=== PATIENT | female | born 1955 | race African-American/Black ===

== ENCOUNTER 2018-12-28 14:36 | Inpatient (IN) | payer OTHER ==
--- NOTE | 2018-12-28 14:46 | PDOC ---
Rapid Medical Evaluation Chief Complaint: Pain Time Seen by Provider: 12/28/18 14:41 Medical Evaluation: Allergies Allergy/AdvReac Type Severity Reaction Status Date / Time No Known Drug Allergies Allergy Verified 03/04/14 10:20 12/28/18 14:41 63 year old female c/o abdominal pain no BM for 10 days, patient is noted to be low sating in triage. patient reports that she has pain under her left breast and left shoulder PMHX: HTN, diabetes, amputee Left AKA. PE: patient alert ox3. distended abdomen, slight labored breathing A: abdominal pain P: labs EKG chest xray patient to the er FOR further management of care. Discharge Disposition - Diagnosis Abdominal pain Qualifiers: Abdominal location: generalized Qualified Code(s): R10.84 - Generalized abdominal pain Chest pain Qualifiers: Chest pain type: unspecified Qualified Code(s): R07.9 - Chest pain, unspecified - Referrals - Patient Instructions - Post Discharge Activity
--- NOTE | 2018-12-28 15:43 | PDOC ---
History of Present Illness - General Chief Complaint: Pain Stated Complaint: SICK Time Seen by Provider: 12/28/18 14:41 History Source: Patient, Family - History of Present Illness Initial Comments: 12/28/18 15:38 63 yo F PMH HTN, DM, IVC filter, Depression, L AKA , presents to the ED for weakness, SOB. Pt states she is having a problem with her speech which has worsening especially over the past week. patient was unable to provide a thorough history, but cousin at bedside provided history. she states that they came to visit [place] on 12/14 and since then her health began to deteriorate. pt hasnt been as compliant with her medications and has not been checking her sugar. she has not had a BM since 12/18 although cousin states there is stool in rectum. she states pt has decreased strength as well and becomes more sob than usual. Past History - Past Medical History Allergies/Adverse Reactions: Allergies Allergy/AdvReac Type Severity Reaction Status Date / Time No Known Drug Allergies Allergy Verified 12/28/18 14:46 Home Medications: Ambulatory Orders Amlodipine Besylate [Norvasc -] 10 mg PO DAILY 02/21/14 Aripiprazole [Abilify -] 10 mg PO DAILY 02/21/14 Citalopram Hydrobromide [Citalopram HBr] 20 mg PO DAILY 02/21/14 Celecoxib [Celebrex] 200 mg PO DAILY 12/28/18 Gabapentin [Neurontin -] 300 mg PO TID 12/28/18 Gabapentin [Neurontin] 300 mg PO TID 12/28/18 Latanoprost 0.005% Eye Drops [Xalatan 0.005% Eye Drops -] 1 drop OP HS 12/28/18 Metformin HCl [Glucophage] 500 mg PO BID 12/28/18 Oxybutynin Chloride [Oxybutynin Chloride ER] 5 mg PO DAILY 12/28/18 Topiramate [Topamax] 25 mg PO DAILY 12/28/18 Anemia: Yes Asthma: No Cancer: No Cardiac Disorders: No CVA: No COPD: Yes CHF: No Dementia: No Diabetes: Yes (IDDM) GI Disorders: No Disorders: No HTN: Yes Hypercholesterolemia: No Liver Disease: Yes Seizures: No Thyroid Disease: No - Surgical History Abdominal Surgery: Yes Appendectomy: No Cardiac Surgery: No Cholecystectomy: No Lung Surgery: No Neurologic Surgery: Yes (ZAVALA [place] INSERTION AT 11 YRS OLD) Orthopedic Surgery: No - Immunization History Immunization Up to Date: Yes - Psycho Social/Smoking Cessation Hx Smoking History: Never smoked Have you smoked in the past 12 months: No Hx Alcohol Use: No Drug/Substance Use Hx: No Substance Use Type: None Hx Substance Use Treatment: No Review of Systems - Review of Systems Constitutional: Yes: Chills. No: Fever Respiratory: Yes: Shortness of Breath, SOB with Exertion Cardiac (ROS): No: Chest Pain ABD/GI: Yes: Abdominal Distended, Constipated, Poor Appetite. No: Nausea, Vomiting : Yes: Frequency. No: Dysuria Neurological: Yes: Weakness, Other (difficulty with speech ) *Physical Exam - Vital Signs Last Vital Signs Temp Pulse Resp BP Pulse Ox 97.9 F 88 20 161/80 92 L 12/28/18 14:39 12/28/18 14:39 12/28/18 14:39 12/28/18 14:39 12/28/18 14:39 - Physical Exam General Appearance: Yes: Nourished, Appropriately Dressed, Obese Respiratory/Chest: positive: Labored Respiration, Decreased Breath Sounds, Other (tachypnea ) Cardiovascular: positive: Regular Rhythm, Regular Rate, S1, S2 Gastrointestinal/Abdominal: positive: Decreased BS, Distended Integumentary: positive: Normal Color, Dry, Warm Neurologic: positive: bi report developer II-XII NML intact, Other (difficulty with speech and word finding ). negative: Facial Droop ED Treatment Course - LABORATORY CBC & Chemistry Diagram: 12/28/18 15:30 12/28/18 17:41 - RADIOLOGY Radiology Studies Ordered: Category Date Time Status HEAD CT WITHOUT CONTRAST [CT] Stat CT Scan 12/28/18 15:32 Ordered CXRPORT [CHEST X-RAY PORTABLE*] [RAD] Stat Radiology 12/28/18 15:33 Ordered Medical Decision Making - Medical Decision Making 12/28/18 15:45 63 yo F presenting with SOB, abdominal distention, diabetes r/o DKA r/o partial SBO? r/o ACS, TIA , stroke r/o pna -CBC,CMP, UA -cardiac profile, EKG -sepsis workup: BCx, UCx, CXR, lactate , VBG -head CT -Abdomen Pelvis CT, pending BUN/Cr for contrast use -BGM , beta hydroxybutyrate -NC Oxygen as pt sat low, tachypneic 12/28/18 15:48 12/28/18 15:49 12/28/18 18:58 - no acute intracranial pathology on CT -lactate elevated' -BGM 88, not DKA 12/28/18 18:59 12/28/18 19:16 consulted neuro, Dr. Mcgarry, recommended admit for possible brain MRI in Am 12/28/18 20:13 -duplex no DVT 12/28/18 23:17 CT abdomen/ pelvis: multiplanar imaging was performed following the venous administration of nonionic contrast. Enteric contrast was not administered. No prior imaging studies are available at this facility for direct comparison. No evidence of pneumoperitoneum, free intraperitoneal fluid, abscess or bowel obstruction. Allowing for somewhat diminished soft tissue detail as a result of body habitus the spleen, pancreas, gallbladder, adrenal glands and kidneys demonstrate no obvious pathology. Diffuse fatty infiltration of the liver is seen. No gross hepatic mass lesion is identified. There is no aortic aneurysm. No CT evidence of acute appendicitis or diverticulitis. There is no gross noncontrast small bowel pathology. Colonic fecal retention is noted which is probably moderate. Absent versus atrophic uterus. No obvious adnexal pathology is seen. The urinary bladder appears mildly overdistended which may be on a physiologic basis. Correlate clinically. inferior vena cava filter in place. Moderate to marked thoracolumbar scoliosis. Multilevel thoracolumbar surgical instrumentation. Discharge - Discharge Information Clinical Impression/Diagnosis: Abdominal pain Qualifiers: Abdominal location: generalized Qualified Code(s): R10.84 - Generalized abdominal pain Chest pain Qualifiers: Chest pain type: unspecified Qualified Code(s): R07.9 - Chest pain, unspecified Condition: Good - Admission Yes - Follow up/Referral - Patient Discharge Instructions - Post Discharge Activity
--- NOTE | 2018-12-28 15:46 | PDOC ---
Attending Attestation - Resident Resident Name: Norah Kenyon - ED Attending Attestation I have performed the following: I have examined & evaluated the patient, The case was reviewed & discussed with the resident, I agree w/resident's findings & plan, Exceptions are as noted - HPI HPI: 12/28/18 15:32 63 F with h/o DM, L BKA, HTN, presenting to ED with word-finding difficulties. Per family member at bedside, pt has been visiting from [place] since last week, over which time she has not been taking her medications or checking her sugars. She states that she left all her meds at home. Family notes that her speech has become progressively more confused. Pt complains that she has a hard time finding her words. She also reports abdominal pain and constipation. Last BM was reportedly 10 days ago. Denies F/C. Denies CP/SOB. - Physicial Exam PE: 12/28/18 15:46 GENERAL: Awake, alert, in mild respiratory distress. HEAD: No signs of trauma EYES: PERRLA, EOMI, sclera anicteric, conjunctiva clear ENT: Auricles normal inspection, hearing grossly normal, nares patent, oropharynx clear without exudates. Moist mucosa NECK: Nontender, no stepoffs, Normal ROM, supple, no lymphadenopathy, JVD, or masses LUNGS: Breath sounds equal, clear to auscultation bilaterally. No wheezes, and no crackles HEART: Regular rate and rhythm, normal S1 and S2, no murmurs, rubs or gallops ABDOMEN: Soft, distended, normoactive bowel sounds. No guarding, no rebound. No masses EXTREMITIES: + L BKA NEUROLOGICAL: Cranial nerves II through XII intact. 5/5 strength and sensation in all extremities, Normal speech, normal gait, normal cerebellar function SKIN: Warm, Dry, normal turgor, no rashes or lesions noted. - Medical Decision Making 12/28/18 15:47 63 F with word finding difficulty. Concerning for CVA. Last known normal was 1 week ago. Pt also with tachypnea and hypoxia in ED in the setting of noncompliance with her medications. WIll evaluate for metabolic derangement. Possible sepsis. - Labs, cultures - CXR, UA - CT head
[2018-12-28 16:53] LABS: BASO % 0.5 % (0-2.0); EOS % 3.5 % (0-4.5); HEMATOCRIT 37.5 % (32.4-45.2); HEMOGLOBIN 11.5 GM/dL (10.7-15.3); LYMPH % 18.6 % (8-40); MCH 22.5 pg (25.7-33.7); MCHC 30.6 g/dl (32.0-36.0); MEAN CELL VOLUME 73.6 fl (80-96); MEAN PLT VOLUME 10.2 fl (7.5-11.1); MONO % 11.6 % (3.8-10.2); NEUT % 65.8 % (42.8-82.8); PLATELET COUNT 169 K/MM3 (134-434); RDW 19.4 % (11.6-15.6); WHITE BLOOD COUNT 7.8 K/mm3 (4.0-10.0)
[2018-12-28 17:13] LABS: EPI CELLS 0.9 /HPF (0-5/HPF); HYALINE CASTS 2 /lpf (0-8); PH,URINE 7.5 (5.0-8.0); URINE APPEARANCE CLEAR; URINE BACTERIA 10.3 /hpf (NEGATIVE); URINE BILIRUBIN NEGATIVE (NEGATIVE); URINE COLOR YELLOW; URINE GLUCOSE (UA) NEGATIVE (NEGATIVE); URINE KETONE NEGATIVE (NEGATIVE); URINE LEUK ESTERASE NEGATIVE (NEGATIVE); URINE NITRITE NEGATIVE (NEGATIVE); URINE PROTEIN 1+ (NEGATIVE); URINE WBC 1 /hpf (0-5)
[2018-12-28 18:22] LABS: ALBUMIN 2.9 g/dl (3.4-5.0); ALK PHOS 143 U/L (45-117); ANION GAP 6 MMOL/L (8-16); BILIRUBIN,TOTAL 0.3 mg/dL (0.2-1); BLOOD UREA NITROGEN 20.2 mg/dL (7-18); CALCIUM 9.6 mg/dL (8.5-10.1); CHLORIDE 112 mmol/L (98-107); CO2 26 mmol/L (21-32); CREATININE 1.2 mg/dL (0.55-1.3); GLUCOSE,RANDOM 84 mg/dL (74-106); LIPASE 124 U/L (73-393); MAGNESIUM 1.9 mg/dL (1.8-2.4); N-TERMINAL BNP 41.1 pg/ml (5-125); PHOSPHOROUS 3.3 mg/dL (2.5-4.9); POTASSIUM 4.4 mmol/L (3.5-5.1); SGOT/AST 43 U/L (15-37); SGPT/ALT 37 U/L (13-61); SODIUM 144 mmol/L (136-145); TOT PROT 7.6 g/dl (6.4-8.2)
[2018-12-28] MEDS ORDERED: SODIUM CHLORIDE 500 ML IV STA (18:58)
[2018-12-28 20:26] LABS: URINE RBC 11.9 /hpf (0-4)
--- NOTE | 2018-12-29 00:52 | HP ---
CHIEF COMPLAINT: increased difficulty speech PCP: [facility] PCP HISTORY OF PRESENT ILLNESS: 63F w pmh of HTN, NIDDM, LLE wound s/p L AKA(~1999), IVC filter presenting with complaint of increased difficult of speech x1week. Words have been slowed, sentences have been shortened, worsened memory. Denies recent falls, traumas. Also endorses worsening throbbing Right calf-foot pain, Left-upper abd pain. Had nausea-vomiting x2 of greenish fluid last week. Has been noncompliant with medications due to the belief that combining her daily wine coolers w/ medications is bad. Denies h/o TN, stroke, irreg heart beats, palpitations. Denies weakness of her limbs. Ambulates with WC. Pt is visiting [place] from [place]. Patient's family not available at bedside to provide supplemental history. ER course was notable for: (1) Lactic acid 4.2 (2) NS 500ml x1 (3) CTH: neg intracranial path (4) CT A/P: colonic fecal retention, absent-atrophic uterus (5) LE duplex: neg DVT (6) Neuro(Malkani): will eval pt in AM, may need MRI brain Recent Travel: none PAST MEDICAL HISTORY: HTN, NIDDM, LLE wound s/p L AKA(~1999), IVC filter PAST SURGICAL HISTORY: L AKA(~1999) IVC filter(>10ys?) Hysterectomy Social History: Smoking: quit in 1998 Alcohol: drinks 1 wine cooler a few times week Drugs: denies Allergies No Known Drug Allergies Allergy (Verified 12/28/18 14:46) HOME MEDICATIONS: Home Medications Medication Instructions Recorded Amlodipine Besylate [Norvasc -] 10 mg PO DAILY 02/21/14 Aripiprazole [Abilify -] 10 mg PO DAILY 02/21/14 Citalopram Hydrobromide 20 mg PO DAILY 02/21/14 [Citalopram HBr] Celecoxib [Celebrex] 200 mg PO DAILY 12/28/18 Gabapentin [Neurontin -] 300 mg PO TID 12/28/18 Gabapentin [Neurontin] 300 mg PO TID 12/28/18 Latanoprost 0.005% Eye Drops 1 drop OP HS 12/28/18 [Xalatan 0.005% Eye Drops -] Metformin HCl [Glucophage] 500 mg PO BID 12/28/18 Oxybutynin Chloride [Oxybutynin 5 mg PO DAILY 12/28/18 Chloride ER] Topiramate [Topamax] 25 mg PO DAILY 12/28/18 REVIEW OF SYSTEMS CONSTITUTIONAL: fever 3-4weeks prior Absent: chills, diaphoresis, generalized weakness, malaise, loss of appetite, weight change HEENT: Absent: rhinorrhea, nasal congestion, throat pain, throat swelling, difficulty swallowing, mouth swelling, ear pain, eye pain, visual changes CARDIOVASCULAR: Absent: chest pain, syncope, palpitations, irregular heart rate, lightheadedness , peripheral edema RESPIRATORY: Absent: cough, shortness of breath, dyspnea with exertion, wheezing, stridor, hemoptysis GASTROINTESTINAL: upper abdominal pain, not associated w/ food; nausea/vomiting x2 episodes Absent: abdominal distension, diarrhea, constipation, melena, hematochezia GENITOURINARY: Absent: dysuria, frequency, urgency, hesitancy, hematuria, flank pain, genital pain MUSCULOSKELETAL: Absent: myalgia, arthralgia, joint swelling, back pain, neck pain SKIN: Absent: rash, itching, pallor NEUROLOGIC: increasing difficult with speech, mild temporal CHAU Absent: focal weakness or paresthesias, dizziness, unsteady gait, seizure, mental status changes, bladder or bowel incontinence PHYSICAL EXAMINATION Vital Signs - 24 hr 12/28/18 12/28/18 12/28/18 14:39 21:46 23:22 Temperature 97.9 F 98.9 F Pulse Rate 88 Pulse Rate [ 81 Radial] Respiratory 20 20 Rate Blood Pressure 161/80 Blood Pressure 117/52 L [Left Arm] O2 Sat by Pulse 92 L 94 L Oximetry (%) GENERAL: awake, lethargic-appearing. NAD. Obese HEAD: NC/AT EYES: extraocular movements intact, sclera anicteric, conjunctiva clear. No lid lag. EARS, NOSE, THROAT: Ears normal, nares patent, oropharynx clear without exudates. Moist mucous membranes. NECK: Normal range of motion, supple without lymphadenopathy, JVD, or masses. LUNGS: Breath sounds w/mild expiratory wheezes at lung bases b/l. No crackles. No accessory muscle use. Breathing RA HEART: Regular rate and rhythm, normal S1 and S2 without murmur, rub or gallop. ABDOMEN: lower midline surgical incisional scar. Soft, ND, nonTTP [id number]. No guarding, rebound tenderness UPPER EXTREMITIES: 2+ pulses, warm, well-perfused. No cyanosis. LOWER EXTREMITIES: 2+ pulses of RLE, foot and lower leg with hyperpigmented mildly indurated skin; no warmth, no erythema. LLE is s/p avbove-ankle- ampution. NEUROLOGICAL: Cranial nerves II-XII intact. Weak Left hand panman, 4/5. Slowed speech, speaking short phrases. SKIN: Warm, dry, normal turgor, no rashes or lesions noted, normal capillary refill. Laboratory Results - last 24 hr 12/28/18 12/28/18 12/28/18 15:30 15:30 15:30 WBC 7.8 RBC 5.10 Hgb 11.5 Hct 37.5 MCV 73.6 L MCH 22.5 L MCHC 30.6 L RDW 19.4 H Plt Count 169 MPV 10.2 Absolute Neuts (auto) 5.1 Neutrophils % 65.8 Lymphocytes % 18.6 D Monocytes % 11.6 H D Eosinophils % 3.5 Basophils % 0.5 D Nucleated RBC % 0 Sodium Cancelled Potassium Cancelled Chloride Cancelled Carbon Dioxide Cancelled Anion Gap Cancelled BUN Cancelled Creatinine Cancelled Est GFR (CKD-EPI)AfAm Cancelled Est GFR (CKD-EPI)NonAf Cancelled POC Glucometer Random Glucose Cancelled Lactic Acid 4.2 H* Calcium Cancelled Phosphorus Magnesium Total Bilirubin Cancelled AST Cancelled ALT Cancelled Alkaline Phosphatase Cancelled Creatine Kinase Cancelled Creatine Kinase Index CK-MB (CK-2) Troponin I Cancelled B-Natriuretic Peptide Total Protein Cancelled Albumin Cancelled Lipase Cancelled Beta-Hydroxybutyrate Cancelled Urine Color Urine Appearance Urine pH Ur Specific [place] Urine Protein Urine Glucose (UA) Urine Ketones Urine Blood Urine Nitrite Urine Bilirubin Urine Urobilinogen Ur Leukocyte Esterase Urine WBC (Auto) Urine RBC (Auto) Urine Casts (Auto) U Epithel Cells (Auto) Urine Bacteria (Auto) 12/28/18 12/28/18 12/28/18 16:42 17:33 17:41 WBC RBC Hgb Hct MCV MCH MCHC RDW Plt Count MPV Absolute Neuts (auto) Neutrophils % Lymphocytes % Monocytes % Eosinophils % Basophils % Nucleated RBC % Sodium Potassium Chloride Carbon Dioxide Anion Gap BUN Creatinine Est GFR (CKD-EPI)AfAm Est GFR (CKD-EPI)NonAf POC Glucometer 88 Random Glucose Lactic Acid Calcium Phosphorus Magnesium Total Bilirubin AST ALT Alkaline Phosphatase Creatine Kinase Creatine Kinase Index CK-MB (CK-2) Troponin I B-Natriuretic Peptide Total Protein Albumin Lipase Beta-Hydroxybutyrate 2.0 Urine Color Yellow Urine Appearance Clear Urine pH 7.5 Ur Specific [place] 1.012 Urine Protein 1+ H Urine Glucose (UA) Negative Urine Ketones Negative Urine Blood Negative Urine Nitrite Negative Urine Bilirubin Negative Urine Urobilinogen 2.0 H Ur Leukocyte Esterase Negative Urine WBC (Auto) 1 Urine RBC (Auto) 11.9 Urine Casts (Auto) 2 U Epithel Cells (Auto) 0.9 Urine Bacteria (Auto) 10.3 12/28/18 17:41 WBC RBC Hgb Hct MCV MCH MCHC RDW Plt Count MPV Absolute Neuts (auto) Neutrophils % Lymphocytes % Monocytes % Eosinophils % Basophils % Nucleated RBC % Sodium 144 Potassium 4.4 Chloride 112 H Carbon Dioxide 26 Anion Gap 6 L BUN 20.2 H Creatinine 1.2 Est GFR (CKD-EPI)AfAm 54.92 Est GFR (CKD-EPI)NonAf 47.39 POC Glucometer Random Glucose 84 Lactic Acid Calcium 9.6 Phosphorus 3.3 Magnesium 1.9 Total Bilirubin 0.3 AST 43 H ALT 37 Alkaline Phosphatase 143 H Creatine Kinase 178 Creatine Kinase Index No Result Required. CK-MB (CK-2) < 1.0 Troponin I < 0.02 B-Natriuretic Peptide 41.1 Total Protein 7.6 Albumin 2.9 L Lipase 124 Beta-Hydroxybutyrate Urine Color Urine Appearance Urine pH Ur Specific [place] Urine Protein Urine Glucose (UA) Urine Ketones Urine Blood Urine Nitrite Urine Bilirubin Urine Urobilinogen Ur Leukocyte Esterase Urine WBC (Auto) Urine RBC (Auto) Urine Casts (Auto) U Epithel Cells (Auto) Urine Bacteria (Auto) ASSESSMENT/PLAN: 63F w pmh of HTN, NIDDM, LLE wound s/p L AKA(~1999), IVC filter presenting with complaint of increased difficulty of speech x1week w/a short-term memory loss; also complaining of multifocal pain(abd, R foot, R lower leg). Neuro(John) recommending admission, possible MRI. Admitted for CVA r/o. CTH neg for intracranial path. CT A/P showing colonic fecal retention. BLE duplex neg for DVT. # dysarthria --possibly 2/2 CVA vs Acute Toxic Encephalopathy > CTH(12/28/18): neg for intracranial path > MRI --possible --pending Neuro consult > carotid U/S --pending > echo --pending - Neuro(Molkani) consult --pending - fu TSH - fu B12 - fu RPR - fall precautions - S&S - ASA 81mg + Statin(lipitor 10mg) # NIDDM - ISS # LLQ abd pain > CT A/P(12/28/18): colonic fecal retention - monitor w/ abd exam #FEN: - NPO - NS @75 #DVT PPX: - SQH Family Medical History Family Hx Diabetes: Grandmother (paternal) (cousin w/ diabetes) Visit type - Emergency Visit Emergency Visit: Yes ED Registration Date: 12/28/18 Care time: The patient presented to the Emergency Department on the above date and was hospitalized for further evaluation of their emergent condition. - New Patient This patient is new to me today: Yes Date on this admission: 12/29/18 - Critical Care Critical Care patient: No ATTENDING PHYSICIAN STATEMENT I saw and evaluated the patient. I reviewed the resident's note and discussed the case with the resident. I agree with the resident's findings and plan as documented. SUBJECTIVE: OBJECTIVE: ASSESSMENT AND PLAN:
[2018-12-29] MEDS ORDERED: SODIUM CHLORIDE 1,000 ML IV SCH (01:00)
--- NOTE | 2018-12-29 02:10 | PN ---
Teaching Attending Note Name of Resident: Albaro Knight ATTENDING PHYSICIAN STATEMENT I saw and evaluated the patient. I reviewed the resident's note and discussed the case with the resident. I agree with the resident's findings and plan as documented. SUBJECTIVE: 63 yo Woman with HTN, DM, IVC filter, Depression, L AKA Was complaining of change in her speech which has worsened for about the past week. Patient speech has become slow and less fluent than previously. Denied any problems with swallowing or any headaches. Denied any focal weaknesses anywhere. OBJECTIVE: Last Vital Signs Temp Pulse Resp BP Pulse Ox 98.9 F 81 20 117/52 L 94 L 12/28/18 23:22 12/28/18 21:46 12/28/18 21:46 12/28/18 21:46 12/28/18 21:46 GENERAL: Well developed, well nourished. Awake and alert. No acute distress. HEENT: Normocephalic, atraumatic. PERRLA, EOMI. No conjunctival pallor. Sclera are non- icteric. Moist mucous membranes. Oropharynx is clear. NECK: Supple. Full ROM. No JVD. Carotid pulses 2+ and symmetric, without bruits. No thyromegaly. No lymphadenopathy. CARDIOVASCULAR: Regular rate and rhythm. No murmurs, rubs, or gallops. Distal pulses are 2+ and symmetric. PULMONARY: No evidence of respiratory distress. Lungs clear to auscultation bilaterally. No wheezing, rales or rhonchi. ABDOMINAL: Soft. Non-tender. Non-distended. No rebound or guarding. No organomegaly. Normoactive bowel sounds. MUSCULOSKELETAL Normal range of motion at all joints. No bony deformities or tenderness. No CVA tenderness. EXTREMITIES: No cyanosis. No clubbing. No edema. No calf tenderness. SKIN: Warm and dry. Normal capillary refill. No rashes. No jaundice. NEUROLOGICAL: Exam limited by patient cooperation. She was not fully able to raise arms above her head bilaterally, limited movement of right lower extremity. No hyperreflexia appreciated. Speech was noted to be slow and nonfluent. Cranial nerves were grossly intact on exam. PSYCHIATRIC: Cooperative. Good eye contact. Appropriate mood and affect. Abnormal Lab Results 12/28/18 12/28/18 12/28/18 15:30 15:30 16:42 MCV 73.6 L MCH 22.5 L MCHC 30.6 L RDW 19.4 H Monocytes % 11.6 H D Chloride Anion Gap BUN Lactic Acid 4.2 H* AST Alkaline Phosphatase Albumin Urine Protein 1+ H Urine Urobilinogen 2.0 H 12/28/18 17:41 MCV MCH MCHC RDW Monocytes % Chloride 112 H Anion Gap 6 L BUN 20.2 H Lactic Acid AST 43 H Alkaline Phosphatase 143 H Albumin 2.9 L Urine Protein Urine Urobilinogen Imaging studies reviewed ASSESSMENT AND PLAN: 63-year-old woman with dysarthria. Uncertain etiology however CVA should be ruled out. Telemetry Neuro checks every 4 hours N.p.o. BGM's Speech and swallow evaluation Physical therapy evaluation Echo Carotid Doppler Neurology evaluation Brain MRI ASA Statin TSH Vitamin B12 RPR Heparin subcutaneously for DVT prophylaxis
[2018-12-29] MEDS: SODIUM CHLORIDE 1,000 ML IV SCH ×2 (02:20→16:43)
[2018-12-29] MEDS: INSULIN SLIDING SCALE (NOVOLOG) 1 VIAL SQ SCH ×4 (02:20→17:45)
[2018-12-29 04:15] VITALS: BMI 51.7
[2018-12-29 07:20] LABS: BASO % 0.5 % (0-2.0); EOS % 4.7 % (0-4.5); HEMOGLOBIN 10.6 GM/dL (10.7-15.3); LYMPH % 20.9 % (8-40); MCH 22.8 pg (25.7-33.7); MCHC 31.2 g/dl (32.0-36.0); MEAN PLT VOLUME 9.9 fl (7.5-11.1); MONO % 11.5 % (3.8-10.2); NEUT % 62.4 % (42.8-82.8); PLATELET COUNT 153 K/MM3 (134-434); RBC 4.66 M/mm3 (3.60-5.2); RDW 19.3 % (11.6-15.6); WHITE BLOOD COUNT 6.9 K/mm3 (4.0-10.0)
[2018-12-29 07:30] LABS: INR 1.15 (0.83-1.09); PROTHROMBIN TIME (PATIENT) 13.6 SEC (9.7-13.0)
[2018-12-29 07:33] LABS: ACTIVATED PTT 43.7 SECONDS (25.2-36.5)
[2018-12-29 07:37] LABS: ALBUMIN 2.7 g/dl (3.4-5.0); BILIRUBIN,TOTAL 0.4 mg/dL (0.2-1); CALCIUM 9.4 mg/dL (8.5-10.1); CREATININE 1.2 mg/dL (0.55-1.3); MAGNESIUM 1.8 mg/dL (1.8-2.4); PHOSPHOROUS 3.4 mg/dL (2.5-4.9); POTASSIUM 4.1 mmol/L (3.5-5.1); TOT PROT 6.9 g/dl (6.4-8.2)
[2018-12-29] MEDS ORDERED: ALBUTEROL SO4 0.083% IH SOL 2.5 MG/3 ML VIAL.NEB. NEB PRN (09:25)
[2018-12-29] MEDS ORDERED: methylPREDNISolone NA SUCC 125 MG/2 ML VIAL IVPUSH ONE (09:25)
[2018-12-29] MEDS ORDERED: hydrALAZINE HCL 20 MG/ML VIAL IVPUSH PRN (09:26)
--- NOTE | 2018-12-29 09:29 | PN ---
Physical Exam: SUBJECTIVE: Patient seen and examined, c/o difficulty with speech, also c/o dyspnea, unable to speak in full sentences, but reports vague abdominal pain, also h/o nausea/vomiting x 1 prior to admission but none inhouse and vauge left/ right calf pain. OBJECTIVE: Vital Signs Period Temp Pulse Resp BP Sys/Singer Pulse Ox Last 24 Hr 97.9 F-98.9 F 79-88 20-20 117-169/52-86 92-95 Intake & Output 12/26/18 12/27/18 12/28/18 12/29/18 23:59 23:59 23:59 23:59 Weight 220 lb 256 lb 8 oz GENERAL:sitting in bed, tachypneic, unable to talk in full sentences Neck: soft, limited exam given habitus Chest: Decreased air entry all over, no rales or wheezing appreciated Abdomen:Soft, obese, NT Extremities: Left AKA, Right LE chronic skin changes with 1+ pedal edema, no calf tenderness noted Neuro: Awake, responds to name, slow in responses, oriented to place, facial symmetry, speech slow, dysarthric, PERRL, EOMI, intermittent shaking bilateral upper extremities,no pronator drift, withdraws LE to pain, however limited exam as patient short of breath, Laboratory Results - last 24 hr 12/28/18 12/28/18 12/28/18 15:30 15:30 15:30 WBC 7.8 RBC 5.10 Hgb 11.5 Hct 37.5 MCV 73.6 L MCH 22.5 L MCHC 30.6 L RDW 19.4 H Plt Count 169 MPV 10.2 Absolute Neuts (auto) 5.1 Neutrophils % 65.8 Lymphocytes % 18.6 D Monocytes % 11.6 H D Eosinophils % 3.5 Basophils % 0.5 D Nucleated RBC % 0 PT with INR INR PTT (Actin FS) Sodium Cancelled Potassium Cancelled Chloride Cancelled Carbon Dioxide Cancelled Anion Gap Cancelled BUN Cancelled Creatinine Cancelled Est GFR (CKD-EPI)AfAm Cancelled Est GFR (CKD-EPI)NonAf Cancelled POC Glucometer Random Glucose Cancelled Hemoglobin A1c % Lactic Acid 4.2 H* Calcium Cancelled Phosphorus Magnesium Total Bilirubin Cancelled AST Cancelled ALT Cancelled Alkaline Phosphatase Cancelled Creatine Kinase Cancelled Creatine Kinase Index CK-MB (CK-2) Troponin I Cancelled B-Natriuretic Peptide Total Protein Cancelled Albumin Cancelled Triglycerides Cholesterol Total LDL Cholesterol HDL Cholesterol Lipase Cancelled Beta-Hydroxybutyrate Cancelled TSH Urine Color Urine Appearance Urine pH Ur Specific [place] Urine Protein Urine Glucose (UA) Urine Ketones Urine Blood Urine Nitrite Urine Bilirubin Urine Urobilinogen Ur Leukocyte Esterase Urine WBC (Auto) Urine RBC (Auto) Urine Casts (Auto) U Epithel Cells (Auto) Urine Bacteria (Auto) 12/28/18 12/28/18 12/28/18 16:42 17:33 17:41 WBC RBC Hgb Hct MCV MCH MCHC RDW Plt Count MPV Absolute Neuts (auto) Neutrophils % Lymphocytes % Monocytes % Eosinophils % Basophils % Nucleated RBC % PT with INR INR PTT (Actin FS) Sodium Potassium Chloride Carbon Dioxide Anion Gap BUN Creatinine Est GFR (CKD-EPI)AfAm Est GFR (CKD-EPI)NonAf POC Glucometer 88 Random Glucose Hemoglobin A1c % Lactic Acid Calcium Phosphorus Magnesium Total Bilirubin AST ALT Alkaline Phosphatase Creatine Kinase Creatine Kinase Index CK-MB (CK-2) Troponin I B-Natriuretic Peptide Total Protein Albumin Triglycerides Cholesterol Total LDL Cholesterol HDL Cholesterol Lipase Beta-Hydroxybutyrate 2.0 TSH Urine Color Yellow Urine Appearance Clear Urine pH 7.5 Ur Specific [place] 1.012 Urine Protein 1+ H Urine Glucose (UA) Negative Urine Ketones Negative Urine Blood Negative Urine Nitrite Negative Urine Bilirubin Negative Urine Urobilinogen 2.0 H Ur Leukocyte Esterase Negative Urine WBC (Auto) 1 Urine RBC (Auto) 11.9 Urine Casts (Auto) 2 U Epithel Cells (Auto) 0.9 Urine Bacteria (Auto) 10.3 12/28/18 12/29/18 12/29/18 17:41 01:22 02:17 WBC RBC Hgb Hct MCV MCH MCHC RDW Plt Count MPV Absolute Neuts (auto) Neutrophils % Lymphocytes % Monocytes % Eosinophils % Basophils % Nucleated RBC % PT with INR INR PTT (Actin FS) Sodium 144 Potassium 4.4 Chloride 112 H Carbon Dioxide 26 Anion Gap 6 L BUN 20.2 H Creatinine 1.2 Est GFR (CKD-EPI)AfAm 54.92 Est GFR (CKD-EPI)NonAf 47.39 POC Glucometer 109 Random Glucose 84 Hemoglobin A1c % Lactic Acid 1.7 Calcium 9.6 Phosphorus 3.3 Magnesium 1.9 Total Bilirubin 0.3 AST 43 H ALT 37 Alkaline Phosphatase 143 H Creatine Kinase 178 Creatine Kinase Index No Result Required. CK-MB (CK-2) < 1.0 Troponin I < 0.02 B-Natriuretic Peptide 41.1 Total Protein 7.6 Albumin 2.9 L Triglycerides Cholesterol Total LDL Cholesterol HDL Cholesterol Lipase 124 Beta-Hydroxybutyrate TSH Urine Color Urine Appearance Urine pH Ur Specific [place] Urine Protein Urine Glucose (UA) Urine Ketones Urine Blood Urine Nitrite Urine Bilirubin Urine Urobilinogen Ur Leukocyte Esterase Urine WBC (Auto) Urine RBC (Auto) Urine Casts (Auto) U Epithel Cells (Auto) Urine Bacteria (Auto) 12/29/18 12/29/18 12/29/18 05:45 05:45 05:45 WBC 6.9 RBC 4.66 Hgb 10.6 L Hct 34.0 MCV 73.0 L MCH 22.8 L MCHC 31.2 L RDW 19.3 H Plt Count 153 MPV 9.9 Absolute Neuts (auto) 4.3 Neutrophils % 62.4 Lymphocytes % 20.9 Monocytes % 11.5 H Eosinophils % 4.7 H Basophils % 0.5 Nucleated RBC % 0 PT with INR 13.60 H INR 1.15 H PTT (Actin FS) 43.7 H Sodium 145 Potassium 4.1 Chloride 113 H Carbon Dioxide 30 Anion Gap 3 L BUN 18.0 Creatinine 1.2 Est GFR (CKD-EPI)AfAm 54.92 Est GFR (CKD-EPI)NonAf 47.39 POC Glucometer Random Glucose 83 Hemoglobin A1c % Lactic Acid Calcium 9.4 Phosphorus 3.4 Magnesium 1.8 Total Bilirubin 0.4 AST 36 ALT 33 Alkaline Phosphatase 125 H Creatine Kinase Creatine Kinase Index CK-MB (CK-2) Troponin I B-Natriuretic Peptide Total Protein 6.9 Albumin 2.7 L Triglycerides 91 Cholesterol 159 Total LDL Cholesterol 82 HDL Cholesterol 63 H Lipase Beta-Hydroxybutyrate TSH 7.44 H Urine Color Urine Appearance Urine pH Ur Specific [place] Urine Protein Urine Glucose (UA) Urine Ketones Urine Blood Urine Nitrite Urine Bilirubin Urine Urobilinogen Ur Leukocyte Esterase Urine WBC (Auto) Urine RBC (Auto) Urine Casts (Auto) U Epithel Cells (Auto) Urine Bacteria (Auto) 12/29/18 12/29/18 05:45 06:07 WBC RBC Hgb Hct MCV MCH MCHC RDW Plt Count MPV Absolute Neuts (auto) Neutrophils % Lymphocytes % Monocytes % Eosinophils % Basophils % Nucleated RBC % PT with INR INR PTT (Actin FS) Sodium Potassium Chloride Carbon Dioxide Anion Gap BUN Creatinine Est GFR (CKD-EPI)AfAm Est GFR (CKD-EPI)NonAf POC Glucometer 93 Random Glucose Hemoglobin A1c % 6.7 H Lactic Acid Calcium Phosphorus Magnesium Total Bilirubin AST ALT Alkaline Phosphatase Creatine Kinase Creatine Kinase Index CK-MB (CK-2) Troponin I B-Natriuretic Peptide Total Protein Albumin Triglycerides Cholesterol Total LDL Cholesterol HDL Cholesterol Lipase Beta-Hydroxybutyrate TSH Urine Color Urine Appearance Urine pH Ur Specific [place] Urine Protein Urine Glucose (UA) Urine Ketones Urine Blood Urine Nitrite Urine Bilirubin Urine Urobilinogen Ur Leukocyte Esterase Urine WBC (Auto) Urine RBC (Auto) Urine Casts (Auto) U Epithel Cells (Auto) Urine Bacteria (Auto) Active Medications Generic Name Dose Route Start Last Admin Trade Name Freq PRN Reason Stop Dose Admin Albuterol Sulfate 1 amp 12/29/18 09:25 Ventolin 0.083% Nebulizer Soln - NEB Q4H PRN SHORT OF BREATH/WHEEZING Albuterol/Ipratropium 1 amp 12/29/18 12:00 Duoneb - NEB RQID MARIA R Aspirin 81 mg 12/29/18 10:00 Ecotrin - PO DAILY MARIA R Atorvastatin Calcium 10 mg 12/29/18 22:00 Lipitor - PO HS MARIA R Heparin Sodium (Porcine) 5,000 unit 12/29/18 10:00 Heparin - SQ BID [facility] Sodium Chloride 1,000 mls @ 75 mls/hr 12/29/18 01:00 12/29/18 02:20 Normal Saline - IV 75 mls/hr ASDIR MARIA R Administration Insulin Aspart 1 vial 12/29/18 01:45 12/29/18 06:19 Novolog Vial Sliding Scale - SQ Not Given Q6HPO [facility] Protocol Methylprednisolone Sodium Succinate 125 mg 12/29/18 09:25 Solu-Medrol - IVPUSH 12/29/18 09:26 ONCE ONE telemetry: NSR Vascular duplex/CXR/CT A/P results reviewed ASSESSMENT/PLAN: 63 yof with PMHx of HTN, NIDDM, LLE wound s/p AKA, s/p IVC filter, admitted with dysarthria, dyspnea, and vague abdominal pain/nausea/vomting x 1, recent non compliance with medicatios -Dysarthria, r/o CVA -Acute respiratory distress, COPD exacerbation vs aspiration the setting of concerning CVA, r/o PE (?H/o IVC filter), however low suspicion given current exam, poor entry and prior smoking history) -Lactic acidosis, Hypovolumia vs respiratory effort, low suspicion for sepsis -Suspected underlying RICHY/OHS. -HTN -IDDM -LLE wound s/p AKA -s/p IVC filter Plan: Check ABG/CTA chest, Start nebs, solumedrol 125 mg IV x1. Strict NPO with aspiration precautions for now till respiratory status improved. Gentle hydration Neuro checks. MRI brain. Follow up carotid duplex studies. Telemetry, 2D echo, Rectal ASA for now. Statin when able to take po Neurology input Retrieve prior home meds Hydralazine IV prn for now. Hold metformin. ISS DVTPPX heparin Dispo will need PT eval, home oxygen needs assessment when medically ready for dc plan discussed with patient and nursing, all questions answered Visit type - Emergency Visit Emergency Visit: Yes ED Registration Date: 12/28/18 Care time: The patient presented to the Emergency Department on the above date and was hospitalized for further evaluation of their emergent condition. - New Patient This patient is new to me today: Yes Date on this admission: 12/29/18 - Critical Care Critical Care patient: No - Discharge Referral Referred to [facility] Med P.C.: No
[2018-12-29] MEDS: HEPARIN NA (PORCINE) 5,000 UNITS/ML 1ML VIAL SQ SCH ×2 (10:40→22:52)
[2018-12-29] MEDS: ASPIRIN COATED 81 MG TABLET.EC PO SCH (10:41)
[2018-12-29] MEDS: ASPIRIN 300 MG SUPP.RECT PR SCH (10:41)
[2018-12-29 10:59] LABS: ARTERIAL BLD GAS O2 SATURATION 95.5 % (95-98); ARTERIAL BLOOD GAS BASE EXCESS -0.1 meq/l (-2-2); ARTERIAL BLOOD GAS PCO2 56.9 mmHg (35-45); ARTERIAL BLOOD GAS PO2 90.8 mmHg (80-100)
[2018-12-29 11:00] LABS: ALLENS TEST POSITIVE
[2018-12-29] MEDS: ALBUTEROL SO4 2.5/IPRATROPIUM 0.5 INH SOL 3 ML VIAL.NEB. NEB SCH ×3 (11:00→20:00)
--- NOTE | 2018-12-29 11:52 | CONSULT ---
Consult - text type - Consultation Consultation Note: Neurology PCP: TAO PCP HISTORY OF PRESENT ILLNESS: 63F w pmh of HTN, NIDDM, LLE wound s/p L AKA(~1999), IVC filter presenting with complaint of increased difficult of speech x1week. Words have been slowed, sentences have been shortened, worsened memory. Denies recent falls, traumas. Also endorses worsening throbbing Right calf-foot pain, Left-upper abd pain. Had nausea-vomiting x2 of greenish fluid last week. Has been noncompliant with medications due to the belief that combining her daily wine coolers w/ medications is bad. Denies h/o AL, stroke, irreg heart beats, palpitations. Denies weakness of her limbs. Ambulates with . [place]. Patient's family not available at bedside to provide supplemental history. Vascular study completed, no evidence of DVT, Carotid Doppler study completed, results pending. Head CT completed, no evidence of acute pathology. Lactic Acid elevated on admission at 4.2, reduced to 1.7. LDL at 82, started on statin 10mg daily. ER course with Lactic acid 4.2, Ct head without acute changes. Ct abd/ pelvis with colonic fecal retention, absent-atrophic uterus. Patient reports continued speech difficulty, MRI brain ordered, awaiting completion. Recent Travel: none PAST MEDICAL HISTORY: HTN, NIDDM, LLE wound s/p L AKA(~1999), IVC filter PAST SURGICAL HISTORY: L AKA(~1999) IVC filter(>10ys?) Hysterectomy Social History: Smoking: quit in 1998 Alcohol: drinks 1 wine cooler a few times week Drugs: denies Allergies No Known Drug Allergies Allergy (Verified 12/28/18 14:46) HOME MEDICATIONS: Home Medications Medication Instructions Recorded Amlodipine Besylate [Norvasc -] 10 mg PO DAILY 02/21/14 Aripiprazole [Abilify -] 10 mg PO DAILY 02/21/14 Citalopram Hydrobromide 20 mg PO DAILY 02/21/14 [Citalopram HBr] Celecoxib [Celebrex] 200 mg PO DAILY 12/28/18 Gabapentin [Neurontin -] 300 mg PO TID 12/28/18 Gabapentin [Neurontin] 300 mg PO TID 12/28/18 Latanoprost 0.005% Eye Drops 1 drop OP HS 12/28/18 [Xalatan 0.005% Eye Drops -] Metformin HCl [Glucophage] 500 mg PO BID 12/28/18 Oxybutynin Chloride [Oxybutynin 5 mg PO DAILY 12/28/18 Chloride ER] Topiramate [Topamax] 25 mg PO DAILY 12/28/18 REVIEW OF SYSTEMS CONSTITUTIONAL: fever 3-4weeks prior Absent: chills, diaphoresis, generalized weakness, malaise, loss of appetite, weight change HEENT: Absent: rhinorrhea, nasal congestion, throat pain, throat swelling, difficulty swallowing, mouth swelling, ear pain, eye pain, visual changes CARDIOVASCULAR: Absent: chest pain, syncope, palpitations, irregular heart rate, lightheadedness , peripheral edema RESPIRATORY: Absent: cough, shortness of breath, dyspnea with exertion, wheezing, stridor, hemoptysis GASTROINTESTINAL: upper abdominal pain, not associated w/ food; nausea/vomiting x2 episodes Absent: abdominal distension, diarrhea, constipation, melena, hematochezia GENITOURINARY: Absent: dysuria, frequency, urgency, hesitancy, hematuria, flank pain, genital pain MUSCULOSKELETAL: Absent: myalgia, arthralgia, joint swelling, back pain, neck pain SKIN: Absent: rash, itching, pallor NEUROLOGIC: increasing difficult with speech, mild temporal CHAU Absent: focal weakness or paresthesias, dizziness, unsteady gait, seizure, mental status changes, bladder or bowel incontinence PHYSICAL EXAMINATION Vital Signs Period Temp Pulse Resp BP Sys/Singer Pulse Ox Last 24 Hr 97.9 F-98.9 F 79-88 20-20 117-169/52-86 92-95 GENERAL: awake, lethargic-appearing. NAD. Obese HEAD: NC/AT EYES: extraocular movements intact, sclera anicteric, conjunctiva clear. No lid lag. EARS, NOSE, THROAT: Ears normal, nares patent, oropharynx clear without exudates. Moist mucous membranes. NECK: Normal range of motion, supple without lymphadenopathy, JVD, or masses. LUNGS: Breath sounds w/mild expiratory wheezes at lung bases b/l. No crackles. No accessory muscle use. Breathing RA HEART: Regular rate and rhythm, normal S1 and S2 without murmur, rub or gallop. ABDOMEN: lower midline surgical incisional scar. Soft, ND, nonTTP [id number]. No guarding, rebound tenderness UPPER EXTREMITIES: 2+ pulses, warm, well-perfused. No cyanosis. LOWER EXTREMITIES: 2+ pulses of RLE, foot and lower leg with hyperpigmented mildly indurated skin; no warmth, no erythema. LLE is s/p avbove-ankle- ampution. NEUROLOGICAL: Cranial nerves II-XII intact. 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 Slowed speech, speaking short phrases, finger to nose intact SKIN: Warm, dry, normal turgor, no rashes or lesions noted, normal capillary refill. CBCD WBC 6.9 K/mm3 (4.0-10.0) 12/29/18 05:45 RBC 4.66 M/mm3 (3.60-5.2) 12/29/18 05:45 Hgb 10.6 GM/dL (10.7-15.3) L 12/29/18 05:45 Hct 34.0 % (32.4-45.2) 12/29/18 05:45 MCV 73.0 fl (80-96) L 12/29/18 05:45 MCHC 31.2 g/dl (32.0-36.0) L 12/29/18 05:45 RDW 19.3 % (11.6-15.6) H 12/29/18 05:45 Plt Count 153 K/MM3 (134-434) 12/29/18 05:45 MPV 9.9 fl (7.5-11.1) 12/29/18 05:45 CMP Sodium 145 mmol/L (136-145) 12/29/18 05:45 Potassium 4.1 mmol/L (3.5-5.1) 12/29/18 05:45 Chloride 113 mmol/L (98-107) H 12/29/18 05:45 Carbon Dioxide 30 mmol/L (21-32) 12/29/18 05:45 Anion Gap 3 MMOL/L (8-16) L 12/29/18 05:45 BUN 18.0 mg/dL (7-18) 12/29/18 05:45 Creatinine 1.2 mg/dL (0.55-1.3) 12/29/18 05:45 Random Glucose 83 mg/dL (74-106) 12/29/18 05:45 Calcium 9.4 mg/dL (8.5-10.1) 12/29/18 05:45 Total Bilirubin 0.4 mg/dL (0.2-1) 12/29/18 05:45 AST 36 U/L (15-37) 12/29/18 05:45 ALT 33 U/L (13-61) 12/29/18 05:45 Alkaline Phosphatase 125 U/L (45-117) H 12/29/18 05:45 Total Protein 6.9 g/dl (6.4-8.2) 12/29/18 05:45 Albumin 2.7 g/dl (3.4-5.0) L 12/29/18 05:45 CARDIAC ENZYMES Creatine Kinase 178 U/L (26-192) 12/28/18 17:41 Troponin I < 0.02 ng/ml (0.00-0.05) 12/28/18 17:41 ASSESSMENT/PLAN: 63F w pmh of HTN, NIDDM, LLE wound s/p L AKA(~1999), IVC filter presenting with complaint of increased difficult of speech x1week. Words have been slowed, sentences have been shortened, worsened memory. Denies recent falls, traumas. Also endorses worsening throbbing Right calf-foot pain, Left-upper abd pain. Had nausea-vomiting x2 of greenish fluid last week. Has been noncompliant with medications due to the belief that combining her daily wine coolers w/ medications is bad. Denies h/o AL, stroke, irreg heart beats, palpitations. Denies weakness of her limbs. Ambulates with . [place]. Patient's family not available at bedside to provide supplemental history. Vascular study completed, no evidence of DVT, Carotid Doppler study completed, results pending. Head CT completed, no evidence of acute pathology. Lactic Acid elevated on admission at 4.2, reduced to 1.7. LDL at 82, started on statin 10mg daily. ER course with Lactic acid 4.2, Ct head without acute changes. Ct abd/ pelvis with colonic fecal retention, absent-atrophic uterus. Patient reports continued speech difficulty, MRI brain ordered, awaiting completion. If no contraindications, should be on ASA 81 mg. Speech/swallow eval. Monitor BP, maintain < 160/90 for now.
[2018-12-29] MEDS ORDERED: BISACODYL 10 MG SUPP.RECT PR ONE (18:04)
[2018-12-29] MEDS: ATORVASTATIN CA 10 MG TABLET (FP) PO SCH (22:30)
[2018-12-30] MEDS: INSULIN SLIDING SCALE (NOVOLOG) 1 VIAL SQ SCH ×4 (01:21→17:05)
[2018-12-30] MEDS: SODIUM CHLORIDE 1,000 ML IV SCH ×3 (01:21→21:56)
[2018-12-30] MEDS ORDERED: ACETAMINOPHEN 1000 MG/100 ML VIAL (NON FORMULARY) IVPB ONE (04:22)
[2018-12-30] MEDS: ALBUTEROL SO4 2.5/IPRATROPIUM 0.5 INH SOL 3 ML VIAL.NEB. NEB SCH ×4 (08:11→20:10)
[2018-12-30 08:35] LABS: ARTERIAL BLD GAS O2 SATURATION 95.8 % (95-98); ARTERIAL BLOOD GAS BASE EXCESS 1.1 meq/l (-2-2); ARTERIAL BLOOD GAS PCO2 48.8 mmHg (35-45); ARTERIAL BLOOD GAS pH 7.36 (7.35-7.45)
[2018-12-30 08:38] LABS: ALLENS TEST POSITIVE; ARTERIAL BLOOD GAS PO2 87.7 mmHg (80-100)
--- NOTE | 2018-12-30 09:16 | PN ---
Teaching Attending Note Name of Resident: Katie Nicole ATTENDING PHYSICIAN STATEMENT I saw and evaluated the patient. I reviewed the resident's note and discussed the case with the resident. I agree with the resident's findings and plan as documented with exceptions below. SUBJECTIVE: Patient seen and examined, breathing improved, speech better, asking to eat, no complaints, asking to eat. OBJECTIVE: Vital Signs Period Temp Pulse Resp BP Sys/Singer Pulse Ox Last 24 Hr 97.7 F-99.5 F 65-105 18-22 121-167/60-86 95 Intake & Output 12/27/18 12/28/18 12/29/18 12/30/18 23:59 23:59 23:59 23:59 Intake Total 525 900 Balance 525 900 Weight 220 lb 256 lb 8 oz General: sitting in bed, still tachypneic but improved Neck: soft chest: poor air entry all over, limited by habitus and lack of full co-operation , no rales or wheezing appreciated Abdomen: soft, obese, NT Extremities: left AKA, trace pedal edema RLE Home Medications Medication Instructions Recorded Amlodipine Besylate [Norvasc -] 10 mg PO DAILY 02/21/14 Aripiprazole [Abilify -] 10 mg PO DAILY 02/21/14 Citalopram Hydrobromide 20 mg PO DAILY 02/21/14 [Citalopram HBr] Celecoxib [Celebrex] 200 mg PO DAILY 12/28/18 Gabapentin [Neurontin -] 300 mg PO TID 12/28/18 Gabapentin [Neurontin] 300 mg PO TID 12/28/18 Latanoprost 0.005% Eye Drops 1 drop OP HS 12/28/18 [Xalatan 0.005% Eye Drops -] Metformin HCl [Glucophage] 500 mg PO BID 12/28/18 Oxybutynin Chloride [Oxybutynin 5 mg PO DAILY 12/28/18 Chloride ER] Topiramate [Topamax] 25 mg PO DAILY 12/28/18 Active Medications Albuterol Sulfate (Ventolin 0.083% Nebulizer Soln -) 1 amp NEB Q4H PRN PRN Reason: SHORT OF BREATH/WHEEZING Albuterol/Ipratropium (Duoneb -) 1 amp NEB RQID MARIA R Last Admin: 12/30/18 08:11 Dose: 1 amp Aspirin (Ecotrin -) 81 mg PO DAILY [facility] Last Admin: 12/29/18 10:41 Dose: Not Given Aspirin (Asa -) 300 mg SC DAILY [facility] Last Admin: 12/29/18 10:41 Dose: Not Given Atorvastatin Calcium (Lipitor -) 10 mg PO HS [facility] Last Admin: 12/29/18 22:30 Dose: Not Given Heparin Sodium (Porcine) (Heparin -) 5,000 unit SQ BID [facility] Last Admin: 12/29/18 22:52 Dose: 5,000 unit Hydralazine HCl (Apresoline Injection -) 10 mg IVPUSH Q6H PRN PRN Reason: HYPERTENSION Sodium Chloride (Normal Saline -) 1,000 mls @ 75 mls/hr IV ASDIR [facility] Last Admin: 12/30/18 06:22 Dose: 75 mls/hr Insulin Aspart (Novolog Vial Sliding Scale -) 1 vial SQ Q6HPO [facility]; Protocol Last Admin: 12/30/18 06:39 Dose: Not Given Methylprednisolone Sodium Succinate (Solu-Medrol -) 40 mg IVPUSH BID [facility] Laboratory Results - last 24 hr 12/29/18 12/29/18 12/29/18 06:24 10:25 10:36 Anticoagulation Therapy No Result Required. Puncture Site Right radial ABG pH 7.30 L ABG pCO2 at Pt Temp 56.9 H ABG pO2 at Pt Temp 90.8 ABG HCO3 27.3 H ABG O2 Sat (Measured) 95.5 ABG O2 Content 21.7 ABG Base Excess -0.1 Michael Test Positive O2 Delivery Device No Result Required. Oxygen Flow Rate 3l Vent Mode No Result Required. Vent Rate No Result Required. Mechanical Rate No Result Required. Pressure Support Vent No Result Required. POC Glucometer Free T4 RPR Titer Nonreactive Blood Type O POSITIVE Antibody Screen Negative 12/29/18 12/29/18 12/29/18 10:36 11:14 11:40 Anticoagulation Therapy Puncture Site ABG pH ABG pCO2 at Pt Temp ABG pO2 at Pt Temp ABG HCO3 ABG O2 Sat (Measured) ABG O2 Content ABG Base Excess Michael Test O2 Delivery Device Oxygen Flow Rate Vent Mode Vent Rate Mechanical Rate Pressure Support Vent POC Glucometer 127 Free T4 0.86 RPR Titer Blood Type O POSITIVE Antibody Screen 12/29/18 12/30/18 12/30/18 17:39 01:04 06:20 Anticoagulation Therapy Puncture Site ABG pH ABG pCO2 at Pt Temp ABG pO2 at Pt Temp ABG HCO3 ABG O2 Sat (Measured) ABG O2 Content ABG Base Excess Michael Test O2 Delivery Device Oxygen Flow Rate Vent Mode Vent Rate Mechanical Rate Pressure Support Vent POC Glucometer 160 152 112 Free T4 RPR Titer Blood Type Antibody Screen 12/30/18 08:23 Anticoagulation Therapy No Result Required. Puncture Site Right radial ABG pH 7.36 ABG pCO2 at Pt Temp 48.8 H ABG pO2 at Pt Temp 87.7 ABG HCO3 26.6 ABG O2 Sat (Measured) 95.8 ABG O2 Content 14.2 ABG Base Excess 1.1 Michael Test Positive O2 Delivery Device N/c Oxygen Flow Rate 3l Vent Mode No Result Required. Vent Rate No Result Required. Mechanical Rate No Result Required. Pressure Support Vent No Result Required. POC Glucometer Free T4 RPR Titer Blood Type Antibody Screen Microbiology 12/28/18 16:02 Blood - Peripheral Venous Blood Culture - Preliminary NO GROWTH OBTAINED AFTER 24 HOURS, INCUBATION TO CONTINUE FOR 4 DAYS. 12/28/18 15:30 Blood - Peripheral Venous Blood Culture - Preliminary NO GROWTH OBTAINED AFTER 24 HOURS, INCUBATION TO CONTINUE FOR 4 DAYS. CTA chest prelim results noted Telemetry: NSR, artifact ASSESSMENT AND PLAN: 63 yof with PMHx of HTN, NIDDM, LLE wound s/p AKA, s/p IVC filter, admitted with dysarthria, dyspnea, and vague abdominal pain/nausea/vomting x 1, recent non compliance with medicatios -Dysarthria, r/o CVA -Acute respiratory distress, COPD exacerbation vs aspiration the setting of concerning CVA, -Lactic acidosis, Hypovolumia vs respiratory effort, low suspicion for sepsis -Suspected underlying RICHY/OHS. -HTN -IDDM -LLE wound s/p AKA -s/p IVC filter Plan: Clinically improved, speech better. ABG noted bipap prn Solumedrol 40 mg IV BID, standing and prn nebs Neurology/pulmonary input. Bedside swallow eval again today, dysphagia pureed with thin liquids if no concerns. Resume PO meds if no concerns above. ASA/statin when able to take PO> Await MRI brain Hold metformin. ISS DVTPPX heparin Dispo PT eval, OOB, SNF with home with services when medically improved. plan discussed with patient and nursing, all questions answered
--- NOTE | 2018-12-30 09:22 | PN ---
Physical Exam: SUBJECTIVE: Patient seen and examined at bedside. Per nurse, pt refused to use bipap overnight. BM this morning. Denies f/c, sob, chest pain, abd pain. States she is hungry. Passed bedside swallow. OBJECTIVE: Vital Signs Period Temp Pulse Resp BP Sys/Singer Pulse Ox Last 24 Hr 97.7 F-99.5 F 65-105 18-22 121-167/60-86 95 GENERAL: Awake and alert. Still with slowed speech, but much improved since admission. HEAD: NC/AT EYES: extraocular movements intact, sclera anicteric, conjunctiva clear. No lid lag. EARS, NOSE, THROAT: Ears normal, nares patent, oropharynx clear without exudates. Moist mucous membranes. NECK: Normal range of motion, supple without lymphadenopathy, JVD, or masses. LUNGS: Decreased breath sounds, minimal air entry. No crackles. No accessory muscle use. On 3L NC HEART: Regular rate and rhythm, normal S1 and S2 without murmur, rub or gallop. ABDOMEN: Obese. lower midline surgical incisional scar. Soft, ND, non TTP [id number]. No guarding, rebound tenderness UPPER EXTREMITIES: 2+ pulses, warm, well-perfused. No cyanosis. LOWER EXTREMITIES: 2+ pulses of RLE, foot and lower leg with hyperpigmented mildly indurated skin; no warmth, no erythema. LLE is s/p above-knee- amputation. NEUROLOGICAL: Cranial nerves II-XII intact. 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 Speech improved, responding faster to questions. SKIN: Warm, dry, normal turgor, no rashes or lesions noted, normal capillary refill. Laboratory Results - last 24 hr CBC, BMP 12/29/18 05:45 12/29/18 05:45 12/30/18 08:23 Anticoagulation Therapy No Result Required. Puncture Site Right radial ABG pH 7.36 ABG pCO2 at Pt Temp 48.8 H ABG pO2 at Pt Temp 87.7 ABG HCO3 26.6 ABG O2 Sat (Measured) 95.8 ABG O2 Content 14.2 ABG Base Excess 1.1 Michael Test Positive O2 Delivery Device N/c Oxygen Flow Rate 3l Vent Mode No Result Required. Vent Rate No Result Required. Mechanical Rate No Result Required. Pressure Support Vent No Result Required. POC Glucometer Free T4 RPR Titer Blood Type Antibody Screen Active Medications Albuterol Sulfate (Ventolin 0.083% Nebulizer Soln -) 1 amp NEB Q4H PRN PRN Reason: SHORT OF BREATH/WHEEZING Albuterol/Ipratropium (Duoneb -) 1 amp NEB RQID [facility] Last Admin: 12/30/18 08:11 Dose: 1 amp Aspirin (Ecotrin -) 81 mg PO DAILY [facility] Last Admin: 12/29/18 10:41 Dose: Not Given Aspirin (Asa -) 300 mg CO DAILY [facility] Last Admin: 12/29/18 10:41 Dose: Not Given Atorvastatin Calcium (Lipitor -) 10 mg PO HS [facility] Last Admin: 12/29/18 22:30 Dose: Not Given Heparin Sodium (Porcine) (Heparin -) 5,000 unit SQ BID [facility] Last Admin: 12/29/18 22:52 Dose: 5,000 unit Hydralazine HCl (Apresoline Injection -) 10 mg IVPUSH Q6H PRN PRN Reason: HYPERTENSION Sodium Chloride (Normal Saline -) 1,000 mls @ 75 mls/hr IV ASDIR [facility] Last Admin: 12/30/18 06:22 Dose: 75 mls/hr Insulin Aspart (Novolog Vial Sliding Scale -) 1 vial SQ Q6HPO [facility]; Protocol Last Admin: 12/30/18 06:39 Dose: Not Given Methylprednisolone Sodium Succinate (Solu-Medrol -) 40 mg IVPUSH BID [facility] ASSESSMENT/PLAN: 63F w pmh of HTN, NIDDM, LLE wound s/p L AKA(~1999), IVC filter presenting with complaint of increased difficulty of speech x1week w/a short-term memory loss; also complaining of multifocal pain(abd, R foot, R lower leg). Neuro(Laurani) recommending admission, possible MRI. Admitted for CVA r/o. CTH neg for intracranial path. CT A/P showing colonic fecal retention. BLE duplex neg for DVT. #Dysarthria --possibly 2/2 CVA vs Acute Toxic Encephalopathy -CTH(12/28/18): neg for intracranial path -CTA: No central PE, evaluation for peripheral pulmonary vasculature very limited, mild cardiomegaly, mild bibasilar discoid atelectasis. Repeat CTA suggested. -Brain MRI ordered, Echo ordered -Carotid doppler done; no evid of high grade carotid stenosis, however pt was uncooperative during study -Neuro consulted; june cont on ASA 81; await brain MRI results -fall precautions/speech and swallow eval; was able to pass bedside swallow eval today. Will start on dyphagie pureed diet w/ thin liquids for now. Cont home meds: ASA 81mg + Statin(lipitor 10mg) #Acute Respiratory Distress; Stable, asymptomatic now. Pt likely has RICHY/OHS -ABG this AM; 7.36/48.8/87.87 improved since initial ABG -NIPPV -IV Solumedrol 40 BID -Alb nebs, Duonebs QID -Per pulm, will need outpatient sleep studies #NIDDM; Hold Metformin. BGM/ISS ACHS #HTN; Hydralazine 10 Q6H IVP # LLQ abd pain -CT A/P(12/28/18): colonic fecal retention - monitor w/ abd exam #FEN -dyphagia pureed diet with thin liquids -NS @75 #Prophylaxis DVT: SQH Dispo -cont to monitor on tele Visit type - Emergency Visit Emergency Visit: Yes ED Registration Date: 12/28/18 Care time: The patient presented to the Emergency Department on the above date and was hospitalized for further evaluation of their emergent condition. - New Patient This patient is new to me today: Yes Date on this admission: 12/30/18 - Critical Care Critical Care patient: No ATTENDING PHYSICIAN STATEMENT I saw and evaluated the patient. I reviewed the resident's note and discussed the case with the resident. I agree with the resident's findings and plan as documented. SUBJECTIVE: OBJECTIVE: ASSESSMENT AND PLAN:
[2018-12-30] MEDS: ASPIRIN COATED 81 MG TABLET.EC PO SCH (10:23)
[2018-12-30] MEDS: methylPREDNISolone NA SUCC 40 MG/1 ML VIAL IVPUSH SCH ×2 (10:23→21:56)
[2018-12-30] MEDS: HEPARIN NA (PORCINE) 5,000 UNITS/ML 1ML VIAL SQ SCH ×2 (10:23→21:56)
--- NOTE | 2018-12-30 10:41 | PN ---
Progress Note (short form) - Note Progress Note: PULMONARY CONSULTATION DICTATED 12/30/18 IMP ACUTE HYPOXEMIC/HYPERCAPNEIC RESPIRATORY FAILURE LIKELY RICHY/OHS ALTERED MEMORY/SLURRED SPEECH R/O CVA H/O DVT S/P IVF DYSPNEA ? CARDIAC,?OBSTRUCTIVE AIRWAY DISEASE,ATELECTASIS DM HTN PVD S/P LEFT AKA NON-COMPLIANCE ELEVATED LACTATE LEVEL CORRECTED H/O TOBACCO ABUSE PLAN O2 TO MAINTAIN O2 SAT 90% OR GREATER NIPPV NEEDED FORMAL SLEEP STUDIES OUTPATIENT INHALED BRONCHODILATORS MEDROL PFTS OUTPATIENT NEURO W/U PER NEUROLOGY ECHO MONITOR LENIN HARDWICK Problem List - Problems (2) Acute respiratory failure with hypoxia and hypercapnia Code(s): J96.01 - ACUTE RESPIRATORY FAILURE WITH HYPOXIA; J96.02 - ACUTE RESPIRATORY FAILURE WITH HYPERCAPNIA (3) Dyspnea Code(s): R06.00 - DYSPNEA, UNSPECIFIED (4) Memory loss of unknown cause Code(s): R41.3 - OTHER AMNESIA (5) Morbid obesity due to excess calories Code(s): E66.01 - MORBID (SEVERE) OBESITY DUE TO EXCESS CALORIES (6) Slurred speech Code(s): R47.81 - SLURRED SPEECH (7) H/O deep venous thrombosis Code(s): Z86.718 - PERSONAL HISTORY OF OTHER VENOUS THROMBOSIS AND EMBOLISM
[2018-12-30] MEDS: ASPIRIN 300 MG SUPP.RECT PR SCH (10:54)
--- NOTE | 2018-12-30 11:50 | PN ---
Progress Note (short form) - Note Progress Note: Neurology PCP: TAO PCP HISTORY OF PRESENT ILLNESS: 63F w pmh of HTN, NIDDM, LLE wound s/p L AKA(~1999), IVC filter presenting with complaint of increased difficult of speech x1week. Words have been slowed, sentences have been shortened, worsened memory. Denies recent falls, traumas. Also endorses worsening throbbing Right calf-foot pain, Left-upper abd pain. Had nausea-vomiting x2 of greenish fluid last week. Has been noncompliant with medications due to the belief that combining her daily wine coolers w/ medications is bad. Denies h/o [place], stroke, irreg heart beats, palpitations. Denies weakness of her limbs. Ambulates with . [place] Patient's family not available at bedside to provide supplemental history. Vascular study completed, no evidence of DVT, Carotid Doppler study completed, results pending. Head CT completed, no evidence of acute pathology. Lactic Acid elevated on admission at 4.2, reduced to 1.7. LDL at 82, started on statin 10mg daily. ER course with Lactic acid 4.2, Ct head without acute changes. Ct abd/ pelvis with colonic fecal retention, absent-atrophic uterus. Patient reports continued speech difficulty, MRI brain ordered, awaiting completion. Much improved speech today and discussed with nurse that she is able to swallow and eatting meal at bedside. More fluent speech and mental status near baseline. Active Medications Albuterol Sulfate (Ventolin 0.083% Nebulizer Soln -) 1 amp NEB Q4H PRN PRN Reason: SHORT OF BREATH/WHEEZING Albuterol/Ipratropium (Duoneb -) 1 amp NEB RQID [facility] Last Admin: 12/30/18 08:11 Dose: 1 amp Aspirin (Ecotrin -) 81 mg PO DAILY [facility] Last Admin: 12/30/18 10:23 Dose: 81 mg Atorvastatin Calcium (Lipitor -) 10 mg PO HS [facility] Last Admin: 12/29/18 22:30 Dose: Not Given Heparin Sodium (Porcine) (Heparin -) 5,000 unit SQ BID [facility] Last Admin: 12/30/18 10:23 Dose: 5,000 unit Hydralazine HCl (Apresoline Injection -) 10 mg IVPUSH Q6H PRN PRN Reason: HYPERTENSION Sodium Chloride (Normal Saline -) 1,000 mls @ 75 mls/hr IV ASDIR [facility] Last Admin: 12/30/18 06:22 Dose: 75 mls/hr Insulin Aspart (Novolog Vial Sliding Scale -) 1 vial SQ Q6HPO [facility]; Protocol Last Admin: 12/30/18 06:39 Dose: Not Given Methylprednisolone Sodium Succinate (Solu-Medrol -) 40 mg IVPUSH BID [facility] Last Admin: 12/30/18 10:23 Dose: 40 mg PHYSICAL EXAMINATION Vital Signs Period Temp Pulse Resp BP Sys/Singer Pulse Ox Last 24 Hr 97.7 F-99.5 F 65-105 18-22 121-167/60-86 95 GENERAL: awake, lethargic-appearing. NAD. Obese HEAD: NC/AT EYES: extraocular movements intact, sclera anicteric, conjunctiva clear. No lid lag. EARS, NOSE, THROAT: Ears normal, nares patent, oropharynx clear without exudates. Moist mucous membranes. NECK: Normal range of motion, supple without lymphadenopathy, JVD, or masses. LUNGS: Breath sounds w/mild expiratory wheezes at lung bases b/l. No crackles. No accessory muscle use. Breathing RA HEART: Regular rate and rhythm, normal S1 and S2 without murmur, rub or gallop. ABDOMEN: lower midline surgical incisional scar. Soft, ND, nonTTP [id number]. No guarding, rebound tenderness UPPER EXTREMITIES: 2+ pulses, warm, well-perfused. No cyanosis. LOWER EXTREMITIES: 2+ pulses of RLE, foot and lower leg with hyperpigmented mildly indurated skin; no warmth, no erythema. LLE is s/p avbove-ankle- ampution. NEUROLOGICAL: Cranial nerves II-XII intact. 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 Slowed speech, speaking short phrases, finger to nose intact SKIN: Warm, dry, normal turgor, no rashes or lesions noted, normal capillary refill. CBCD WBC 6.9 K/mm3 (4.0-10.0) 12/29/18 05:45 RBC 4.66 M/mm3 (3.60-5.2) 12/29/18 05:45 Hgb 10.6 GM/dL (10.7-15.3) L 12/29/18 05:45 Hct 34.0 % (32.4-45.2) 12/29/18 05:45 MCV 73.0 fl (80-96) L 12/29/18 05:45 MCHC 31.2 g/dl (32.0-36.0) L 12/29/18 05:45 RDW 19.3 % (11.6-15.6) H 12/29/18 05:45 Plt Count 153 K/MM3 (134-434) 12/29/18 05:45 MPV 9.9 fl (7.5-11.1) 12/29/18 05:45 CMP Sodium 145 mmol/L (136-145) 12/29/18 05:45 Potassium 4.1 mmol/L (3.5-5.1) 12/29/18 05:45 Chloride 113 mmol/L (98-107) H 12/29/18 05:45 Carbon Dioxide 30 mmol/L (21-32) 12/29/18 05:45 Anion Gap 3 MMOL/L (8-16) L 12/29/18 05:45 BUN 18.0 mg/dL (7-18) 12/29/18 05:45 Creatinine 1.2 mg/dL (0.55-1.3) 12/29/18 05:45 Random Glucose 83 mg/dL (74-106) 12/29/18 05:45 Calcium 9.4 mg/dL (8.5-10.1) 12/29/18 05:45 Total Bilirubin 0.4 mg/dL (0.2-1) 12/29/18 05:45 AST 36 U/L (15-37) 12/29/18 05:45 ALT 33 U/L (13-61) 12/29/18 05:45 Alkaline Phosphatase 125 U/L (45-117) H 12/29/18 05:45 Total Protein 6.9 g/dl (6.4-8.2) 12/29/18 05:45 Albumin 2.7 g/dl (3.4-5.0) L 12/29/18 05:45 CARDIAC ENZYMES Creatine Kinase 178 U/L (26-192) 12/28/18 17:41 Troponin I < 0.02 ng/ml (0.00-0.05) 12/28/18 17:41 ASSESSMENT/PLAN: 63F w pmh of HTN, NIDDM, LLE wound s/p L AKA(~1999), IVC filter presenting with complaint of increased difficult of speech x1week. Words have been slowed, sentences have been shortened, worsened memory. Denies recent falls, traumas. Also endorses worsening throbbing Right calf-foot pain, Left-upper abd pain. Had nausea-vomiting x2 of greenish fluid last week. Has been noncompliant with medications due to the belief that combining her daily wine coolers w/ medications is bad. Denies h/o [place], stroke, irreg heart beats, palpitations. Denies weakness of her limbs. Ambulates with . [place] Patient's family not available at bedside to provide supplemental history. Vascular study completed, no evidence of DVT, Carotid Doppler study completed, results pending. Head CT completed, no evidence of acute pathology. Lactic Acid elevated on admission at 4.2, reduced to 1.7. LDL at 82, started on statin 10mg daily. ER course with Lactic acid 4.2, Ct head without acute changes. Ct abd/ pelvis with colonic fecal retention, absent-atrophic uterus. Patient reports continued speech difficulty, MRI brain ordered, awaiting completion. Much improved speech today and discussed with nurse that she is able to swallow and eatting meal at bedside. More fluent speech and mental status near baseline. On ASA. Monitor BP, maintain < 140/90 for now.
[2018-12-30] MEDS: ACETAMINOPHEN 325 MG TABLET (FP) PO PRN (12:27)
[2018-12-30] MEDS ORDERED: KETOROLAC TROMETHAMINE 30 MG/1 ML VIAL IVPUSH ONE ×2 (16:03→22:40)
--- NOTE | 2018-12-30 20:20 | EKG ---
Test Reason : Blood Pressure : / mmHG Vent. Rate : 080 BPM Atrial Rate : 080 BPM P-R Int : 134 ms QRS Dur : 084 ms QT Int : 362 ms P-R-T Axes : 065 002 056 degrees QTc Int : 417 ms NORMAL SINUS RHYTHM POSSIBLE LEFT ATRIAL ENLARGEMENT BORDERLINE ECG WHEN COMPARED WITH ECG OF 21-FEB-2014 14:55, NO SIGNIFICANT CHANGE WAS FOUND Confirmed by ANIVAL SCHULZ MD ([id number]) on 12/30/2018 8:20:16 PM Referred By: Confirmed By:ANIVAL SCHULZ MD
[2018-12-30] MEDS: ATORVASTATIN CA 10 MG TABLET (FP) PO SCH (21:56)
[2018-12-31] MEDS: INSULIN SLIDING SCALE (NOVOLOG) 1 VIAL SQ SCH ×5 (00:35→22:03)
[2018-12-31] MEDS: SODIUM CHLORIDE 1,000 ML IV SCH (03:59)
[2018-12-31] MEDS: ACETAMINOPHEN 325 MG TABLET (FP) PO PRN ×2 (04:30→23:37)
[2018-12-31] MEDS: ALBUTEROL SO4 2.5/IPRATROPIUM 0.5 INH SOL 3 ML VIAL.NEB. NEB SCH ×4 (08:09→20:43)
--- NOTE | 2018-12-31 08:58 | PN ---
Progress Note (short form) - Note Progress Note: Neurology PCP: TAO PCP HISTORY OF PRESENT ILLNESS: 63F w pmh of HTN, NIDDM, LLE wound s/p L AKA(~1999), IVC filter presenting with complaint of increased difficult of speech x1week. Words have been slowed, sentences have been shortened, worsened memory. Denies recent falls, traumas. Also endorses worsening throbbing Right calf-foot pain, Left-upper abd pain. Had nausea-vomiting x2 of greenish fluid last week. Has been noncompliant with medications due to the belief that combining her daily wine coolers w/ medications is bad. Denies h/o [place], stroke, irreg heart beats, palpitations. Denies weakness of her limbs. Ambulates with . [place] visiting [place] from [place]. Patient's family not available at bedside to provide supplemental history. Vascular study completed, no evidence of DVT, Carotid Doppler study completed, results pending. Head CT completed, no evidence of acute pathology. Lactic Acid elevated on admission at 4.2, reduced to 1.7. LDL at 82, started on statin 10mg daily. ER course with Lactic acid 4.2, Ct head without acute changes. Ct abd/ pelvis with colonic fecal retention, absent-atrophic uterus. Patient reports continued speech difficulty, MRI brain ordered, awaiting completion. Much improved speech today and discussed with nurse that she is able to swallow and eatting meal at bedside. More fluent speech and mental status near baseline. Still awaiting completion of imaging, discussed with nurse who will be reaching out to radiology to have completion of study Active Medications Acetaminophen (Tylenol -) 650 mg PO Q6H PRN PRN Reason: PAIN LEVEL 6-10 Last Admin: 12/31/18 04:30 Dose: 650 mg Albuterol Sulfate (Ventolin 0.083% Nebulizer Soln -) 1 amp NEB Q4H PRN PRN Reason: SHORT OF BREATH/WHEEZING Albuterol/Ipratropium (Duoneb -) 1 amp NEB RQID [facility] Last Admin: 12/31/18 08:09 Dose: 1 amp Aspirin (Ecotrin -) 81 mg PO DAILY [facility] Last Admin: 12/30/18 10:23 Dose: 81 mg Atorvastatin Calcium (Lipitor -) 10 mg PO HS [facility] Last Admin: 12/30/18 21:56 Dose: 10 mg Heparin Sodium (Porcine) (Heparin -) 5,000 unit SQ BID [facility] Last Admin: 12/30/18 21:56 Dose: 5,000 unit Hydralazine HCl (Apresoline Injection -) 10 mg IVPUSH Q6H PRN PRN Reason: HYPERTENSION Insulin Aspart (Novolog Vial Sliding Scale -) 1 vial SQ Q6HPO [facility]; Protocol Last Admin: 12/31/18 06:03 Dose: Not Given Methylprednisolone Sodium Succinate (Solu-Medrol -) 40 mg IVPUSH BID [facility] Last Admin: 12/30/18 21:56 Dose: 40 mg PHYSICAL EXAMINATION Vital Signs Period Temp Pulse Resp BP Sys/Singer Pulse Ox Last 24 Hr 97.8 F-98.8 F 75-95 16-19 143-173/65-89 95-100 GENERAL: awake, lethargic-appearing. NAD. Obese HEAD: NC/AT EYES: extraocular movements intact, sclera anicteric, conjunctiva clear. No lid lag. EARS, NOSE, THROAT: Ears normal, nares patent, oropharynx clear without exudates. Moist mucous membranes. NECK: Normal range of motion, supple without lymphadenopathy, JVD, or masses. LUNGS: Breath sounds w/mild expiratory wheezes at lung bases b/l. No crackles. No accessory muscle use. Breathing RA HEART: Regular rate and rhythm, normal S1 and S2 without murmur, rub or gallop. ABDOMEN: lower midline surgical incisional scar. Soft, ND, nonTTP [id number]. No guarding, rebound tenderness UPPER EXTREMITIES: 2+ pulses, warm, well-perfused. No cyanosis. LOWER EXTREMITIES: 2+ pulses of RLE, foot and lower leg with hyperpigmented mildly indurated skin; no warmth, no erythema. LLE is s/p avbove-ankle- ampution. NEUROLOGICAL: Cranial nerves II-XII intact. 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 Slowed speech, speaking short phrases, finger to nose intact SKIN: Warm, dry, normal turgor, no rashes or lesions noted, normal capillary refill. CBCD WBC 6.9 K/mm3 (4.0-10.0) 12/29/18 05:45 RBC 4.66 M/mm3 (3.60-5.2) 12/29/18 05:45 Hgb 10.6 GM/dL (10.7-15.3) L 12/29/18 05:45 Hct 34.0 % (32.4-45.2) 12/29/18 05:45 MCV 73.0 fl (80-96) L 12/29/18 05:45 MCHC 31.2 g/dl (32.0-36.0) L 12/29/18 05:45 RDW 19.3 % (11.6-15.6) H 12/29/18 05:45 Plt Count 153 K/MM3 (134-434) 12/29/18 05:45 MPV 9.9 fl (7.5-11.1) 12/29/18 05:45 CMP Sodium 145 mmol/L (136-145) 12/29/18 05:45 Potassium 4.1 mmol/L (3.5-5.1) 12/29/18 05:45 Chloride 113 mmol/L (98-107) H 12/29/18 05:45 Carbon Dioxide 30 mmol/L (21-32) 12/29/18 05:45 Anion Gap 3 MMOL/L (8-16) L 12/29/18 05:45 BUN 18.0 mg/dL (7-18) 12/29/18 05:45 Creatinine 1.2 mg/dL (0.55-1.3) 12/29/18 05:45 Random Glucose 83 mg/dL (74-106) 12/29/18 05:45 Calcium 9.4 mg/dL (8.5-10.1) 12/29/18 05:45 Total Bilirubin 0.4 mg/dL (0.2-1) 12/29/18 05:45 AST 36 U/L (15-37) 12/29/18 05:45 ALT 33 U/L (13-61) 12/29/18 05:45 Alkaline Phosphatase 125 U/L (45-117) H 12/29/18 05:45 Total Protein 6.9 g/dl (6.4-8.2) 12/29/18 05:45 Albumin 2.7 g/dl (3.4-5.0) L 12/29/18 05:45 CARDIAC ENZYMES Creatine Kinase 178 U/L (26-192) 12/28/18 17:41 Troponin I < 0.02 ng/ml (0.00-0.05) 12/28/18 17:41 ASSESSMENT/PLAN: 63F w pmh of HTN, NIDDM, LLE wound s/p L AKA(~1999), IVC filter presenting with complaint of increased difficult of speech x1week. Words have been slowed, sentences have been shortened, worsened memory. Denies recent falls, traumas. Also endorses worsening throbbing Right calf-foot pain, Left-upper abd pain. Had nausea-vomiting x2 of greenish fluid last week. Has been noncompliant with medications due to the belief that combining her daily wine coolers w/ medications is bad. Denies h/o [place], stroke, irreg heart beats, palpitations. Denies weakness of her limbs. Ambulates with WC. [place]. Patient's family not available at bedside to provide supplemental history. Vascular study completed, no evidence of DVT, Carotid Doppler study completed, results pending. Head CT completed, no evidence of acute pathology. Lactic Acid elevated on admission at 4.2, reduced to 1.7. LDL at 82, started on statin 10mg daily. ER course with Lactic acid 4.2, Ct head without acute changes. Ct abd/ pelvis with colonic fecal retention, absent-atrophic uterus. Patient reports continued speech difficulty, MRI brain ordered, awaiting completion. Much improved speech today and discussed with nurse that she is able to swallow and eatting meal at bedside. More fluent speech and mental status near baseline. On ASA. Monitor BP, maintain < 140/90 for now. Still awaiting completion of imaging, discussed with nurse who will be reaching out to radiology to have completion of study
--- NOTE | 2018-12-31 09:58 | CONSULT ---
Admitting History and Physical - Primary Care Physician PCP: Bruno Briscoe - Admission History of Present Illness: Per admission EMR- 63F w pmh of HTN, NIDDM, LLE wound s/p L AKA(~1999), IVC filter admitted with c/ o difficulty with speech, also c/o dyspnea, unable to speak in full sentences, but reports vague abdominal pain, also h/o nausea/vomiting x 1 and left/right calf pain. Recent non compliance with medications PMD IMP-Dysarthria, r/o CVA -Acute respiratory distress, COPD exacerbation vs aspiration the setting of concerning CVA, -Lactic acidosis, Hypovolumia vs respiratory effort, low suspicion for sepsis -Suspected underlying RICHY/OHS. -HTN -IDDM -LLE wound s/p AKA -s/p IVC filter Pulmonary IMP ACUTE HYPOXEMIC/HYPERCAPNEIC RESPIRATORY FAILURE LIKELY RICHY/OHS ALTERED MEMORY/SLURRED SPEECH R/O CVA H/O DVT S/P IVF DYSPNEA ? CARDIAC,?OBSTRUCTIVE AIRWAY DISEASE,ATELECTASIS DM HTN PVD S/P LEFT AKA NON-COMPLIANCE ELEVATED LACTATE LEVEL CORRECTED H/O TOBACCO ABUSE Symptoms have improved. pt has been eating well and speech has improved. 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 Pt presents with mild language formulation deficits. Slow to respond with Anomia, especially in propositional speech tasks of 2+ sentences. Good naming/repetition/follows complex commands.) Oral Expression Ability: Yes: Mild Impairment - Speech Production Intelligibility: Yes: WNL - Speech Characteristics Voice Loudness: Normal Voice Pitch: Yes: Normal Voice Phonatory-based Quality: Yes: Normal, Harsh Speech Pattern: Normal Nasal Resonance: Normal Articulation: Yes: Precise - Language/Auditory Comprehension Follows: Yes: Complex Commands Observation: Able to respond to yes/no queries: Yes, Yes/No Confusion: No, Comprehends Conversational Speech: Yes, Benefits from Repetiton: Yes - Language/Verbal Expression Aphasia: Yes: Anomia Able to Respond to Simple Queries: Yes: Mildly Impaired Able to Communicate Wants and Needs: Yes: WNL (simple level) Functional Communication Status: Yes: Mildly Impaired, Moderately Impaired (in functional complex propositional tasks) - Swallow Evaluation/Bedside Assessment Current Nutritional Intake: Dysphagia Pureed, Thin Liquids Oral Secretions: Yes: WFL Dentition: Yes: Adequate Facial Symmetry at Rest: Symmetrical Facial Symmetry on Retraction: Symmetrical Facial Movement: Controlled Sensation: Normal Against Resistance Opening: Normal Against Resistance Closing: Normal Pucker Lips: Normal Lingual Movement: Normal, Symmetric Lingual Speed of Movement: Normal Lingual Movement Strgth Against Opposition: Normal Lingual Movement Characteristics: Normal Velopharyngeal Movement: Normal Laryngeal Elevation: WFL Laryngeal Movement: Able to Palpate Rate of Intake: WFL Bolus Size: WFL Labial Seal: WFL Chewing: WFL Oral Prep Time: WFL A-P Transit: WFL Pocketing: None Timing of Swallow: WFL Coughing/Throat Clear: No (3 oz water test) Change in Voice: No Recommendations - Speech Evaluation, Impression/Plan Impression: Improving language formation. Today, pt still presents with mild language formulation deficits. Slow to respond with Anomia, especially in propositional speech tasks of 2+ sentences. Good naming/repetition/follows complex commands. Cognition, speech production, swallowing intact. CT head x 1. MRI? (metal rommel?). Lactic Acid elevated on admission at 4.2, reduced to 1.7. Recommended Therapies: Language - Disposition Discharge to: To be Determined (Language tx if expression deficits do not fully clear (homecare vs STR)) - Dysphagia Impressions/Plan Swallowing Skills: WFL Dysphagia Impressions: No Impairment *Silent aspiration: cannot be R/O at bedside Dysphagia Treatment Plan: Elevate HOB during feed - Recommendations Diet Consistency: Regular Medication Administration: Whole with water Liquids: Thin Liquids
[2018-12-31] MEDS: HEPARIN NA (PORCINE) 5,000 UNITS/ML 1ML VIAL SQ SCH ×2 (10:17→22:03)
[2018-12-31] MEDS: methylPREDNISolone NA SUCC 40 MG/1 ML VIAL IVPUSH SCH (10:17)
[2018-12-31] MEDS: ASPIRIN COATED 81 MG TABLET.EC PO SCH (10:17)
[2018-12-31] MEDS ORDERED: KETOROLAC TROMETHAMINE 30 MG/1 ML VIAL IM ONE ×2 (10:20→22:13)
--- NOTE | 2018-12-31 11:09 | PN ---
Progress Note, Physician History of Present Illness: PULMONARY ALERT,COMFORTABLE,-RESP DISTRESS - Current Medication List Current Medications: Active Medications Acetaminophen (Tylenol -) 650 mg PO Q6H PRN PRN Reason: PAIN LEVEL 6-10 Last Admin: 12/31/18 04:30 Dose: 650 mg Albuterol Sulfate (Ventolin 0.083% Nebulizer Soln -) 1 amp NEB Q4H PRN PRN Reason: SHORT OF BREATH/WHEEZING Albuterol/Ipratropium (Duoneb -) 1 amp NEB RQID [facility] Last Admin: 12/31/18 08:09 Dose: 1 amp Aspirin (Ecotrin -) 81 mg PO DAILY [facility] Last Admin: 12/31/18 10:17 Dose: 81 mg Atorvastatin Calcium (Lipitor -) 10 mg PO HS [facility] Last Admin: 12/30/18 21:56 Dose: 10 mg Heparin Sodium (Porcine) (Heparin -) 5,000 unit SQ BID [facility] Last Admin: 12/31/18 10:17 Dose: 5,000 unit Hydralazine HCl (Apresoline Injection -) 10 mg IVPUSH Q6H PRN PRN Reason: HYPERTENSION Insulin Aspart (Novolog Vial Sliding Scale -) 1 vial SQ Q6HPO [facility]; Protocol Last Admin: 12/31/18 06:03 Dose: Not Given Methylprednisolone Sodium Succinate (Solu-Medrol -) 40 mg IVPUSH BID [facility] Last Admin: 12/31/18 10:17 Dose: 40 mg - Objective Vital Signs: Vital Signs Temperature 98.8 F 12/31/18 08:37 Pulse Rate 85 12/31/18 08:37 Respiratory Rate 18 12/31/18 08:37 Blood Pressure 145/79 12/31/18 08:37 O2 Sat by Pulse Oximetry (%) 95 12/30/18 21:00 Constitutional: Yes: Calm, Obese Eyes: Yes: WNL HENT: Yes: WNL Neck: Yes: WNL Cardiovascular: Yes: Regular Rate and Rhythm, S1, S2 Respiratory: Yes: Diminished Gastrointestinal: Yes: WNL, Normal Bowel Sounds, Soft, Abdomen, Obese Extremities: Yes: WNL (L AKA), Amputation Edema: Yes Labs: CBC, BMP 12/29/18 05:45 Problem List - Problems (2) Acute respiratory failure with hypoxia and hypercapnia Code(s): J96.01 - ACUTE RESPIRATORY FAILURE WITH HYPOXIA; J96.02 - ACUTE RESPIRATORY FAILURE WITH HYPERCAPNIA (3) Dyspnea Code(s): R06.00 - DYSPNEA, UNSPECIFIED (4) Memory loss of unknown cause Code(s): R41.3 - OTHER AMNESIA (5) Morbid obesity due to excess calories Code(s): E66.01 - MORBID (SEVERE) OBESITY DUE TO EXCESS CALORIES (6) Slurred speech Code(s): R47.81 - SLURRED SPEECH (7) H/O deep venous thrombosis Code(s): Z86.718 - PERSONAL HISTORY OF OTHER VENOUS THROMBOSIS AND EMBOLISM Assessment/Plan IMP ACUTE HYPOXEMIC/HYPERCAPNEIC RESPIRATORY FAILURE LIKELY RICHY/OHS ALTERED MEMORY/SLURRED SPEECH R/O CVA H/O DVT S/P IVF DYSPNEA ? CARDIAC,?OBSTRUCTIVE AIRWAY DISEASE,ATELECTASIS DM HTN PVD S/P LEFT AKA NON-COMPLIANCE ELEVATED LACTATE LEVEL CORRECTED H/O TOBACCO ABUSE PLAN O2 TO MAINTAIN O2 SAT 90% OR GREATER NIPPV NEEDED FORMAL SLEEP STUDIES OUTPATIENT INHALED BRONCHODILATORS MEDROL TAPER PFTS OUTPATIENT NEURO W/U PER NEUROLOGY ECHO MONITOR LENIN HARDWICK Problem List - Problems (2) Acute respiratory failure with hypoxia and hypercapnia Code(s): J96.01 - ACUTE RESPIRATORY FAILURE WITH HYPOXIA; J96.02 - ACUTE RESPIRATORY FAILURE WITH HYPERCAPNIA (3) Dyspnea Code(s): R06.00 - DYSPNEA, UNSPECIFIED (4) Memory loss of unknown cause Code(s): R41.3 - OTHER AMNESIA (5) Morbid obesity due to excess calories Code(s): E66.01 - MORBID (SEVERE) OBESITY DUE TO EXCESS CALORIES (6) Slurred speech Code(s): R47.81 - SLURRED SPEECH (7) H/O deep venous thrombosis Code(s): Z86.718 - PERSONAL HISTORY OF OTHER VENOUS THROMBOSIS AND EMBOLISM
[2018-12-31 15:05] LABS: BLOOD UREA NITROGEN 15.9 mg/dL (7-18); CALCIUM 8.8 mg/dL (8.5-10.1); CREATININE 1.1 mg/dL (0.55-1.3); POTASSIUM 4.5 mmol/L (3.5-5.1)
--- NOTE | 2018-12-31 16:08 | PN ---
Physical Exam: SUBJECTIVE: Patient seen and examined in the morning. Was eating breakfast and was able to communicate with examiner. Complains of pain in her leg. No complaints of chest pain, shortness of breath, abdominal pain, nausea, vomiting , diarrhea. OBJECTIVE: Vital Signs Period Temp Pulse Resp BP Sys/Singer Pulse Ox Last 24 Hr 97.8 F-98.8 F 75-95 16-19 145-173/65-89 95 GENERAL: The patient is awake, alert, and fully oriented, in no acute distress. HEAD: Normal with no signs of trauma. EYES: PERRL, extraocular movements intact, sclera anicteric, conjunctiva clear. ENT: Ears normal, nares patent, oropharynx clear without exudates, moist mucous membranes. On 2L NC. NECK: Trachea midline, full range of motion, supple. LUNGS: Breath sounds equal, clear to auscultation bilaterally, no wheezes, no crackles, no accessory muscle use. HEART: Regular rate and rhythm, S1, S2 without murmur, rub or gallop. ABDOMEN: Soft, nontender, nondistended, normoactive bowel sounds, no guarding, no rebound, no hepatosplenomegaly, no masses. EXTREMITIES: 2+ pulses, warm, well-perfused, no edema in RLE. 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 NEUROLOGICAL: Cranial nerves II through XII grossly intact. Normal speech. Laboratory Results - last 24 hr 12/30/18 12/30/18 12/31/18 16:36 23:12 06:00 Sodium Potassium Chloride Carbon Dioxide Anion Gap BUN Creatinine Est GFR (CKD-EPI)AfAm Est GFR (CKD-EPI)NonAf POC Glucometer 160 127 168 Random Glucose Calcium 12/31/18 12/31/18 12:02 14:06 Sodium 140 Potassium 4.5 Chloride 106 Carbon Dioxide 25 Anion Gap 8 BUN 15.9 Creatinine 1.1 Est GFR (CKD-EPI)AfAm 61.01 Est GFR (CKD-EPI)NonAf 52.64 POC Glucometer 141 Random Glucose 160 H Calcium 8.8 Active Medications Generic Name Dose Route Start Last Admin Trade Name Freq PRN Reason Stop Dose Admin Acetaminophen 650 mg 12/30/18 12:21 12/31/18 04:30 Tylenol - PO 650 mg Q6H PRN Administration PAIN LEVEL 6-10 Albuterol Sulfate 1 amp 12/29/18 09:25 Ventolin 0.083% Nebulizer Soln - NEB Q4H PRN SHORT OF BREATH/WHEEZING Albuterol/Ipratropium 1 amp 12/29/18 12:00 12/31/18 08:09 Duoneb - NEB 1 amp RQID [facility] Administration Amlodipine Besylate 10 mg 12/31/18 14:30 Norvasc - PO DAILY [facility] Aspirin 81 mg 12/29/18 10:00 12/31/18 10:17 Ecotrin - PO 81 mg DAILY [facility] Administration Atorvastatin Calcium 10 mg 12/29/18 22:00 12/30/18 21:56 Lipitor - PO 10 mg HS [facility] Administration Heparin Sodium (Porcine) 5,000 unit 12/29/18 10:00 12/31/18 10:17 Heparin - SQ 5,000 unit BID [facility] Administration Insulin Aspart 1 vial 12/29/18 01:45 12/31/18 12:04 Novolog Vial Sliding Scale - SQ Not Given Q6HPO [facility] Protocol Methylprednisolone Sodium Succinate 40 mg 12/30/18 10:00 12/31/18 10:17 Solu-Medrol - IVPUSH 40 mg BID [facility] Administration ASSESSMENT/PLAN: 63 F PMH of HTN, DM, LLE wound s/p AKA, IV filter who presented with difficulty of speech, altered mental status, and complaining of abdominal and leg pain. 1) AMS -CT Head negative -MRI negative -Carotid doppler did not show high grade stenosis -Passed swallow evaluation -Restarting PO home medications. -ASA 81 mg PO -Atorvastatin 10 mg PO 2) ARDS -Patient was hypercapnic on admission. -2L NC -Sleep studies as outpatient -IV Solumedrol 40 BID -Nebulizers PRN -Pulmonology consulted, appreciate recs 3)Lower Extremity Pain -Tylenol 650 mg Q6H PRN 4)Abdominal Pain -Colonic fecal retention -monitoring with abdominal exam 5)Hx of HTN -Amlodipine 10 mg PO Daily 6)Hx of DM -Insulin sliding scale F: NS @ 75 ml/hr E: monitor BMP N: Regular diet, with thin liquids DVT: SQH Dispo: Transferred to medical floors Visit type - Emergency Visit Emergency Visit: Yes ED Registration Date: 12/28/18 Care time: The patient presented to the Emergency Department on the above date and was hospitalized for further evaluation of their emergent condition. - New Patient This patient is new to me today: Yes Date on this admission: 12/31/18 - Critical Care Critical Care patient: No ATTENDING PHYSICIAN STATEMENT I saw and evaluated the patient. I reviewed the resident's note and discussed the case with the resident. I agree with the resident's findings and plan as documented. SUBJECTIVE: OBJECTIVE: ASSESSMENT AND PLAN:
[2018-12-31] MEDS: amLODIPine BESYLATE 5 MG TABLET (FP) PO SCH (16:59)
--- NOTE | 2018-12-31 17:08 | CONS ---
PULMONARY CONSULTATION DATE OF CONSULTATION: 12/30/2018 REFERRING PHYSICIAN: Bruno Briscoe MD HISTORY: Patient is a 63-year-old female past medical of obesity, likely obstructive sleep apnea, hypertension, [id number] diabetes mellitus, left lower extremity wound status post left AKA in 1999, history of DVT status post IVC filter. Admitted to [facility] on December 28 with a complaint of a [id number] of increased difficulty speaking. Patient apparently words have been slowed and sentences have been shortened and loss of memory. Denies any recent head trauma. Denies any complaints of headaches. She has been complaining of some right calf pain as well as some nausea and vomiting x2 last week. Patient apparently is noncompliant with her medication. Patient was admitted with the above. On admission, she had a blood gas performed, which revealed evidence of hypercapnia. Patient had subsequently been placed on O2 and administered steroids. As stated before, patient was hospitalized last year and went to a rehabilitation facility. Apparently, while at the rehabilitation facility, she was placed on the CPAP. She is unsure whether or not she has sleep apnea. 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 There is no history of occupational exposures. There is history of smoking. On admission, the patient underwent a CT of the head, which revealed no evidence of intracranial pathology. Also, she was noted to have elevated lactate level. She was administered IV fluids. PAST MEDICAL HISTORY: Again includes history of DVT, status post IVC filter, depression, left AKA, hypertension, obesity, diabetes, likely obstructive sleep apnea. History of neurologic. SOCIAL HISTORY: No occupational exposures. Nonsmoker. REVIEW OF SYSTEMS: No orthopnea. No PND. Positive difficulty speaking. No chest pain, no palpitations, no abdominal pain. CURRENT MEDICATIONS: Include Solu-Medrol, Tylenol, heparin, Neurontin, Topamax, Celexa, Abilify, albuterol, DuoNeb, Norvasc, Vesicare, Lipitor, NovoLog, Ecotrin , Celebrex, and Xalatan eye drops. PHYSICAL EXAMINATION: General: Patient is a morbidly obese female awake, alert in no acute distress. Vital Signs: She is afebrile. Blood pressure 155/72, respiratory rate 18. The O2 saturation is 95% on 2 L. HEENT: Normocephalic, atraumatic. Neck: Supple. Heart: Regular S1, S2. Chest: Diminished breath sounds bilaterally. Abdomen: Soft. Bowel sounds are present. Extremities: No cyanosis or edema. LABORATORIES: BUN 18, creatinine 1.2, initial lactate 4.2, subsequent 1.7. WBC 6.9, hemoglobin 10.6, hematocrit 34, platelet count of 153,000. Chest CTA reveals no evidence of pulmonary emboli, mild cardiomegaly, mild bibasilar discoid atelectasis. Initial venous blood gas 7.30, PCO2 of 56, PO2 of 90, bicarbonate 27, saturation 95. Repeat blood gas on 3 L nasal cannula, pH 7.36, PCO2 of 48, PO2 of 87, bicarbonate 26, saturation 95.8. IMPRESSION: 1. Acute hypoxemic, hypercapnic respiratory failure likely secondary to obstructive sleep apnea, obesity hypoventilation syndrome. 2. Altered mental status, slurred speech, rule out cerebrovascular accident though possibly secondary to hypercapnia. 3. History of deep vein thrombosis status post inferior vena cava filter. 4. Dyspnea possibly secondary to cardiac, rule out possible underlying obstructive airway disease. 5. Atelectasis. 6. Morbid obesity. 7. Insulin-dependent diabetes mellitus. 8. Hypertension. 9. Peripheral vascular disease status post left diabetic ketoacidosis. 10. Medical noncompliance. 11. Elevated lactate level, corrected. 12. History of tobacco use. PLAN: Supplemental O2 to maintain saturation 90% or greater. NIPPV as needed. Formal sleep study as an outpatient. Inhaled bronchodilator. Short course of Medrol with taper. PFP as an outpatient. Continue neurologic workup as per Neurology. Obtain echocardiogram and monitor electrolytes. SANTIAGO HARDWICK M.D. [id number] MTDD
--- NOTE | 2018-12-31 17:18 | PN ---
Teaching Attending Note Name of Resident: Angel Riley ATTENDING PHYSICIAN STATEMENT I saw and evaluated the patient. I reviewed the resident's note and discussed the case with the resident. I agree with the resident's findings and plan as documented with exceptions below. SUBJECTIVE: Patient seen and examined. speech better, breathing improved, tolerating diet well, no new complaints. OBJECTIVE: Vital Signs Period Temp Pulse Resp BP Sys/Singer Pulse Ox Last 24 Hr 97.8 F-98.8 F 75-95 16-19 145-173/65-89 95 Intake & Output 12/28/18 12/29/18 12/30/18 12/31/18 23:59 23:59 23:59 23:59 Intake Total 525 2400 1020 Balance 525 2400 1020 Weight 220 lb 256 lb 8 oz 256 lb General: sitting in bed in no acute distress, some use of accessory muscles neck: soft, supple Chest: decreased air entry, occasional wheezing Abdomen:Soft, obese, Extremities: left AKA, trace RLE pedal edema with chronic skin discoloration Neuro: AAOx3, speech improved, unchanged exam Home Medications Medication Instructions Recorded Amlodipine Besylate [Norvasc -] 10 mg PO DAILY 02/21/14 Aripiprazole [Abilify -] 10 mg PO DAILY 02/21/14 Citalopram Hydrobromide 20 mg PO DAILY 02/21/14 [Citalopram HBr] Celecoxib [Celebrex] 200 mg PO DAILY 12/28/18 Gabapentin [Neurontin -] 300 mg PO TID 12/28/18 Gabapentin [Neurontin] 300 mg PO TID 12/28/18 Latanoprost 0.005% Eye Drops 1 drop OP HS 12/28/18 [Xalatan 0.005% Eye Drops -] Metformin HCl [Glucophage] 1,000 mg PO AM 12/28/18 Oxybutynin Chloride [Oxybutynin 5 mg PO DAILY 12/28/18 Chloride ER] Topiramate [Topamax] 25 mg PO DAILY 12/28/18 Metformin HCl [Glucophage] 500 mg PO HS 12/31/18 Active Medications Acetaminophen (Tylenol -) 650 mg PO Q6H PRN PRN Reason: PAIN LEVEL 6-10 Last Admin: 12/31/18 04:30 Dose: 650 mg Albuterol Sulfate (Ventolin 0.083% Nebulizer Soln -) 1 amp NEB Q4H PRN PRN Reason: SHORT OF BREATH/WHEEZING Albuterol/Ipratropium (Duoneb -) 1 amp NEB RQID [facility] Last Admin: 12/31/18 08:09 Dose: 1 amp Amlodipine Besylate (Norvasc -) 10 mg PO DAILY [facility] Last Admin: 12/31/18 16:59 Dose: 10 mg Aripiprazole (Abilify) 10 mg PO DAILY [facility] Aspirin (Ecotrin -) 81 mg PO DAILY [facility] Last Admin: 12/31/18 10:17 Dose: 81 mg Atorvastatin Calcium (Lipitor -) 10 mg PO HS [facility] Last Admin: 12/30/18 21:56 Dose: 10 mg Celecoxib (Celebrex -) 200 mg PO DAILY [facility] Citalopram Hydrobromide (Celexa -) 20 mg PO DAILY [facility] Gabapentin (Neurontin -) 300 mg PO TID [facility] Heparin Sodium (Porcine) (Heparin -) 5,000 unit SQ BID [facility] Last Admin: 12/31/18 10:17 Dose: 5,000 unit Insulin Aspart (Novolog Vial Sliding Scale -) 1 vial SQ ACHS [facility]; Protocol Latanoprost (Xalatan 0.005% Eye Drops -) 1 drop OU HS [facility] Prednisone (Deltasone -) 40 mg PO DAILY [facility] Solifenacin (Vesicare -) 5 mg PO DAILY [facility] Topiramate (Topamax -) 25 mg PO DAILY [facility] Laboratory Results - last 24 hr 12/30/18 12/31/18 12/31/18 23:12 06:00 12:02 Sodium Potassium Chloride Carbon Dioxide Anion Gap BUN Creatinine Est GFR (CKD-EPI)AfAm Est GFR (CKD-EPI)NonAf POC Glucometer 127 168 141 Random Glucose Calcium 12/31/18 12/31/18 14:06 17:10 Sodium 140 Potassium 4.5 Chloride 106 Carbon Dioxide 25 Anion Gap 8 BUN 15.9 Creatinine 1.1 Est GFR (CKD-EPI)AfAm 61.01 Est GFR (CKD-EPI)NonAf 52.64 POC Glucometer 183 Random Glucose 160 H Calcium 8.8 Microbiology 12/28/18 16:02 Blood - Peripheral Venous Blood Culture - Preliminary NO GROWTH OBTAINED AFTER 72 HOURS, INCUBATION TO CONTINUE FOR 2 DAYS. 12/28/18 15:30 Blood - Peripheral Venous Blood Culture - Preliminary NO GROWTH OBTAINED AFTER 72 HOURS, INCUBATION TO CONTINUE FOR 2 DAYS. 12/28/18 16:42 Urine - Urine Clean Catch Urine Culture - Final Contaminated: Please Repeat MRI brain results reviewed Telemetry with no events. ASSESSMENT AND PLAN: 63 yof with PMHx of HTN, NIDDM, LLE wound s/p AKA, s/p IVC filter, admitted with dysarthria, dyspnea, and vague abdominal pain/nausea/vomting x 1, recent non compliance with medications -Dysarthria,CVA ruled out -Acute respiratory distress, COPD exacerbation vs aspiration the setting of concerning CVA -Lactic acidosis, Hypovolumia vs respiratory effort, low suspicion for sepsis, resolved -Suspected underlying RICHY/OHS. -HTN -IDDM -LLE wound s/p AKA -s/p IVC filter Plan: Much improved, ABG better, Bipap prn Pulmonary input noted. Change to PO prednisone, short course. Nebs standing and prn. CTA chest neg for PE or acute concerns. Suspect underlying RICHY/OHS. Needs outpatient sleep study/pulmonary follow up and likely CPAP. Discussed with patient. Speech improved. MRI brain neg for CVA neurology input noted ASA/statin/BP control. Follow up 2D echo Dc telemetry ( no events) Speech/swallow input noted Resume regular diet ISS, BGM ACHS, resume metformin in 24-48 hours (received IV contrast 12/29) resume home meds. DVTPPX heparin. Await PT eval, anticipate SNF dc in 24-48 hours if disposition arranged and no new concerns. Discussed with patient and nursing, all questions answered.
[2018-12-31] MEDS ORDERED: LATANOPROST 0.005% OPHTH SOLN 2.5ML BOTTLE OU SCH (22:00)
[2018-12-31] MEDS: ATORVASTATIN CA 10 MG TABLET (FP) PO SCH (22:03)
[2018-12-31] MEDS: GABAPENTIN 300 MG CAPSULE (FP) PO SCH (22:03)
[2018-12-31] MEDS ORDERED: PT OWN MED DRAWER 7, Y5N ONE (22:05)
[2019-01-01] MEDS: GABAPENTIN 300 MG CAPSULE (FP) PO SCH ×2 (06:38→15:23)
[2019-01-01] MEDS: INSULIN SLIDING SCALE (NOVOLOG) 1 VIAL SQ SCH ×3 (06:38→16:43)
[2019-01-01 07:59] LABS: BLOOD UREA NITROGEN 17.4 mg/dL (7-18); CALCIUM 8.8 mg/dL (8.5-10.1); CREATININE 1.1 mg/dL (0.55-1.3)
[2019-01-01] MEDS: ALBUTEROL SO4 2.5/IPRATROPIUM 0.5 INH SOL 3 ML VIAL.NEB. NEB SCH ×4 (08:00→20:16)
--- NOTE | 2019-01-01 08:49 | PN ---
Progress Note (short form) - Note Progress Note: Neurology PCP: TAO PCP HISTORY OF PRESENT ILLNESS: 63F w pmh of HTN, NIDDM, LLE wound s/p L AKA(~2000), IVC filter presenting with complaint of increased difficult of speech x1week. Words have been slowed, sentences have been shortened, worsened memory. Denies recent falls, traumas. Also endorses worsening throbbing Right calf-foot pain, Left-upper abd pain. Had nausea-vomiting x2 of greenish fluid last week. Has been noncompliant with medications due to the belief that combining her daily wine coolers w/ medications is bad. Denies h/o PA, stroke, irreg heart beats, palpitations. Denies weakness of her limbs. Ambulates with . [place]. Patient's family not available at bedside to provide supplemental history. Vascular study completed, no evidence of DVT, Carotid Doppler study completed, results pending. Head CT completed, no evidence of acute pathology. Lactic Acid elevated on admission at 4.2, reduced to 1.7. LDL at 82, started on statin 10mg daily. ER course with Lactic acid 4.2, Ct head without acute changes. Ct abd/ pelvis with colonic fecal retention, absent-atrophic uterus. Patient reports continued speech difficulty. MRI brain completed, minimal ischemic changes adjacent to posterior horn lateral ventricles related to hypertension or small vessel arteriosclerosis, no evidence of acute pathology. Getting echo this morning. Active Medications Acetaminophen (Tylenol -) 650 mg PO Q6H PRN PRN Reason: PAIN LEVEL 6-10 Last Admin: 12/31/18 23:37 Dose: 650 mg Albuterol Sulfate (Ventolin 0.083% Nebulizer Soln -) 1 amp NEB Q4H PRN PRN Reason: SHORT OF BREATH/WHEEZING Albuterol/Ipratropium (Duoneb -) 1 amp NEB RQID [facility] Last Admin: 01/01/19 08:00 Dose: 1 amp Amlodipine Besylate (Norvasc -) 10 mg PO DAILY [facility] Last Admin: 12/31/18 16:59 Dose: 10 mg Aripiprazole (Abilify) 10 mg PO DAILY [facility] Aspirin (Ecotrin -) 81 mg PO DAILY [facility] Last Admin: 12/31/18 10:17 Dose: 81 mg Atorvastatin Calcium (Lipitor -) 10 mg PO [facility] Last Admin: 12/31/18 22:03 Dose: 10 mg Celecoxib (Celebrex -) 200 mg PO DAILY [facility] Citalopram Hydrobromide (Celexa -) 20 mg PO DAILY [facility] Gabapentin (Neurontin -) 300 mg PO TID [facility] Last Admin: 01/01/19 06:38 Dose: 300 mg Heparin Sodium (Porcine) (Heparin -) 5,000 unit SQ BID [facility] R Last Admin: 12/31/18 22:03 Dose: 5,000 unit Insulin Aspart (Novolog Vial Sliding Scale -) 1 vial SQ ACHS [facility]; Protocol Last Admin: 01/01/19 06:38 Dose: Not Given Latanoprost (Xalatan 0.005% Eye Drops -) 1 drop OU HS [facility]IA R Last Admin: 12/31/18 22:33 Dose: 1 drop Prednisone (Deltasone -) 40 mg PO DAILY [facility] Solifenacin (Vesicare -) 5 mg PO DAILY [facility] Topiramate (Topamax -) 25 mg PO DAILY [facility] PHYSICAL EXAMINATION Vital Signs Period Temp Pulse Resp BP Sys/Singer Pulse Ox Last 24 Hr 98.0 F-98.6 F 62-86 18-18 139-167/72-98 97-99 GENERAL: awake, lethargic-appearing. NAD. Obese HEAD: NC/AT EYES: extraocular movements intact, sclera anicteric, conjunctiva clear. No lid lag. EARS, NOSE, THROAT: Ears normal, nares patent, oropharynx clear without exudates. Moist mucous membranes. NECK: Normal range of motion, supple without lymphadenopathy, JVD, or masses. LUNGS: Breath sounds w/mild expiratory wheezes at lung bases b/l. No crackles. No accessory muscle use. Breathing RA HEART: Regular rate and rhythm, normal S1 and S2 without murmur, rub or gallop. ABDOMEN: lower midline surgical incisional scar. Soft, ND, nonTTP [id number]. No guarding, rebound tenderness UPPER EXTREMITIES: 2+ pulses, warm, well-perfused. No cyanosis. LOWER EXTREMITIES: 2+ pulses of RLE, foot and lower leg with hyperpigmented mildly indurated skin; no warmth, no erythema. LLE is s/p avbove-ankle- ampution. NEUROLOGICAL: Cranial nerves II-XII intact. 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 Slowed speech, speaking short phrases, finger to nose intact SKIN: Warm, dry, normal turgor, no rashes or lesions noted, normal capillary refill. CBCD WBC 6.9 K/mm3 (4.0-10.0) 12/29/18 05:45 RBC 4.66 M/mm3 (3.60-5.2) 12/29/18 05:45 Hgb 10.6 GM/dL (10.7-15.3) L 12/29/18 05:45 Hct 34.0 % (32.4-45.2) 12/29/18 05:45 MCV 73.0 fl (80-96) L 12/29/18 05:45 MCHC 31.2 g/dl (32.0-36.0) L 12/29/18 05:45 RDW 19.3 % (11.6-15.6) H 12/29/18 05:45 Plt Count 153 K/MM3 (134-434) 12/29/18 05:45 MPV 9.9 fl (7.5-11.1) 12/29/18 05:45 CMP Sodium 140 mmol/L (136-145) 01/01/19 05:40 Potassium 4.0 mmol/L (3.5-5.1) 01/01/19 05:40 Chloride 105 mmol/L (98-107) 01/01/19 05:40 Carbon Dioxide 30 mmol/L (21-32) 01/01/19 05:40 Anion Gap 5 MMOL/L (8-16) L 01/01/19 05:40 BUN 17.4 mg/dL (7-18) 01/01/19 05:40 Creatinine 1.1 mg/dL (0.55-1.3) 01/01/19 05:40 Random Glucose 108 mg/dL (74-106) H 01/01/19 05:40 Calcium 8.8 mg/dL (8.5-10.1) 01/01/19 05:40 Total Bilirubin 0.4 mg/dL (0.2-1) 12/29/18 05:45 AST 36 U/L (15-37) 12/29/18 05:45 ALT 33 U/L (13-61) 12/29/18 05:45 Alkaline Phosphatase 125 U/L (45-117) H 12/29/18 05:45 Total Protein 6.9 g/dl (6.4-8.2) 12/29/18 05:45 Albumin 2.7 g/dl (3.4-5.0) L 12/29/18 05:45 CARDIAC ENZYMES Creatine Kinase 178 U/L (26-192) 12/28/18 17:41 Troponin I < 0.02 ng/ml (0.00-0.05) 12/28/18 17:41 ASSESSMENT/PLAN: 63F w pmh of HTN, NIDDM, LLE wound s/p L AKA(~1999), IVC filter presenting with complaint of increased difficult of speech x1week. Words have been slowed, sentences have been shortened, worsened memory. Denies recent falls, traumas. Also endorses worsening throbbing Right calf-foot pain, Left-upper abd pain. Had nausea-vomiting x2 of greenish fluid last week. Has been noncompliant with medications due to the belief that combining her daily wine coolers w/ medications is bad. Denies h/o PA, stroke, irreg heart beats, palpitations. Denies weakness of her limbs. Ambulates with . [place]. Patient's family not available at bedside to provide supplemental history. Vascular study completed, no evidence of DVT, Carotid Doppler study completed, results pending. Head CT completed, no evidence of acute pathology. Lactic Acid elevated on admission at 4.2, reduced to 1.7. LDL at 82, started on statin 10mg daily. ER course with Lactic acid 4.2, Ct head without acute changes. Ct abd/ pelvis with colonic fecal retention, absent-atrophic uterus. Patient reports continued speech difficulty. MRI brain completed, minimal ischemic changes adjacent to posterior horn lateral ventricles related to hypertension or small vessel arteriosclerosis, no evidence of acute pathology. MRI brain completed, minimal ischemic changes adjacent to posterior horn lateral ventricles related to hypertension or small vessel arteriosclerosis, no evidence of acute pathology. Getting echo this morning. can remain on same dose of ASA. Monitor BP, maintain < 140/90 for now.
[2019-01-01] MEDS ORDERED: CITALOPRAM HYDROBROMIDE 20 MG TABLET (FP) PO SCH (10:00)
[2019-01-01] MEDS ORDERED: predniSONE 20 MG TABLET (UD) PO SCH (10:00)
[2019-01-01] MEDS ORDERED: SOLIFENACIN SUCCINATE 5 MG TAB PO SCH (10:00)
[2019-01-01] MEDS ORDERED: TOPIRAMATE 25 MG TABLET (FP) PO SCH (10:00)
[2019-01-01] MEDS ORDERED: ARIPiprazole 10 MG TABLET PO SCH (10:00)
[2019-01-01] MEDS ORDERED: CELECOXIB 200 MG CAPSULE PO SCH (10:00)
[2019-01-01] MEDS: HEPARIN NA (PORCINE) 5,000 UNITS/ML 1ML VIAL SQ SCH (10:42)
[2019-01-01] MEDS: amLODIPine BESYLATE 5 MG TABLET (FP) PO SCH (10:42)
[2019-01-01] MEDS: ASPIRIN COATED 81 MG TABLET.EC PO SCH (10:42)
[2019-01-01] MEDS ORDERED: oxyCODONE HCL 5 MG TABLET PO ONE (11:09)
--- NOTE | 2019-01-01 12:04 | PN ---
Progress Note, Physician History of Present Illness: pulmonary alert,comfortable,-resp distress - Current Medication List Current Medications: Active Medications Acetaminophen (Tylenol -) 650 mg PO Q6H PRN PRN Reason: PAIN LEVEL 6-10 Last Admin: 12/31/18 23:37 Dose: 650 mg Albuterol Sulfate (Ventolin 0.083% Nebulizer Soln -) 1 amp NEB Q4H PRN PRN Reason: SHORT OF BREATH/WHEEZING Albuterol/Ipratropium (Duoneb -) 1 amp NEB RQID [facility] Last Admin: 01/01/19 08:00 Dose: 1 amp Amlodipine Besylate (Norvasc -) 10 mg PO DAILY [facility] Last Admin: 01/01/19 10:42 Dose: 10 mg Aripiprazole (Abilify) 10 mg PO DAILY [facility] Aspirin (Ecotrin -) 81 mg PO DAILY [facility] Last Admin: 01/01/19 10:42 Dose: 81 mg Atorvastatin Calcium (Lipitor -) 10 mg PO HS [facility] Last Admin: 12/31/18 22:03 Dose: 10 mg Celecoxib (Celebrex -) 200 mg PO DAILY [facility] Last Admin: 01/01/19 10:42 Dose: 200 mg Citalopram Hydrobromide (Celexa -) 20 mg PO DAILY [facility] Last Admin: 01/01/19 10:42 Dose: 20 mg Gabapentin (Neurontin -) 300 mg PO TID [facility] Last Admin: 01/01/19 06:38 Dose: 300 mg Heparin Sodium (Porcine) (Heparin -) 5,000 unit SQ BID [facility] Last Admin: 01/01/19 10:42 Dose: 5,000 unit Insulin Aspart (Novolog Vial Sliding Scale -) 1 vial SQ ACHS [facility]; Protocol Last Admin: 01/01/19 11:20 Dose: Not Given Latanoprost (Xalatan 0.005% Eye Drops -) 1 drop OU HS [facility] Last Admin: 12/31/18 22:33 Dose: 1 drop Prednisone (Deltasone -) 40 mg PO DAILY [facility] Last Admin: 01/01/19 10:42 Dose: 40 mg Solifenacin (Vesicare -) 5 mg PO DAILY [facility] Last Admin: 01/01/19 10:42 Dose: 5 mg Topiramate (Topamax -) 25 mg PO DAILY [facility] Last Admin: 01/01/19 10:42 Dose: 25 mg - Objective Vital Signs: Vital Signs Temperature 98.3 F 01/01/19 08:37 Pulse Rate 74 01/01/19 09:02 Respiratory Rate 18 01/01/19 08:37 Blood Pressure 140/98 01/01/19 08:37 O2 Sat by Pulse Oximetry (%) 97 01/01/19 09:02 Constitutional: Yes: Calm, Obese Eyes: Yes: WNL HENT: Yes: WNL Neck: Yes: WNL Cardiovascular: Yes: Regular Rate and Rhythm, S1, S2 Respiratory: Yes: Diminished Gastrointestinal: Yes: Normal Bowel Sounds, Soft Extremities: Yes: Amputation (left aka) Edema: Yes (rle) Edema: RLE: Trace Labs: CBC, BMP 01/01/19 05:40 Problem List - Problems (2) Acute respiratory failure with hypoxia and hypercapnia Code(s): J96.01 - ACUTE RESPIRATORY FAILURE WITH HYPOXIA; J96.02 - ACUTE RESPIRATORY FAILURE WITH HYPERCAPNIA (3) Dyspnea Code(s): R06.00 - DYSPNEA, UNSPECIFIED (4) Memory loss of unknown cause Code(s): R41.3 - OTHER AMNESIA (5) Morbid obesity due to excess calories Code(s): E66.01 - MORBID (SEVERE) OBESITY DUE TO EXCESS CALORIES (6) Slurred speech Code(s): R47.81 - SLURRED SPEECH (7) H/O deep venous thrombosis Code(s): Z86.718 - PERSONAL HISTORY OF OTHER VENOUS THROMBOSIS AND EMBOLISM Assessment/Plan IMP ACUTE HYPOXEMIC/HYPERCAPNEIC RESPIRATORY FAILURE LIKELY RICHY/OHS ALTERED MEMORY/SLURRED SPEECH R/O CVA H/O DVT S/P IVF DYSPNEA ? CARDIAC,?OBSTRUCTIVE AIRWAY DISEASE,ATELECTASIS DM HTN PVD S/P LEFT AKA NON-COMPLIANCE ELEVATED LACTATE LEVEL CORRECTED H/O TOBACCO ABUSE PLAN O2 TO MAINTAIN O2 SAT 90% OR GREATER NIPPV NEEDED FORMAL SLEEP STUDIES OUTPATIENT INHALED BRONCHODILATORS MEDROL TAPER PFTS OUTPATIENT NEURO W/U PER NEUROLOGY MONITOR LYTES SLEEP SCREEN DR HARDWICK Problem List - Problems (2) Acute respiratory failure with hypoxia and hypercapnia Code(s): J96.01 - ACUTE RESPIRATORY FAILURE WITH HYPOXIA; J96.02 - ACUTE RESPIRATORY FAILURE WITH HYPERCAPNIA (3) Dyspnea Code(s): R06.00 - DYSPNEA, UNSPECIFIED (4) Memory loss of unknown cause Code(s): R41.3 - OTHER AMNESIA (5) Morbid obesity due to excess calories Code(s): E66.01 - MORBID (SEVERE) OBESITY DUE TO EXCESS CALORIES (6) Slurred speech Code(s): R47.81 - SLURRED SPEECH (7) H/O deep venous thrombosis Code(s): Z86.718 - PERSONAL HISTORY OF OTHER VENOUS THROMBOSIS AND EMBOLISM
--- NOTE | 2019-01-01 12:39 | ECHO ---
Version: 1 Name: NATACHA ZEPEDA Exam: Adult Echocardiogram Study Date: 01/01/2019, 8:46 AM Age: 63 Years MMode/2D Measurements & Calculations IVSd: 1.11 cm LVIDs: 2.46 cm LVIDd: 4.3 cm LVPWd: 1.12 cm LAV (MOD-bp): 59.4 ml LVOT diam: 1.97 cm Ao root diam: 2.6 cm LA dimension: 3.7 cm Doppler Measurements & Calculations MV E max vimal: 131.0 cm/sec Med E/e': 14.9 MV A max vimal: 102.2 cm/sec Med Peak E' Vimal: 8.8 cm/sec MV E/A: 1.28 Lat E/e': 13.4 Lat Peak E' Vimal: 9.8 cm/sec MR max P.5 mmHg Ao max P.3 mmHg NAN(I,D): 2.6 cm Ao mean P.8 mmHg LV V1 mean: 87.6 cm/sec Ao V2 max: 207.7 cm/sec LV V1 mean P.7 mmHg TR max vimal: 313.6 cm/sec TR max P.3 mmHg Procedure A complete two-dimensional transthoracic echocardiogram was performed (2D, M-mode, Doppler and color flow Doppler). The study was technically difficult with many images being suboptimal in quality. Left Ventricle The left ventricular size, thickness and function are normal. Ejection Fraction = 60%. E/A reversal consistent with but not diagnostic of poor LV compliance. The left ventricular wall motion is normal . Right Ventricle The right ventricle is normal in size and function. Atria Normal left and right atrial size and function. Mitral Valve There is mild mitral annular calcification. There is mild mitral regurgitation. Tricuspid Valve The tricuspid valve is normal in structure and function. There is trace tricuspid regurgitation. Rig ht ventricular systolic pressure is elevated at 39 mmhg. There is mild pulmonary hypertension. Aortic Valve The aortic valve is normal in structure and function. Pulmonic Valve The pulmonic valve is normal in structure and function. Great Vessels The aortic root is normal size. Pericardium/Pleura There is no pericardial effusion. There is no pleural effusion. Summary Statements The left ventricular size, thickness and function are normal Ejection Fraction = 60%. There is mild mitral annular calcification. There is mild mitral regurgitation. There is trace tricuspid regurgitation. Right ventricular systolic pressure is elevated at 39 mmhg. There is mild pulmonary hypertension. MD Kevin Araiza 01/01/2019, 12:38 PM Ordering Physician: Albaro Knight Performed By: Shima Henosn
--- NOTE | 2019-01-01 13:25 | PN ---
Teaching Attending Note Name of Resident: Angel Riley ATTENDING PHYSICIAN STATEMENT I saw and evaluated the patient. I reviewed the resident's note and discussed the case with the resident. I agree with the resident's findings and plan as documented. SUBJECTIVE: Speech improved. No ongoing dyspnea. No cough/sputum/fever/chills. OBJECTIVE: Afebrile, hemodynamically Stable. Comfortable. SpO2 96% on RA Last Vital Signs Temp Pulse Resp BP Pulse Ox 98.3 F 74 18 140/98 97 01/01/19 08:37 01/01/19 09:02 01/01/19 08:37 01/01/19 08:37 01/01/19 10:00 HEENT: Atraumatic, normocephalic. Neuro: AAO x 3. Tone Power normal RLE, bilat UEs. Lungs: clear to auscultation Heart: S1, S2, RRR Abdomen: High BMI. Soft, non-tender. Extremities: L AKA. RLE chronic venous stasis skin changes. Laboratory Results - last 24 hr 12/31/18 12/31/18 12/31/18 14:06 17:10 22:01 Sodium 140 Potassium 4.5 Chloride 106 Carbon Dioxide 25 Anion Gap 8 BUN 15.9 Creatinine 1.1 Est GFR (CKD-EPI)AfAm 61.01 Est GFR (CKD-EPI)NonAf 52.64 POC Glucometer 183 197 Random Glucose 160 H Calcium 8.8 01/01/19 01/01/19 01/01/19 05:40 06:37 11:15 Sodium 140 Potassium 4.0 Chloride 105 Carbon Dioxide 30 Anion Gap 5 L BUN 17.4 Creatinine 1.1 Est GFR (CKD-EPI)AfAm 61.01 Est GFR (CKD-EPI)NonAf 52.64 POC Glucometer 127 158 Random Glucose 108 H Calcium 8.8 Current Medications Generic Name Dose Route Start Last Admin Trade Name Freq PRN Reason Stop Dose Admin Acetaminophen 650 mg 12/30/18 12:21 12/31/18 23:37 Tylenol - PO 650 mg Q6H PRN Administration PAIN LEVEL 6-10 Albuterol Sulfate 1 amp 12/29/18 09:25 Ventolin 0.083% Nebulizer Soln - NEB Q4H PRN SHORT OF BREATH/WHEEZING Albuterol/Ipratropium 1 amp 12/29/18 12:00 01/01/19 12:00 Duoneb - NEB 1 amp RQID MARIA R Administration Amlodipine Besylate 10 mg 12/31/18 14:30 01/01/19 10:42 Norvasc - PO 10 mg DAILY [facility] R Administration Aripiprazole 10 mg 01/01/19 10:00 01/01/19 12:28 Abilify PO 10 mg DAILY [facility] R Administration Aspirin 81 mg 12/29/18 10:00 01/01/19 10:42 Ecotrin - PO 81 mg DAILY [facility] Administration Atorvastatin Calcium 10 mg 12/29/18 22:00 12/31/18 22:03 Lipitor - PO 10 mg HS [facility] R Administration Celecoxib 200 mg 01/01/19 10:00 01/01/19 10:42 Celebrex - PO 200 mg DAILY [facility] Administration Citalopram Hydrobromide 20 mg 01/01/19 10:00 01/01/19 10:42 Celexa - PO 20 mg DAILY [facility] Administration Gabapentin 300 mg 12/31/18 22:00 01/01/19 06:38 Neurontin - PO 300 mg TID [facility] R Administration Heparin Sodium (Porcine) 5,000 unit 12/29/18 10:00 01/01/19 10:42 Heparin - SQ 5,000 unit BID [facility] R Administration Insulin Aspart 1 vial 12/31/18 22:00 01/01/19 11:20 Novolog Vial Sliding Scale - SQ Not Given ACHS [facility] Protocol Latanoprost 1 drop 12/31/18 22:00 12/31/18 22:33 Xalatan 0.005% Eye Drops - OU 1 drop HS [facility] Administration Prednisone 40 mg 01/01/19 10:00 01/01/19 10:42 Deltasone - PO 40 mg DAILY [facility] Administration Solifenacin 5 mg 01/01/19 10:00 01/01/19 10:42 Vesicare - PO 5 mg DAILY [facility] Administration Topiramate 25 mg 01/01/19 10:00 01/01/19 10:42 Topamax - PO 25 mg DAILY [facility] Administration Home Medications Medication Instructions Recorded Amlodipine Besylate [Norvasc -] 10 mg PO DAILY 02/21/14 Aripiprazole [Abilify -] 10 mg PO DAILY 02/21/14 Citalopram Hydrobromide 20 mg PO DAILY 02/21/14 [Citalopram HBr] Celecoxib [Celebrex] 200 mg PO DAILY 12/28/18 Gabapentin [Neurontin -] 300 mg PO TID 12/28/18 Gabapentin [Neurontin] 300 mg PO TID 12/28/18 Latanoprost 0.005% Eye Drops 1 drop OP HS 12/28/18 [Xalatan 0.005% Eye Drops -] Metformin HCl [Glucophage] 1,000 mg PO AM 12/28/18 Oxybutynin Chloride [Oxybutynin 5 mg PO DAILY 12/28/18 Chloride ER] Topiramate [Topamax] 25 mg PO DAILY 12/28/18 Metformin HCl [Glucophage] 500 mg PO HS 12/31/18 Acetaminophen W/ Codeine #3 1 tab PO PRN PRN 01/01/19 [Tylenol # 3 -] ASSESSMENT AND PLAN: 63 year old female with history of HTN, DM 2, PVD s/p AKA, s/p IVC filter, admitted with dysarthria, dyspnea, and vague abdominal pain/nausea/vomiting x 1 , now resolved. 1. Dysarthria - resolved. ? sec to UTI - Urine Cx pos for LFNB - will start Cephalosporin for 5 days. CVA excluded. MRI - microvascular ischemic changes Evaluated by Neuro - to continue Aspirin/Lipitor 2. Acute exacerbation COPD/OHS/RICHY CTA chest - no PE/PNA Continue Prednisone and DuoNebs. Pulm follow up for PFTs and Sleep Study. 3. HTN - Bp on high side due to steroids. Continue Norvasc. 4. DM 2 - resume home regimen Metformin 5. Overactive Bladder - continue Vesicare 6. Bipolar Disorder - continue Citalopram, Abilify. On Topiramate for unclear reason ?for Bipolar. Will attempt to clarify with PCP. DVT Px - Heparin SQ Dispo - SNF
[2019-01-01] MEDS ORDERED: CEFTRIAXONE 1 GM in DEXTROSE 5%-WATER - 50 ML IVPB ONE (13:30)
[2019-01-01 14:35] VITALS: BP 150/72; PULSE 95; TEMP 98.2
--- NOTE | 2019-01-01 14:53 | DS ---
Physical Exam: SUBJECTIVE: Patient seen and examined in the morning. No acute events overnight. Patient has no complaints of chest pain, shortness of breath, abdominal pain, nausea, vomiting, diarrhea. OBJECTIVE: Vital Signs Period Temp Pulse Resp BP Sys/Singer Pulse Ox Last 24 Hr 98.0 F-98.6 F 62-95 18-18 139-167/72-98 97-99 PHYSICAL EXAM GENERAL: The patient is awake, alert, and fully oriented, in no acute distress. HEAD: Normal with no signs of trauma. EYES: PERRL, extraocular movements intact, sclera anicteric, conjunctiva clear. ENT: Ears normal, nares patent, oropharynx clear without exudates, moist mucous membranes. NECK: Trachea midline, full range of motion, supple. LUNGS: Breath sounds equal, clear to auscultation bilaterally, no wheezes, no crackles, no accessory muscle use. HEART: Regular rate and rhythm, S1, S2 without murmur, rub or gallop. ABDOMEN: Soft, nontender, nondistended, normoactive bowel sounds. EXTREMITIES: 2+ pulses, warm, well-perfused, no edema in RLE. 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 NEUROLOGICAL: Cranial nerves II through XII grossly intact. Normal speech. LABS Laboratory Results - last 24 hr 12/31/18 12/31/18 12/31/18 14:06 17:10 22:01 Sodium 140 Potassium 4.5 Chloride 106 Carbon Dioxide 25 Anion Gap 8 BUN 15.9 Creatinine 1.1 Est GFR (CKD-EPI)AfAm 61.01 Est GFR (CKD-EPI)NonAf 52.64 POC Glucometer 183 197 Random Glucose 160 H Calcium 8.8 01/01/19 01/01/19 01/01/19 05:40 06:37 11:15 Sodium 140 Potassium 4.0 Chloride 105 Carbon Dioxide 30 Anion Gap 5 L BUN 17.4 Creatinine 1.1 Est GFR (CKD-EPI)AfAm 61.01 Est GFR (CKD-EPI)NonAf 52.64 POC Glucometer 127 158 Random Glucose 108 H Calcium 8.8 HOSPITAL COURSE: Date of Admission:12/28/18 Date of Discharge: 01/01/19 63 F PMH of HTN, DM, LLE wound s/p AKA, IV filter who presented with difficulty of speech, altered mental status, and complaining of abdominal and leg pain. Was found to have normal findings on echo and CT head. Brain MRI was normal. Neurology was consulted, and patient was started on ASA 81 mg PO. Patient was able to pass swallow evaluation, and was restarted on her home medications. Pulmonology was consulted, and patient was referred for outpatient sleep study, and discharged on duonebs. Patient will have prednisone taper to finish course of steroids. Imaging done this stay: Chest X-Ray: Impression: No acute pathology. No significant change since prior exam. Head CT: No CT evidence of acute intracranial pathology. CT Abdomen/pelvis: No definite CT findings of acute pathology are identified. Carotid Doppler: There is no obvious Doppler evidence of a high-grade carotid artery stenosis. Follow-up sonography may be considered when the patient is better able to fully cooperate. Chest/Thorax CTA: No central pulmonary embolism is noted. Evaluation of the peripheral pulmonary vasculature is very limited as noted above. No gross peripheral embolism is seen. Follow-up CT angiography may be considered. Alternatively correlation with bilateral lower extremity venous sonography may be obtained. Mild cardiomegaly. Mild bibasilar discoid atelectasis. Brain MRI: No evidence of acute infarction.No evidence of intracerebral hemorrhage, subdural fluid collection or hydrocephalus. Echo:The left ventricular size, thickness and function are normal Ejection Fraction = 60%. There is mild mitral annular calcification. There is mild mitral regurgitation. There is trace tricuspid regurgitation. Right ventricular systolic pressure is elevated at 39 mmhg. There is mild pulmonary hypertension. Vascular Study: No DVT is identified involving the right leg. Please see above. 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 We scanned your brain while you were here and we did not find any abnormalities. We also scanned your heart and we saw that it was functioning normally. You were found to have a UTI, you will be treated with antibiotics for it. Please take: Ceftin, 250 mg, by mouth twice a day for 5 days. You were having difficulty breathing. Please take the following medications to help with your breathing: Albuterol Sulfate (Ventolin 0.083% Nebulizer Soln), 1 puff as you need every 4 hours Albuterol/Ipratropium (Duoneb), 1 puff as you need every 4 hours You must continue taking the Prednisone as directed. For the next 2 days (01/02, 01/03) take, 40 mg (4 pills) of Prednisone by mouth daily. After that take 3 days (01/04, 01/05, 01/06) of 30 mg (3 pills) of Prednisone by mouth daily. After that take 3 days of (01/07, 01/08, 01/09), of 20 mg (2 pills) of Prednisone by mouth daily. After that take 3 days of (01/10, 01/11, 01/12) of 10 mg (1 pill) of Prednisone by mouth daily. Please continue all your home medications as directed. Please follow up with pulmonology for an outpatient sleep study and pulmonary function testing. Please follow up with your primary care physician, if you do not have one you can make an appointment with [facility] [place]. Please follow up with your neurologist, Dr. Mcgarry, as an outpatient. Return to the Emergency Department if you have chest pain,shortness of breath, abdominal pain, nausea, vomiting, or worsening of your symptoms. Referrals: [facility] [place] [facility] [place] [Provider Group] - 1 Week Gagan Sanchez MD [Staff Physician] - 1 Week Tj Mcgarry MD [Staff Physician] - 1 Week Disposition: SNF FACILITY - Home Medications Comprehensive Discharge Medication List: Ambulatory Orders Amlodipine Besylate [Norvasc -] 10 mg PO DAILY 02/21/14 Aripiprazole [Abilify -] 10 mg PO DAILY 02/21/14 Citalopram Hydrobromide [Citalopram HBr] 20 mg PO DAILY 02/21/14 Celecoxib [Celebrex] 200 mg PO DAILY 12/28/18 Gabapentin [Neurontin] 300 mg PO TID 12/28/18 Latanoprost 0.005% Eye Drops [Xalatan 0.005% Eye Drops -] 1 drop OP HS 12/28/18 Metformin HCl [Glucophage] 1,000 mg PO AM 12/28/18 Oxybutynin Chloride [Oxybutynin Chloride ER] 5 mg PO DAILY 12/28/18 Topiramate [Topamax -] 25 mg PO DAILY 12/28/18 Metformin HCl [Glucophage] 500 mg PO HS 12/31/18 Acetaminophen W/ Codeine #3 [Tylenol # 3 -] 1 tab PO PRN PRN 01/01/19 Albuterol 0.083% Nebulizer Daisy [Ventolin 0.083% Nebulizer Soln -] 1 amp NEB Q4H PRN #1 amp 01/01/19 Albuterol 2.5/Ipratropium 0.5 [Duoneb -] 1 amp NEB RQID #1 amp 01/01/19 Cefuroxime Axetil [Ceftin -] 250 mg PO BID #10 tablet 01/01/19 predniSONE [Deltasone -] See Taper PO ASDIR #26 tab 01/01/19 This patient is new to me today: No Emergency Visit: Yes ED Registration Date: 12/28/18 Care time: The patient presented to the Emergency Department on the above date and was hospitalized for further evaluation of their emergent condition. Critical Care patient: No - Discharge Referral Referred to [facility] No ATTENDING PHYSICIAN STATEMENT I saw and evaluated the patient. I reviewed the resident's note and discussed the case with the resident. I agree with the resident's findings and plan as documented. SUBJECTIVE: OBJECTIVE: ASSESSMENT AND PLAN:
[2019-01-01] MEDS ORDERED: DEXTROSE 5%-WATER - 50 ML IVPB ONE (15:19)
[2019-01-01] MEDS ORDERED: cefTRIAXone SODIUM 1 GM VIAL ONE (15:19)
[2019-01-01] MEDS: ACETAMINOPHEN 325 MG TABLET (FP) PO PRN (15:23)
[2019-01-01] MEDS ORDERED: PANTOPRAZOLE 40 MG TABLET (FP) PO ONE (18:41)
[2019-01-01] MEDS ORDERED: MAG HYDROX/AL HYDROX/SIMETH 30 ML UNIT-DOSE CUP PO ONE (18:42)
== END 2019-01-01 19:20 | DRG 189 ==
LOC: JER 14:36 → JERBED 23:46 → J4S 12-29 03:24
PROVIDERS: ADMIT Internal Medicine
DX: J96.01 Acute respiratory failure with hypoxia (principal); G93.41 Metabolic encephalopathy; N39.0 Urinary tract infection, site not specified; E87.2 Acidosis; J44.1 Chronic obstructive pulmonary disease with (acute) exacerbation; Z68.43 Body mass index [BMI] 50.0-59.9, adult; F31.89 Other bipolar disorder; J98.11 Atelectasis; J96.02 Acute respiratory failure with hypercapnia; R07.89 Other chest pain; R41.82 Altered mental status, unspecified; I10 Essential (primary) hypertension; I27.20 Pulmonary hypertension, unspecified; G47.33 Obstructive sleep apnea (adult) (pediatric); E86.1 Hypovolemia; R47.1 Dysarthria and anarthria; N32.81 Overactive bladder; R47.81 Slurred speech; R10.84 Generalized abdominal pain; K59.00 Constipation, unspecified; E11.51 Type 2 diabetes mellitus with diabetic peripheral angiopathy without gangrene; K76.9 Liver disease, unspecified; R41.3 Other amnesia; E66.01 Morbid (severe) obesity due to excess calories; Z89.512 Acquired absence of left leg below knee; Z91.19 Patient's noncompliance with other medical treatment and regimen; Z86.718 Personal history of other venous thrombosis and embolism
CPT/HCPCS: 36415; 36600; 70450-TC; 70551-TC; 71045-TC-FY; 71275-TC; 74177-TC; 80048; 80053; 80061; 81003; 82010; 82550; 82553; 82803; 82962; 83036; 83605; 83690; 83721; 83735; 83880; 84100; 84439; 84443; 84484; 85025; 85610; 85730; 86593; 86850; 86900; 86901; 87040; 87077; 87086; 87186; 93005; 93010; 93306-TC; 93880-TC; 93971-TC; 94640; 94660; 94761; 97162-GP; 99285-25; J0131; J1644; J7030; Q9967

== ENCOUNTER 2019-02-05 11:35 | Inpatient (IN) | payer OTHER ==
[2019-02-05] MEDS ORDERED: ALBUTEROL SO4 0.083% IH SOL 2.5 MG/3 ML VIAL.NEB. NEB ONE ×2 (11:39→11:57)
[2019-02-05] MEDS ORDERED: EPINEPHrine/PF 1 MG/1 ML (1:1,000) AMPULE ONE (11:54)
[2019-02-05] MEDS ORDERED: ALBUTEROL SO4 2.5/IPRATROPIUM 0.5 INH SOL 3 ML VIAL.NEB. NEB ONE (11:54)
[2019-02-05] MEDS ORDERED: MAGNESIUM SULF 50% (8.12 MEQ/2 ML-1 GM VIAL) ONE (11:55)
[2019-02-05] MEDS ORDERED: DEXAMETHASONE SOD PHOSPHATE 10 MG/1 ML VIAL ONE (11:55)
[2019-02-05] MEDS ORDERED: SODIUM CHLORIDE IV ONE (11:56)
[2019-02-05] MEDS ORDERED: KETAMINE HCL 500 MG/10 ML VIAL IVPB ONE (12:02)
[2019-02-05] MEDS ORDERED: KETAMINE HCL 500 MG/10 ML VIAL ONE (12:14)
[2019-02-05 12:21] LABS: BASO % 0.6 % (0-2.0); EOS % 2.3 % (0-4.5); HEMATOCRIT 36.1 % (32.4-45.2); HEMOGLOBIN 11.2 GM/dL (10.7-15.3); LYMPH % 27.4 % (8-40); MCH 22.6 pg (25.7-33.7); MCHC 30.9 g/dl (32.0-36.0); MEAN CELL VOLUME 73.3 fl (80-96); MEAN PLT VOLUME 10.9 fl (7.5-11.1); MONO % 11.9 % (3.8-10.2); NEUT % 57.8 % (42.8-82.8); PLATELET COUNT 224 K/MM3 (134-434); RBC 4.93 M/mm3 (3.60-5.2); RDW 18.5 % (11.6-15.6); WHITE BLOOD COUNT 10.9 K/mm3 (4.0-10.0)
[2019-02-05 12:24] LABS: VENOUS PC02 38.8 mmHg (38-52); VENOUS PH 7.38 (7.31-7.41)
[2019-02-05 13:03] LABS: EPI CELLS 1.1 /HPF (0-5/HPF); HYALINE CASTS 2 /lpf (0-8); URINE APPEARANCE CLEAR; URINE BACTERIA 0.5 /hpf (NEGATIVE); URINE BILIRUBIN NEGATIVE (NEGATIVE); URINE COLOR YELLOW; URINE GLUCOSE (UA) NEGATIVE (NEGATIVE); URINE KETONE NEGATIVE (NEGATIVE); URINE LEUK ESTERASE NEGATIVE (NEGATIVE); URINE NITRITE NEGATIVE (NEGATIVE); URINE PROTEIN 1+ (NEGATIVE); URINE RBC 1 /hpf (0-4); URINE WBC 0 /hpf (0-5)
[2019-02-05] MEDS ORDERED: VANCOMYCIN HCL 1,500 MG in DEXTROSE 5%-WATER - 500 ML IVPB ONE (13:05)
[2019-02-05] MEDS ORDERED: PIPERACILLIN/TAZOB 3.375 GM 3.375 GM in DEXTROSE 5%-WATER - 50 ML IVPB ONE (13:06)
[2019-02-05 13:08] LABS: ALBUMIN 3.1 g/dl (3.4-5.0); ALK PHOS 101 U/L (45-117); ANION GAP 6 MMOL/L (8-16); BILIRUBIN,TOTAL 0.6 mg/dL (0.2-1); BLOOD UREA NITROGEN 17.2 mg/dL (7-18); CALCIUM 9.6 mg/dL (8.5-10.1); CHLORIDE 112 mmol/L (98-107); CO2 26 mmol/L (21-32); CREATININE 1.5 mg/dL (0.55-1.3); GLUCOSE,RANDOM 117 mg/dL (74-106); POTASSIUM 4.9 mmol/L (3.5-5.1); SGOT/AST 40 U/L (15-37); SGPT/ALT 29 U/L (13-61); SODIUM 145 mmol/L (136-145); TOT PROT 7.1 g/dl (6.4-8.2)
--- NOTE | 2019-02-05 13:09 | PDOC ---
Attending Attestation - Resident Resident Name: Gordon Peace - ED Attending Attestation I have performed the following: I have examined & evaluated the patient, The case was reviewed & discussed with the resident, I agree w/resident's findings & plan - HPI HPI: 02/05/19 13:05 63-year-old female with history of hypertension, COPD, left AKA from [facility] status post RSI for respiratory distress and hypoxia with altered mental status. Staff noted patient having increased work of breathing, EMS on arrival noted diffuse wheezing and began treatment for COPD with nebulizers, followed by magnesium, followed by epinephrine without improvement. Patient's mental status began to decline with hypoxia, she was intubated in the field with ketamine and rocuronium without difficulty, O2 sats and capnography within normal limits in route. Maintained pulse and blood pressure throughout. - Physicial Exam PE: 02/05/19 13:06 Normal on vent Morbidly obese, unresponsive Heart is regular slight tachycardia, lungs with diffuse expiratory wheezing and prolonged expiration Abdomen soft Left AKA, neuro exam limited - Critical Care Time Total Critical Care Time: 130 Critical Care Statement: The care of this patient involved high complexity decision making to prevent further life threatening deterioration of the patient 's condition and/or to evaluate & treat vital organ system(s) failure or risk of failure. - Medical Decision Making 02/05/19 13:07 63-year-old female from [facility] with acute hypoxic respiratory failure and COPD exacerbation, possible hypercapnia as well. Intubated in route, currently receiving nebulizers, received steroids in the field. EKG performed upon arrival and without acute ischemic change Sepsis protocol initiated IV fluids, antipyretics Broad-spectrum antibiotics Received nebs, steroids for COPD exacerbation ICU admission Heart Score/ECG Review #1 ECG reviewed & interpreted by me at: 11:57 General ECG Interpretation: Sinus Rhythm (tachy at 119), Normal Intervals (qtc affected by artifact, will repeat), No acute ischemic changes (lateral T wave flattening) #2 ECG reviewed & interpreted by me at: 13:16 General ECG Interpretation: Sinus Rhythm (tachy at 115), Normal Intervals (qtc 426), No acute ischemic changes (TWI I/AVL)
[2019-02-05] MEDS ORDERED: VANCOMYCIN 1 GRAM (PRE-DOCKED) 1,000 MG/250 ML BAG IVPB ONE (13:27)
[2019-02-05] MEDS ORDERED: PIPERACILLIN/TAZOB 3.375 GM 3.375 GM/50 ML BAG IVPB ONE (13:28)
[2019-02-05] MEDS ORDERED: ACETAMINOPHEN INJECTION 100 ML IVPB ONE (13:50)
[2019-02-05] MEDS ORDERED: ACETAMINOPHEN 1000 MG/100 ML VIAL (NON FORMULARY) IVPB ONE (13:56)
--- NOTE | 2019-02-05 13:59 | PDOC ---
History of Present Illness - General Chief Complaint: Shortness of Breath Stated Complaint: SOB Time Seen by Provider: 02/05/19 11:47 - History of Present Illness Initial Comments: 02/06/19 10:11 63F PMH HTN COPD L DONOVAN RAHMAN from [facility] for increased work of breathing and AMS. EMS noted patient was diffusely wheezing; treated w/ nebs, Mg, and epi w/o improvement. EMS intubated pt en route; RSI w/ ketamine and haley. Limited hx. Past History - Past Medical History Allergies/Adverse Reactions: Allergies Allergy/AdvReac Type Severity Reaction Status Date / Time No Known Drug Allergies Allergy Verified 02/05/19 11:52 Home Medications: Ambulatory Orders Amlodipine Besylate [Norvasc -] 10 mg PO DAILY 02/21/14 Aripiprazole [Abilify -] 10 mg PO DAILY 02/21/14 Citalopram Hydrobromide [Citalopram HBr] 20 mg PO DAILY 02/21/14 Celecoxib [Celebrex] 200 mg PO DAILY 12/28/18 Gabapentin [Neurontin] 300 mg PO TID 12/28/18 Latanoprost 0.005% Eye Drops [Xalatan 0.005% Eye Drops -] 1 drop OP HS 12/28/18 Metformin HCl [Glucophage] 1,000 mg PO AM 12/28/18 Oxybutynin Chloride [Oxybutynin Chloride ER] 5 mg PO DAILY 12/28/18 Topiramate [Topamax -] 25 mg PO DAILY 12/28/18 Metformin HCl [Glucophage] 500 mg PO HS 12/31/18 Acetaminophen W/ Codeine #3 [Tylenol # 3 -] 1 tab PO PRN PRN 01/01/19 Albuterol 2.5/Ipratropium 0.5 [Duoneb -] 1 amp NEB RQID #1 amp 01/01/19 predniSONE [Deltasone -] See Taper PO ASDIR #26 tab 01/01/19 Acetaminophen 650 mg PO QID PRN 02/05/19 Ciclopirox [Penlac] 6.6 ml TP BID 02/05/19 Nystatin Powder [Nystop Topical Powder -] 15 gm TP TID 02/05/19 Omeprazole 20 mg PO DAILY 02/05/19 Zolpidem Tartrate [Ambien] 5 mg PO HS 02/05/19 Anemia: Yes Asthma: No Cancer: No Cardiac Disorders: No CVA: No COPD: Yes CHF: No 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) Dementia: No Diabetes: Yes (IDDM) GI Disorders: No Disorders: No HTN: Yes Hypercholesterolemia: No Liver Disease: Yes Psychiatric Problems: Yes (major depression/schizophrenia) Seizures: No Thyroid Disease: No - Surgical History Abdominal Surgery: Yes Appendectomy: No Cardiac Surgery: No Cholecystectomy: No (gall bladder disease) Lung Surgery: No Neurologic Surgery: Yes (ZAVALA HAWA INSERTION AT 11 YRS OLD) Orthopedic Surgery: Yes (left AKA) - Immunization History Immunization Up to Date: Yes - Psycho Social/Smoking Cessation Hx Smoking History: Unknown if ever smoked Have you smoked in the past 12 months: No Hx Alcohol Use: No Drug/Substance Use Hx: No Substance Use Type: None Hx Substance Use Treatment: No Review of Systems - Review of Systems Able to Perform ROS?: No Comments:: 02/06/19 10:11 Unable to obtain ROS 2/2 sedation and clinical condition *Physical Exam - Vital Signs Last Vital Signs Temp Pulse Resp BP Pulse Ox 101 F H 108 H 15 133/66 99 02/05/19 13:44 02/05/19 13:44 02/05/19 13:44 02/05/19 13:44 02/05/19 13:44 - Physical Exam 02/06/19 10:11 GEN: sedated, intubated, unresponsive. HEENT: NC/AT, No facial asymmetry. ET tube in place; secured. CV: S1/S2, RRR, no m/r/g LUNG: mechanically ventilated; b/l breath sounds, expiratory wheezes GI: soft, nd EXTREMITIES: Left AKA otherwise no obvious deformities of all extremities SKIN: warm, dry, normal turgor PSYCH: sedated NEURO: sedated ED Treatment Course - LABORATORY CBC & Chemistry Diagram: 02/06/19 06:00 02/06/19 06:00 - ADDITIONAL ORDERS Additional order review: Laboratory Results 02/05/19 02/05/19 02/05/19 12:57 12:49 12:04 Anticoagulation Therapy Cancelled Puncture Site Cancelled Patient Temperature Cancelled ABG pH Cancelled ABG pCO2 at Pt Temp Cancelled ABG pO2 at Pt Temp Cancelled ABG HCO3 Cancelled ABG O2 Sat (Measured) Cancelled ABG O2 Content Cancelled ABG Base Excess Cancelled Michael Test Cancelled VBG pH 7.38 POC VBG pCO2 38.8 POC VBG pO2 131 H VBG HCO3 22.3 L VBG O2 Sat (Octavio) 98.5 H VBG Base Excess -2.1 L O2 Delivery Device Cancelled Oxygen Flow Rate Cancelled Vent Mode Cancelled Vent Rate Cancelled Mechanical Rate Cancelled PEEP Cancelled Pressure Support Vent Cancelled Sodium Potassium Chloride Carbon Dioxide Anion Gap BUN Creatinine Est GFR (CKD-EPI)AfAm Est GFR (CKD-EPI)NonAf Random Glucose Lactic Acid Calcium Total Bilirubin AST ALT Alkaline Phosphatase Troponin I Total Protein Albumin Urine Color Yellow Urine Appearance Clear Urine pH 7.0 Ur Specific [place] 1.014 Urine Protein 1+ H Urine Glucose (UA) Negative Urine Ketones Negative Urine Blood Negative Urine Nitrite Negative Urine Bilirubin Negative Urine Urobilinogen 1.0 Ur Leukocyte Esterase Negative Urine WBC (Auto) 0 Urine RBC (Auto) 1 Urine Casts (Auto) 2 U Epithel Cells (Auto) 1.1 Urine Bacteria (Auto) 0.5 02/05/19 02/05/19 12:04 12:04 Anticoagulation Therapy Puncture Site Patient Temperature ABG pH ABG pCO2 at Pt Temp ABG pO2 at Pt Temp ABG HCO3 ABG O2 Sat (Measured) ABG O2 Content ABG Base Excess Michael Test VBG pH POC VBG pCO2 POC VBG pO2 VBG HCO3 VBG O2 Sat (Octavio) VBG Base Excess O2 Delivery Device Oxygen Flow Rate Vent Mode Vent Rate Mechanical Rate PEEP Pressure Support Vent Sodium 145 Potassium 4.9 Chloride 112 H Carbon Dioxide 26 Anion Gap 6 L BUN 17.2 Creatinine 1.5 H Est GFR (CKD-EPI)AfAm 41.94 Est GFR (CKD-EPI)NonAf 36.18 Random Glucose 117 H Lactic Acid 1.7 Calcium 9.6 Total Bilirubin 0.6 AST 40 H ALT 29 Alkaline Phosphatase 101 Troponin I < 0.02 Total Protein 7.1 Albumin 3.1 L Urine Color Urine Appearance Urine pH Ur Specific [place] Urine Protein Urine Glucose (UA) Urine Ketones Urine Blood Urine Nitrite Urine Bilirubin Urine Urobilinogen Ur Leukocyte Esterase Urine WBC (Auto) Urine RBC (Auto) Urine Casts (Auto) U Epithel Cells (Auto) Urine Bacteria (Auto) 02/05/19 12:04 RBC 4.93 MCV 73.3 L MCHC 30.9 L RDW 18.5 H MPV 10.9 D Neutrophils % 57.8 Lymphocytes % 27.4 D Monocytes % 11.9 H Eosinophils % 2.3 Basophils % 0.6 - Medications Given in the ED: ED Medications Discontinued Medications Generic Name Dose Route Start Last Admin Trade Name Chrisq PRN Reason Stop Dose Admin Albuterol Sulfate 2 amp 02/05/19 11:39 02/05/19 12:04 Ventolin 0.083% Nebulizer Soln - NEB 02/05/19 11:40 2 amp ONCE ONE Administration Sodium Chloride 3,182 mls @ 1,591 mls/hr 02/05/19 11:56 02/05/19 12:04 Normal Saline - 30 ml/kg infuse over 2 hr (3182 ml) 02/05/19 13:55 1,591 mls/hr IV Administration ONCE ONE Piperacillin Sod/Tazobactam 50 mls @ 100 mls/hr 02/05/19 13:06 02/05/19 13:32 Sod 3.375 gm/ Dextrose IVPB 02/05/19 13:35 100 mls/hr ONCE ONE Administration Protocol Ketamine HCl 0.5 mg 02/05/19 12:02 02/05/19 12:34 Ketalar - IVPB 02/05/19 12:03 0.5 mg ONCE ONE Administration Medical Decision Making - Medical Decision Making 02/05/19 12:00 63F w/ respiratory distress and AMS intubated en route by EMS Likely COPD exacerbation - sepsis labs - CXR, EKG - ketamine maintenance - respiratory / vent / ABG - Admit 02/05/19 14:03 d/w ICU; will eval 02/05/19 14:22 EKG 02/05/19 11:57 HR 119 DC 96 QRS 78 QTc 63 POOR BASELINE EKG 02/05/19 13:16 HR 115 DC 128 QRS 84 QTc 426 EKG 02/05/19 13:22 HR 113 DC 130 QRS 84 QTc 430 SINUS 02/05/19 15:50 bed available in ICU d/w Dr. Kenyon; admit to ICU // ADMITTED ICU Discharge - Discharge Information Problems reviewed: Yes Clinical Impression/Diagnosis: Respiratory abnormalities - Follow up/Referral - Patient Discharge Instructions - Post Discharge Activity
[2019-02-05] MEDS ORDERED: AZITHROMYCIN IVPB 500 MG in DEXTROSE 5%-WATER - 250 ML IVPB ONE (14:47)
--- NOTE | 2019-02-05 14:50 | CONSULT ---
Consultation: REQUESTING PROVIDER: Dr. Mckeon CONSULT REQUEST: ICU monitoring HISTORY OF PRESENT ILLNESS: 63 y/o female with PMH of DM, HTN, CVA (last month), COPD, L AKA, Bipolar Disorder presents to the ED from [facility] with respiratory distress, hypoxic and altered mental status. According to the [facility] staff- she had been very lethargic all day with decreased PO intake and she had been using her oxygen constantly throughout last night and this morning (usually uses it PRN) so EMS was called- en route patient was given nebs, magnesium, epinephrine, with little relief and was subsequently intubated. Patient was given nebs x3/ vanco/zosyn ; ABG is pending; WBC 10.9; Cr 1.5 ; CXR showing segmental RLL infiltrate REVIEW OF SYSTEMS: UNABLE TO OBTAIN PATIENT IS INTUBATED CONSTITUTIONAL: Absent: fever, chills, diaphoresis, generalized weakness, malaise, loss of appetite, weight change HEENT: Absent: rhinorrhea, nasal congestion, throat pain, throat swelling, difficulty swallowing, mouth swelling, ear pain, eye pain, visual changes CARDIOVASCULAR: Absent: chest pain, syncope, palpitations, irregular heart rate, lightheadedness , peripheral edema RESPIRATORY: Absent: cough, shortness of breath, dyspnea with exertion, orthopnea, wheezing, stridor, hemoptysis GASTROINTESTINAL: Absent: abdominal pain, abdominal distension, nausea, vomiting, diarrhea, constipation, melena, hematochezia GENITOURINARY: Absent: dysuria, frequency, urgency, hesitancy, hematuria, flank pain, genital pain MUSCULOSKELETAL: Absent: myalgia, arthralgia, joint swelling, back pain, neck pain SKIN: Absent: rash, itching, pallor HEMATOLOGIC/IMMUNOLOGIC: Absent: easy bleeding, easy bruising, lymphadenopathy, frequent infections ENDOCRINE: Absent: unexplained weight gain, unexplained weight loss, heat intolerance, cold intolerance NEUROLOGIC: Absent: headache, focal weakness or paresthesias, dizziness, unsteady gait, seizure, mental status changes, bladder or bowel incontinence PSYCHIATRIC: Absent: anxiety, depression, suicidal or homicidal ideation, hallucinations. PHYSICAL EXAMINATION Vital Signs - 24 hr 02/05/19 02/05/19 02/05/19 11:35 11:40 11:49 Temperature Pulse Rate 112 H Pulse Rate [ Left Radial] Respiratory 9 L 15 12 Rate Blood Pressure 136/72 Blood Pressure [Right Arm] O2 Sat by Pulse 98 98 Oximetry (%) 02/05/19 02/05/19 13:06 13:44 Temperature 102.1 F H 101 F H Pulse Rate Pulse Rate [ 108 H Left Radial] Respiratory 15 Rate Blood Pressure Blood Pressure 133/66 [Right Arm] O2 Sat by Pulse 99 Oximetry (%) GENERAL: sedated, intubated, opens eyes to sternal rub. EYES: PEERLA; EOMI; no scleral icterus NECK: no JVD; no lymphadenopathy LUNGS: expiratory wheezing appreciated B/L HEART: tachycardic; s1 s2 no murmurs/rub/gallops. ABDOMEN: soft; NT/ND +BS in all 4 quadrants EXTREMITIES: L AKA; right extremity warm; well-perfused 1+ pitting edema NEUROLOGICAL: unable to obtain as patient is intubated/sedated PSYCHIATRIC: Cooperative. Good eye contact. Appropriate mood and affect. SKIN: Warm, dry, normal turgor, no rashes or lesions noted. Laboratory Results - last 24 hr 02/05/19 02/05/19 02/05/19 12:04 12:04 12:04 WBC 10.9 H RBC 4.93 Hgb 11.2 Hct 36.1 MCV 73.3 L MCH 22.6 L MCHC 30.9 L RDW 18.5 H Plt Count 224 D MPV 10.9 D Absolute Neuts (auto) 6.3 Neutrophils % 57.8 Lymphocytes % 27.4 D Monocytes % 11.9 H Eosinophils % 2.3 Basophils % 0.6 Nucleated RBC % 1 H Anticoagulation Therapy Puncture Site Patient Temperature ABG pH ABG pCO2 at Pt Temp ABG pO2 at Pt Temp ABG HCO3 ABG O2 Sat (Measured) ABG O2 Content ABG Base Excess Michael Test VBG pH POC VBG pCO2 POC VBG pO2 VBG HCO3 VBG O2 Sat (Octavio) VBG Base Excess Carboxyhemoglobin Methemoglobin O2 Delivery Device Oxygen Flow Rate Vent Mode Vent Rate Mechanical Rate PEEP Pressure Support Vent Sodium 145 Potassium 4.9 Chloride 112 H Carbon Dioxide 26 Anion Gap 6 L BUN 17.2 Creatinine 1.5 H Est GFR (CKD-EPI)AfAm 41.94 Est GFR (CKD-EPI)NonAf 36.18 Random Glucose 117 H Lactic Acid 1.7 Calcium 9.6 Total Bilirubin 0.6 AST 40 H ALT 29 Alkaline Phosphatase 101 Troponin I < 0.02 Total Protein 7.1 Albumin 3.1 L Urine Color Urine Appearance Urine pH Ur Specific [place] Urine Protein Urine Glucose (UA) Urine Ketones Urine Blood Urine Nitrite Urine Bilirubin Urine Urobilinogen Ur Leukocyte Esterase Urine WBC (Auto) Urine RBC (Auto) Urine Casts (Auto) U Epithel Cells (Auto) Urine Bacteria (Auto) 02/05/19 02/05/19 02/05/19 12:04 12:49 12:57 WBC RBC Hgb Hct MCV MCH MCHC RDW Plt Count MPV Absolute Neuts (auto) Neutrophils % Lymphocytes % Monocytes % Eosinophils % Basophils % Nucleated RBC % Anticoagulation Therapy Cancelled Puncture Site Cancelled Patient Temperature Cancelled ABG pH Cancelled ABG pCO2 at Pt Temp Cancelled ABG pO2 at Pt Temp Cancelled ABG HCO3 Cancelled ABG O2 Sat (Measured) Cancelled ABG O2 Content Cancelled ABG Base Excess Cancelled Michael Test Cancelled VBG pH 7.38 POC VBG pCO2 38.8 POC VBG pO2 131 H VBG HCO3 22.3 L VBG O2 Sat (Octavio) 98.5 H VBG Base Excess -2.1 L Carboxyhemoglobin Methemoglobin O2 Delivery Device Cancelled Oxygen Flow Rate Cancelled Vent Mode Cancelled Vent Rate Cancelled Mechanical Rate Cancelled PEEP Cancelled Pressure Support Vent Cancelled Sodium Potassium Chloride Carbon Dioxide Anion Gap BUN Creatinine Est GFR (CKD-EPI)AfAm Est GFR (CKD-EPI)NonAf Random Glucose Lactic Acid Calcium Total Bilirubin AST ALT Alkaline Phosphatase Troponin I Total Protein Albumin Urine Color Yellow Urine Appearance Clear Urine pH 7.0 Ur Specific [place] 1.014 Urine Protein 1+ H Urine Glucose (UA) Negative Urine Ketones Negative Urine Blood Negative Urine Nitrite Negative Urine Bilirubin Negative Urine Urobilinogen 1.0 Ur Leukocyte Esterase Negative Urine WBC (Auto) 0 Urine RBC (Auto) 1 Urine Casts (Auto) 2 U Epithel Cells (Auto) 1.1 Urine Bacteria (Auto) 0.5 02/05/19 14:15 WBC RBC Hgb Hct MCV MCH MCHC RDW Plt Count MPV Absolute Neuts (auto) Neutrophils % Lymphocytes % Monocytes % Eosinophils % Basophils % Nucleated RBC % Anticoagulation Therapy Cancelled Puncture Site Cancelled Patient Temperature Cancelled ABG pH Cancelled ABG pCO2 at Pt Temp Cancelled ABG pO2 at Pt Temp Cancelled ABG HCO3 Cancelled ABG O2 Sat (Measured) Cancelled ABG O2 Content Cancelled ABG Base Excess Cancelled Michael Test Cancelled VBG pH POC VBG pCO2 POC VBG pO2 VBG HCO3 VBG O2 Sat (Octavio) VBG Base Excess Carboxyhemoglobin Cancelled Methemoglobin Cancelled O2 Delivery Device Cancelled Oxygen Flow Rate Cancelled Vent Mode Cancelled Vent Rate Cancelled Mechanical Rate Cancelled PEEP Cancelled Pressure Support Vent Cancelled Sodium Potassium Chloride Carbon Dioxide Anion Gap BUN Creatinine Est GFR (CKD-EPI)AfAm Est GFR (CKD-EPI)NonAf Random Glucose Lactic Acid Calcium Total Bilirubin AST ALT Alkaline Phosphatase Troponin I Total Protein Albumin Urine Color Urine Appearance Urine pH Ur Specific [place] Urine Protein Urine Glucose (UA) Urine Ketones Urine Blood Urine Nitrite Urine Bilirubin Urine Urobilinogen Ur Leukocyte Esterase Urine WBC (Auto) Urine RBC (Auto) Urine Casts (Auto) U Epithel Cells (Auto) Urine Bacteria (Auto) Active Medications Generic Name Dose Route Start Last Admin Trade Name Freq PRN Reason Stop Dose Admin Albuterol/Ipratropium 1 amp 02/05/19 16:00 Duoneb - NEB RQID [facility] Chlorhexidine Gluconate 1 applic 02/05/19 22:00 Hibiclens For Decolonization - TP HS [facility] Heparin Sodium (Porcine) 5,000 unit 02/05/19 14:00 Heparin - SQ TID [facility] Vancomycin HCl 1,500 mg/ 500 mls @ 250 mls/hr 02/05/19 13:05 02/05/19 13:56 Dextrose IVPB 02/05/19 15:04 250 mls/hr ONCE ONE Administration Ceftriaxone Sodium 1 gm/ 50 mls @ 200 mls/hr 02/05/19 15:00 Dextrose IVPB DAILY [facility] Protocol Azithromycin 500 mg/ Dextrose 250 mls @ 250 mls/hr 02/05/19 14:47 IVPB 02/05/19 15:46 ONCE ONE Azithromycin 250 mg/ Dextrose 250 mls @ 250 mls/hr 02/06/19 10:00 IVPB DAILY [facility] Insulin Aspart 1 vial 02/05/19 16:30 Novolog Vial Sliding Scale - SQ ACHS [facility] Protocol Mupirocin 1 applic 02/05/19 22:00 Bactroban Ointment (For Decolonization) - NS 02/10/19 21:59 BID [facility] Pantoprazole Sodium 40 mg 02/06/19 10:00 Protonix Iv IVPUSH DAILY [facility] ASSESSMENT/PLAN: 63 y/o female with PMH of DM, HTN, CVA (last month), COPD, L AKA, Bipolar Disorder presents to the ED from [facility] with respiratory distress, hypoxic and altered mental status subsequently requiring intubation #Neuro intubated; sedated #Cardio HTN -currently hemodynamically stable; will resume home meds when appropriate #Endo history of Diabetes -holding home oral medications -ISS ACHS -BGMS ACHS #GI stable; no issues NPO for now while intubated -IV protonix 40 daily #ID WBC 10.9 with fever 102 -f/u blood/urine/sputum cx -c/w ceftriaxone/azithro #Pulmonary COPD history; RLL infiltrate -currently intubated/sedated -c/w ceftriaxone/azithro -solumedrol 40q8H -duonebs standing -repeat CXR in AM -monitor o2 sats #Renal GHANSHYAM- Cr was 1.5 (baseline 1.0) -likely pre-renal -gentle hydration -renal US F/E/N NS @75 monitor electrolytes NPO dvt ppx: heparinq sq Gi ppx: IV protonix 40 daily Dispo: We will continue to follow the patient. Thank you for this consultative opportunity. ATTENDING PHYSICIAN STATEMENT I saw and evaluated the patient. I reviewed the resident's note and discussed the case with the resident. I agree with the resident's findings and plan as documented. SUBJECTIVE: OBJECTIVE: ASSESSMENT AND PLAN:
[2019-02-05] MEDS ORDERED: CEFTRIAXONE 1 GM in DEXTROSE 5%-WATER - 50 ML IVPB SCH (15:00)
[2019-02-05] MEDS ORDERED: HEPARIN NA (PORCINE) 5,000 UNITS/ML 1ML VIAL ONE (15:05)
[2019-02-05] MEDS ORDERED: AZITHROMYCIN IVPB 500 MG/250 ML BAG IVPB ONE (15:05)
[2019-02-05] MEDS: HEPARIN NA (PORCINE) 5,000 UNITS/ML 1ML VIAL SQ SCH ×2 (15:15→21:21)
--- NOTE | 2019-02-05 15:44 | EKG ---
Test Reason : Blood Pressure : / mmHG Vent. Rate : 115 BPM Atrial Rate : 115 BPM P-R Int : 128 ms QRS Dur : 084 ms QT Int : 308 ms P-R-T Axes : 067 -02 089 degrees QTc Int : 426 ms SINUS TACHYCARDIA POSSIBLE LEFT ATRIAL ENLARGEMENT NONSPECIFIC T WAVE ABNORMALITY ABNORMAL ECG WHEN COMPARED WITH ECG OF 05-FEB-2019 11:57, NONSPECIFIC T WAVE ABNORMALITY NOW EVIDENT IN INFERIOR LEADS Confirmed by MD Javi, Shant ([id number]) on 02/05/2019 3:44:25 PM Referred By: Confirmed By:Shant Caldwell MD
--- NOTE | 2019-02-05 15:44 | EKG ---
Test Reason : Blood Pressure : / mmHG Vent. Rate : 113 BPM Atrial Rate : 113 BPM P-R Int : 130 ms QRS Dur : 084 ms QT Int : 314 ms P-R-T Axes : 059 -01 069 degrees QTc Int : 430 ms SINUS TACHYCARDIA POSSIBLE LEFT ATRIAL ENLARGEMENT NONSPECIFIC T WAVE ABNORMALITY ABNORMAL ECG WHEN COMPARED WITH ECG OF 05-FEB-2019 13:16, NO SIGNIFICANT CHANGE WAS FOUND Confirmed by MD Javi, Shnat ([id number]) on 02/05/2019 3:44:21 PM Referred By: Confirmed By:Shant Caldwell MD
--- NOTE | 2019-02-05 15:45 | EKG ---
Test Reason : Blood Pressure : / mmHG Vent. Rate : 119 BPM Atrial Rate : 119 BPM P-R Int : 096 ms QRS Dur : 078 ms QT Int : 448 ms P-R-T Axes : 002 004 069 degrees QTc Int : 630 ms POOR DATA QUALITY, INTERPRETATION MAY BE ADVERSELY AFFECTED SINUS TACHYCARDIA WITH SHORT VT ST ELEVATION CONSIDER LATERAL INJURY OR ACUTE INFARCT PROLONGED QT ABNORMAL ECG WHEN COMPARED WITH ECG OF 28-DEC-2018 15:57, VENT. RATE HAS INCREASED BY 39 BPM Confirmed by MD Javi, Shant ([id number]) on 02/05/2019 3:45:34 PM Referred By: Confirmed By:Shant Caldwell MD
[2019-02-05] MEDS ORDERED: cefTRIAXone SODIUM 1 GM VIAL ONE (15:56)
[2019-02-05] MEDS ORDERED: DEXTROSE 5%-WATER - 50 ML IVPB ONE (15:56)
[2019-02-05] MEDS ORDERED: ACETAMINOPHEN 1000 MG/100 ML VIAL (NON FORMULARY) IVPB PRN (16:26)
[2019-02-05 16:35] LABS: CARBOXYHEMOGLOBIN < 0.5 % (0-2)
[2019-02-05] MEDS: methylPREDNISolone NA SUCC 40 MG/1 ML VIAL IVPUSH SCH (18:15)
[2019-02-05] MEDS: SODIUM CHLORIDE 1,000 ML IV SCH (18:15)
[2019-02-05] MEDS: INSULIN SLIDING SCALE (NOVOLOG) 1 VIAL SQ SCH ×2 (18:24→21:22)
[2019-02-05] MEDS: ALBUTEROL SO4 2.5/IPRATROPIUM 0.5 INH SOL 3 ML VIAL.NEB. NEB SCH (20:35)
[2019-02-05] MEDS: PROPOFOL 1,000,000 MCG/100 ML VIAL IVPB SCH (20:56)
[2019-02-05] MEDS: MUPIROCIN 2% TOPICAL OINTMENT FOR DECOLONIZATION NS SCH (21:20)
[2019-02-05] MEDS: CHLORHEXIDINE GLUCONATE 4% CLEANSER FOR DECOLONIZATION TP SCH (21:21)
[2019-02-06] MEDS: methylPREDNISolone NA SUCC 40 MG/1 ML VIAL IVPUSH SCH ×3 (01:49→17:54)
[2019-02-06] MEDS: PROPOFOL 1,000,000 MCG/100 ML VIAL IVPB SCH ×6 (03:45→23:00)
[2019-02-06] MEDS: HEPARIN NA (PORCINE) 5,000 UNITS/ML 1ML VIAL SQ SCH ×3 (06:22→21:41)
[2019-02-06] MEDS: INSULIN SLIDING SCALE (NOVOLOG) 1 VIAL SQ SCH ×4 (06:27→21:41)
[2019-02-06 07:12] LABS: ARTERIAL BLD GAS O2 SATURATION 96.9 % (95-98); ARTERIAL BLOOD GAS BASE EXCESS -1.5 meq/l (-2-2); ARTERIAL BLOOD GAS PO2 110 mmHg (80-100); ARTERIAL BLOOD GAS pH 7.32 (7.35-7.45)
[2019-02-06 07:13] LABS: ALLENS TEST POSITIVE
[2019-02-06 07:22] LABS: ALBUMIN 2.8 g/dl (3.4-5.0); BILIRUBIN,TOTAL 0.5 mg/dL (0.2-1); BLOOD UREA NITROGEN 17.1 mg/dL (7-18); CALCIUM 8.4 mg/dL (8.5-10.1); CREATININE 1.3 mg/dL (0.55-1.3); MAGNESIUM 2.2 mg/dL (1.8-2.4); PHOSPHOROUS 3.4 mg/dL (2.5-4.9); POTASSIUM 4.1 mmol/L (3.5-5.1); TOT PROT 6.8 g/dl (6.4-8.2)
[2019-02-06 07:28] LABS: BASO % 0.3 % (0-2.0); HEMATOCRIT 35.5 % (32.4-45.2); MCH 22.6 pg (25.7-33.7); MCHC 30.9 g/dl (32.0-36.0); MEAN CELL VOLUME 73.2 fl (80-96); MEAN PLT VOLUME 10.4 fl (7.5-11.1); MONO % 4.7 % (3.8-10.2); PLATELET COUNT 167 K/MM3 (134-434); RBC 4.85 M/mm3 (3.60-5.2); RDW 18.4 % (11.6-15.6); WHITE BLOOD COUNT 12.2 K/mm3 (4.0-10.0)
[2019-02-06] MEDS: ALBUTEROL SO4 2.5/IPRATROPIUM 0.5 INH SOL 3 ML VIAL.NEB. NEB SCH ×4 (08:40→20:40)
[2019-02-06] MEDS ORDERED: DEXTROSE 5%-WATER - 50 ML IVPB ONE ×3 (09:14→17:12)
[2019-02-06] MEDS ORDERED: cefTRIAXone SODIUM 1 GM VIAL ONE (09:14)
--- NOTE | 2019-02-06 09:24 | PN ---
Progress Note (short form) - Note Progress Note: ID consult dictated imp/reccd 63 yo female NHR with copd admitted yesterday with respiratory distress , hypoxia, intubated in the field by EMS febrile to 102 in ED with RLL infiltrate recent admission in 2018 for dysarthria and UTI respiratory failure HAP bacteremia- gram positive copd treated with vanco/zosyn in ed now on rocephin/zithromax cultures pending, blood tinged sputum- have asked nurse to send sputum culture (not yet sent) broaden coverage to zosyn/vancomycin given recent admission to the hospital and possible aspiration risk given recent admission for dysarthria repeat blood cultures ordered Problem List - Problems (1) Respiratory failure Code(s): J96.90 - RESPIRATORY FAILURE, UNSP, UNSP W HYPOXIA OR HYPERCAPNIA (2) Pneumonia Code(s): J18.9 - PNEUMONIA, UNSPECIFIED ORGANISM (3) Bacteremia Code(s): R78.81 - BACTEREMIA (4) COPD exacerbation Code(s): J44.1 - CHRONIC OBSTRUCTIVE PULMONARY DISEASE W (ACUTE) EXACERBATION
[2019-02-06] MEDS: MUPIROCIN 2% TOPICAL OINTMENT FOR DECOLONIZATION NS SCH ×2 (09:33→21:40)
[2019-02-06] MEDS: PANTOPRAZOLE SODIUM 40 MG VIAL IVPUSH SCH (09:33)
[2019-02-06] MEDS ORDERED: PIPERACILLIN/TAZOBACTAM 3.375 GM VIAL IVPB ONE ×2 (09:38→17:12)
[2019-02-06] MEDS ORDERED: PT OWN MED DRAWER 7, Y5N ONE ×3 (09:39→15:07)
[2019-02-06] MEDS: PIPERACILLIN/TAZOB 3.375 GM 3.375 GM in DEXTROSE 5%-WATER - 50 ML IVPB SCH ×2 (09:42→17:54)
--- NOTE | 2019-02-06 09:58 | PN ---
Teaching Attending Note Name of Resident: Dulce Javier ATTENDING PHYSICIAN STATEMENT I saw and evaluated the patient. I reviewed the resident's note and discussed the case with the resident. I agree with the resident's findings and plan as documented. SUBJECTIVE: Pt seen and examined in the ICU. Remains intubated, arousable off sedation. Blood secretions from ETT. OBJECTIVE: Vital Signs Period Temp Pulse Resp BP Sys/Singer Pulse Ox Last 24 Hr 98.3 F-102.1 F 61-112 9-19 93-151/66-84 96-100 Intake & Output 02/03/19 02/04/19 02/05/19 02/06/19 23:59 23:59 23:59 23:59 Intake Total 312.6 613 Output Total 800 700 Balance -487.4 -87 Weight 106.05 kg 105.2 kg Gen: intubated, arousable Heart: RRR Lung: scattered rhonchi Abd: soft, nontender Ext: L AKA CBC, BMP 02/06/19 06:00 02/06/19 06:00 Active Medications Acetaminophen (Ofirmev Injection -) 1,000 mg IVPB Q6H PRN PRN Reason: FEVER Albuterol/Ipratropium (Duoneb -) 1 amp NEB RQID [facility] Last Admin: 02/05/19 20:35 Dose: 1 amp Chlorhexidine Gluconate (Hibiclens For Decolonization -) 1 applic TP HS [facility] Last Admin: 02/05/19 21:21 Dose: 1 applic Heparin Sodium (Porcine) (Heparin -) 5,000 unit SQ TID [facility] Last Admin: 02/06/19 06:22 Dose: 5,000 unit Azithromycin 250 mg/ Dextrose 250 mls @ 250 mls/hr IVPB DAILY [facility] Sodium Chloride (Normal Saline -) 1,000 mls @ 75 mls/hr IV ASDIR [facility] Last Admin: 02/05/19 18:15 Dose: 75 mls/hr Propofol (Diprivan -) 1,000,000 mcg in 100 mls @ 6.363 mls/hr IVPB TITR [facility]; Protocol Last Titration: 02/06/19 09:53 Dose: 15 mcg/kg/min, 9.545 mls/hr Piperacillin Sod/Tazobactam (Sod 3.375 gm/ Dextrose) 50 mls @ 100 mls/hr IVPB Q8H-IV [facility]; Protocol Last Admin: 02/06/19 09:42 Dose: 100 mls/hr Vancomycin HCl 1,500 mg/ (Dextrose) 500 mls @ 250 mls/hr IVPB Q24H [facility]; Protocol Insulin Aspart (Novolog Vial Sliding Scale -) 1 vial SQ ACHS [facility]; Protocol Last Admin: 02/06/19 06:27 Dose: 2 units Methylprednisolone Sodium Succinate (Solu-Medrol -) 40 mg IVPUSH Q8H-IV [facility] Last Admin: 02/06/19 09:42 Dose: 40 mg Mupirocin (Bactroban Ointment (For Decolonization) -) 1 applic NS BID [facility] Stop: 02/10/19 21:59 Last Admin: 02/06/19 09:33 Dose: 1 applic Pantoprazole Sodium (Protonix Iv) 40 mg IVPUSH DAILY [facility] Last Admin: 02/06/19 09:33 Dose: 40 mg ASSESSMENT AND PLAN: Acute Hypoxic Respiratory Failure Pneumonia likely Aspiration Sepsis Acute COPD Exacerbation Acute Kidney Injury HTN DM h/o CVA Bipolar Disorder - IV antibiotics to cover aspiration - f/u cultures, send sputum - medrol - inhaled bronchodilators - taper Fio2 to keep Spo2 >90% - IVF - monitor urine output, creatinine - DVT prophylaxis - continue ICU monitoring critical care time spent in reviewing chart, evaluating patient and formulating plan 35 min
[2019-02-06] MEDS ORDERED: AZITHROMYCIN IVPB 250 MG in DEXTROSE 5%-WATER - 250 ML IVPB SCH (10:00)
--- NOTE | 2019-02-06 11:01 | PN ---
Physical Exam: SUBJECTIVE: Patient seen and examined. Intubated and sedated. With positive blood culture. OBJECTIVE: Vital Signs Period Temp Pulse Resp BP Sys/Singer Pulse Ox Last 24 Hr 98.3 F-102.1 F 61-112 9-19 93-151/66-84 96-100 Vital Signs Temp 99.3 F 02/06/19 08:00 Pulse 73 02/06/19 08:00 Resp 17 02/06/19 08:00 BP 130/69 02/06/19 08:00 Pulse Ox 98 02/06/19 09:00 Intake & Output 02/05/19 02/05/19 02/06/19 11:59 23:59 11:59 Intake Total 312.6 613 Output Total 800 700 Balance -487.4 -87 Weight 106.05 kg 105.2 kg Intake: IV 312.6 613 DIPRIVAN - 1,000,000 mcg 12.6 88 In 100 ml @ 10 MCG/KG/MIN 6.363 mls/hr IVPB TITR [facility] Rx#:[id number] Normal Saline - 1,000 ml 300 525 @ 75 mls/hr IV ASDIR [facility] Rx#:[id number] Output: Urine 800 700 Dukes 800 700 Other: Voiding Method Indwelling Catheter Indwelling Catheter Bowel Movement No No Height 1.5 m Body Mass Index (BMI) 47.2 Weight Measurement Method Built in [facility] GENERAL: The patient is morbidly obese, sedated and intubated -AC-12/400/50%/5 EYES: reactive b/l ENT: ETT LUNGS: Scattered wheezes and crackles HEART: Regular rate and rhythm, S1, S2 without murmur, rub or gallop. ABDOMEN: obese, infraumbilical ventral scar, Soft, nontender, nondistended, normoactive bowel sounds, no guarding, no rebound, no hepatosplenomegaly, no masses. EXTREMITIES: L AKA, R chronic venous stasis NEUROLOGICAL: Cranial nerves II through XII grossly intact. Normal speech, gait not observed. PSYCH: Normal mood, normal affect. SKIN: Warm, dry, normal turgor, no rashes or lesions noted CBC, BMP 02/06/19 06:00 02/06/19 06:00 ABG Results ABG pH 7.32 (7.35-7.45) L 02/06/19 06:45 ABG pCO2 at Pt Temp 50.0 mmHg (35-45) H 02/06/19 06:45 ABG pO2 at Pt Temp 110 mmHg (80-100) H 02/06/19 06:45 ABG HCO3 24.7 mmol/L (22-27) 02/06/19 06:45 ABG O2 Sat (Measured) 96.9 % (95-98) 02/06/19 06:45 ABG O2 Content No Result Required. 02/06/19 06:45 ABG Base Excess -1.5 meq/l (-2-2) 02/06/19 06:45 Laboratory Tests 02/05/19 02/05/19 02/05/19 12:04 12:04 12:04 WBC 10.9 H RBC 4.93 Hgb 11.2 Hct 36.1 MCV 73.3 L MCH 22.6 L MCHC 30.9 L RDW 18.5 H Plt Count 224 D ABG pH ABG pCO2 at Pt Temp ABG pO2 at Pt Temp ABG HCO3 ABG O2 Sat (Measured) ABG Base Excess Michael Test Oxygen Flow Rate Vent Mode Vent Rate PEEP Pressure Support Vent Sodium 145 Potassium 4.9 Chloride 112 H Carbon Dioxide 26 Anion Gap 6 L BUN 17.2 Creatinine 1.5 H Est GFR (CKD-EPI)AfAm 41.94 Est GFR (CKD-EPI)NonAf 36.18 Random Glucose 117 H Lactic Acid 1.7 Calcium 9.6 02/06/19 02/06/19 02/06/19 06:00 06:00 06:45 WBC 12.2 H RBC 4.85 Hgb 11.0 Hct 35.5 MCV 73.2 L MCH 22.6 L MCHC 30.9 L RDW 18.4 H Plt Count 167 D ABG pH 7.32 L ABG pCO2 at Pt Temp 50.0 H ABG pO2 at Pt Temp 110 H ABG HCO3 24.7 ABG O2 Sat (Measured) 96.9 ABG Base Excess -1.5 Michael Test Positive Oxygen Flow Rate 50% Vent Mode A/c Vent Rate 12 PEEP 5.0 Pressure Support Vent 400 Sodium 143 Potassium 4.1 Chloride 112 H Carbon Dioxide 25 Anion Gap 6 L BUN 17.1 Creatinine 1.3 Est GFR (CKD-EPI)AfAm 49.86 Est GFR (CKD-EPI)NonAf 43.02 Random Glucose 153 H Lactic Acid Calcium 8.4 L Microbiology 02/05/19 15:51 Urine For Antigen Detection Legionella Antigen - Final 02/05/19 15:51 Urine For Antigen Detection Streptococcus pneumoniae Antigen (M - Final 02/05/19 12:49 Urine - Urine - Catheterized Urine Culture - Final NO GROWTH OBTAINED 02/05/19 12:04 Blood - Peripheral Venous Blood Culture - Preliminary Pending Organism Active Medications Generic Name Dose Route Start Last Admin Trade Name Freq PRN Reason Stop Dose Admin Acetaminophen 1,000 mg 02/05/19 16:26 Ofirmev Injection - IVPB Q6H PRN FEVER Albuterol/Ipratropium 1 amp 02/05/19 16:00 02/05/19 20:35 Duoneb - NEB 1 amp RQID [facility] Administration Chlorhexidine Gluconate 1 applic 02/05/19 22:00 02/05/19 21:21 Hibiclens For Decolonization - TP 1 applic HS [facility] Administration Heparin Sodium (Porcine) 5,000 unit 02/05/19 14:00 02/06/19 06:22 Heparin - SQ 5,000 unit TID [facility] Administration Azithromycin 250 mg/ Dextrose 250 mls @ 250 mls/hr 02/06/19 10:00 IVPB DAILY [facility] Sodium Chloride 1,000 mls @ 75 mls/hr 02/05/19 16:45 02/05/19 18:15 Normal Saline - IV 75 mls/hr ASDIR [facility] Administration Propofol 1,000,000 mcg in 100 mls @ 6.363 mls/hr 02/05/19 20:30 02/06/19 09: 53 Diprivan - IVPB 15 mcg/kg/min TITR [facility] 9.545 mls/hr Titration Protocol 10 MCG/KG/MIN Piperacillin Sod/Tazobactam 50 mls @ 100 mls/hr 02/06/19 10:00 02/06/19 09:42 Sod 3.375 gm/ Dextrose IVPB 100 mls/hr Q8H-IV [facility] Administration Protocol Vancomycin HCl 1,500 mg/ 500 mls @ 250 mls/hr 02/06/19 14:00 Dextrose IVPB Q24H [facility] Protocol Insulin Aspart 1 vial 02/05/19 16:30 02/06/19 06:27 Novolog Vial Sliding Scale - SQ 2 units ACHS [facility] Administration Protocol Methylprednisolone Sodium Succinate 40 mg 02/05/19 18:00 02/06/19 09:42 Solu-Medrol - IVPUSH 40 mg Q8H-IV [facility] Administration Mupirocin 1 applic 02/05/19 22:00 02/06/19 09:33 Bactroban Ointment (For Decolonization) - NS 02/10/19 21:59 1 applic BID [facility] Administration Pantoprazole Sodium 40 mg 02/06/19 10:00 02/06/19 09:33 Protonix Iv IVPUSH 40 mg DAILY [facility] Administration Ambulatory Orders Amlodipine Besylate [Norvasc -] 10 mg PO DAILY 02/21/14 Aripiprazole [Abilify -] 10 mg PO DAILY 02/21/14 Citalopram Hydrobromide [Citalopram HBr] 20 mg PO DAILY 02/21/14 Celecoxib [Celebrex] 200 mg PO DAILY 12/28/18 Gabapentin [Neurontin] 300 mg PO TID 12/28/18 Latanoprost 0.005% Eye Drops [Xalatan 0.005% Eye Drops -] 1 drop OP HS 12/28/18 Metformin HCl [Glucophage] 1,000 mg PO AM 12/28/18 Oxybutynin Chloride [Oxybutynin Chloride ER] 5 mg PO DAILY 12/28/18 Topiramate [Topamax -] 25 mg PO DAILY 12/28/18 Metformin HCl [Glucophage] 500 mg PO HS 12/31/18 Acetaminophen W/ Codeine #3 [Tylenol # 3 -] 1 tab PO PRN PRN 01/01/19 Albuterol 2.5/Ipratropium 0.5 [Duoneb -] 1 amp NEB RQID #1 amp 01/01/19 predniSONE [Deltasone -] See Taper PO ASDIR #26 tab 01/01/19 Acetaminophen 650 mg PO QID PRN 02/05/19 Ciclopirox [Penlac] 6.6 ml TP BID 02/05/19 Nystatin Powder [Nystop Topical Powder -] 15 gm TP TID 02/05/19 Omeprazole 20 mg PO DAILY 02/05/19 Zolpidem Tartrate [Ambien] 5 mg PO HS 02/05/19 ASSESSMENT/PLAN: Pt is a 63yo F with PMHx of DM, HTN, CVA (last month), COPD, L AKA, Bipolar Disorder presents to the ED from [facility] with respiratory distress, hypoxic and altered mental status requiring intubation by EMS . #Neuro Hx of Bipolar disorder, NPO for now, yet to resume home meds Acute metabolic encephalopathy in setting of sepsis Secondary to HAP Intubated/sedated, moving all extremities with mild sedation vacation Pt discharged last month, treated with AB, now bacteremic #pulm/ID acute hypoxic respiratory failure secondary to HAP (RLL infiltrate ) Pt with COPD, morbid obesity, dysarthria with risk for aspiration Pt had been on azithro/ceftriaxone for 1 day, changed to vanc/zosyn, now with bacteremia Cont solumedrol 40q8H Cont duonebs standing #Cardio Hemodynamically stable HTN, CVA (12/2018 with dysarthria) Pt NPO for now, holding home meds GI NPO for now IV protonix 40 daily #renal/ GHANSHYAM- Cr presented at 1.5 , downward trending likely pre-renal in setting of sepsis Cont gentle hydration #Endo history of Diabetes holding home oral medications ISS ACHS BGMS ACHS F/E/N NS @75 monitor electrolytes NPO dvt ppx: heparin sq Gi ppx: IV protonix 40 daily Cont ICU level care Visit type - Emergency Visit Emergency Visit: Yes ED Registration Date: 02/05/19 Care time: The patient presented to the Emergency Department on the above date and was hospitalized for further evaluation of their emergent condition. - New Patient This patient is new to me today: Yes Date on this admission: 02/06/19 - Critical Care Critical Care patient: Yes Total Critical Care Time (in minutes): 35 Critical Care Statement: The care of this patient involved high complexity decision making to prevent further life threatening deterioration of the patient 's condition and/or to evaluate & treat vital organ system(s) failure or risk of failure. - Discharge Referral Referred to [facility] No ATTENDING PHYSICIAN STATEMENT I saw and evaluated the patient. I reviewed the resident's note and discussed the case with the resident. I agree with the resident's findings and plan as documented. SUBJECTIVE: OBJECTIVE: ASSESSMENT AND PLAN:
--- NOTE | 2019-02-06 14:20 | PN ---
Progress Note, Physician Chief Complaint: Acute respiratory failure History of Present Illness: Mechanically ventilated - Current Medication List Current Medications: Active Medications Acetaminophen (Ofirmev Injection -) 1,000 mg IVPB Q6H PRN PRN Reason: FEVER Albuterol/Ipratropium (Duoneb -) 1 amp NEB RQID MARIA R Last Admin: 02/06/19 12:10 Dose: 1 amp Chlorhexidine Gluconate (Hibiclens For Decolonization -) 1 applic TP HS MARIA R Last Admin: 02/05/19 21:21 Dose: 1 applic Heparin Sodium (Porcine) (Heparin -) 5,000 unit SQ TID MARIA R Last Admin: 02/06/19 06:22 Dose: 5,000 unit Azithromycin 250 mg/ Dextrose 250 mls @ 250 mls/hr IVPB DAILY MARIA R Last Admin: 02/06/19 12:04 Dose: 250 mls/hr Sodium Chloride (Normal Saline -) 1,000 mls @ 75 mls/hr IV ASDIR MARIA R Last Admin: 02/05/19 18:15 Dose: 75 mls/hr Propofol (Diprivan -) 1,000,000 mcg in 100 mls @ 6.363 mls/hr IVPB TITR MARIA R; Protocol Last Titration: 02/06/19 11:03 Dose: 30 mcg/kg/min, 19.089 mls/hr Piperacillin Sod/Tazobactam (Sod 3.375 gm/ Dextrose) 50 mls @ 100 mls/hr IVPB Q8H-IV MARIA R; Protocol Last Admin: 02/06/19 09:42 Dose: 100 mls/hr Vancomycin HCl 1,500 mg/ (Dextrose) 500 mls @ 250 mls/hr IVPB Q24H MARIA R; Protocol Fentanyl 500 mcg/ Dextrose 100 mls @ 5 mls/hr IVPB TITR MARIA R Insulin Aspart (Novolog Vial Sliding Scale -) 1 vial SQ ACHS MARIA R; Protocol Last Admin: 02/06/19 11:54 Dose: Not Given Methylprednisolone Sodium Succinate (Solu-Medrol -) 40 mg IVPUSH Q8H-IV MARIA R Last Admin: 02/06/19 09:42 Dose: 40 mg Mupirocin (Bactroban Ointment (For Decolonization) -) 1 applic NS BID MARIA R Stop: 02/10/19 21:59 Last Admin: 02/06/19 09:33 Dose: 1 applic Pantoprazole Sodium (Protonix Iv) 40 mg IVPUSH DAILY MARIA R Last Admin: 02/06/19 09:33 Dose: 40 mg - Objective Vital Signs: Vital Signs Temperature 99.3 F 02/06/19 08:00 Pulse Rate 73 02/06/19 08:00 Respiratory Rate 15 02/06/19 13:05 Blood Pressure 130/69 02/06/19 08:00 O2 Sat by Pulse Oximetry (%) 98 02/06/19 09:00 Constitutional: Yes: Well Nourished, No Distress, Calm, Obese Cardiovascular: Yes: Regular Rate and Rhythm Respiratory: Yes: Mechanically Ventilated, Rhonchi (diffuse) Gastrointestinal: Yes: Normal Bowel Sounds, Soft Genitourinary: Yes: WNL Extremities: Yes: WNL Edema: Yes Edema: LLE: 1+, RLE: 1+ Peripheral Pulses WNL: Yes Neurological: Yes: Other (sedated) Labs: CBC, BMP 02/06/19 06:00 02/06/19 06:00 Problem List - Problems (1) Bacteremia Code(s): R78.81 - BACTEREMIA (2) COPD exacerbation Code(s): J44.1 - CHRONIC OBSTRUCTIVE PULMONARY DISEASE W (ACUTE) EXACERBATION (3) Pneumonia Code(s): J18.9 - PNEUMONIA, UNSPECIFIED ORGANISM (4) Morbid obesity due to excess calories Code(s): E66.01 - MORBID (SEVERE) OBESITY DUE TO EXCESS CALORIES
[2019-02-06] MEDS ORDERED: fentaNYL CITRATE 250 MCG/5 ML VIAL ONE ×2 (14:46→14:47)
[2019-02-06] MEDS: FENTANYL INJECTION 500 MCG in DEXTROSE 5%-WATER - 90 ML IVPB SCH (14:51)
[2019-02-06] MEDS: VANCOMYCIN HCL 1,500 MG in DEXTROSE 5%-WATER - 500 ML IVPB SCH (15:07)
[2019-02-06] MEDS: SODIUM CHLORIDE 1,000 ML IV SCH (17:31)
[2019-02-06] MEDS: CHLORHEXIDINE GLUCONATE 4% CLEANSER FOR DECOLONIZATION TP SCH (21:41)
--- NOTE | 2019-02-06 23:05 | HP ---
Admitting History and Physical - Primary Care Physician PCP: Andrew Fernandez - Admission Chief Complaint: Acute respiratory failure History of Present Illness: 63F PMH HTN COPD L AKA LACEY from [facility] for increased work of breathing and AMS. EMS noted patient was diffusely wheezing; treated w/ nebs, Mg, and epi w/o improvement. EMS intubated pt en route; RSI w/ ketamine and haley. Limited hx. 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 Home Medications - Allergies Allergies/Adverse Reactions: Allergies Allergy/AdvReac Type Severity Reaction Status Date / Time No Known Drug Allergies Allergy Verified 02/05/19 11:52 - Home Medications Home Medications: Ambulatory Orders Amlodipine Besylate [Norvasc -] 10 mg PO DAILY 02/21/14 Aripiprazole [Abilify -] 10 mg PO DAILY 02/21/14 Citalopram Hydrobromide [Citalopram HBr] 20 mg PO DAILY 02/21/14 Celecoxib [Celebrex] 200 mg PO DAILY 12/28/18 Gabapentin [Neurontin] 300 mg PO TID 12/28/18 Latanoprost 0.005% Eye Drops [Xalatan 0.005% Eye Drops -] 1 drop OP HS 12/28/18 Metformin HCl [Glucophage] 1,000 mg PO AM 12/28/18 Oxybutynin Chloride [Oxybutynin Chloride ER] 5 mg PO DAILY 12/28/18 Topiramate [Topamax -] 25 mg PO DAILY 12/28/18 Metformin HCl [Glucophage] 500 mg PO HS 12/31/18 Acetaminophen W/ Codeine #3 [Tylenol # 3 -] 1 tab PO PRN PRN 01/01/19 Albuterol 2.5/Ipratropium 0.5 [Duoneb -] 1 amp NEB RQID #1 amp 01/01/19 predniSONE [Deltasone -] See Taper PO ASDIR #26 tab 01/01/19 Acetaminophen 650 mg PO QID PRN 02/05/19 Ciclopirox [Penlac] 6.6 ml TP BID 02/05/19 Nystatin Powder [Nystop Topical Powder -] 15 gm TP TID 02/05/19 Omeprazole 20 mg PO DAILY 02/05/19 Zolpidem Tartrate [Ambien] 5 mg PO HS 02/05/19 Physical Examination Vital Signs: Vital Signs Temperature 98.8 F 02/06/19 22:00 Pulse Rate 61 02/06/19 22:00 Respiratory Rate 12 02/06/19 22:00 Blood Pressure 113/60 02/06/19 22:00 O2 Sat by Pulse Oximetry (%) 97 02/06/19 21:00 Constitutional: Yes: Well Nourished, No Distress, Calm, Obese Cardiovascular: Yes: Regular Rate and Rhythm Respiratory: Yes: Mechanically Ventilated, Rhonchi (diffuse) Gastrointestinal: Yes: Normal Bowel Sounds, Soft Renal/: Yes: Dukes Present Musculoskeletal: Yes: Other (sedated) Peripheral Pulses WNL: Yes Neurological: Yes: Other (sedated) Labs: CBC, BMP 02/06/19 06:00 02/06/19 06:00 Problem List - Problems (1) Bacteremia Assessment/Plan: -Cultures: Microbiology 02/06/19 12:00 Sputum - Endotrachea Suction/Ventilator Sputum Culture - Preliminary Presumptive Mrsa (Pbp2a Pos) 02/05/19 12:04 Blood - Peripheral Venous Blood Culture - Preliminary Presumptive Mssa (Pbp2a Neg) 02/05/19 12:04 Blood - Peripheral Venous Blood Culture - Preliminary Staphylococcus Coagulase Neg 02/05/19 15:51 Urine For Antigen Detection Legionella Antigen - Final 02/05/19 15:51 Urine For Antigen Detection Streptococcus pneumoniae Antigen (M - Final 02/05/19 12:49 Urine - Urine - Catheterized Urine Culture - Final NO GROWTH OBTAINED -ID on Board -IV abx -Fevers improved -Leukocytosis -CXR reviewed -Pulmonary on board Problems reviewed: Yes Code(s): R78.81 - BACTEREMIA (2) COPD exacerbation Assessment/Plan: -Pulmonary consult -bronchodilators -Medrol tapering dose -IV abx Problems reviewed: Yes Code(s): J44.1 - CHRONIC OBSTRUCTIVE PULMONARY DISEASE W (ACUTE) EXACERBATION (3) Pneumonia Assessment/Plan: -Pulmonary consult -bronchodilators -Medrol tapering dose -IV abx -Wean as tolerated Problems reviewed: Yes Code(s): J18.9 - PNEUMONIA, UNSPECIFIED ORGANISM (4) Morbid obesity due to excess calories Problems reviewed: Yes Code(s): E66.01 - MORBID (SEVERE) OBESITY DUE TO EXCESS CALORIES (5) Respiratory failure Assessment/Plan: -Pulmonary consult -bronchodilators -Medrol tapering dose -IV abx -Wean as tolerated Problems reviewed: Yes Code(s): J96.90 - RESPIRATORY FAILURE, UNSP, UNSP W HYPOXIA OR HYPERCAPNIA Assessment/Plan see problem list
[2019-02-07] MEDS ORDERED: DEXTROSE 5%-WATER - 50 ML IVPB ONE ×3 (02:38→21:03)
[2019-02-07] MEDS ORDERED: PIPERACILLIN/TAZOBACTAM 3.375 GM VIAL IVPB ONE ×4 (02:38→21:03)
[2019-02-07] MEDS: PIPERACILLIN/TAZOB 3.375 GM 3.375 GM in DEXTROSE 5%-WATER - 50 ML IVPB SCH ×3 (02:42→17:58)
[2019-02-07] MEDS: methylPREDNISolone NA SUCC 40 MG/1 ML VIAL IVPUSH SCH ×3 (02:42→17:59)
[2019-02-07] MEDS: HEPARIN NA (PORCINE) 5,000 UNITS/ML 1ML VIAL SQ SCH ×3 (05:27→21:04)
[2019-02-07 05:59] LABS: BASO % 0.2 % (0-2.0); HEMOGLOBIN 10.3 GM/dL (10.7-15.3); LYMPH % 7.1 % (8-40); MCH 22.4 pg (25.7-33.7); MCHC 30.4 g/dl (32.0-36.0); MEAN CELL VOLUME 73.6 fl (80-96); MEAN PLT VOLUME 10.7 fl (7.5-11.1); MONO % 7.5 % (3.8-10.2); NEUT % 85.2 % (42.8-82.8); PLATELET COUNT 176 K/MM3 (134-434); RBC 4.62 M/mm3 (3.60-5.2); RDW 18.4 % (11.6-15.6); WHITE BLOOD COUNT 11.5 K/mm3 (4.0-10.0)
--- NOTE | 2019-02-07 06:10 | PN ---
Progress Note (short form) - Note Progress Note: Pt now with R hand blisters over dorsum and wrist with peeling skin- Positive nikolsky sign. No blisters noted in other parts of the body.
[2019-02-07 06:35] LABS: ALBUMIN 2.3 g/dl (3.4-5.0); BILIRUBIN,TOTAL 0.5 mg/dL (0.2-1); BLOOD UREA NITROGEN 19.3 mg/dL (7-18); CALCIUM 7.8 mg/dL (8.5-10.1); CREATININE 1.4 mg/dL (0.55-1.3); MAGNESIUM 2.3 mg/dL (1.8-2.4); PHOSPHOROUS 4.4 mg/dL (2.5-4.9); POTASSIUM 4.9 mmol/L (3.5-5.1); TOT PROT 5.9 g/dl (6.4-8.2)
[2019-02-07] MEDS: INSULIN SLIDING SCALE (NOVOLOG) 1 VIAL SQ SCH ×4 (06:39→21:04)
[2019-02-07] MEDS: PROPOFOL 1,000,000 MCG/100 ML VIAL IVPB SCH ×2 (06:47→21:03)
[2019-02-07] MEDS: ALBUTEROL SO4 2.5/IPRATROPIUM 0.5 INH SOL 3 ML VIAL.NEB. NEB SCH ×4 (08:11→20:30)
[2019-02-07] MEDS: PANTOPRAZOLE SODIUM 40 MG VIAL IVPUSH SCH (09:13)
[2019-02-07] MEDS: MUPIROCIN 2% TOPICAL OINTMENT FOR DECOLONIZATION NS SCH ×2 (09:13→21:02)
--- NOTE | 2019-02-07 09:45 | PN ---
Progress Note, Physician History of Present Illness: INTUBATED IN ICU WEANING ATTEMPTS PLANNED BLOOD C/S GPCCL - Current Medication List Current Medications: Active Medications Acetaminophen (Ofirmev Injection -) 1,000 mg IVPB Q6H PRN PRN Reason: FEVER Albuterol/Ipratropium (Duoneb -) 1 amp NEB RQID MARIA R Last Admin: 02/06/19 20:40 Dose: 1 amp Chlorhexidine Gluconate (Hibiclens For Decolonization -) 1 applic TP HS MARIA R Last Admin: 02/06/19 21:41 Dose: 1 applic Heparin Sodium (Porcine) (Heparin -) 5,000 unit SQ TID MARIA R Last Admin: 02/07/19 05:27 Dose: 5,000 unit Sodium Chloride (Normal Saline -) 1,000 mls @ 75 mls/hr IV ASDIR MARIA R Last Admin: 02/06/19 17:31 Dose: 75 mls/hr Propofol (Diprivan -) 1,000,000 mcg in 100 mls @ 6.363 mls/hr IVPB TITR MARIA R; Protocol Last Admin: 02/07/19 06:47 Dose: 10 mcg/kg/min, 6.363 mls/hr Piperacillin Sod/Tazobactam (Sod 3.375 gm/ Dextrose) 50 mls @ 100 mls/hr IVPB Q8H-IV MARIA R; Protocol Last Admin: 02/07/19 09:13 Dose: 100 mls/hr Vancomycin HCl 1,500 mg/ (Dextrose) 500 mls @ 250 mls/hr IVPB Q24H MARIA R; Protocol Last Admin: 02/06/19 15:07 Dose: 250 mls/hr Fentanyl 500 mcg/ Dextrose 100 mls @ 5 mls/hr IVPB TITR MARIA R Last Admin: 02/06/19 14:51 Dose: 25 mcg/hr, 5 mls/hr Insulin Aspart (Novolog Vial Sliding Scale -) 1 vial SQ ACHS MARIA R; Protocol Last Admin: 02/07/19 06:39 Dose: Not Given Methylprednisolone Sodium Succinate (Solu-Medrol -) 40 mg IVPUSH Q8H-IV MARIA R Last Admin: 02/07/19 09:13 Dose: 40 mg Mupirocin (Bactroban Ointment (For Decolonization) -) 1 applic NS BID MARIA R Stop: 02/10/19 21:59 Last Admin: 02/07/19 09:13 Dose: 1 applic Pantoprazole Sodium (Protonix Iv) 40 mg IVPUSH DAILY MARIA R Last Admin: 02/07/19 09:13 Dose: 40 mg - Objective Vital Signs: Vital Signs Temperature 98.4 F 02/07/19 06:00 Pulse Rate 63 02/07/19 07:40 Respiratory Rate 12 02/07/19 07:40 Blood Pressure 120/68 02/07/19 06:00 O2 Sat by Pulse Oximetry (%) 97 02/07/19 07:40 Constitutional: Yes: No Distress Cardiovascular: Yes: Regular Rate and Rhythm, S1, S2 Respiratory: Yes: Mechanically Ventilated Gastrointestinal: Yes: Normal Bowel Sounds, Soft, Abdomen, Obese. No: Tenderness Extremities: Yes: Other ( S/P AKA) Labs: CBC, BMP 02/07/19 05:20 02/07/19 05:20 Assessment/Plan RESP FAILURE EXACERBATION COPD RLL PNEUMONIA + BC GPCCL DIABETES MELLITUS LEUKOCYTOSIS AZOTEMIA AWAIT BC WEAN TOLERATED CONTINUE EMPIRIC VANCOMYCIN/ ZOSYN
--- NOTE | 2019-02-07 10:23 | PN ---
Teaching Attending Note Name of Resident: Nelsy Francis ATTENDING PHYSICIAN STATEMENT I saw and evaluated the patient. I reviewed the resident's note and discussed the case with the resident. I agree with the resident's findings and plan as documented. SUBJECTIVE: Pt seen and examined in the ICU. Intubated, arousable off sedation. Placed on CPAP/PS. Blood cultures growing gram positive cocci in clusters. OBJECTIVE: Vital Signs Period Temp Pulse Resp BP Sys/Singer Pulse Ox Last 24 Hr 98.4 F-99.7 F 60-97 - 112-178/60-78 97-99 Intake & Output 02/04/19 02/05/19 02/06/19 02/07/19 23:59 23:59 23:59 23:59 Intake Total 312.6 1011 698.2 Output Total 800 2000 300 Balance -487.4 -989 398.2 Weight 106.05 kg 105.2 kg 105.097 kg Gen: intubated, arousable Heart: RRR Lung: decreased breath sounds at the bases Abd: soft, nontender Ext: L AKA CBC, BMP 02/07/19 05:20 02/07/19 05:20 Active Medications Acetaminophen (Ofirmev Injection -) 1,000 mg IVPB Q6H PRN PRN Reason: FEVER Albuterol/Ipratropium (Duoneb -) 1 amp NEB RQID [facility] Last Admin: 02/06/19 20:40 Dose: 1 amp Chlorhexidine Gluconate (Hibiclens For Decolonization -) 1 applic TP HS [facility] Last Admin: 02/06/19 21:41 Dose: 1 applic Heparin Sodium (Porcine) (Heparin -) 5,000 unit SQ TID [facility] Last Admin: 02/07/19 05:27 Dose: 5,000 unit Sodium Chloride (Normal Saline -) 1,000 mls @ 75 mls/hr IV ASDIR [facility] Last Admin: 02/06/19 17:31 Dose: 75 mls/hr Propofol (Diprivan -) 1,000,000 mcg in 100 mls @ 6.363 mls/hr IVPB TITR MARIA R; Protocol Last Admin: 02/07/19 06:47 Dose: 10 mcg/kg/min, 6.363 mls/hr Piperacillin Sod/Tazobactam (Sod 3.375 gm/ Dextrose) 50 mls @ 100 mls/hr IVPB Q8H-IV MARIA R; Protocol Last Admin: 02/07/19 09:13 Dose: 100 mls/hr Vancomycin HCl 1,500 mg/ (Dextrose) 500 mls @ 250 mls/hr IVPB Q24H MARIA R; Protocol Last Admin: 02/06/19 15:07 Dose: 250 mls/hr Fentanyl 500 mcg/ Dextrose 100 mls @ 5 mls/hr IVPB TITR MARIA R Last Admin: 02/06/19 14:51 Dose: 25 mcg/hr, 5 mls/hr Azithromycin 250 mg/ Dextrose 250 mls @ 250 mls/hr IVPB DAILY MARIA R Insulin Aspart (Novolog Vial Sliding Scale -) 1 vial SQ ACHS [facility]; Protocol Last Admin: 02/07/19 06:39 Dose: Not Given Methylprednisolone Sodium Succinate (Solu-Medrol -) 40 mg IVPUSH Q8H-IV MARIA R Last Admin: 02/07/19 09:13 Dose: 40 mg Mupirocin (Bactroban Ointment (For Decolonization) -) 1 applic NS BID [facility] Stop: 02/10/19 21:59 Last Admin: 02/07/19 09:13 Dose: 1 applic Pantoprazole Sodium (Protonix Iv) 40 mg IVPUSH DAILY [facility] Last Admin: 02/07/19 09:13 Dose: 40 mg ASSESSMENT AND PLAN: Acute Hypoxic Respiratory Failure Pneumonia likely Aspiration Gram Positive Bacteremia Sepsis Acute COPD Exacerbation Acute Kidney Injury HTN DM h/o CVA Bipolar Disorder - wean to extubate - continue antibiotics - f/u cultures - continue medrol - inhaled bronchodilators - taper Fio2 to keep Spo2 >90% - IVF - monitor urine output, creatinine - enteral feeds if unable to extubate - DVT prophylaxis - continue ICU monitoring critical care time spent in reviewing chart, evaluating patient and formulating plan 35 min
--- NOTE | 2019-02-07 10:43 | PN ---
Physical Exam: SUBJECTIVE: Patient seen and examined. Remains intubated, holding sedation today. Continuing wean trials. OBJECTIVE: Vital Signs Period Temp Pulse Resp BP Sys/Singer Pulse Ox Last 24 Hr 98.4 F-99.7 F 60-97 12-22 112-178/60-78 97-99 GENERAL: Intubated HEENT: NCAT. PERRLA. Clear sclera LUNGS: B/l lower lobe decr breath sounds noted HEART: RRR S1S2 no murmurs. ABDOMEN: Obese, soft, lower abdominal midline scar noted. + bowel sounds. EXTREMITIES: pulses 2+ b/l UE & LE. 1+ LE edema. NEUROLOGICAL: unable to assess SKIN: RUE hand bullous rash localized to distal wrist & hand. Lesions are mobile , not tense, fluid-filled. No surrounding erythema. Laboratory Results - last 24 hr 02/05/19 02/06/19 02/06/19 12:00 11:12 16:52 WBC RBC Hgb Hct MCV MCH MCHC RDW Plt Count MPV Absolute Neuts (auto) Neutrophils % Lymphocytes % Monocytes % Eosinophils % Basophils % Nucleated RBC % Sodium Potassium Chloride Carbon Dioxide Anion Gap BUN Creatinine Est GFR (CKD-EPI)AfAm Est GFR (CKD-EPI)NonAf POC Glucometer 136 200 Random Glucose Calcium Phosphorus Magnesium Total Bilirubin AST ALT Alkaline Phosphatase Total Protein Albumin Influenza A (Rapid) Negative Influenza B (Rapid) Negative 02/06/19 02/07/19 02/07/19 21:38 05:20 05:20 WBC 11.5 H RBC 4.62 Hgb 10.3 L Hct 34.0 MCV 73.6 L MCH 22.4 L MCHC 30.4 L RDW 18.4 H Plt Count 176 MPV 10.7 Absolute Neuts (auto) 9.8 H Neutrophils % 85.2 H Lymphocytes % 7.1 L D Monocytes % 7.5 Eosinophils % 0.0 Basophils % 0.2 Nucleated RBC % 0 Sodium 143 Potassium 4.9 Chloride 113 H Carbon Dioxide 25 Anion Gap 5 L BUN 19.3 H Creatinine 1.4 H Est GFR (CKD-EPI)AfAm 45.58 Est GFR (CKD-EPI)NonAf 39.33 POC Glucometer 148 Random Glucose 153 H Calcium 7.8 L Phosphorus 4.4 Magnesium 2.3 Total Bilirubin 0.5 AST 36 ALT 25 Alkaline Phosphatase 65 Total Protein 5.9 L Albumin 2.3 L Influenza A (Rapid) Influenza B (Rapid) 02/07/19 05:33 WBC RBC Hgb Hct MCV MCH MCHC RDW Plt Count MPV Absolute Neuts (auto) Neutrophils % Lymphocytes % Monocytes % Eosinophils % Basophils % Nucleated RBC % Sodium Potassium Chloride Carbon Dioxide Anion Gap BUN Creatinine Est GFR (CKD-EPI)AfAm Est GFR (CKD-EPI)NonAf POC Glucometer 138 Random Glucose Calcium Phosphorus Magnesium Total Bilirubin AST ALT Alkaline Phosphatase Total Protein Albumin Influenza A (Rapid) Influenza B (Rapid) Active Medications Generic Name Dose Route Start Last Admin Trade Name Freq PRN Reason Stop Dose Admin Acetaminophen 1,000 mg 02/05/19 16:26 Ofirmev Injection - IVPB Q6H PRN FEVER Albuterol/Ipratropium 1 amp 02/05/19 16:00 02/06/19 20:40 Duoneb - NEB 1 amp RQID MARIA R Administration Chlorhexidine Gluconate 1 applic 02/05/19 22:00 02/06/19 21:41 Hibiclens For Decolonization - TP 1 applic HS MARIA R Administration Heparin Sodium (Porcine) 5,000 unit 02/05/19 14:00 02/07/19 05:27 Heparin - SQ 5,000 unit TID MARIA R Administration Sodium Chloride 1,000 mls @ 75 mls/hr 02/05/19 16:45 02/06/19 17:31 Normal Saline - IV 75 mls/hr ASDIR MARIA R Administration Propofol 1,000,000 mcg in 100 mls @ 6.363 mls/hr 02/05/19 20:30 02/07/19 06: 47 Diprivan - IVPB 10 mcg/kg/min TITR MARIA R 6.363 mls/hr Administration Protocol 10 MCG/KG/MIN Piperacillin Sod/Tazobactam 50 mls @ 100 mls/hr 02/06/19 10:00 02/07/19 09:13 Sod 3.375 gm/ Dextrose IVPB 100 mls/hr Q8H-IV MARIA R Administration Protocol Vancomycin HCl 1,500 mg/ 500 mls @ 250 mls/hr 02/06/19 14:00 02/06/19 15:07 Dextrose IVPB 250 mls/hr Q24H MARIA R Administration Protocol Fentanyl 500 mcg/ Dextrose 100 mls @ 5 mls/hr 02/06/19 13:30 02/06/19 14:51 IVPB 25 mcg/hr TITR MARIA R 5 mls/hr Administration 25 MCG/HR Azithromycin 250 mg/ Dextrose 250 mls @ 250 mls/hr 02/07/19 10:00 IVPB DAILY MARIA R Insulin Aspart 1 vial 02/05/19 16:30 02/07/19 06:39 Novolog Vial Sliding Scale - SQ Not Given ACHS [facility] Protocol Methylprednisolone Sodium Succinate 40 mg 02/05/19 18:00 02/07/19 09:13 Solu-Medrol - IVPUSH 40 mg Q8H-IV MARIA R Administration Mupirocin 1 applic 02/05/19 22:00 02/07/19 09:13 Bactroban Ointment (For Decolonization) - NS 02/10/19 21:59 1 applic BID MARIA R Administration Pantoprazole Sodium 40 mg 02/06/19 10:00 02/07/19 09:13 Protonix Iv IVPUSH 40 mg DAILY MARIA R Administration ASSESSMENT/PLAN: 63 y.o. F PMH DM, HTN, CVA, COPD, left AKA, bipolar d/o from 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 Cardiomegaly, L base infiltrate. -CXR 02/07: b/l pulmonary & pleural changes, decreased on right. -C/w azithromycin -Intubated, on vent #Heme/ Onc -Gm + cocci bacteremia -Leukocytosis improving, monitor cbc -Started vanc/ zosyn -F/u vanc trough prior to 4th dose #Renal -GHANSHYAM improving -trend Cr #Endo -diabetes mellitus -ISS -BGMs ACHS #Derm -R hand rash -Continue to monitor -local wound care #PPX -heparin SQ -protonix 40mg IV daily Visit type - Emergency Visit Emergency Visit: No - New Patient This patient is new to me today: No - Critical Care Critical Care patient: Yes Total Critical Care Time (in minutes): 36 Critical Care Statement: The care of this patient involved high complexity decision making to prevent further life threatening deterioration of the patient 's condition and/or to evaluate & treat vital organ system(s) failure or risk of failure. ATTENDING PHYSICIAN STATEMENT I saw and evaluated the patient. I reviewed the resident's note and discussed the case with the resident. I agree with the resident's findings and plan as documented. SUBJECTIVE: OBJECTIVE: ASSESSMENT AND PLAN:
--- NOTE | 2019-02-07 11:23 | PN ---
Progress Note, Physician Chief Complaint: Acute respiratory failure COPD exacerbation Pneumonia Bacteremia History of Present Illness: NAD Just extubated Alert but lethargic - Current Medication List Current Medications: Active Medications Acetaminophen (Ofirmev Injection -) 1,000 mg IVPB Q6H PRN PRN Reason: FEVER Albuterol/Ipratropium (Duoneb -) 1 amp NEB RQID [facility] R Last Admin: 02/06/19 20:40 Dose: 1 amp Chlorhexidine Gluconate (Hibiclens For Decolonization -) 1 applic TP HS [facility] R Last Admin: 02/06/19 21:41 Dose: 1 applic Heparin Sodium (Porcine) (Heparin -) 5,000 unit SQ TID [facility] R Last Admin: 02/07/19 05:27 Dose: 5,000 unit Sodium Chloride (Normal Saline -) 1,000 mls @ 75 mls/hr IV ASDIR [facility] Last Admin: 02/06/19 17:31 Dose: 75 mls/hr Propofol (Diprivan -) 1,000,000 mcg in 100 mls @ 6.363 mls/hr IVPB TITR [facility]; Protocol Last Admin: 02/07/19 06:47 Dose: 10 mcg/kg/min, 6.363 mls/hr Piperacillin Sod/Tazobactam (Sod 3.375 gm/ Dextrose) 50 mls @ 100 mls/hr IVPB Q8H-IV [facility]; Protocol Last Admin: 02/07/19 09:13 Dose: 100 mls/hr Vancomycin HCl 1,500 mg/ (Dextrose) 500 mls @ 250 mls/hr IVPB Q24H [facility]; Protocol Last Admin: 02/06/19 15:07 Dose: 250 mls/hr Fentanyl 500 mcg/ Dextrose 100 mls @ 5 mls/hr IVPB TITR [facility] R Last Admin: 02/06/19 14:51 Dose: 25 mcg/hr, 5 mls/hr Azithromycin 250 mg/ Dextrose 250 mls @ 250 mls/hr IVPB DAILY [facility]IA R Insulin Aspart (Novolog Vial Sliding Scale -) [address] [facility]; Protocol Last Admin: 02/07/19 11:21 Dose: Not Given Methylprednisolone Sodium Succinate (Solu-Medrol -) 40 mg IVPUSH Q8H-IV [facility] R Last Admin: 02/07/19 09:13 Dose: 40 mg Mupirocin (Bactroban Ointment (For Decolonization) -) [address] [facility] Stop: 02/10/19 21:59 Last Admin: 02/07/19 09:13 Dose: 1 applic Pantoprazole Sodium (Protonix Iv) [address] [facility] Last Admin: 02/07/19 09:13 Dose: 40 mg - Objective Vital Signs: Vital Signs Temperature 98.4 F 02/07/19 06:00 Pulse Rate 62 02/07/19 08:00 Respiratory Rate 12 02/07/19 08:00 Blood Pressure 116/63 02/07/19 08:00 O2 Sat by Pulse Oximetry (%) 97 02/07/19 09:00 Constitutional: Yes: Well Nourished, No Distress, Calm, Obese Cardiovascular: Yes: Regular Rate and Rhythm Respiratory: Yes: On Venti-Mask, Rhonchi (diffuse) Gastrointestinal: Yes: Normal Bowel Sounds, Soft, Abdomen, Obese Genitourinary: Yes: Dukes Present Peripheral Pulses WNL: Yes Neurological: Yes: Alert, Lethargy Psychiatric: Yes: Alert Labs: CBC, BMP 02/07/19 05:20 02/07/19 05:20 Problem List - Problems (1) Bacteremia Assessment/Plan: -Cultures: Microbiology 02/06/19 12:00 Sputum - Endotrachea Suction/Ventilator Sputum Culture - Preliminary Presumptive Mrsa (Pbp2a Pos) 02/05/19 12:04 Blood - Peripheral Venous Blood Culture - Preliminary Presumptive Mssa (Pbp2a Neg) 02/05/19 12:04 Blood - Peripheral Venous Blood Culture - Preliminary Staphylococcus Coagulase Neg 02/05/19 15:51 Urine For Antigen Detection Legionella Antigen - Final 02/05/19 15:51 Urine For Antigen Detection Streptococcus pneumoniae Antigen (M - Final 02/05/19 12:49 Urine - Urine - Catheterized Urine Culture - Final NO GROWTH OBTAINED -ID on Board -IV abx -Fevers improved -Leukocytosis -CXR reviewed -Pulmonary on board Problems reviewed: Yes Code(s): R78.81 - BACTEREMIA (2) COPD exacerbation Assessment/Plan: -Pulmonary consult -bronchodilators -Medrol tapering dose -IV abx Problems reviewed: Yes Code(s): J44.1 - CHRONIC OBSTRUCTIVE PULMONARY DISEASE W (ACUTE) EXACERBATION (3) Pneumonia Assessment/Plan: -Pulmonary consult -bronchodilators -Medrol tapering dose -IV abx Problems reviewed: Yes Code(s): J18.9 - PNEUMONIA, UNSPECIFIED ORGANISM (4) Morbid obesity due to excess calories Problems reviewed: Yes Code(s): E66.01 - MORBID (SEVERE) OBESITY DUE TO EXCESS CALORIES (5) Respiratory failure Assessment/Plan: -Pulmonary consult -bronchodilators -Medrol tapering dose -IV abx -O2 to keep SpO2>90% Problems reviewed: Yes Code(s): J96.90 - RESPIRATORY FAILURE, UNSP, UNSP W HYPOXIA OR HYPERCAPNIA Assessment/Plan see problem list
[2019-02-07] MEDS: AZITHROMYCIN IVPB 250 MG in DEXTROSE 5%-WATER - 250 ML IVPB SCH (11:36)
--- NOTE | 2019-02-07 12:14 | ECHO ---
Name: NATACHA ZEPEDA Exam:Adult Echocardiogram Study Date: 02/07/2019 10:20 AM Age: 63 yrs Reason For Study: R/O Endocarditis only Height: 49 in Weight: 231 lb BSA: 1.7 m2 MMode/2D Measurements & Calculations Ao root diam: 3.1 cm Doppler Measurements & Calculations TR max anthony: 290.5 cm/sec TR max P.8 mmHg Left Ventricle The left ventricular size, thickness and function are normal. The left ventricular ejection fraction is normal. Ejection Fraction = 60-65%. No regional wall motion abnormalities noted. Right Ventricle The right ventricle is not well visualized. Atria Normal left and right atrial size and function. Mitral Valve There is mild mitral annular calcification. There is no mitral regurgitation noted. Tricuspid Valve There is trace tricuspid regurgitation. Right ventricular systolic pressure is normal. Aortic Valve No hemodynamically significant valvular aortic stenosis. No aortic regurgitation is present. Pulmonic Valve The pulmonic valve is not well visualized. Great Vessels The aortic root is normal size. Pericardium/Pleura There is no pericardial effusion. Interpretation Summary The left ventricular size, thickness and function are normal The right ventricle is not well visualized. There is trace tricuspid regurgitation. No evidence of endocarditis. MD Alexei Lezama 02/07/2019 12:14 PM
[2019-02-07] MEDS ORDERED: PT OWN MED DRAWER 7, Y5N ONE (14:55)
[2019-02-07] MEDS: VANCOMYCIN HCL 1,500 MG in DEXTROSE 5%-WATER - 500 ML IVPB SCH (14:56)
[2019-02-07] MEDS: FENTANYL INJECTION 500 MCG in DEXTROSE 5%-WATER - 90 ML IVPB SCH (17:55)
[2019-02-07] MEDS ORDERED: DEXTROSE 5%-WATER - 100 ML IVPB ONE (17:57)
[2019-02-07] MEDS: SODIUM CHLORIDE 1,000 ML IV SCH (18:00)
[2019-02-07] MEDS: CHLORHEXIDINE GLUCONATE 4% CLEANSER FOR DECOLONIZATION TP SCH (21:03)
[2019-02-08] MEDS: SODIUM CHLORIDE 1,000 ML IV SCH (02:00)
[2019-02-08] MEDS: PIPERACILLIN/TAZOB 3.375 GM 3.375 GM in DEXTROSE 5%-WATER - 50 ML IVPB SCH ×2 (03:00→09:21)
[2019-02-08] MEDS: methylPREDNISolone NA SUCC 40 MG/1 ML VIAL IVPUSH SCH ×3 (03:24→17:00)
[2019-02-08] MEDS ORDERED: PIPERACILLIN/TAZOBACTAM 3.375 GM VIAL IVPB ONE ×2 (05:10→09:17)
[2019-02-08] MEDS ORDERED: DEXTROSE 5%-WATER - 50 ML IVPB ONE ×2 (05:10→09:17)
[2019-02-08] MEDS: HEPARIN NA (PORCINE) 5,000 UNITS/ML 1ML VIAL SQ SCH ×3 (05:17→21:02)
[2019-02-08] MEDS: INSULIN SLIDING SCALE (NOVOLOG) 1 VIAL SQ SCH ×4 (06:11→21:03)
[2019-02-08 06:32] LABS: HEMATOCRIT 35.2 % (32.4-45.2); HEMOGLOBIN 10.7 GM/dL (10.7-15.3); MCH 22.2 pg (25.7-33.7); MCHC 30.4 g/dl (32.0-36.0); MEAN CELL VOLUME 73.2 fl (80-96); MEAN PLT VOLUME 9.8 fl (7.5-11.1); PLATELET COUNT 171 K/MM3 (134-434); RDW 18.5 % (11.6-15.6); WHITE BLOOD COUNT 11.9 K/mm3 (4.0-10.0)
[2019-02-08 06:59] LABS: ALBUMIN 2.7 g/dl (3.4-5.0); BILIRUBIN,TOTAL 0.5 mg/dL (0.2-1); BLOOD UREA NITROGEN 17.4 mg/dL (7-18); CALCIUM 8.2 mg/dL (8.5-10.1); CREATININE 1.3 mg/dL (0.55-1.3); MAGNESIUM 2.7 mg/dL (1.8-2.4); POTASSIUM 4.2 mmol/L (3.5-5.1); TOT PROT 6.8 g/dl (6.4-8.2)
[2019-02-08] MEDS: ALBUTEROL SO4 2.5/IPRATROPIUM 0.5 INH SOL 3 ML VIAL.NEB. NEB SCH ×4 (07:25→20:55)
[2019-02-08] MEDS ORDERED: PT OWN MED DRAWER 7, Y5N ONE (09:17)
[2019-02-08] MEDS: PANTOPRAZOLE SODIUM 40 MG VIAL IVPUSH SCH (09:22)
[2019-02-08] MEDS: MUPIROCIN 2% TOPICAL OINTMENT FOR DECOLONIZATION NS SCH ×2 (09:22→21:03)
--- NOTE | 2019-02-08 09:41 | PN ---
Progress Note, Physician - Current Medication List Current Medications: Active Medications Acetaminophen (Ofirmev Injection -) 1,000 mg IVPB Q6H PRN PRN Reason: FEVER Albuterol/Ipratropium (Duoneb -) 1 amp NEB RQID [facility] Last Admin: 02/08/19 07:25 Dose: 1 amp Chlorhexidine Gluconate (Hibiclens For Decolonization -) 1 applic TP HS [facility] Last Admin: 02/07/19 21:03 Dose: 1 applic Heparin Sodium (Porcine) (Heparin -) 5,000 unit SQ TID [facility] Last Admin: 02/08/19 05:17 Dose: 5,000 unit Sodium Chloride (Normal Saline -) 1,000 mls @ 75 mls/hr IV ASDIR [facility] Last Admin: 02/08/19 02:00 Dose: 75 mls/hr Propofol (Diprivan -) 1,000,000 mcg in 100 mls @ 6.363 mls/hr IVPB TITR [facility]; Protocol Last Admin: 02/07/19 21:03 Dose: Not Given Piperacillin Sod/Tazobactam (Sod 3.375 gm/ Dextrose) 50 mls @ 100 mls/hr IVPB Q8H-IV [facility]; Protocol Last Admin: 02/08/19 09:21 Dose: 100 mls/hr Vancomycin HCl 1,500 mg/ (Dextrose) 500 mls @ 250 mls/hr IVPB Q24H [facility]; Protocol Last Admin: 02/07/19 14:56 Dose: 250 mls/hr Fentanyl 500 mcg/ Dextrose 100 mls @ 5 mls/hr IVPB TITR [facility] Last Admin: 02/07/19 17:55 Dose: Not Given Azithromycin 250 mg/ Dextrose 250 mls @ 250 mls/hr IVPB DAILY [facility] Last Admin: 02/07/19 11:36 Dose: 250 mls/hr Insulin Aspart (Novolog Vial Sliding Scale -) 1 vial SQ ACHS [facility]; Protocol Last Admin: 02/08/19 06:11 Dose: Not Given Methylprednisolone Sodium Succinate (Solu-Medrol -) 40 mg IVPUSH Q8H-IV [facility] Last Admin: 02/08/19 09:22 Dose: 40 mg Mupirocin (Bactroban Ointment (For Decolonization) -) 1 applic NS BID [facility] Stop: 02/10/19 21:59 Last Admin: 02/08/19 09:22 Dose: 1 applic Pantoprazole Sodium (Protonix Iv) 40 mg IVPUSH DAILY [facility] Last Admin: 02/08/19 09:22 Dose: 40 mg - Objective Vital Signs: Vital Signs Temperature 98.3 F 02/08/19 06:00 Pulse Rate 65 02/08/19 08:00 Respiratory Rate 16 02/08/19 08:00 Blood Pressure 135/66 02/08/19 08:00 O2 Sat by Pulse Oximetry (%) 97 02/08/19 09:00 Cardiovascular: Yes: S1, S2 Respiratory: Yes: Rhonchi, Wheezes Gastrointestinal: Yes: Normal Bowel Sounds, Soft Labs: CBC, BMP 02/08/19 06:10 02/08/19 06:10 Assessment/Plan - Problems (1) Bacteremia Assessment/Plan: -Cultures: Microbiology 02/06/19 12:00 Sputum - Endotrachea Suction/Ventilator Sputum Culture - Preliminary Presumptive Mrsa (Pbp2a Pos) 02/05/19 12:04 Blood - Peripheral Venous Blood Culture - Preliminary Presumptive Mssa (Pbp2a Neg) 02/05/19 12:04 Blood - Peripheral Venous Blood Culture - Preliminary Staphylococcus Coagulase Neg 02/05/19 15:51 Urine For Antigen Detection Legionella Antigen - Final 02/05/19 15:51 Urine For Antigen Detection Streptococcus pneumoniae Antigen (M - Final 02/05/19 12:49 Urine - Urine - Catheterized Urine Culture - Final NO GROWTH OBTAINED -ID on Board -IV abx -Fevers improved -Leukocytosis -CXR reviewed -Pulmonary on board Problems reviewed: Yes Code(s): R78.81 - BACTEREMIA (2) COPD exacerbation Assessment/Plan: -Pulmonary consult -bronchodilators -Medrol tapering dose -IV abx Problems reviewed: Yes Code(s): J44.1 - CHRONIC OBSTRUCTIVE PULMONARY DISEASE W (ACUTE) EXACERBATION (3) Pneumonia Assessment/Plan: -Pulmonary consult -bronchodilators -Medrol tapering dose -IV abx Problems reviewed: Yes Code(s): J18.9 - PNEUMONIA, UNSPECIFIED ORGANISM (4) Morbid obesity due to excess calories Problems reviewed: Yes Code(s): E66.01 - MORBID (SEVERE) OBESITY DUE TO EXCESS CALORIES (5) Respiratory failure Assessment/Plan: -Pulmonary consult -bronchodilators -Medrol tapering dose -IV abx -O2 to keep SpO2>90% Problems reviewed: Yes Code(s): J96.90 - RESPIRATORY FAILURE, UNSP, UNSP W HYPOXIA OR HYPERCAPNIA
[2019-02-08] MEDS: AZITHROMYCIN IVPB 250 MG in DEXTROSE 5%-WATER - 250 ML IVPB SCH (10:25)
--- NOTE | 2019-02-08 10:52 | PN ---
Teaching Attending Note Name of Resident: Akira Leonard ATTENDING PHYSICIAN STATEMENT I saw and evaluated the patient. I reviewed the resident's note and discussed the case with the resident. I agree with the resident's findings and plan as documented. SUBJECTIVE: Patient seen and examined in the ICU. Extubated on NC O2. Awake and responsive but mildly confused. No pressors. OBJECTIVE: Intake & Output 02/05/19 02/06/19 02/07/19 02/08/19 23:59 23:59 23:59 23:59 Intake Total 312.6 1011 2223.2 950 Output Total 800 2000 1400 1100 Balance -487.4 -989 823.2 -150 Weight 233 lb 12.8 oz 231 lb 14.821 oz 231 lb 229 lb 9 oz Last Vital Signs Temp Pulse Resp BP Pulse Ox 98.3 F 65 16 135/66 97 02/08/19 06:00 02/08/19 08:00 02/08/19 08:00 02/08/19 08:00 02/08/19 09:00 Active Medications Acetaminophen (Ofirmev Injection -) 1,000 mg IVPB Q6H PRN PRN Reason: FEVER Albuterol/Ipratropium (Duoneb -) 1 amp NEB RQID [facility] Last Admin: 02/08/19 07:25 Dose: 1 amp Chlorhexidine Gluconate (Hibiclens For Decolonization -) 1 applic TP HS [facility] Last Admin: 02/07/19 21:03 Dose: 1 applic Heparin Sodium (Porcine) (Heparin -) 5,000 unit SQ TID [facility] Last Admin: 02/08/19 05:17 Dose: 5,000 unit Sodium Chloride (Normal Saline -) 1,000 mls @ 75 mls/hr IV ASDIR [facility] Last Admin: 02/08/19 02:00 Dose: 75 mls/hr Propofol (Diprivan -) 1,000,000 mcg in 100 mls @ 6.363 mls/hr IVPB TITR [facility]; Protocol Last Admin: 02/07/19 21:03 Dose: Not Given Piperacillin Sod/Tazobactam (Sod 3.375 gm/ Dextrose) 50 mls @ 100 mls/hr IVPB Q8H-IV [facility]; Protocol Last Admin: 02/08/19 09:21 Dose: 100 mls/hr Vancomycin HCl 1,500 mg/ (Dextrose) 500 mls @ 250 mls/hr IVPB Q24H [facility]; Protocol Last Admin: 02/07/19 14:56 Dose: 250 mls/hr Fentanyl 500 mcg/ Dextrose 100 mls @ 5 mls/hr IVPB TITR [facility] Last Admin: 02/07/19 17:55 Dose: Not Given Azithromycin 250 mg/ Dextrose 250 mls @ 250 mls/hr IVPB DAILY [facility] Last Admin: 02/08/19 10:25 Dose: 250 mls/hr Insulin Aspart (Novolog Vial Sliding Scale -) 1 vial SQ ACHS [facility]; Protocol Last Admin: 02/08/19 06:11 Dose: Not Given Methylprednisolone Sodium Succinate (Solu-Medrol -) 40 mg IVPUSH Q8H-IV [facility] Last Admin: 02/08/19 09:22 Dose: 40 mg Mupirocin (Bactroban Ointment (For Decolonization) -) 1 applic NS BID [facility] Stop: 02/10/19 21:59 Last Admin: 02/08/19 09:22 Dose: 1 applic Pantoprazole Sodium (Protonix Iv) 40 mg IVPUSH DAILY [facility] Last Admin: 02/08/19 09:22 Dose: 40 mg Gen: Extubated, awake and responsive, NAD Heart: RRR Lung: decreased breath sounds at the bases Abd: soft, nontender Ext: L AKA Laboratory Results - last 24 hr 02/07/19 02/07/19 02/07/19 11:16 17:37 21:01 WBC RBC Hgb Hct MCV MCH MCHC RDW Plt Count MPV Sodium Potassium Chloride Carbon Dioxide Anion Gap BUN Creatinine Est GFR (CKD-EPI)AfAm Est GFR (CKD-EPI)NonAf POC Glucometer 144 172 126 Random Glucose Calcium Phosphorus Magnesium Total Bilirubin AST ALT Alkaline Phosphatase Total Protein Albumin 02/08/19 02/08/19 02/08/19 06:09 06:10 06:10 WBC 11.9 H RBC 4.80 Hgb 10.7 Hct 35.2 MCV 73.2 L MCH 22.2 L MCHC 30.4 L RDW 18.5 H Plt Count 171 MPV 9.8 Sodium 144 Potassium 4.2 Chloride 111 H Carbon Dioxide 28 Anion Gap 5 L BUN 17.4 Creatinine 1.3 Est GFR (CKD-EPI)AfAm 49.86 Est GFR (CKD-EPI)NonAf 43.02 POC Glucometer 131 Random Glucose 130 H Calcium 8.2 L Phosphorus 3.0 Magnesium 2.7 H Total Bilirubin 0.5 AST 23 ALT 25 Alkaline Phosphatase 65 Total Protein 6.8 Albumin 2.7 L ASSESSMENT AND PLAN: Acute Hypoxic Respiratory Failure Pneumonia likely Aspiration Gram Positive Bacteremia Sepsis Acute COPD Exacerbation Acute Kidney Injury HTN DM h/o CVA Bipolar Disorder Possible OSAS - NC O2 to maintain saturation - continue antibiotics per ID - continue medrol - inhaled bronchodilators - PO as tolerated - Will need formal sleep testing after discharge - DVT prophylaxis - 4W / 4S monitoring Dr Strauss
--- NOTE | 2019-02-08 11:31 | PN ---
Physical Exam: SUBJECTIVE: Patient seen and examined no acute complaints at this time mildly confused. alert and oriented to person and place. OBJECTIVE: Vital Signs Period Temp Pulse Resp BP Sys/Singer Pulse Ox Last 24 Hr 98 F-98.5 F 61-86 12-18 127-153/64-87 97-97 GEN: slightly confused HEENT: NC/AT,PERRLA. No facial asymmetry. Moist mucous membranes. some dysarthria CV: S1/S2, RRR, no m/r/g LUNG: expiratory wheezing GI: soft, ndnt, +BS, no guarding, no rebound. EXTREMITIES: 2+ distal pulses. Left AKA. rash on right hand SKIN: warm, dry, normal turgor PSYCH: normal mood and affect NEURO: Moving all extremities well. Laboratory Results - last 24 hr 02/07/19 02/07/19 02/08/19 17:37 21:01 06:09 WBC RBC Hgb Hct MCV MCH MCHC RDW Plt Count MPV Sodium Potassium Chloride Carbon Dioxide Anion Gap BUN Creatinine Est GFR (CKD-EPI)AfAm Est GFR (CKD-EPI)NonAf POC Glucometer 172 126 131 Random Glucose Calcium Phosphorus Magnesium Total Bilirubin AST ALT Alkaline Phosphatase Total Protein Albumin 02/08/19 02/08/19 02/08/19 06:10 06:10 10:55 WBC 11.9 H RBC 4.80 Hgb 10.7 Hct 35.2 MCV 73.2 L MCH 22.2 L MCHC 30.4 L RDW 18.5 H Plt Count 171 MPV 9.8 Sodium 144 Potassium 4.2 Chloride 111 H Carbon Dioxide 28 Anion Gap 5 L BUN 17.4 Creatinine 1.3 Est GFR (CKD-EPI)AfAm 49.86 Est GFR (CKD-EPI)NonAf 43.02 POC Glucometer 183 Random Glucose 130 H Calcium 8.2 L Phosphorus 3.0 Magnesium 2.7 H Total Bilirubin 0.5 AST 23 ALT 25 Alkaline Phosphatase 65 Total Protein 6.8 Albumin 2.7 L Active Medications Generic Name Dose Route Start Last Admin Trade Name Freq PRN Reason Stop Dose Admin Acetaminophen 1,000 mg 02/05/19 16:26 Ofirmev Injection - IVPB Q6H PRN FEVER Albuterol/Ipratropium 1 amp 02/05/19 16:00 02/08/19 07:25 Duoneb - NEB 1 amp RQID [facility] Administration Chlorhexidine Gluconate 1 applic 02/05/19 22:00 02/07/19 21:03 Hibiclens For Decolonization - TP 1 applic HS [facility] Administration Heparin Sodium (Porcine) 5,000 unit 02/05/19 14:00 02/08/19 05:17 Heparin - SQ 5,000 unit TID [facility] Administration Sodium Chloride 1,000 mls @ 75 mls/hr 02/05/19 16:45 02/08/19 02:00 Normal Saline - IV 75 mls/hr ASDIR [facility] Administration Propofol 1,000,000 mcg in 100 mls @ 6.363 mls/hr 02/05/19 20:30 02/07/19 21: 03 Diprivan - IVPB Not Given TITR [facility] Protocol 10 MCG/KG/MIN Piperacillin Sod/Tazobactam 50 mls @ 100 mls/hr 02/06/19 10:00 02/08/19 09:21 Sod 3.375 gm/ Dextrose IVPB 100 mls/hr Q8H-IV [facility] Administration Protocol Vancomycin HCl 1,500 mg/ 500 mls @ 250 mls/hr 02/06/19 14:00 02/07/19 14:56 Dextrose IVPB 250 mls/hr Q24H [facility] Administration Protocol Fentanyl 500 mcg/ Dextrose 100 mls @ 5 mls/hr 02/06/19 13:30 02/07/19 17:55 IVPB Not Given TITR [facility] 25 MCG/HR Azithromycin 250 mg/ Dextrose 250 mls @ 250 mls/hr 02/07/19 10:00 02/08/19 10 :25 IVPB 250 mls/hr DAILY [facility] Administration Insulin Aspart 1 vial 02/05/19 16:30 02/08/19 11:02 Novolog Vial Sliding Scale - SQ 2 units ACHS [facility] Administration Protocol Methylprednisolone Sodium Succinate 40 mg 02/05/19 18:00 02/08/19 09:22 Solu-Medrol - IVPUSH 40 mg Q8H-IV [facility] Administration Mupirocin 1 applic 02/05/19 22:00 02/08/19 09:22 Bactroban Ointment (For Decolonization) - NS 02/10/19 21:59 1 applic BID [facility] Administration Pantoprazole Sodium 40 mg 02/06/19 10:00 02/08/19 09:22 Protonix Iv IVPUSH 40 mg DAILY [facility] Administration ASSESSMENT/PLAN: 63 y.o. 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 Cardiomegaly, L base infiltrate. -CXR 02/07: b/l pulmonary & pleural changes, decreased on right. -CXR 02/08: right base atelactais and infiltrate unchanged from previous EKG -Extubated on O2 nasal cannula. tolerating well #Heme/ Onc -Leukocytosis improving, monitor cbc #Renal -GHANSHYAM improving -trend Cr #Endo -diabetes mellitus -ISS -BGMs ACHS #Derm -R hand rash -Continue to monitor -local wound care #ID -Gm + cocci bacteremia -blood culture 02/05 MSSA - sputum culture 02/06 +MRSA -Started vanc/ zosyn -F/u vanc trough prior to 4th dose - continue azithromycin #PPX -heparin SQ -protonix 40mg IV daily Pt stable enough to be transferred to telemetry ATTENDING PHYSICIAN STATEMENT I saw and evaluated the patient. I reviewed the resident's note and discussed the case with the resident. I agree with the resident's findings and plan as documented. SUBJECTIVE: OBJECTIVE: ASSESSMENT AND PLAN:
--- NOTE | 2019-02-08 13:26 | PN ---
Progress Note (short form) - Note Progress Note: extubated alert Vital Signs Period Temp Pulse Resp BP Sys/Singer Pulse Ox Last 24 Hr 98 F-98.5 F 61-86 12-18 127-153/64-87 97-97 cor-rrr lungs clear abd soft,nt ext left AKA CBC, BMP 02/08/19 06:10 02/08/19 06:10 Microbiology 02/06/19 12:25 Blood - Peripheral Venous Blood Culture - Preliminary NO GROWTH OBTAINED AFTER 48 HOURS, INCUBATION TO CONTINUE FOR 3 DAYS. 02/06/19 12:35 Blood - Peripheral Venous Blood Culture - Preliminary NO GROWTH OBTAINED AFTER 48 HOURS, INCUBATION TO CONTINUE FOR 3 DAYS. 02/06/19 12:00 Sputum - Endotrachea Suction/Ventilator Gram Stain - Final 02/06/19 12:00 Sputum - Endotrachea Suction/Ventilator Sputum Culture - Final S Aureus 02/05/19 12:04 Blood - Peripheral Venous Blood Culture - Final Staphylococcus Intermedius 02/05/19 12:04 Blood - Peripheral Venous Blood Culture - Final Staphylococcus Aureus 02/05/19 15:51 Urine For Antigen Detection Legionella Antigen - Final 02/05/19 15:51 Urine For Antigen Detection Streptococcus pneumoniae Antigen (M - Final 02/05/19 12:49 Urine - Urine - Catheterized Urine Culture - Final NO GROWTH OBTAINED a/p resp failure- now extubated bacteremia- MSSA and staph intermedius HAP-MRSA copd continue vancomycin, check trough d/c zosyn Problem List - Problems (1) Respiratory failure Code(s): J96.90 - RESPIRATORY FAILURE, UNSP, UNSP W HYPOXIA OR HYPERCAPNIA (2) Pneumonia Code(s): J18.9 - PNEUMONIA, UNSPECIFIED ORGANISM (3) Bacteremia Code(s): R78.81 - BACTEREMIA (4) COPD exacerbation Code(s): J44.1 - CHRONIC OBSTRUCTIVE PULMONARY DISEASE W (ACUTE) EXACERBATION
[2019-02-08] MEDS: VANCOMYCIN HCL 1,500 MG in DEXTROSE 5%-WATER - 500 ML IVPB SCH (15:12)
--- NOTE | 2019-02-08 18:58 | CONS ---
DATE OF CONSULTATION: DATE OF DICTATION: 02/06/2019 HISTORY OF PRESENT ILLNESS: This is a 63-year-old woman who resides at [facility]. She was recently in the hospital in December from the to the . She is now admitted with respiratory failure. Yesterday she apparently was lethargic and in respiratory distress at the [facility]. She was noted to be hypoxic. EMS was called. She had diminished mental status and was intubated. In the ER she was noted to have a fever of 102, a right lower lobe infiltrate and was given vancomycin and Zosyn and placed on steroids. She was admitted to the ICU. I am asked to see her for further evaluation. She is sedated on the ventilator. This morning 104 blood cultures have gram positive coccyx in clusters. Patient is unable to give any history and it is all from the chart. PAST MEDICAL HISTORY: Is notable for hypertension, wxt-rdzijka-pzyzwbkod diabetes, status post left AKA and IVC filter. PAST SURGICAL HISTORY: Surgical history is notable for left AKA, hysterectomy and IVC filter. SOCIAL HISTORY: She is a former smoker, quit in 1998. 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 There is no history of substance use. ALLERGIES: She has no known drug allergies. On her last admission she was noted to have dysarthria. She had a workup for CVA that was negative. She was noted to have a UTI and was treated with cephalosporins at the time of discharge. MEDICATIONS: Her medications at the [facility] include Celexa, Abilify, amlodipine, oxybutynin,Topamax, celecoxib, metformin, gabapentin. She was on a short prednisone taper for 3 days. She uses DuoNeb. She is on omeprazole and Ambien. REVIEW OF SYSTEMS: Her review of systems is not available. PHYSICAL EXAMINATION: Vitals: On physical exam her T maximum was 102.1. Current temperature was 99.3 ; pulse was 73, blood pressure 130/69, respiratory rate 17. She has an FIO2 of 50 %, saturating 98%. General: She is orally intubated. She is an obese woman sedated. HEENT: She is normocephalic. Neck: Her neck is supple. Lungs: Have diminished breath sounds at the bases. Heart: Heart is regular rate and rhythm. Extremities: Her AKA site is well-healed. Her right leg is without any swelling. Abdomen: Her abdomen soft, nontender. LABORATORY STUDIES: Her white count on admission was 10.9. Repeat at 12.2 today. Hemoglobin 11, platelets of 167. BUN is 17 and creatinine 1.3 today. Yesterday was BUN 17 and creatinine 1.5 with normal LFTs. Urinalysis was negative. Influenza screen was reported as pending. Blood cultures 104 bottles have gram positive coccyx in clusters. Prior urine culture from December when she was in the hospital grew Klebsiella resistant to ampicillin only. SUMMARY: In summary, this is a 62-year-old female from the [facility] with chronic obstructive pulmonary disease admitted with respiratory distress and respiratory failure, hypoxia, right lower lobe infiltrate. She has evidence of gram positive bacteremia as well in the setting of chronic obstructive pulmonary disease. She was treated with vancomycin, Zosyn in the ER and started on Rocephin and Zithromax. Cultures are pending. She has blood-tinged sputum. Obtain sputum cultures and influenza screen as well. I would broaden her coverage with Zosyn and vancomycin given her recent admission to the hospital and possible aspiration risk, given the recent admission for dysarthria. Repeat blood cultures have been ordered as well. Further recommendations to follow. Riley [id number] MTDD
[2019-02-08] MEDS: FENTANYL INJECTION 500 MCG in DEXTROSE 5%-WATER - 90 ML IVPB SCH (20:47)
[2019-02-08] MEDS: CHLORHEXIDINE GLUCONATE 4% CLEANSER FOR DECOLONIZATION TP SCH (21:02)
[2019-02-08] MEDS: GABAPENTIN 300 MG CAPSULE (FP) PO SCH (21:02)
[2019-02-09] MEDS ORDERED: MELATONIN 5 MG TABLETS PO ONE (00:34)
[2019-02-09] MEDS: methylPREDNISolone NA SUCC 40 MG/1 ML VIAL IVPUSH SCH ×3 (02:34→17:08)
[2019-02-09 05:54] LABS: BASO % 0.2 % (0-2.0); HEMATOCRIT 36.2 % (32.4-45.2); HEMOGLOBIN 11.1 GM/dL (10.7-15.3); LYMPH % 7.1 % (8-40); MCH 22.3 pg (25.7-33.7); MCHC 30.6 g/dl (32.0-36.0); MEAN CELL VOLUME 72.9 fl (80-96); MONO % 10.4 % (3.8-10.2); NEUT % 82.3 % (42.8-82.8); PLATELET COUNT 188 K/MM3 (134-434); RBC 4.96 M/mm3 (3.60-5.2); RDW 18.4 % (11.6-15.6); WHITE BLOOD COUNT 12.6 K/mm3 (4.0-10.0)
[2019-02-09] MEDS: GABAPENTIN 300 MG CAPSULE (FP) PO SCH ×3 (06:09→21:19)
[2019-02-09] MEDS: HEPARIN NA (PORCINE) 5,000 UNITS/ML 1ML VIAL SQ SCH ×3 (06:09→21:18)
[2019-02-09 06:18] LABS: ALBUMIN 2.8 g/dl (3.4-5.0); BILIRUBIN,TOTAL 0.4 mg/dL (0.2-1); BLOOD UREA NITROGEN 14.9 mg/dL (7-18); CALCIUM 8.6 mg/dL (8.5-10.1); MAGNESIUM 2.5 mg/dL (1.8-2.4); POTASSIUM 4.1 mmol/L (3.5-5.1); TOT PROT 6.9 g/dl (6.4-8.2)
[2019-02-09] MEDS: INSULIN SLIDING SCALE (NOVOLOG) 1 VIAL SQ SCH ×4 (06:29→21:19)
--- NOTE | 2019-02-09 07:47 | PN ---
Progress Note (short form) - Note Progress Note: PULM/CCM Patient seen and examined in the ICU. Remains extubated. Satting well ORA. Pleasantly confused but otherwise C & A , Eating breakfast. Vital Signs Period Temp Pulse Resp BP Sys/Singer Pulse Ox Last 24 Hr 97.7 F-98.6 F 60-83 16-21 129-162/59-88 97-97 Intake & Output 02/06/19 02/07/19 02/08/19 02/09/19 23:59 23:59 23:59 23:59 Intake Total 1011 2223.2 3150 200 Output Total 1999 1400 2100 1000 Balance -989 823.2 1050 -800 Weight 105.2 kg 104.78 kg 104.128 kg 104.128 kg Gen: Awake and responsive, NAD, pleasant Heart: RRR Lung: decreased breath sounds at the bases Abd: soft, nontender Ext: L AKA CBC, BMP 02/09/19 05:20 02/09/19 05:20 Microbiology 02/06/19 12:25 Blood - Peripheral Venous Blood Culture - Preliminary NO GROWTH OBTAINED AFTER 48 HOURS, INCUBATION TO CONTINUE FOR 3 DAYS. 02/06/19 12:35 Blood - Peripheral Venous Blood Culture - Preliminary NO GROWTH OBTAINED AFTER 48 HOURS, INCUBATION TO CONTINUE FOR 3 DAYS. 02/06/19 12:00 Sputum - Endotrachea Suction/Ventilator Gram Stain - Final 02/06/19 12:00 Sputum - Endotrachea Suction/Ventilator Sputum Culture - Final S Aureus 02/05/19 12:04 Blood - Peripheral Venous Blood Culture - Final Staphylococcus Intermedius 02/05/19 12:04 Blood - Peripheral Venous Blood Culture - Final Staphylococcus Aureus 02/05/19 15:51 Urine For Antigen Detection Legionella Antigen - Final 02/05/19 15:51 Urine For Antigen Detection Streptococcus pneumoniae Antigen (M - Final 02/05/19 12:49 Urine - Urine - Catheterized Urine Culture - Final NO GROWTH OBTAINED CXR 02/08: Single view of the chest is been submitted. Since 02/07/2019 there is no significant change. Again noted is the scoliosis with convexity to the right, spinal support hardware, left shoulder replacement, prominent central markings with large heart and unfolded aorta along with some right base atelectasis or infiltrate. Correlation recommended RENAL US 02/06: Mildly atrophic kidneys with no evidence of hydronephrosis or acute pathology. ASSESS: s/p Acute Hypoxic Respiratory Failure Pneumonia likely Aspiration Gram Positive Bacteremia Sepsis Acute COPD Exacerbation Acute Kidney Injury HTN DM h/o CVA Bipolar Disorder Possible OSAS PLAN: - NC O2 prn to maintain saturation - inhaled bronchodilators - continue antibiotics per ID - Initiate medrol taper - PO as tolerated - Will need formal sleep testing after discharge - DVT prophylaxis - Transfer --> 4W / 4S monitoring [facility] ICU PULM/CCM 5122
[2019-02-09] MEDS: ALBUTEROL SO4 2.5/IPRATROPIUM 0.5 INH SOL 3 ML VIAL.NEB. NEB SCH ×4 (08:21→20:59)
[2019-02-09] MEDS ORDERED: PT OWN MED DRAWER 7, Y5N ONE (08:36)
--- NOTE | 2019-02-09 09:09 | PN ---
Progress Note, Physician Chief Complaint: EVENTS AND NOTES REVIEWED EXTUBATED ON 02 NC AWAKE ALERT - Current Medication List Current Medications: Active Medications Acetaminophen (Ofirmev Injection -) 1,000 mg IVPB Q6H PRN PRN Reason: FEVER Albuterol/Ipratropium (Duoneb -) 1 amp NEB RQID [facility] Last Admin: 02/09/19 08:21 Dose: 1 amp Chlorhexidine Gluconate (Hibiclens For Decolonization -) 1 applic TP HS [facility] Last Admin: 02/08/19 21:02 Dose: 1 applic Gabapentin (Neurontin -) 300 mg PO TID [facility] Last Admin: 02/09/19 06:09 Dose: 300 mg Heparin Sodium (Porcine) (Heparin -) 5,000 unit SQ TID [facility] Last Admin: 02/09/19 06:09 Dose: 5,000 unit Vancomycin HCl 1,500 mg/ (Dextrose) 500 mls @ 250 mls/hr IVPB Q24H [facility]; Protocol Last Admin: 02/08/19 15:12 Dose: 250 mls/hr Insulin Aspart (Novolog Vial Sliding Scale -) 1 vial SQ ACHS [facility]; Protocol Last Admin: 02/09/19 06:29 Dose: 2 units Methylprednisolone Sodium Succinate (Solu-Medrol -) 40 mg IVPUSH Q8H-IV [facility] Last Admin: 02/09/19 02:34 Dose: 40 mg Mupirocin (Bactroban Ointment (For Decolonization) -) 1 applic NS BID [facility] Stop: 02/10/19 21:59 Last Admin: 02/08/19 21:03 Dose: 1 applic Pantoprazole Sodium (Protonix Iv) 40 mg IVPUSH DAILY [facility] Last Admin: 02/08/19 09:22 Dose: 40 mg - Objective Vital Signs: Vital Signs Temperature 98.2 F 02/09/19 06:00 Pulse Rate 69 02/09/19 08:00 Respiratory Rate 17 02/09/19 08:24 Blood Pressure 162/69 02/09/19 08:00 O2 Sat by Pulse Oximetry (%) 97 02/09/19 08:24 Constitutional: Yes: Mild Distress Cardiovascular: Yes: Regular Rate and Rhythm Respiratory: Yes: Diminished, On Nasal O2, Rhonchi Gastrointestinal: Yes: Soft Genitourinary: Yes: Incontinence Musculoskeletal: Yes: Muscle Weakness Labs: CBC, BMP 02/09/19 05:20 02/09/19 05:20 Problem List - Problems (1) Bacteremia Code(s): R78.81 - BACTEREMIA (2) COPD exacerbation Code(s): J44.1 - CHRONIC OBSTRUCTIVE PULMONARY DISEASE W (ACUTE) EXACERBATION (3) Pneumonia Code(s): J18.9 - PNEUMONIA, UNSPECIFIED ORGANISM (4) Respiratory abnormalities Code(s): R06.9 - UNSPECIFIED ABNORMALITIES OF BREATHING (5) Respiratory failure Code(s): J96.90 - RESPIRATORY FAILURE, UNSP, UNSP W HYPOXIA OR HYPERCAPNIA (6) H/O deep venous thrombosis Code(s): Z86.718 - PERSONAL HISTORY OF OTHER VENOUS THROMBOSIS AND EMBOLISM (7) Morbid obesity due to excess calories Code(s): E66.01 - MORBID (SEVERE) OBESITY DUE TO EXCESS CALORIES (8) Acute respiratory failure with hypoxia and hypercapnia Code(s): J96.01 - ACUTE RESPIRATORY FAILURE WITH HYPOXIA; J96.02 - ACUTE RESPIRATORY FAILURE WITH HYPERCAPNIA Assessment/Plan EXTUBATED ON SUPPORT WITH NC 02 PULM/ICU CONSULT IVF AND IV ABX WOUND CARE SWALLOW EVAL PT SNF PLACEMENT
--- NOTE | 2019-02-09 09:31 | PN ---
Progress Note (short form) - Note Progress Note: extubated alert c/o insomnia Vital Signs Period Temp Pulse Resp BP Sys/Singer Pulse Ox Last 24 Hr 97.7 F-98.6 F 60-83 16-21 129-162/59-88 97-97 cor-rrr llungs decreased bs at bases abd soft,nt ext +left AKA CBC, BMP 02/09/19 05:20 02/09/19 05:20 Microbiology 02/06/19 12:25 Blood - Peripheral Venous Blood Culture - Preliminary NO GROWTH OBTAINED AFTER 48 HOURS, INCUBATION TO CONTINUE FOR 3 DAYS. 02/06/19 12:35 Blood - Peripheral Venous Blood Culture - Preliminary NO GROWTH OBTAINED AFTER 48 HOURS, INCUBATION TO CONTINUE FOR 3 DAYS. 02/06/19 12:00 Sputum - Endotrachea Suction/Ventilator Gram Stain - Final 02/06/19 12:00 Sputum - Endotrachea Suction/Ventilator Sputum Culture - Final S Aureus 02/05/19 12:04 Blood - Peripheral Venous Blood Culture - Final Staphylococcus Intermedius 02/05/19 12:04 Blood - Peripheral Venous Blood Culture - Final Staphylococcus Aureus 02/05/19 15:51 Urine For Antigen Detection Legionella Antigen - Final 02/05/19 15:51 Urine For Antigen Detection Streptococcus pneumoniae Antigen (M - Final 02/05/19 12:49 Urine - Urine - Catheterized Urine Culture - Final NO GROWTH OBTAINED a/p resp failure- now extubated bacteremia- MSSA and staph intermedius HAP-MRSA copd continue vancomycin, check trough today Problem List - Problems (1) Respiratory failure Code(s): J96.90 - RESPIRATORY FAILURE, UNSP, UNSP W HYPOXIA OR HYPERCAPNIA (2) Pneumonia Code(s): J18.9 - PNEUMONIA, UNSPECIFIED ORGANISM (3) Bacteremia Code(s): R78.81 - BACTEREMIA (4) COPD exacerbation Code(s): J44.1 - CHRONIC OBSTRUCTIVE PULMONARY DISEASE W (ACUTE) EXACERBATION
[2019-02-09 10:43] LABS: ANISOCYTOSIS 2+; MACROCYTOSIS 0; PLATELET ESTIMATE NORMAL; TARGET CELLS 1+
[2019-02-09] MEDS: PANTOPRAZOLE SODIUM 40 MG VIAL IVPUSH SCH (10:52)
[2019-02-09] MEDS: MUPIROCIN 2% TOPICAL OINTMENT FOR DECOLONIZATION NS SCH ×2 (10:52→21:18)
[2019-02-09] MEDS: VANCOMYCIN HCL 1,500 MG in DEXTROSE 5%-WATER - 500 ML IVPB SCH (14:47)
[2019-02-09] MEDS: ACETAMINOPHEN 325 MG TABLET (FP) PO PRN (18:07)
[2019-02-09] MEDS: oxyCODONE HCL 5 MG TABLET PO PRN (18:08)
[2019-02-09] MEDS: CHLORHEXIDINE GLUCONATE 4% CLEANSER FOR DECOLONIZATION TP SCH (21:19)
[2019-02-10] MEDS: methylPREDNISolone NA SUCC 40 MG/1 ML VIAL IVPUSH SCH ×3 (01:43→17:23)
[2019-02-10] MEDS: ACETAMINOPHEN 325 MG TABLET (FP) PO PRN ×4 (04:22→23:23)
[2019-02-10] MEDS: oxyCODONE HCL 5 MG TABLET PO PRN ×4 (04:23→23:24)
[2019-02-10] MEDS: INSULIN SLIDING SCALE (NOVOLOG) 1 VIAL SQ SCH ×4 (06:32→22:05)
[2019-02-10] MEDS: HEPARIN NA (PORCINE) 5,000 UNITS/ML 1ML VIAL SQ SCH ×3 (06:34→21:59)
[2019-02-10] MEDS: GABAPENTIN 300 MG CAPSULE (FP) PO SCH ×3 (06:35→22:00)
[2019-02-10] MEDS: ALBUTEROL SO4 2.5/IPRATROPIUM 0.5 INH SOL 3 ML VIAL.NEB. NEB SCH ×4 (08:11→20:15)
--- NOTE | 2019-02-10 09:23 | PN ---
Progress Note (short form) - Note Progress Note: extubated alert feels improved today Vital Signs Period Temp Pulse Resp BP Sys/Singer Pulse Ox Last 24 Hr 98.1 F-98.9 F 58-93 12-18 145-175/65-107 97-97 cor-rrr lungs decreased bs at bases abd soft,nt +left AKA CBC, BMP 02/09/19 05:20 02/09/19 05:20 Microbiology 02/06/19 12:25 Blood - Peripheral Venous Blood Culture - Preliminary NO GROWTH OBTAINED AFTER 72 HOURS, INCUBATION TO CONTINUE FOR 2 DAYS. 02/06/19 12:35 Blood - Peripheral Venous Blood Culture - Preliminary NO GROWTH OBTAINED AFTER 72 HOURS, INCUBATION TO CONTINUE FOR 2 DAYS. 02/06/19 12:00 Sputum - Endotrachea Suction/Ventilator Gram Stain - Final 02/06/19 12:00 Sputum - Endotrachea Suction/Ventilator Sputum Culture - Final S Aureus 02/05/19 12:04 Blood - Peripheral Venous Blood Culture - Final Staphylococcus Intermedius 02/05/19 12:04 Blood - Peripheral Venous Blood Culture - Final Staphylococcus Aureus 02/05/19 15:51 Urine For Antigen Detection Legionella Antigen - Final 02/05/19 15:51 Urine For Antigen Detection Streptococcus pneumoniae Antigen (M - Final 02/05/19 12:49 Urine - Urine - Catheterized Urine Culture - Final NO GROWTH OBTAINED Laboratory Tests 02/09/19 15:20 Vancomycin Pre-Dose 27.6 H a/p resp failure- now extubated bacteremia- MSSA and staph intermedius HAP-MRSA copd it is unclear when the trough was drawn- ?during infusion will repeat today before infusion, wait for result, continue vanco if trough less then 20 Problem List - Problems (1) Respiratory failure Code(s): J96.90 - RESPIRATORY FAILURE, UNSP, UNSP W HYPOXIA OR HYPERCAPNIA (2) Pneumonia Code(s): J18.9 - PNEUMONIA, UNSPECIFIED ORGANISM (3) Bacteremia Code(s): R78.81 - BACTEREMIA (4) COPD exacerbation Code(s): J44.1 - CHRONIC OBSTRUCTIVE PULMONARY DISEASE W (ACUTE) EXACERBATION
--- NOTE | 2019-02-10 09:44 | PN ---
Progress Note, Physician Chief Complaint: AWAKE ALERT EATING BREAKFAST DENIES ANY COMPLAINTS HAS A BAD MEMORY - Current Medication List Current Medications: Active Medications Acetaminophen (Ofirmev Injection -) 1,000 mg IVPB Q6H PRN PRN Reason: FEVER Acetaminophen (Tylenol -) 325 mg PO Q6H PRN PRN Reason: PAIN LEVEL 6-10 Last Admin: 02/10/19 04:22 Dose: 325 mg Albuterol/Ipratropium (Duoneb -) 1 amp NEB RQID [facility] Last Admin: 02/10/19 08:11 Dose: 1 amp Chlorhexidine Gluconate (Hibiclens For Decolonization -) 1 applic TP HS [facility] Last Admin: 02/09/19 21:19 Dose: 1 applic Gabapentin (Neurontin -) 300 mg PO TID [facility] Last Admin: 02/10/19 06:35 Dose: 300 mg Heparin Sodium (Porcine) (Heparin -) 5,000 unit SQ TID [facility] Last Admin: 02/10/19 06:34 Dose: 5,000 unit Vancomycin HCl 1,500 mg/ (Dextrose) 500 mls @ 250 mls/hr IVPB Q24H [facility]; Protocol Last Admin: 02/09/19 14:47 Dose: 250 mls/hr Insulin Aspart (Novolog Vial Sliding Scale -) 1 vial SQ ACHS [facility]; Protocol Last Admin: 02/10/19 06:32 Dose: Not Given Methylprednisolone Sodium Succinate (Solu-Medrol -) 40 mg IVPUSH Q8H-IV [facility] Last Admin: 02/10/19 01:43 Dose: 40 mg Mupirocin (Bactroban Ointment (For Decolonization) -) 1 applic NS BID [facility] Stop: 02/10/19 21:59 Last Admin: 02/09/19 21:18 Dose: 1 applic Oxycodone HCl (Roxicodone -) 5 mg PO Q6H PRN PRN Reason: PAIN LEVEL 6-10 Last Admin: 02/10/19 04:23 Dose: 5 mg Pantoprazole Sodium (Protonix Iv) 40 mg IVPUSH DAILY [facility] Last Admin: 02/09/19 10:52 Dose: 40 mg - Objective Vital Signs: Vital Signs Temperature 98.2 F 02/10/19 06:00 Pulse Rate 93 H 02/10/19 08:00 Respiratory Rate 12 02/10/19 08:00 Blood Pressure 175/107 H 12/29/19 08:00 O2 Sat by Pulse Oximetry (%) 97 02/10/19 08:40 Constitutional: Yes: Mild Distress Cardiovascular: Yes: Regular Rate and Rhythm Respiratory: Yes: Diminished Gastrointestinal: Yes: Soft, Abdomen, Obese Genitourinary: Yes: Incontinence Musculoskeletal: Yes: Muscle Weakness Edema: Yes Neurological: Yes: Confusion, Pre-Existing Deficit Labs: CBC, BMP 02/09/19 05:20 02/09/19 05:20 Problem List - Problems (1) Bacteremia Code(s): R78.81 - BACTEREMIA (2) COPD exacerbation Code(s): J44.1 - CHRONIC OBSTRUCTIVE PULMONARY DISEASE W (ACUTE) EXACERBATION (3) Pneumonia Code(s): J18.9 - PNEUMONIA, UNSPECIFIED ORGANISM (4) Respiratory abnormalities Code(s): R06.9 - UNSPECIFIED ABNORMALITIES OF BREATHING (5) Respiratory failure Code(s): J96.90 - RESPIRATORY FAILURE, UNSP, UNSP W HYPOXIA OR HYPERCAPNIA (6) H/O deep venous thrombosis Code(s): Z86.718 - PERSONAL HISTORY OF OTHER VENOUS THROMBOSIS AND EMBOLISM (7) Morbid obesity due to excess calories Code(s): E66.01 - MORBID (SEVERE) OBESITY DUE TO EXCESS CALORIES (8) Acute respiratory failure with hypoxia and hypercapnia Code(s): J96.01 - ACUTE RESPIRATORY FAILURE WITH HYPOXIA; J96.02 - ACUTE RESPIRATORY FAILURE WITH HYPERCAPNIA Assessment/Plan EXTUBATED ON SUPPORT WITH NC 02 PULM/ICU CONSULT IVF AND IV ABX WOUND CARE SWALLOW EVAL PT SNF PLACEMENT TRANSFER TO [facility]
[2019-02-10] MEDS: PANTOPRAZOLE SODIUM 40 MG VIAL IVPUSH SCH (10:13)
[2019-02-10] MEDS: MUPIROCIN 2% TOPICAL OINTMENT FOR DECOLONIZATION NS SCH (10:25)
--- NOTE | 2019-02-10 11:17 | PN ---
Progress Note (short form) - Note Progress Note: Pulm/CCM Progress notes I saw and examined the pt in the ICU. She is comfortable on NC. O2sat 96% on 2L. Restarted Amlodipine for MAP>100. Active Medications Acetaminophen (Ofirmev Injection -) 1,000 mg IVPB Q6H PRN PRN Reason: FEVER Acetaminophen (Tylenol -) 325 mg PO Q6H PRN PRN Reason: PAIN LEVEL 6-10 Last Admin: 02/10/19 10:25 Dose: 325 mg Albuterol/Ipratropium (Duoneb -) 1 amp NEB RQID [facility] Last Admin: 02/10/19 08:11 Dose: 1 amp Chlorhexidine Gluconate (Hibiclens For Decolonization -) 1 applic TP HS [facility] Last Admin: 02/09/19 21:19 Dose: 1 applic Gabapentin (Neurontin -) 300 mg PO TID [facility] Last Admin: 02/10/19 06:35 Dose: 300 mg Heparin Sodium (Porcine) (Heparin -) 5,000 unit SQ TID [facility] Last Admin: 02/10/19 06:34 Dose: 5,000 unit Vancomycin HCl 1,500 mg/ (Dextrose) 500 mls @ 250 mls/hr IVPB Q24H [facility]; Protocol Last Admin: 02/09/19 14:47 Dose: 250 mls/hr Insulin Aspart (Novolog Vial Sliding Scale -) 1 vial SQ ACHS [facility]; Protocol Last Admin: 02/10/19 06:32 Dose: Not Given Methylprednisolone Sodium Succinate (Solu-Medrol -) 40 mg IVPUSH Q8H-IV [facility] Last Admin: 02/10/19 10:13 Dose: 40 mg Mupirocin (Bactroban Ointment (For Decolonization) -) 1 applic NS BID [facility] Stop: 02/10/19 21:59 Last Admin: 02/10/19 10:25 Dose: 1 applic Oxycodone HCl (Roxicodone -) 5 mg PO Q6H PRN PRN Reason: PAIN LEVEL 6-10 Last Admin: 02/10/19 10:24 Dose: 5 mg Pantoprazole Sodium (Protonix Iv) 40 mg IVPUSH DAILY [facility] Last Admin: 02/10/19 10:13 Dose: 40 mg Vital Signs Period Temp Pulse Resp BP Sys/Singer Pulse Ox Last 24 Hr 97.9 F-98.9 F 58-93 12-18 148-175/67-107 97-97 Intake & Output 02/07/19 02/08/19 02/09/19 02/10/19 23:59 23:59 23:59 23:59 Intake Total 2223.2 3150 900 100 Output Total 1400 2100 3500 1000 Balance 823.2 1050 -2600 -900 Weight 104.78 kg 104.128 kg 104.128 kg 104.128 kg Gen: Awake and responsive, NAD, pleasant Heart: RRR Lung: decreased breath sounds at the bases Abd: soft, nontender Ext: L AKA CBC, BMP 02/09/19 05:20 02/09/19 05:20 Microbiology 02/06/19 12:25 Blood - Peripheral Venous Blood Culture - Preliminary NO GROWTH OBTAINED AFTER 48 HOURS, INCUBATION TO CONTINUE FOR 3 DAYS. 02/06/19 12:35 Blood - Peripheral Venous Blood Culture - Preliminary NO GROWTH OBTAINED AFTER 48 HOURS, INCUBATION TO CONTINUE FOR 3 DAYS. 02/06/19 12:00 Sputum - Endotrachea Suction/Ventilator Gram Stain - Final 02/06/19 12:00 Sputum - Endotrachea Suction/Ventilator Sputum Culture - Final Mr S Aureus 02/05/19 12:04 Blood - Peripheral Venous Blood Culture - Final Staphylococcus Intermedius 02/05/19 12:04 Blood - Peripheral Venous Blood Culture - Final Staphylococcus Aureus 02/05/19 15:51 Urine For Antigen Detection Legionella Antigen - Final 02/05/19 15:51 Urine For Antigen Detection Streptococcus pneumoniae Antigen (M - Final 02/05/19 12:49 Urine - Urine - Catheterized Urine Culture - Final NO GROWTH OBTAINED CXR 02/08: Single view of the chest is been submitted. Since 02/07/2019 there is no significant change. Again noted is the scoliosis with convexity to the right, spinal support hardware, left shoulder replacement, prominent central markings with large heart and unfolded aorta along with some right base atelectasis or infiltrate. Correlation recommended RENAL US 02/06: Mildly atrophic kidneys with no evidence of hydronephrosis or acute pathology. ASSESSMENT: s/p Acute Hypoxic Respiratory Failure Pneumonia likely Aspiration Gram Positive Bacteremia Sepsis Acute COPD Exacerbation Acute Kidney Injury HTN DM h/o CVA Bipolar Disorder Possible OSAS PLAN: - NC O2 prn to maintain saturation - inhaled bronchodilators - continue antibiotics per ID - Cont medrol taper - PO as tolerated - Will need formal sleep testing after discharge - DVT prophylaxis - Transfer --> 4W / 4S monitoring Sophia Cha, ACNP-BC PULM/CCM Additional CC's: Aftab Strauss
[2019-02-10] MEDS ORDERED: amLODIPine BESYLATE 10 MG TABLET (FP) PO SCH (12:15)
[2019-02-10] MEDS ORDERED: PT OWN MED DRAWER 7, Y5N ONE (14:09)
[2019-02-10] MEDS: VANCOMYCIN HCL 1,500 MG in DEXTROSE 5%-WATER - 500 ML IVPB SCH (14:25)
[2019-02-10] MEDS: CHLORHEXIDINE GLUCONATE 4% CLEANSER FOR DECOLONIZATION TP SCH (21:59)
[2019-02-11] MEDS: methylPREDNISolone NA SUCC 40 MG/1 ML VIAL IVPUSH SCH ×2 (02:00→22:22)
[2019-02-11] MEDS: HEPARIN NA (PORCINE) 5,000 UNITS/ML 1ML VIAL SQ SCH ×3 (05:40→22:24)
[2019-02-11] MEDS: GABAPENTIN 300 MG CAPSULE (FP) PO SCH ×3 (05:41→22:23)
[2019-02-11] MEDS: ACETAMINOPHEN 325 MG TABLET (FP) PO PRN ×2 (05:41→22:24)
[2019-02-11] MEDS: oxyCODONE HCL 5 MG TABLET PO PRN ×2 (05:41→22:23)
[2019-02-11] MEDS: INSULIN SLIDING SCALE (NOVOLOG) 1 VIAL SQ SCH ×4 (06:20→22:22)
[2019-02-11 06:24] LABS: HEMATOCRIT 37.5 % (32.4-45.2); HEMOGLOBIN 11.6 GM/dL (10.7-15.3); MCH 22.4 pg (25.7-33.7); MEAN CELL VOLUME 72.2 fl (80-96); MEAN PLT VOLUME 10.7 fl (7.5-11.1); PLATELET COUNT 201 K/MM3 (134-434); RDW 17.9 % (11.6-15.6); WHITE BLOOD COUNT 16.8 K/mm3 (4.0-10.0)
[2019-02-11 06:48] LABS: BLOOD UREA NITROGEN 20.3 mg/dL (7-18); CALCIUM 8.8 mg/dL (8.5-10.1); POTASSIUM 4.3 mmol/L (3.5-5.1)
[2019-02-11] MEDS: ALBUTEROL SO4 2.5/IPRATROPIUM 0.5 INH SOL 3 ML VIAL.NEB. NEB SCH ×4 (09:05→20:35)
[2019-02-11] MEDS: PANTOPRAZOLE SODIUM 40 MG VIAL IVPUSH SCH (09:38)
[2019-02-11] MEDS ORDERED: ARIPiprazole 5 MG TABLET (FP) PO SCH (10:00)
[2019-02-11] MEDS ORDERED: TOPIRAMATE 25 MG TABLET (FP) PO SCH (10:00)
[2019-02-11] MEDS ORDERED: methylPREDNISolone NA SUCC 40 MG/1 ML VIAL IVPUSH SCH (10:00)
[2019-02-11] MEDS ORDERED: CITALOPRAM HYDROBROMIDE 20 MG TABLET (FP) PO SCH (10:00)
[2019-02-11] MEDS ORDERED: amLODIPine BESYLATE 10 MG TABLET (FP) PO SCH (10:00)
--- NOTE | 2019-02-11 10:51 | PN ---
Progress Note, Physician Chief Complaint: Acute respiratory failure COPD exacerbation Pneumonia Bacteremia History of Present Illness: NAD Maintaining oxygenation on Nasal O2 More alert today Still on IV abx for Pneumonia - Current Medication List Current Medications: Active Medications Acetaminophen (Ofirmev Injection -) 1,000 mg IVPB Q6H PRN PRN Reason: FEVER Acetaminophen (Tylenol -) 325 mg PO Q6H PRN PRN Reason: PAIN LEVEL 6-10 Last Admin: 02/11/19 05:41 Dose: 325 mg Albuterol/Ipratropium (Duoneb -) 1 amp NEB RQID [facility] Last Admin: 02/11/19 09:05 Dose: 1 amp Amlodipine Besylate (Norvasc -) 10 mg PO DAILY [facility] Last Admin: 02/11/19 09:38 Dose: 10 mg Aripiprazole (Abilify) 10 mg PO DAILY [facility] Last Admin: 02/11/19 09:55 Dose: 10 mg Chlorhexidine Gluconate (Hibiclens For Decolonization -) 1 applic TP HS [facility] Last Admin: 02/10/19 21:59 Dose: 1 applic Citalopram Hydrobromide (Celexa -) 20 mg PO DAILY [facility] Last Admin: 02/11/19 09:38 Dose: 20 mg Gabapentin (Neurontin -) 300 mg PO TID [facility] Last Admin: 02/11/19 05:41 Dose: 300 mg Heparin Sodium (Porcine) (Heparin -) 5,000 unit SQ TID [facility] Last Admin: 02/11/19 05:40 Dose: 5,000 unit Vancomycin HCl 1,500 mg/ (Dextrose) 500 mls @ 250 mls/hr IVPB Q24H [facility]; Protocol Last Admin: 02/10/19 14:25 Dose: 250 mls/hr Insulin Aspart (Novolog Vial Sliding Scale -) 1 vial SQ ACHS [facility]; Protocol Last Admin: 02/11/19 06:20 Dose: Not Given Methylprednisolone Sodium Succinate (Solu-Medrol -) 40 mg IVPUSH BID [facility] Last Admin: 02/11/19 09:39 Dose: 40 mg Oxycodone HCl (Roxicodone -) 5 mg PO Q6H PRN PRN Reason: PAIN LEVEL 6-10 Last Admin: 02/11/19 05:41 Dose: 5 mg Pantoprazole Sodium (Protonix Iv) 40 mg IVPUSH DAILY [facility] Last Admin: 02/11/19 09:38 Dose: 40 mg Topiramate (Topamax -) 25 mg PO DAILY [facility] Last Admin: 02/11/19 09:38 Dose: 25 mg - Objective Vital Signs: Vital Signs Temperature 98.2 F 02/11/19 10:00 Pulse Rate 78 02/11/19 10:00 Respiratory Rate 14 02/11/19 10:00 Blood Pressure 136/73 02/11/19 10:00 O2 Sat by Pulse Oximetry (%) 96 02/11/19 07:30 Constitutional: Yes: Well Nourished, No Distress, Calm, Obese Cardiovascular: Yes: Regular Rate and Rhythm Respiratory: Yes: Regular, On Nasal O2 Genitourinary: Yes: Dukes Present Musculoskeletal: Yes: Muscle Weakness Extremities: Yes: WNL Edema: No Peripheral Pulses WNL: Yes Neurological: Yes: Alert, Oriented Psychiatric: Yes: Alert, Oriented Labs: CBC, BMP 02/11/19 06:05 02/11/19 06:05 Problem List - Problems (1) Bacteremia Assessment/Plan: -Cultures: Microbiology 02/06/19 12:25 Blood - Peripheral Venous Blood Culture - Preliminary NO GROWTH OBTAINED AFTER 96 HOURS, INCUBATION TO CONTINUE FOR 1 DAYS. 02/06/19 12:35 Blood - Peripheral Venous Blood Culture - Preliminary NO GROWTH OBTAINED AFTER 96 HOURS, INCUBATION TO CONTINUE FOR 1 DAYS. 02/06/19 12:00 Sputum - Endotrachea Suction/Ventilator Gram Stain - Final 02/06/19 12:00 Sputum - Endotrachea Suction/Ventilator Sputum Culture - Final S Aureus 02/05/19 12:04 Blood - Peripheral Venous Blood Culture - Final Staphylococcus Intermedius 02/05/19 12:04 Blood - Peripheral Venous Blood Culture - Final Staphylococcus Aureus 02/05/19 15:51 Urine For Antigen Detection Legionella Antigen - Final 02/05/19 15:51 Urine For Antigen Detection Streptococcus pneumoniae Antigen (M - Final 02/05/19 12:49 Urine - Urine - Catheterized Urine Culture - Final NO GROWTH OBTAINED -ID on Board -IV abx -Afebrile -Medrol tapering dose -CXR reviewed -Pulmonary on board Problems reviewed: Yes Code(s): R78.81 - BACTEREMIA (2) COPD exacerbation Assessment/Plan: -Pulmonary consult -bronchodilators -Medrol tapering dose -IV abx Problems reviewed: Yes Code(s): J44.1 - CHRONIC OBSTRUCTIVE PULMONARY DISEASE W (ACUTE) EXACERBATION (3) Pneumonia Assessment/Plan: -Pulmonary consult -bronchodilators -Medrol tapering dose -IV abx -afebrile -Nasal O2 to keep SpO>90% -Okay to be transferred to tele Problems reviewed: Yes Code(s): J18.9 - PNEUMONIA, UNSPECIFIED ORGANISM (4) Morbid obesity due to excess calories Problems reviewed: Yes Code(s): E66.01 - MORBID (SEVERE) OBESITY DUE TO EXCESS CALORIES (5) Respiratory failure Assessment/Plan: -Pulmonary consult -bronchodilators -Medrol tapering dose -IV abx -O2 to keep SpO2>90% Problems reviewed: Yes Code(s): J96.90 - RESPIRATORY FAILURE, UNSP, UNSP W HYPOXIA OR HYPERCAPNIA Assessment/Plan see problem list Physical therapy
--- NOTE | 2019-02-11 11:24 | PN ---
Teaching Attending Note Name of Resident: Angel Riley ATTENDING PHYSICIAN STATEMENT I saw and evaluated the patient. I reviewed the resident's note and discussed the case with the resident. I agree with the resident's findings and plan as documented. SUBJECTIVE: Patient seen and examined in the ICU. Awake and alert. Reports breathing feels better. No CP. BP Meds being titrated. Intake & Output 02/08/19 02/09/19 02/10/19 02/11/19 23:59 23:59 23:59 23:59 Intake Total 3150 900 1475 Output Total 2100 3500 2450 900 Balance 1050 -2600 -975 -900 Weight 229 lb 9 oz 229 lb 9 oz 229 lb 9 oz 230 lb 6.4 oz Last Vital Signs Temp Pulse Resp BP Pulse Ox 98.2 F 78 14 136/73 96 02/11/19 10:00 02/11/19 10:00 02/11/19 10:00 02/11/19 10:00 02/11/19 07:30 Active Medications Acetaminophen (Ofirmev Injection -) 1,000 mg IVPB Q6H PRN PRN Reason: FEVER Acetaminophen (Tylenol -) 325 mg PO Q6H PRN PRN Reason: PAIN LEVEL 6-10 Last Admin: 02/11/19 05:41 Dose: 325 mg Albuterol/Ipratropium (Duoneb -) 1 amp NEB RQID [facility] Last Admin: 02/11/19 09:05 Dose: 1 amp Amlodipine Besylate (Norvasc -) 10 mg PO DAILY [facility] Last Admin: 02/11/19 09:38 Dose: 10 mg Aripiprazole (Abilify) 10 mg PO DAILY [facility] Last Admin: 02/11/19 09:55 Dose: 10 mg Chlorhexidine Gluconate (Hibiclens For Decolonization -) 1 applic TP HS [facility] Last Admin: 02/10/19 21:59 Dose: 1 applic Citalopram Hydrobromide (Celexa -) 20 mg PO DAILY [facility] Last Admin: 02/11/19 09:38 Dose: 20 mg Gabapentin (Neurontin -) 300 mg PO TID [facility] Last Admin: 02/11/19 05:41 Dose: 300 mg Heparin Sodium (Porcine) (Heparin -) 5,000 unit SQ TID [facility] Last Admin: 02/11/19 05:40 Dose: 5,000 unit Vancomycin HCl 1,500 mg/ (Dextrose) 500 mls @ 250 mls/hr IVPB Q24H [facility]; Protocol Last Admin: 02/10/19 14:25 Dose: 250 mls/hr Insulin Aspart (Novolog Vial Sliding Scale -) 1 vial SQ ACHS [facility]; Protocol Last Admin: 02/11/19 06:20 Dose: Not Given Methylprednisolone Sodium Succinate (Solu-Medrol -) 40 mg IVPUSH BID [facility] Last Admin: 02/11/19 09:39 Dose: 40 mg Oxycodone HCl (Roxicodone -) 5 mg PO Q6H PRN PRN Reason: PAIN LEVEL 6-10 Last Admin: 02/11/19 05:41 Dose: 5 mg Pantoprazole Sodium (Protonix Iv) 40 mg IVPUSH DAILY [facility] Last Admin: 02/11/19 09:38 Dose: 40 mg Topiramate (Topamax -) 25 mg PO DAILY [facility] Last Admin: 02/11/19 09:38 Dose: 25 mg Gen: Awake and alert, NAD Heart: RRR Lung: decreased breath sounds at the bases Abd: soft, nontender Ext: L AKA Neuro: non-focal Laboratory Results - last 24 hr 02/10/19 02/10/19 02/10/19 11:45 13:00 17:15 WBC RBC Hgb Hct MCV MCH MCHC RDW Plt Count MPV Sodium Potassium Chloride Carbon Dioxide Anion Gap BUN Creatinine Est GFR (CKD-EPI)AfAm Est GFR (CKD-EPI)NonAf POC Glucometer 114 273 Random Glucose Calcium Vancomycin Pre-Dose 14.6 L 02/10/19 02/11/19 02/11/19 22:04 06:05 06:05 WBC 16.8 H RBC 5.20 Hgb 11.6 Hct 37.5 MCV 72.2 L MCH 22.4 L MCHC 31.0 L RDW 17.9 H Plt Count 201 MPV 10.7 Sodium 139 Potassium 4.3 Chloride 101 Carbon Dioxide 34 H Anion Gap 4 L BUN 20.3 H Creatinine 1.0 Est GFR (CKD-EPI)AfAm 68.47 Est GFR (CKD-EPI)NonAf 59.07 POC Glucometer 215 Random Glucose 159 H Calcium 8.8 Vancomycin Pre-Dose 02/11/19 06:05 WBC RBC Hgb Hct MCV MCH MCHC RDW Plt Count MPV Sodium Potassium Chloride Carbon Dioxide Anion Gap BUN Creatinine Est GFR (CKD-EPI)AfAm Est GFR (CKD-EPI)NonAf POC Glucometer 148 Random Glucose Calcium Vancomycin Pre-Dose ASSESSMENT: s/p Acute Hypoxic Respiratory Failure Pneumonia likely Aspiration Gram Positive Bacteremia Sepsis Acute COPD Exacerbation Acute Kidney Injury HTN DM h/o CVA Bipolar Disorder Possible OSAS PLAN: - NC O2 to maintain saturation - inhaled bronchodilators - continue antibiotics per ID - Medrol taper - PO as tolerated - Will need formal sleep testing after discharge - DVT prophylaxis - Transfer Dr Strauss
--- NOTE | 2019-02-11 11:30 | PN ---
Progress Note (short form) - Note Progress Note: alert, no complaints Vital Signs Period Temp Pulse Resp BP Sys/Singer Pulse Ox Last 24 Hr 98.2 F-98.8 F 66-103 11-22 136-184/69-95 95-96 cor-rrr lungs decreased bs at bases abd soft,nt ext aka on right CBC, BMP 02/11/19 06:05 02/11/19 06:05 Microbiology 02/06/19 12:25 Blood - Peripheral Venous Blood Culture - Preliminary NO GROWTH OBTAINED AFTER 96 HOURS, INCUBATION TO CONTINUE FOR 1 DAYS. 02/06/19 12:35 Blood - Peripheral Venous Blood Culture - Preliminary NO GROWTH OBTAINED AFTER 96 HOURS, INCUBATION TO CONTINUE FOR 1 DAYS. 02/06/19 12:00 Sputum - Endotrachea Suction/Ventilator Gram Stain - Final 02/06/19 12:00 Sputum - Endotrachea Suction/Ventilator Sputum Culture - Final S Aureus 02/05/19 12:04 Blood - Peripheral Venous Blood Culture - Final Staphylococcus Intermedius 02/05/19 12:04 Blood - Peripheral Venous Blood Culture - Final Staphylococcus Aureus 02/05/19 15:51 Urine For Antigen Detection Legionella Antigen - Final 02/05/19 15:51 Urine For Antigen Detection Streptococcus pneumoniae Antigen (M - Final 02/05/19 12:49 Urine - Urine - Catheterized Urine Culture - Final NO GROWTH OBTAINED Laboratory Tests 02/09/19 02/10/19 15:20 13:00 Vancomycin Pre-Dose 27.6 H 14.6 L a/p resp failure- now extubated bacteremia- MSSA and staph intermedius HAP-MRSA copd day #6 vancomycin plan 4 weeks given bacteremia- will need picc line Problem List - Problems (1) Respiratory failure Code(s): J96.90 - RESPIRATORY FAILURE, UNSP, UNSP W HYPOXIA OR HYPERCAPNIA (2) Pneumonia Code(s): J18.9 - PNEUMONIA, UNSPECIFIED ORGANISM (3) Bacteremia Code(s): R78.81 - BACTEREMIA (4) COPD exacerbation Code(s): J44.1 - CHRONIC OBSTRUCTIVE PULMONARY DISEASE W (ACUTE) EXACERBATION
[2019-02-11] MEDS: VANCOMYCIN HCL 1,500 MG in DEXTROSE 5%-WATER - 500 ML IVPB SCH (14:57)
[2019-02-11] MEDS ORDERED: PT OWN MED DRAWER 7, Y5N ONE (15:00)
--- NOTE | 2019-02-11 15:16 | PN ---
Physical Exam: SUBJECTIVE: Patient seen and examined in the morning. No acute events overnight. No events on cardiac monitoring. Patient denies chest pain, abdominal pain, nausea, vomiting, diarrhea, shortness of breath. OBJECTIVE: Vital Signs Period Temp Pulse Resp BP Sys/Singer Pulse Ox Last 24 Hr 98.2 F-98.8 F 66-103 11-22 135-167/69-95 96-96 GENERAL: The patient is awake, alert, and fully oriented, in no acute distress. HEAD: Normal with no signs of trauma. EYES: PERRL, extraocular movements intact, sclera anicteric, conjunctiva clear. No ptosis. ENT: Ears normal, nares patent, oropharynx clear without exudates, moist mucous membranes. Nasal Cannula in place. NECK: No JVD, no lymphadenopathy LUNGS: Breath sounds distant, poor air entry. HEART: Regular rate and rhythm, S1, S2 without murmur, rub or gallop. ABDOMEN: Soft, nontender, nondistended, normoactive bowel sounds, no guarding, no rebound. EXTREMITIES: L AKA, well-perfused, 1+ pitting edema. NEUROLOGICAL: Cranial nerves II through XII grossly intact. PSYCH: Normal mood, normal affect. SKIN: Warm, dry, normal turgor, no rashes or lesions noted Laboratory Results - last 24 hr 02/10/19 02/10/19 02/11/19 17:15 22:04 06:05 WBC 16.8 H RBC 5.20 Hgb 11.6 Hct 37.5 MCV 72.2 L MCH 22.4 L MCHC 31.0 L RDW 17.9 H Plt Count 201 MPV 10.7 Sodium Potassium Chloride Carbon Dioxide Anion Gap BUN Creatinine Est GFR (CKD-EPI)AfAm Est GFR (CKD-EPI)NonAf POC Glucometer 273 215 Random Glucose Calcium 02/11/19 02/11/19 02/11/19 06:05 06:05 12:03 WBC RBC Hgb Hct MCV MCH MCHC RDW Plt Count MPV Sodium 139 Potassium 4.3 Chloride 101 Carbon Dioxide 34 H Anion Gap 4 L BUN 20.3 H Creatinine 1.0 Est GFR (CKD-EPI)AfAm 68.47 Est GFR (CKD-EPI)NonAf 59.07 POC Glucometer 148 209 Random Glucose 159 H Calcium 8.8 Active Medications Generic Name Dose Route Start Last Admin Trade Name Freq PRN Reason Stop Dose Admin Acetaminophen 1,000 mg 02/05/19 16:26 Ofirmev Injection - IVPB Q6H PRN FEVER Acetaminophen 325 mg 02/09/19 17:13 02/11/19 05:41 Tylenol - PO 325 mg Q6H PRN Administration PAIN LEVEL 6-10 Albuterol/Ipratropium 1 amp 02/05/19 16:00 02/11/19 13:00 Duoneb - NEB 1 amp RQID MARIA R Administration Amlodipine Besylate 10 mg 02/11/19 10:00 02/11/19 09:38 Norvasc - PO 10 mg DAILY MARIA R Administration Aripiprazole 10 mg 02/11/19 10:00 02/11/19 09:55 Abilify PO 10 mg DAILY MARIA R Administration Chlorhexidine Gluconate 1 applic 02/05/19 22:00 02/10/19 21:59 Hibiclens For Decolonization - TP 1 applic HS MARIA R Administration Citalopram Hydrobromide 20 mg 02/11/19 10:00 02/11/19 09:38 Celexa - PO 20 mg DAILY MARIA R Administration Gabapentin 300 mg 02/08/19 22:00 02/11/19 14:57 Neurontin - PO 300 mg TID MARIA R Administration Heparin Sodium (Porcine) 5,000 unit 02/05/19 14:00 02/11/19 14:56 Heparin - SQ 5,000 unit TID MARIA R Administration Vancomycin HCl 1,500 mg/ 500 mls @ 250 mls/hr 02/06/19 14:00 02/11/19 14:57 Dextrose IVPB 250 mls/hr Q24H MARIA R Administration Protocol Insulin Aspart 1 vial 02/05/19 16:30 02/11/19 12:00 Novolog Vial Sliding Scale - SQ 4 units ACHS MARIA R Administration Protocol Methylprednisolone Sodium Succinate 40 mg 02/11/19 10:00 02/11/19 09:39 Solu-Medrol - IVPUSH 40 mg BID MARIA R Administration Oxycodone HCl 5 mg 02/09/19 17:13 02/11/19 05:41 Roxicodone - PO 5 mg Q6H PRN Administration PAIN LEVEL 6-10 Pantoprazole Sodium 40 mg 02/06/19 10:00 02/11/19 09:38 Protonix Iv IVPUSH 40 mg DAILY MARIA R Administration Topiramate 25 mg 02/11/19 10:00 02/11/19 09:38 Topamax - PO 25 mg DAILY MARIA R Administration ASSESSMENT/PLAN: 63 F PMH of DM, HTN, CVA (last month), COPD, L AKA, Bipolar disorder presented with respiratory failure which required intubation. Patient was extubated on . Neuro -Patient is AAOx3. -Continuing to monitor Cardio -HTN -Amlodipine 10 mg PO Daily Endo -Hx of diabetes -ISS -BGM ACHS GI -stable; no issues -Soft diet -IV protonix 40 ID -Sputum culture grew MRSA -Blood culture grew MSSA -Day 6 of Vancomycin -Plan for 4 weeks of vancomycin- will need PICC line upon D/C Pulm -Chest X-Ray shows -Hx of COPD -C/W vancomycin -Solumedrol 40 Q8H. Taper -Duonebs -Sleep test on D/C Renal -Renal U/S shows mild atrophy -Pre-renal GHANSHYAM initially, creatinine 1.0 now F: Oral hydration E: Monitor CMP N: Soft diet DVT: Heparin SQ GI: Protonix 40 mg Daily Dispo: Transfer to Med/Surg floors. Visit type - Emergency Visit Emergency Visit: Yes ED Registration Date: 02/05/19 Care time: The patient presented to the Emergency Department on the above date and was hospitalized for further evaluation of their emergent condition. - New Patient This patient is new to me today: Yes Date on this admission: 02/11/19 - Critical Care Critical Care patient: Yes Total Critical Care Time (in minutes): 45 Critical Care Statement: The care of this patient involved high complexity decision making to prevent further life threatening deterioration of the patient 's condition and/or to evaluate & treat vital organ system(s) failure or risk of failure. ATTENDING PHYSICIAN STATEMENT I saw and evaluated the patient. I reviewed the resident's note and discussed the case with the resident. I agree with the resident's findings and plan as documented. SUBJECTIVE: OBJECTIVE: ASSESSMENT AND PLAN:
[2019-02-11 20:26] VITALS: BMI 46.7
[2019-02-11] MEDS ORDERED: ACETAMINOPHEN 1000 MG/100 ML VIAL (NON FORMULARY) IVPB PRN (21:23)
[2019-02-11] MEDS ORDERED: INSULIN (NOVOLOG) ASPART 100 UNITS/ML 10ML VIAL ONE (21:51)
[2019-02-12] MEDS: INSULIN SLIDING SCALE (NOVOLOG) 1 VIAL SQ SCH ×3 (06:22→16:50)
[2019-02-12] MEDS: GABAPENTIN 300 MG CAPSULE (FP) PO SCH ×2 (06:23→13:38)
[2019-02-12] MEDS: oxyCODONE HCL 5 MG TABLET PO PRN ×2 (06:23→13:47)
[2019-02-12] MEDS: HEPARIN NA (PORCINE) 5,000 UNITS/ML 1ML VIAL SQ SCH ×2 (06:23→13:38)
[2019-02-12] MEDS: ACETAMINOPHEN 325 MG TABLET (FP) PO PRN ×2 (06:23→13:48)
[2019-02-12] MEDS: ALBUTEROL SO4 2.5/IPRATROPIUM 0.5 INH SOL 3 ML VIAL.NEB. NEB SCH ×3 (07:25→15:10)
[2019-02-12] MEDS ORDERED: INSULIN (NOVOLOG) ASPART 100 UNITS/ML 10ML VIAL ONE ×2 (07:50→16:49)
[2019-02-12 08:41] LABS: BASO % 0.3 % (0-2.0); EOS % 0.1 % (0-4.5); HEMATOCRIT 39.2 % (32.4-45.2); HEMOGLOBIN 11.8 GM/dL (10.7-15.3); LYMPH % 6.2 % (8-40); MCH 22.2 pg (25.7-33.7); MCHC 30.2 g/dl (32.0-36.0); MEAN CELL VOLUME 73.6 fl (80-96); MEAN PLT VOLUME 11.1 fl (7.5-11.1); MONO % 5.6 % (3.8-10.2); NEUT % 87.8 % (42.8-82.8); PLATELET COUNT 182 K/MM3 (134-434); RBC 5.33 M/mm3 (3.60-5.2); RDW 17.4 % (11.6-15.6); WHITE BLOOD COUNT 20.5 K/mm3 (4.0-10.0)
[2019-02-12 08:58] LABS: ALBUMIN 2.8 g/dl (3.4-5.0); BILIRUBIN,TOTAL 0.5 mg/dL (0.2-1); CALCIUM 8.5 mg/dL (8.5-10.1); CREATININE 1.1 mg/dL (0.55-1.3); POTASSIUM 4.3 mmol/L (3.5-5.1)
--- NOTE | 2019-02-12 09:09 | PN ---
Progress Note, Physician Chief Complaint: Acute respiratory failure COPD exacerbation Pneumonia Bacteremia History of Present Illness: NAD Maintaining oxygenation on Nasal O2 More alert today Still on IV Vanco- will need 4 weeks of IV vanco Denies any SOB - Current Medication List Current Medications: Active Medications Acetaminophen (Ofirmev Injection -) 1,000 mg IVPB Q6H PRN PRN Reason: FEVER Acetaminophen (Tylenol -) 325 mg PO Q6H PRN PRN Reason: PAIN LEVEL 1-5 Last Admin: 02/12/19 06:23 Dose: 325 mg Albuterol/Ipratropium (Duoneb -) 1 amp NEB RQID [facility] Last Admin: 02/12/19 07:25 Dose: 1 amp Amlodipine Besylate (Norvasc -) 10 mg PO DAILY [facility] Aripiprazole (Abilify) 10 mg PO DAILY [facility] Citalopram Hydrobromide (Celexa -) 20 mg PO DAILY [facility] Gabapentin (Neurontin -) 300 mg PO TID [facility] Last Admin: 02/12/19 06:23 Dose: 300 mg Heparin Sodium (Porcine) (Heparin -) 5,000 unit SQ TID [facility] Last Admin: 02/12/19 06:23 Dose: 5,000 unit Vancomycin HCl 1,500 mg/ (Dextrose) 500 mls @ 250 mls/hr IVPB Q24H [facility]; Protocol Insulin Aspart (Novolog Vial Sliding Scale -) 1 vial SQ ACHS [facility]; Protocol Last Admin: 02/12/19 06:22 Dose: 2 units Methylprednisolone Sodium Succinate (Solu-Medrol -) 40 mg IVPUSH BID [facility] Last Admin: 02/11/19 22:22 Dose: 40 mg Oxycodone HCl (Roxicodone -) 5 mg PO Q6H PRN PRN Reason: PAIN LEVEL 6-10 Last Admin: 02/12/19 06:23 Dose: 5 mg Pantoprazole Sodium (Protonix Iv) 40 mg IVPUSH DAILY [facility] Topiramate (Topamax -) 25 mg PO DAILY [facility] - Objective Vital Signs: Vital Signs Temperature 98 F 02/12/19 05:31 Pulse Rate 61 02/12/19 05:31 Respiratory Rate 18 02/12/19 05:31 Blood Pressure 140/82 02/12/19 05:31 O2 Sat by Pulse Oximetry (%) 96 02/11/19 21:00 Constitutional: Yes: Well Nourished, No Distress, Calm, Obese Cardiovascular: Yes: Regular Rate and Rhythm Respiratory: Yes: Regular, On Nasal O2 Gastrointestinal: Yes: Normal Bowel Sounds, Soft, Abdomen, Obese Genitourinary: Yes: Dukes Present Musculoskeletal: Yes: Muscle Weakness Extremities: Yes: Amputation (LLE) Edema: No Peripheral Pulses WNL: Yes Neurological: Yes: Alert, Oriented Psychiatric: Yes: Alert, Oriented Labs: CBC, BMP 02/12/19 07:17 Problem List - Problems (1) Bacteremia Assessment/Plan: -Cultures: Microbiology 02/06/19 12:25 Blood - Peripheral Venous Blood Culture - Preliminary NO GROWTH OBTAINED AFTER 96 HOURS, INCUBATION TO CONTINUE FOR 1 DAYS. 02/06/19 12:35 Blood - Peripheral Venous Blood Culture - Preliminary NO GROWTH OBTAINED AFTER 96 HOURS, INCUBATION TO CONTINUE FOR 1 DAYS. 02/06/19 12:00 Sputum - Endotrachea Suction/Ventilator Gram Stain - Final 02/06/19 12:00 Sputum - Endotrachea Suction/Ventilator Sputum Culture - Final S Aureus 02/05/19 12:04 Blood - Peripheral Venous Blood Culture - Final Staphylococcus Intermedius 02/05/19 12:04 Blood - Peripheral Venous Blood Culture - Final Staphylococcus Aureus 02/05/19 15:51 Urine For Antigen Detection Legionella Antigen - Final 02/05/19 15:51 Urine For Antigen Detection Streptococcus pneumoniae Antigen (M - Final 02/05/19 12:49 Urine - Urine - Catheterized Urine Culture - Final NO GROWTH OBTAINED -ID on Board -IV Vanco x 4 weeks -PICC line -Afebrile -Medrol tapering dose---> change to PO -CXR reviewed -Pulmonary on board Problems reviewed: Yes Code(s): R78.81 - BACTEREMIA (2) COPD exacerbation Assessment/Plan: -Pulmonary consult -bronchodilators -Medrol tapering dose -IV abx Problems reviewed: Yes Code(s): J44.1 - CHRONIC OBSTRUCTIVE PULMONARY DISEASE W (ACUTE) EXACERBATION (3) Pneumonia Assessment/Plan: -Pulmonary consult -bronchodilators -Medrol tapering dose -IV abx -afebrile -Nasal O2 to keep SpO>90% Problems reviewed: Yes Code(s): J18.9 - PNEUMONIA, UNSPECIFIED ORGANISM (4) Morbid obesity due to excess calories Problems reviewed: Yes Code(s): E66.01 - MORBID (SEVERE) OBESITY DUE TO EXCESS CALORIES (5) Respiratory failure Assessment/Plan: -Pulmonary consult -bronchodilators -Medrol tapering dose -IV abx -O2 to keep SpO2>90% Problems reviewed: Yes Code(s): J96.90 - RESPIRATORY FAILURE, UNSP, UNSP W HYPOXIA OR HYPERCAPNIA Assessment/Plan see problem list Physical therapy- transfer training D/C porter mckeon
[2019-02-12] MEDS: methylPREDNISolone NA SUCC 40 MG/1 ML VIAL IVPUSH SCH (09:18)
[2019-02-12] MEDS ORDERED: amLODIPine BESYLATE 10 MG TABLET (FP) PO SCH (10:00)
[2019-02-12] MEDS ORDERED: PANTOPRAZOLE SODIUM 40 MG VIAL IVPUSH SCH (10:00)
[2019-02-12] MEDS ORDERED: CITALOPRAM HYDROBROMIDE 20 MG TABLET (FP) PO SCH (10:00)
[2019-02-12] MEDS ORDERED: ARIPiprazole 5 MG TABLET (FP) PO SCH (10:00)
[2019-02-12] MEDS ORDERED: TOPIRAMATE 25 MG TABLET (FP) PO SCH (10:00)
--- NOTE | 2019-02-12 11:24 | DS ---
Physical Examination Vital Signs: Vital Signs Temperature 97.9 F 02/12/19 09:00 Pulse Rate 92 H 02/12/19 09:00 Respiratory Rate 20 02/12/19 09:00 Blood Pressure 139/96 02/12/19 09:00 O2 Sat by Pulse Oximetry (%) 94 L 02/12/19 09:00 Findings/Remarks: 63F PMH HTN COPD L AKA BIBEMS from [facility] for increased work of breathing and AMS. EMS noted patient was diffusely wheezing; treated w/ nebs, Mg, and epi w/o improvement. EMS intubated pt en route; Hospital course: Cultures: Microbiology 02/06/19 12:25 Blood - Peripheral Venous Blood Culture - Final NO GROWTH AFTER 5 DAYS INCUBATION 02/06/19 12:35 Blood - Peripheral Venous Blood Culture - Final NO GROWTH AFTER 5 DAYS INCUBATION 02/06/19 12:00 Sputum - Endotrachea Suction/Ventilator Gram Stain - Final 02/06/19 12:00 Sputum - Endotrachea Suction/Ventilator Sputum Culture - Final Mr S Aureus 02/05/19 12:04 Blood - Peripheral Venous Blood Culture - Final Staphylococcus Intermedius 02/05/19 12:04 Blood - Peripheral Venous Blood Culture - Final Staphylococcus Aureus 02/05/19 15:51 Urine For Antigen Detection Legionella Antigen - Final 02/05/19 15:51 Urine For Antigen Detection Streptococcus pneumoniae Antigen (M - Final 02/05/19 12:49 Urine - Urine - Catheterized Urine Culture - Final NO GROWTH OBTAINED Pt was weaned off the mechanical vent. Pt was evaluated by ID. Pt was started on Vanco IV and would need it for 4 weeks. Laboratory Last Values WBC 20.5 K/mm3 (4.0-10.0) H 02/12/19 07:17 RBC 5.33 M/mm3 (3.60-5.2) H 02/12/19 07:17 Hgb 11.8 GM/dL (10.7-15.3) 02/12/19 07:17 Hct 39.2 % (32.4-45.2) 02/12/19 07:17 MCV 73.6 fl (80-96) L 02/12/19 07:17 MCH 22.2 pg (25.7-33.7) L 02/12/19 07:17 MCHC 30.2 g/dl (32.0-36.0) L 02/12/19 07:17 RDW 17.4 % (11.6-15.6) H 02/12/19 07:17 Plt Count 201 K/MM3 (134-434) 02/11/19 06:05 MPV 11.1 fl (7.5-11.1) 02/12/19 07:17 Absolute Neuts (auto) 18.0 K/mm3 (1.5-8.0) H 02/12/19 07:17 Neutrophils % 87.8 % (42.8-82.8) H 02/12/19 07:17 Neutrophils % (Manual) 80.2 % (42.8-82.8) 02/09/19 05:20 Band Neutrophils % 3.0 % 02/09/19 05:20 Lymphocytes % 6.2 % (8-40) L 02/12/19 07:17 Lymphocytes % (Manual) 6.9 % (8-40) L 02/09/19 05:20 Monocytes % 5.6 % (3.8-10.2) 02/12/19 07:17 Monocytes % (Manual) 8 % (3.8-10.2) 02/09/19 05:20 Eosinophils % 0.1 % (0-4.5) D 02/12/19 07:17 Eosinophils % (Manual) 0.0 % (0-4.5) 02/09/19 05:20 Basophils % 0.3 % (0-2.0) 02/12/19 07:17 Basophils % (Manual) 0.0 % (0-2.0) 02/09/19 05:20 Myelocytes % (Man) 0 % (0-2) 02/09/19 05:20 Promyelocytes % (Man) 0 % (0-2) 02/09/19 05:20 Blast Cells % (Manual) 0 % (0-0) 02/09/19 05:20 Nucleated RBC % 0 % (0-0) 02/12/19 07:17 Metamyelocytes 1 % (0-2) 02/09/19 05:20 Hypochromia 1+ 02/09/19 05:20 Platelet Estimate Normal 02/09/19 05:20 Polychromasia 1+ 02/09/19 05:20 Poikilocytosis 1+ 02/09/19 05:20 Anisocytosis 2+ 02/09/19 05:20 Microcytosis 2+ 02/09/19 05:20 Macrocytosis 0 02/09/19 05:20 Target Cells 1+ 02/09/19 05:20 Stomatocytes 1+ 02/09/19 05:20 ESR 29 mm/hr (0-30) 02/09/19 05:20 Anticoagulation Therapy No Result Required. 02/06/19 06:45 Puncture Site Left radial 02/06/19 06:45 Patient Temperature Cancelled 02/05/19 12:57 ABG pH 7.32 (7.35-7.45) L 02/06/19 06:45 ABG pCO2 at Pt Temp 50.0 mmHg (35-45) H 02/06/19 06:45 ABG pO2 at Pt Temp 110 mmHg (80-100) H 02/06/19 06:45 ABG HCO3 24.7 mmol/L (22-27) 02/06/19 06:45 ABG O2 Sat (Measured) 96.9 % (95-98) 02/06/19 06:45 ABG O2 Content No Result Required. 02/06/19 06:45 ABG Base Excess -1.5 meq/l (-2-2) 02/06/19 06:45 Michael Test Positive 02/06/19 06:45 VBG pH 7.38 (7.31-7.41) 02/05/19 12:04 POC VBG pCO2 38.8 mmHg (38-52) 02/05/19 12:04 POC VBG pO2 131 mmHg (28-48) H 02/05/19 12:04 VBG HCO3 22.3 mmol/L (23-29) L 02/05/19 12:04 VBG O2 Sat (Octavio) 98.5 % (70-80) H 02/05/19 12:04 VBG Base Excess -2.1 meq/l (-2-2) L 02/05/19 12:04 Carboxyhemoglobin < 0.5 % (0-2) 02/05/19 15:35 Methemoglobin 1.3 % (0-2) 02/05/19 15:35 O2 Delivery Device Vent 02/06/19 06:45 Oxygen Flow Rate 50% 02/06/19 06:45 Vent Mode A/c 02/06/19 06:45 Vent Rate 12 02/06/19 06:45 Mechanical Rate No Result Required. 02/06/19 06:45 PEEP 5.0 cmH2O 02/06/19 06:45 Pressure Support Vent 400 02/06/19 06:45 Sodium 138 mmol/L (136-145) 02/12/19 07:17 Potassium 4.3 mmol/L (3.5-5.1) 02/12/19 07:17 Chloride 100 mmol/L (98-107) 02/12/19 07:17 Carbon Dioxide 31 mmol/L (21-32) 02/12/19 07:17 Anion Gap 6 MMOL/L (8-16) L 02/12/19 07:17 BUN 23.0 mg/dL (7-18) H 02/12/19 07:17 Creatinine 1.1 mg/dL (0.55-1.3) 02/12/19 07:17 Est GFR (CKD-EPI)AfAm 61.01 02/12/19 07:17 Est GFR (CKD-EPI)NonAf 52.64 02/12/19 07:17 POC Glucometer 182 UNITS (80-120) 02/12/19 06:21 Random Glucose 187 mg/dL (74-106) H 02/12/19 07:17 Lactic Acid 1.7 mmol/L (0.4-2.0) 02/05/19 12:04 Calcium 8.5 mg/dL (8.5-10.1) 02/12/19 07:17 Phosphorus 2.0 mg/dL (2.5-4.9) L 02/09/19 05:20 Magnesium 2.5 mg/dL (1.8-2.4) H 02/09/19 05:20 Total Bilirubin 0.5 mg/dL (0.2-1) 02/12/19 07:17 AST 20 U/L (15-37) 02/12/19 07:17 ALT 31 U/L (13-61) 02/12/19 07:17 Alkaline Phosphatase 89 U/L (45-117) 02/12/19 07:17 Creatine Kinase 192 U/L (26-192) 02/05/19 12:04 Creatine Kinase Index No Result Required. 02/05/19 12:04 CK-MB (CK-2) < 1.0 ng/mL (0.5-3.6) 02/05/19 12:04 Troponin I < 0.02 ng/ml (0.00-0.05) 02/05/19 12:04 C-Reactive Protein < 0.3 MG/DL (0.00-0.3) 02/09/19 05:20 Total Protein 7.0 g/dl (6.4-8.2) 02/12/19 07:17 Albumin 2.8 g/dl (3.4-5.0) L 02/12/19 07:17 Urine Color Yellow 02/05/19 12:49 Urine Appearance Clear 02/05/19 12:49 Urine pH 7.0 (5.0-8.0) 02/05/19 12:49 Ur Specific [place] 1.014 (1.010-1.035) 02/05/19 12:49 Urine Protein 1+ (NEGATIVE) H 02/05/19 12:49 Urine Glucose (UA) Negative (NEGATIVE) 02/05/19 12:49 Urine Ketones Negative (NEGATIVE) 02/05/19 12:49 Urine Blood Negative (NEGATIVE) 02/05/19 12:49 Urine Nitrite Negative (NEGATIVE) 02/05/19 12:49 Urine Bilirubin Negative (NEGATIVE) 02/05/19 12:49 Urine Urobilinogen 1.0 mg/dL (0.2-1.0) 02/05/19 12:49 Ur Leukocyte Esterase Negative (NEGATIVE) 02/05/19 12:49 Urine WBC (Auto) 0 /hpf (0-5) 02/05/19 12:49 Urine RBC (Auto) 1 /hpf (0-4) 02/05/19 12:49 Urine Casts (Auto) 2 /lpf (0-8) 02/05/19 12:49 U Epithel Cells (Auto) 1.1 /HPF (0-5/HPF) 02/05/19 12:49 Urine Bacteria (Auto) 0.5 /hpf (NEGATIVE) 02/05/19 12:49 Vancomycin Pre-Dose 14.6 ug/ml (18-26) L 02/10/19 13:00 Influenza A (Rapid) Negative (Negative) 02/05/19 12:00 Influenza B (Rapid) Negative (Negative) 02/05/19 12:00 Vital Signs Temp 97.9 F 02/12/19 09:00 Pulse 92 H 02/12/19 09:00 Resp 20 02/12/19 09:00 BP 139/96 02/12/19 09:00 Pulse Ox 94 L 02/12/19 09:00 Intake & Output 02/11/19 02/11/19 02/12/19 11:59 23:59 11:59 Intake Total 1100 320 Output Total 900 400 600 Balance -900 700 -280 Weight 104.508 kg 99.79 kg Intake: IVPB 600 Oral 500 Oral Supplement 320 Output: Urine 900 400 600 Dukes 900 400 600 Other: Voiding Method Indwelling Catheter Indwelling Catheter Indwelling Catheter Bowel Movement Yes No No # Bowel Movements 1 Body Mass Index (BMI) 46.7 Weight Measurement Method Built in Bedscale Built in Bedscale Constitutional: Yes: Well Nourished, No Distress, Calm, Obese Cardiovascular: Yes: Regular Rate and Rhythm Respiratory: Yes: Regular Gastrointestinal: Yes: Normal Bowel Sounds, Soft, Abdomen, Obese Renal/: Yes: Dukes Present Musculoskeletal: Yes: Muscle Weakness Extremities: Yes: Amputation (LLE) Edema: No Peripheral Pulses WNL: Yes Neurological: Yes: Alert, Oriented Psychiatric: Yes: Alert, Oriented Labs: CBC, BMP 02/12/19 07:17 02/12/19 07:17 Discharge Summary Problems reviewed: Yes Reason For Visit: ASTHMA W/STATUS ASTHMATICUS; RESPIRATORY FAILURE Current Active Problems Bacteremia (Acute) COPD exacerbation (Acute) Pneumonia (Acute) Respiratory abnormalities (Acute) Respiratory failure (Acute) Condition: Stable - Instructions Referrals: Daryl Rome MD [Primary Care Provider] - Disposition: [facility] - Home Medications Comprehensive Discharge Medication List: Ambulatory Orders Amlodipine Besylate [Norvasc -] 10 mg PO DAILY 02/21/14 Aripiprazole [Abilify -] 10 mg PO DAILY 02/21/14 Citalopram Hydrobromide [Citalopram HBr] 20 mg PO DAILY 02/21/14 Gabapentin [Neurontin] 300 mg PO TID 12/28/18 Latanoprost 0.005% Eye Drops [Xalatan 0.005% Eye Drops -] 1 drop OP HS 12/28/18 Topiramate [Topamax -] 25 mg PO DAILY 12/28/18 Albuterol 2.5/Ipratropium 0.5 [Duoneb -] 1 amp NEB RQID #1 amp 01/01/19 Acetaminophen 650 mg PO QID PRN 02/05/19 Ciclopirox [Penlac] 6.6 ml TP BID 02/05/19 Nystatin Powder [Nystop Powder -] 15 gm TP TID 02/05/19 Acetaminophen [Tylenol .Regular Strength -] 325 mg PO Q6H PRN tablet 02/12/19 Albuterol 2.5/Ipratropium 0.5 [Duoneb -] 1 amp NEB RQID amp 02/12/19 Amlodipine Besylate [Norvasc -] 10 mg PO DAILY tablet 02/12/19 Heparin - 5,000 unit SQ BID vial 02/12/19 Insulin Sliding Scale [Novolog Vial Sliding Scale -] 1 vial SQ ACHS units 02/12 Pantoprazole Sodium [Protonix -] 40 mg PO DAILY tablet.ec 02/12/19 Sitagliptin Phosphate [Januvia] 50 mg PO DAILY #30 tablet 02/12/19 Topiramate [Topamax -] 25 mg PO DAILY tablet 02/12/19 Vancomycin HCl 1,500 mg IVPB Q24H #30 vial 02/12/19 oxyCODONE HCL [Roxicodone -] 5 mg PO Q6H PRN #120 tablet MDD 4 02/12/19 predniSONE [Deltasone -] See Taper PO ASDIR #50 tab 02/12/19 Prescription Drug Monitoring Program (I-STOP) results: I-STOP reviewed and no issues identified
--- NOTE | 2019-02-12 11:29 | PN ---
Progress Note (short form) - Note Progress Note: PULMONARY States breathing is improving. Less cough. No fevers. Vital Signs Period Temp Pulse Resp BP Sys/Singer Pulse Ox Last 24 Hr 97.9 F-98.8 F 61-92 14-20 112-143/56-96 94-96 Gen: NAD at rest Heart: RRR Lung: decreased breath sounds at the bases Abd: soft, nontender Ext: L AKA CBC, BMP 02/12/19 07:17 02/12/19 07:17 Active Medications Acetaminophen (Ofirmev Injection -) 1,000 mg IVPB Q6H PRN PRN Reason: FEVER Acetaminophen (Tylenol -) 325 mg PO Q6H PRN PRN Reason: PAIN LEVEL 1-5 Last Admin: 02/12/19 06:23 Dose: 325 mg Albuterol/Ipratropium (Duoneb -) 1 amp NEB RQID [facility] Last Admin: 02/12/19 07:25 Dose: 1 amp Amlodipine Besylate (Norvasc -) 10 mg PO DAILY [facility] Last Admin: 02/12/19 09:18 Dose: 10 mg Aripiprazole (Abilify) 10 mg PO DAILY [facility] Last Admin: 02/12/19 09:18 Dose: 10 mg Citalopram Hydrobromide (Celexa -) 20 mg PO DAILY [facility] Last Admin: 02/12/19 09:19 Dose: 20 mg Gabapentin (Neurontin -) 300 mg PO TID [facility] Last Admin: 02/12/19 06:23 Dose: 300 mg Heparin Sodium (Porcine) (Heparin -) 5,000 unit SQ TID [facility] Last Admin: 02/12/19 06:23 Dose: 5,000 unit Vancomycin HCl 1,500 mg/ (Dextrose) 500 mls @ 250 mls/hr IVPB Q24H [facility]; Protocol Insulin Aspart (Novolog Vial Sliding Scale -) 1 vial SQ ACHS [facility]; Protocol Last Admin: 02/12/19 06:22 Dose: 2 units Methylprednisolone Sodium Succinate (Solu-Medrol -) 40 mg IVPUSH BID [facility] Last Admin: 02/12/19 09:18 Dose: 40 mg Oxycodone HCl (Roxicodone -) 5 mg PO Q6H PRN PRN Reason: PAIN LEVEL 6-10 Last Admin: 02/12/19 06:23 Dose: 5 mg Pantoprazole Sodium (Protonix -) 40 mg PO DAILY [facility] Topiramate (Topamax -) 25 mg PO DAILY [facility] Last Admin: 02/12/19 09:18 Dose: 25 mg A/P s/p Acute Hypoxic Respiratory Failure Pneumonia likely Aspiration Gram Positive Bacteremia Sepsis Acute COPD Exacerbation Acute Kidney Injury HTN DM h/o CVA Bipolar Disorder Possible OSAS - continue antibiotics per ID - can change steroids to PO - inhaled bronchodilators - O2 to keep SpO2 >90% - pt requesting melatonin at night - DVT prophylaxis
[2019-02-12 11:59] LABS: ANISOCYTOSIS 1+; MACROCYTOSIS 0; PLATELET ESTIMATE NORMAL; TARGET CELLS 1+
[2019-02-12] MEDS ORDERED: VANCOMYCIN HCL 1,500 MG in DEXTROSE 5%-WATER - 500 ML IVPB SCH (14:00)
[2019-02-12 14:24] VITALS: BP 118/73; PULSE 74; TEMP 98
[2019-02-12] MEDS ORDERED: MELATONIN 1 MG TABLET PO SCH (22:00)
[2019-02-13] MEDS ORDERED: PANTOPRAZOLE 40 MG TABLET (FP) PO SCH (10:00)
== END 2019-02-12 20:04 | DRG 871 ==
LOC: JER 11:35 → JERBED 12:45 → JICU 17:45 → J6S 02-11 20:00
PROVIDERS: ADMIT Family Medicine; ATTEND Family Medicine
PROC: 5A1945Z Respiratory Ventilation, 24-96 Consecutive Hours (ICD-10-PCS; principal; 2019-02-05)
PROC: 0BH17EZ Insertion of Endotracheal Airway into Trachea, Via Natural or Artificial Opening (ICD-10-PCS; 2019-02-05)
PROC: 02HV33Z Insertion of Infusion Device into Superior Vena Cava, Percutaneous Approach (ICD-10-PCS; 2019-02-12)
PROC: B518ZZA Fluoroscopy of Superior Vena Cava, Guidance (ICD-10-PCS; 2019-02-12)
DX: A41.02 Sepsis due to Methicillin resistant Staphylococcus aureus (principal); J69.0 Pneumonitis due to inhalation of food and vomit; J96.01 Acute respiratory failure with hypoxia; J96.02 Acute respiratory failure with hypercapnia; G93.41 Metabolic encephalopathy; N17.9 Acute kidney failure, unspecified; J44.1 Chronic obstructive pulmonary disease with (acute) exacerbation; Z68.41 Body mass index [BMI] 40.0-44.9, adult; E11.9 Type 2 diabetes mellitus without complications; I10 Essential (primary) hypertension; J44.9 Chronic obstructive pulmonary disease, unspecified; E66.01 Morbid (severe) obesity due to excess calories; D72.829 Elevated white blood cell count, unspecified
CPT/HCPCS: 36415; 36569; 36600; 71045-TC-FY; 76775-TC; 77001-TC-FY; 80048; 80053; 81003; 82375; 82550; 82553; 82803; 82962; 83050; 83605; 83735; 84100; 84484; 85025; 85027; 85651; 86140; 87040; 87070; 87086; 87186; 87205; 87804; 87899; 93005; 93010; 93306-TC; 94002; 94010; 94640; 97162-GP; 99285-25; C1751; G0480; J0131; J1644; J7030

== ENCOUNTER 2019-08-27 11:40 | Inpatient (IN) | payer OTHER ==
--- NOTE | 2019-08-27 12:25 | PDOC ---
Attending Attestation - Resident Resident Name: Emory Li - ED Attending Attestation I have performed the following: I have examined & evaluated the patient, The case was reviewed & discussed with the resident, I agree w/resident's findings & plan - HPI HPI: 08/27/19 12:19 64y/o F from [facility] with h/o HTN, COPD, L AKA last admitted here 01/2019 for respiratory failure 2/2 asthma presents now BIBA for AMS. Per report, nonsensical speech without focal deficit, prompting ED referral. Last known well apparently 1h prior to arrival. pt complaining of generalized weakness, no headache/vision change or pain. code stone activated on arrival for AMS. - Physicial Exam PE: 08/27/19 12:23 afebrile, glucose 86 lying in stretcher, somnolent but arousable, answers questions appropriately perrl, left gaze intact neck supple heart regular, lungs clear abd soft/nt L aka 2+ distal pulses 3/5 b/l upper extremities, no effort RLE. no gaze preference, no aphasia - Critical Care Time Total Critical Care Time: 40 Critical Care Statement: The care of this patient involved high complexity decision making to prevent further life threatening deterioration of the patient's condition and/or to evaluate & treat vital organ system(s) failure or risk of failure. - Medical Decision Making 08/27/19 12:25 64y/o F from [place] with AMS, nonfocal neuro exam with apparently generalized weakness and no clear aphasia/neglect. stroke on ddx but not clear, code stone activated and CT wnl. not a clear candidate for tpa at this time as CVA not the clear diagnosis. pursue metabolic/infectious workup. stroke protocol initiated labs with cultures ivf, ct head, cxr admit 08/27/19 14:01 labs wnl except for GHANSHYAM with Cr 1.8. Pt mental status gradually improved, conversant without focal deficit. cousin provided useful history that patient has been progressively declining for 2 weeks, less conversant and unable to eat on her own as she usually does. So now subacute presentation of progressive weakness and cognitive decline, stroke still on ddx but certainly does not appear acute. will proceed with admission, IV fluid hydration for GHANSHYAM. Heart Score/ECG Review #1 ECG reviewed & interpreted by me at: 12:02 General ECG Interpretation: Sinus Rhythm, Normal Rate (53), Normal Intervals (qtc 412), No acute ischemic changes Discharge - Discharge Information Problems reviewed: Yes Clinical Impression/Diagnosis: Acute kidney injury Altered mental status Qualifiers: Altered mental status type: unspecified Qualified Code(s): R41.82 - Altered mental status, unspecified Condition: Guarded - Follow up/Referral Referrals: Daryl Rome MD [Primary Care Provider] - - Patient Discharge Instructions - Post Discharge Activity
[2019-08-27 12:44] LABS: BASO % 0.4 % (0-2.0); EOS % 5.6 % (0-4.5); HEMATOCRIT 36.1 % (32.4-45.2); HEMOGLOBIN 11.4 GM/dL (10.7-15.3); LYMPH % 27.1 % (8-40); MCH 22.8 pg (25.7-33.7); MCHC 31.6 g/dl (32.0-36.0); MEAN CELL VOLUME 72.2 fl (80-96); MEAN PLT VOLUME 10.6 fl (7.5-11.1); MONO % 12.9 % (3.8-10.2); PLATELET COUNT 146 K/MM3 (134-434); RBC 4.99 M/mm3 (3.60-5.2); RDW 17.6 % (11.6-15.6); WHITE BLOOD COUNT 6.8 K/mm3 (4.0-10.0)
[2019-08-27 12:52] LABS: INR 1.08 (0.83-1.09); PROTHROMBIN TIME (PATIENT) 12.8 SEC (9.7-13.0)
[2019-08-27 12:55] LABS: ACTIVATED PTT 40.5 SECONDS (25.2-36.5)
[2019-08-27 13:10] LABS: CHOLESTEROL 183 mg/dL (50-200); HDL CHOLESTEROL 62 mg/dL (40-60); LDL CHOLESTEROL (ONLY SJRH) 96 mg/dL (5-100); TRIGLYCERIDES 119 mg/dL (0-150)
[2019-08-27 13:12] LABS: ALBUMIN 3.1 g/dl (3.4-5.0); ALK PHOS 100 U/L (45-117); ANION GAP 5 MMOL/L (8-16); BILIRUBIN,TOTAL 0.3 mg/dL (0.2-1); BLOOD UREA NITROGEN 27.5 mg/dL (7-18); CALCIUM 9.5 mg/dL (8.5-10.1); CHLORIDE 114 mmol/L (98-107); CO2 24 mmol/L (21-32); CREATININE 1.8 mg/dL (0.55-1.3); GLUCOSE,RANDOM 78 mg/dL (74-106); POTASSIUM 4.9 mmol/L (3.5-5.1); SGOT/AST 55 U/L (15-37); SGPT/ALT 47 U/L (13-61); SODIUM 143 mmol/L (136-145); TOT PROT 7.7 g/dl (6.4-8.2)
[2019-08-27] MEDS ORDERED: SODIUM CHLORIDE 0.9% 500 ML INFUS.BAG IV ONE (13:54)
--- NOTE | 2019-08-27 14:17 | PDOC ---
History of Present Illness - General Chief Complaint: CVA/TIA Stated Complaint: CVA/TIA Time Seen by Provider: 08/27/19 11:52 History Source: Care Provider Exam Limitations: Clinical Condition - History of Present Illness Initial Comments: This patient is a 64 YOF h/o CVA, AMS, COPD [facility] reported left sided weakness and altered mental status since this AM. Per [facility] team [facility], last night she was at baseline, speaking normally, active and able to answer questions. This AM she was found to be lethargic, confused and with left sided weakness. EMS was called and brought her to ED for evaluation. Patient is unable to provide history or complete ROS. She does mention that she is unsure what is wrong with her and is experiencing some pain but unable to provide any additional detail. Past History - Medical History Allergies/Adverse Reactions: Allergies Allergy/AdvReac Type Severity Reaction Status Date / Time No Known Drug Allergies Allergy Verified 02/05/19 11:52 Home Medications: Ambulatory Orders Amlodipine Besylate [Norvasc -] 10 mg PO DAILY 02/21/14 Aripiprazole [Abilify -] 10 mg PO DAILY 02/21/14 Citalopram Hydrobromide [Citalopram HBr] 20 mg PO DAILY 02/21/14 Gabapentin [Neurontin] 300 mg PO TID 12/28/18 Latanoprost 0.005% Eye Drops [Xalatan 0.005% Eye Drops -] 1 drop OP HS 12/28/18 Topiramate [Topamax -] 25 mg PO DAILY 12/28/18 Albuterol 2.5/Ipratropium 0.5 [Duoneb -] 1 amp NEB RQID #1 amp 01/01/19 Acetaminophen 650 mg PO QID PRN 02/05/19 Ciclopirox [Penlac] 6.6 ml TP BID 02/05/19 Nystatin Powder [Nystop Powder -] 15 gm TP TID 02/05/19 Heparin - 5,000 unit SQ BID vial 02/12/19 Insulin Sliding Scale [Novolog Vial Sliding Scale -] 1 vial SQ ACHS units 02/12/19 Pantoprazole Sodium [Protonix -] 40 mg PO DAILY tablet.ec 02/12/19 Sitagliptin Phosphate [Januvia] 50 mg PO DAILY #30 tablet 02/12/19 oxyCODONE HCL [Roxicodone -] 5 mg PO Q6H PRN #120 tablet MDD 4 02/12/19 Losartan Potassium 50 mg PO BID 08/27/19 Oxybutynin Chloride 5 mg PO HS 08/27/19 Anemia: Yes Asthma: No Cancer: No Cardiac Disorders: No CVA: No COPD: Yes CHF: No 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) Dementia: No Diabetes: Yes (IDDM) GI Disorders: No Disorders: No HTN: Yes Hypercholesterolemia: No Liver Disease: Yes Psychiatric Problems: Yes (major depression/schizophrenia) Seizures: No Thyroid Disease: No - Surgical History Abdominal Surgery: Yes Appendectomy: No Cardiac Surgery: No Cholecystectomy: (gall bladder disease) Lung Surgery: No Neurologic Surgery: Yes (ZAVALA HAWA INSERTION AT 11 YRS OLD) Orthopedic Surgery: Yes (left AKA) - Immunization History Immunization Up to Date: Yes - Psycho-Social/Smoking History Smoking History: Unknown if ever smoked Have you smoked in the past 12 months: No Information on smoking cessation initiated: No - Substance Abuse Hx (Audit-C & DAST Scrn) How often the patient has a drink containing alcohol: Never Score: In Men: 4 or > Positive; In Women: 3 or > Positive: 0 Screen Result (Pos requires Nsg. Audit-10AR): Negative In the last yr the pt used illegal drug/Rx for NonMed reason: No Score: Yes response is considered Positive: 0 Screen Result (Positive result requires Nsg. DAST-10): Negative Review of Systems - Review of Systems Able to Perform ROS?: No (Limited by condition) *Physical Exam - Vital Signs Last Vital Signs Temp Pulse Resp BP Pulse Ox 98.7 F 52 L 16 0/0 L 100 08/27/19 11:51 08/27/19 12:00 08/27/19 11:51 08/27/19 11:51 08/27/19 12:00 - Physical Exam General Appearance: Yes: Obese, Other (confused) HEENT: positive: EOMI, NILDA Respiratory/Chest: positive: Lungs Clear, Normal Breath Sounds Cardiovascular: positive: Regular Rhythm, Regular Rate, S1, S2 Gastrointestinal/Abdominal: positive: Normal Bowel Sounds, Flat, Soft NIH Stroke Scale - Last Known Well Date/Time & Onset Date Last Known Well: 08/26/19 - Initial Evaluation Level of consciousness: Not alert, but arousable with minimal stimulation Ask patient the month and their age: Both incorrect Ask patient to open & close eyes; make fist and let go: Both incorrect Best gaze (horizontal eye movement): Normal Visual field testing: Partial hemianopia Facial paresis (Show teeth/raise eyebrows/close eyes tight): Normal symmetrical movement Motor Function: Left Arm: Drift Motor Function: Right Arm: Drift Motor Function: Left Leg: Untestable (Joint fused or limb amputated), explain: Motor Function: Right Leg: No effort against gravity Limb Ataxia: No ataxia Sensory(Use pinprick test arms,legs,trunk,face/side to side): Normal Best language (Describe picture, name items, read sentences): Mild to moderate aphasia Dysarthria (read several words): Mild to moderate slurring of words Extinction and Inattention: No abnormality - Total Score NIH Stroke Scale Score: 13 tPA Exclusion Checklist 0-3hr - Time Elapsed Date last known well: 08/26/19 - Ineligibility reason(s) Reasons No tPA given: Outside of window - delayed arrival Critical Care Time/[facility] Note - Medical Decision Making Note: 64 YOF h/o CVA, AMS, COPD [facility] for reported left sided weakness and altered mental status since this AM. Patient is unable to provide history or complete ROS/ full exam. Vitals are BP: 114/69, HR 54, Temp 98.6, SpO2 100. Patient is AxO 1, has limited ability to follow commands, exam was limited by clinical condition. NIHSS is 13. She is outside TPA window. ddx includes but is not limited to: TIA, CVA, Seizure, UTI, Metabolic encephalopathy. plan: CT head, CBC, CMP, Lactate, UA/UC, PT/INR, Fluids. reassess: CT head unrevealing of acute pathology, creatinine 1.8, BUN 27.5, labs otherwise within normal limits. Dispo: Will admit patient for AMS. Discharge - Discharge Information Problems reviewed: Yes Clinical Impression/Diagnosis: Acute kidney injury Altered mental status Qualifiers: Altered mental status type: unspecified Qualified Code(s): R41.82 - Altered mental status, unspecified Condition: Guarded - Admission Yes - Follow up/Referral - Patient Discharge Instructions - Post Discharge Activity
[2019-08-27] MEDS ORDERED: ALBUTEROL SO4 2.5/IPRATROPIUM 0.5 INH SOL 3 ML VIAL.NEB. NEB PRN (15:05)
[2019-08-27] MEDS ORDERED: METOPROLOL TARTRATE 5 MG/5 ML VIAL IVPUSH PRN (15:06)
--- NOTE | 2019-08-27 15:13 | HP ---
Admitting History and Physical - Primary Care Physician PCP: Candace Kenyon - Admission Chief Complaint: AMS,TIA History of Present Illness: This patient is a 64 YOF h/o CVA, AMS, COPD [facility] for reported left sided weakness and altered mental status since this AM. Per [facility] care team at senior living, last night she was at baseline, speaking normally, active and able to answer questions. This AM she was found to be lethargic, confused and with left sided weakness. EMS was called and brought her to ED for evaluation. Patient is unable to provide history or complete ROS. She does mention that she is unsure what is wrong with her and is experiencing some pain but unable to provide any additional detail. Pt had similar episode in 12/2018 with underlying infectious etiology. Upon my evaluation, patient is awake and alert, tells me her full name. Is not able tot ell me her , place or time. Questions where she is and what is wrong with her. Denies any pain. As per [id number] has been in touch with the pt at [facility] says, pt's mental status had been declining from past 2 weeks. History Source: Medical Record Limitations to Obtaining History: Clinical Condition - Past Medical History Cardiovascular: Yes: Deep Vein Thrombosis, HTN, Hyperlipdemia Pulmonary: Yes: Asthma, Previously Intubated Renal/: Yes: Renal Inusuff Infectious Disease: Yes: MRSA Psych: Yes: Anxiety, Depression, Schizophrenia Endocrine: Yes: Diabetes Mellitus Additional Past Medical History: morbid obesity - Past Surgical History Past Surgical History: Yes: Amputation (L-AKA 1999), Hysterectomy Additional Past Surgical History: IVC filter >10 years ago - Advance Directives Advance Directives: Yes: Health Care Proxy - Smoking History Smoking history: Unknown if ever smoked Have you smoked in the past 12 months: No - Alcohol/Substance Use Hx Alcohol Use: No History of Substance Use: reports: None - Social History Usual Living Arrangement: Yes: Assisted 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 History of Recent Travel: No Home Medications - Allergies Allergies/Adverse Reactions: Allergies Allergy/AdvReac Type Severity Reaction Status Date / Time No Known Drug Allergies Allergy Verified 02/05/19 11:52 - Home Medications Home Medications: Ambulatory Orders Amlodipine Besylate [Norvasc -] 10 mg PO DAILY 02/21/14 Aripiprazole [Abilify -] 10 mg PO DAILY 02/21/14 Citalopram Hydrobromide [Citalopram HBr] 20 mg PO DAILY 02/21/14 Gabapentin [Neurontin] 300 mg PO TID 12/28/18 Latanoprost 0.005% Eye Drops [Xalatan 0.005% Eye Drops -] 1 drop OP HS 12/28/18 Topiramate [Topamax -] 25 mg PO DAILY 12/28/18 Albuterol 2.5/Ipratropium 0.5 [Duoneb -] 1 amp NEB RQID #1 amp 01/01/19 Acetaminophen 650 mg PO QID PRN 02/05/19 Ciclopirox [Penlac] 6.6 ml TP BID 02/05/19 Nystatin Powder [Nystop Powder -] 15 gm TP TID 02/05/19 Heparin - 5,000 unit SQ BID vial 02/12/19 Insulin Sliding Scale [Novolog Vial Sliding Scale -] 1 vial SQ ACHS units 02/12/19 Pantoprazole Sodium [Protonix -] 40 mg PO DAILY tablet.ec 02/12/19 Sitagliptin Phosphate [Januvia] 50 mg PO DAILY #30 tablet 02/12/19 oxyCODONE HCL [Roxicodone -] 5 mg PO Q6H PRN #120 tablet MDD 4 02/12/19 Losartan Potassium 50 mg PO BID 08/27/19 Oxybutynin Chloride 5 mg PO HS 08/27/19 Physical Examination Vital Signs: Vital Signs Temperature 98.7 F 08/27/19 11:51 Pulse Rate 52 L 08/27/19 15:00 Respiratory Rate 13 08/27/19 15:00 Blood Pressure 116/69 08/27/19 15:00 O2 Sat by Pulse Oximetry (%) 97 08/27/19 15:00 Labs: CBC, BMP 08/27/19 12:30 08/27/19 12:30 Problem List - Problems (1) Acute kidney injury Assessment/Plan: -IVF LR at 75 cc/hr -Nephrology consult -Renal U/s -Check UA+UC -Monitor trend Problems reviewed: Yes Code(s): N17.9 - ACUTE KIDNEY FAILURE, UNSPECIFIED (2) Altered mental status Assessment/Plan: -R/O TIA -CT head unremarkable -MRI without contrast -Neurology consult -Check UA+ UC -Check thyroid, b12 and RPR -Tele monitor -Keep Pt NPO for now to avoid aspiration Pne Problems reviewed: Yes Code(s): R41.82 - ALTERED MENTAL STATUS, UNSPECIFIED Qualifiers: Altered mental status type: unspecified Qualified Code(s): R41.82 - Altered mental status, unspecified (3) Metabolic encephalopathy Problems reviewed: Yes Code(s): G93.41 - METABOLIC ENCEPHALOPATHY Assessment/Plan See problem list
[2019-08-27] MEDS ORDERED: LACTATED RINGERS SOLUTION 1,000 ML/1,000 ML INFUS.BAG IV SCH (15:15)
--- NOTE | 2019-08-27 15:28 | EKG ---
Test Reason : Blood Pressure : / mmHG Vent. Rate : 053 BPM Atrial Rate : 053 BPM P-R Int : 156 ms QRS Dur : 092 ms QT Int : 440 ms P-R-T Axes : 062 005 048 degrees QTc Int : 412 ms SINUS BRADYCARDIA OTHERWISE NORMAL ECG Confirmed by MD ALEJANDRO, LEATHA ([id number]) on 08/27/2019 3:27:54 PM Referred By: Confirmed By:LEATHA ALLEN MD
[2019-08-27 15:39] LABS: EPI CELLS 2 /uL (0-25.1); HYALINE CASTS 0 /uL (0-3.1); PH,URINE 5.5 (5.0-8.0); URINE APPEARANCE CLEAR; URINE BILIRUBIN NEGATIVE (NEGATIVE); URINE COLOR YELLOW; URINE GLUCOSE (UA) NEGATIVE (NEGATIVE); URINE KETONE NEGATIVE (NEGATIVE); URINE LEUK ESTERASE 1+ (NEGATIVE); URINE NITRITE NEGATIVE (NEGATIVE); URINE PROTEIN NEGATIVE (NEGATIVE); URINE RBC 28 /uL (0-23.9); URINE WBC 116 /uL (0-25.8)
[2019-08-27] MEDS: PANTOPRAZOLE SODIUM 40 MG VIAL IVPUSH SCH (15:40)
[2019-08-27] MEDS ORDERED: PANTOPRAZOLE SODIUM 40 MG/100 ML BAG IVPB ONE (15:41)
[2019-08-27 15:45] LABS: METHADONE, UR NEGATIVE ng/ml (CUTOFF=300); OPIATES, URI NEGATIVE ng/ml (CUTOFF=300); PHENCYCLIDINE,URINE NEGATIVE ng/ml (CUTOFF=25); URINE AMPHETAMINES NEGATIVE ng/ml (CUTOFF=500); URINE BARBITURATES NEGATIVE ng/ml (CUTOFF=200); URINE BENZODIAZEPINES NEGATIVE ng/ml (CUTOFF=200)
[2019-08-27 15:50] LABS: COCAINE, UR NEGATIVE ng/ml (CUTOFF=300)
--- NOTE | 2019-08-27 16:27 | CON.NEP ---
Consult Consult Specialty:: Nephrology Referred by:: Leonardo Leone NP Reason for Consultation:: Acute kidney injury - History of Present Illness Chief Complaint: Left sided weakness History of Present Illness: This is a 64 year old woman with history of CVA and COPD who [place] with left sided weakness and altered mental status and found to have Cr of 1.8. Pt seen and examined in the ER. She has slurred speech and cannot provide history. Denies any sob or chest pain. In review of records pt does have a elevated Cr of ~1.8 in the past that improved during the hospital stay. 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 Home Medications - Allergies Allergies/Adverse Reactions: Allergies Allergy/AdvReac Type Severity Reaction Status Date / Time No Known Drug Allergies Allergy Verified 02/05/19 11:52 - Home Medications Home Medications: Ambulatory Orders Amlodipine Besylate [Norvasc -] 10 mg PO DAILY 02/21/14 Aripiprazole [Abilify -] 10 mg PO DAILY 02/21/14 Citalopram Hydrobromide [Citalopram HBr] 20 mg PO DAILY 02/21/14 Gabapentin [Neurontin] 300 mg PO TID 12/28/18 Latanoprost 0.005% Eye Drops [Xalatan 0.005% Eye Drops -] 1 drop OP HS 12/28/18 Topiramate [Topamax -] 25 mg PO DAILY 12/28/18 Albuterol 2.5/Ipratropium 0.5 [Duoneb -] 1 amp NEB RQID #1 amp 01/01/19 Acetaminophen 650 mg PO QID PRN 02/05/19 Ciclopirox [Penlac] 6.6 ml TP BID 02/05/19 Nystatin Powder [Nystop Powder -] 15 gm TP TID 02/05/19 Heparin - 5,000 unit SQ BID vial 02/12/19 Insulin Sliding Scale [Novolog Vial Sliding Scale -] 1 vial SQ ACHS units Pantoprazole Sodium [Protonix -] 40 mg PO DAILY tablet.ec 02/12/19 Sitagliptin Phosphate [Januvia] 50 mg PO DAILY #30 tablet 02/12/19 oxyCODONE HCL [Roxicodone -] 5 mg PO Q6H PRN #120 tablet MDD 4 02/12/19 Losartan Potassium 50 mg PO BID 08/27/19 Oxybutynin Chloride 5 mg PO HS 08/27/19 Family Medical History Family History: Unable to Obtain Review of Systems Unable to obtain ROS, reason: clinical status Nephrology Consult - Height Height: 5 ft 2 in - Weight Weight: 113.398 kg - BMI Body Mass Index (BMI): 45.7 - Lab Results CBC,BMP: CBC, BMP 08/27/19 12:30 08/27/19 12:30 Anion Gap: Anion Gap Anion Gap 5 MMOL/L (8-16) L 08/27/19 12:30 - Imaging Chest X-ray: Report Reviewed - Physical Examination Vital Signs: Vital Signs Temperature 98.7 F 08/27/19 11:51 Pulse Rate 52 L 08/27/19 15:00 Respiratory Rate 13 08/27/19 15:00 Blood Pressure 116/69 08/27/19 15:00 O2 Sat by Pulse Oximetry (%) 97 08/27/19 15:00 Constitutional: Yes: No Distress, Anxious Eyes: Yes: Conjunctiva Clear HENT: Yes: Atraumatic Neck: Yes: Supple Cardiovascular: Yes: Regular Rate and Rhythm Respiratory: Yes: Regular, Diminished. No: Rales, Rhonchi Gastrointestinal: Yes: Soft. No: Tenderness Renal/: No: Bladder Distention Extremities: No: Cold, Cool, Cyanosis Edema: No Neurological: Yes: Alert Assessment/Plan 64 year old woman with history of CVA and COPD who [place] with left sided weakness and altered mental status and found to have Cr of 1.8. 1. Acute left sided weakness and AMS r/o CVA 2. Suspected UTI/cystitis 3. Acute kidney injury 4. Hx of CVA 5. Pyuria r/o UTI CT head showed no acute CVA neurological work up as per primary team and neurology Check urine studies for GHANSHYAM Continue LR at 2L/daily Avoid IV contrast and nephrotoxins Trend renal function and electrolytes daily Check Renal Us if there is no improvement in renal function after fluids f/u urine cultures empiric antibiotics as per primary team Thank you Vasu Vang DO
[2019-08-27] MEDS ORDERED: CEFTRIAXONE 1,000 MG in DEXTROSE 5%-WATER - 50 ML IVPB ONE (16:45)
[2019-08-27] MEDS: LACTATED RINGERS SOLUTION 1,000 ML/1,000 ML INFUS.BAG IV SCH (17:03)
[2019-08-27] MEDS ORDERED: CEFTRIAXONE 1 GM/50 ML BAG ONE (17:10)
[2019-08-27] MEDS ORDERED: HEPARIN NA (PORCINE) 5,000 UNITS/ML 1ML VIAL ONE (22:04)
[2019-08-27] MEDS: HEPARIN NA (PORCINE) 5,000 UNITS/ML 1ML VIAL SQ SCH (22:09)
[2019-08-27] MEDS: LATANOPROST 0.005% OPHTH SOLN 2.5ML BOTTLE OU SCH (23:59)
[2019-08-27] MEDS: NYSTATIN POWDER 100,000 UNITS/GM - 15 GM TOPICAL POWDER TP SCH (23:59)
[2019-08-28] MEDS ORDERED: ACETAMINOPHEN 1000 MG/100 ML VIAL (NON FORMULARY) IVPB ONE (00:10)
[2019-08-28] MEDS ORDERED: ACETAMINOPHEN INJECTION 100 ML IVPB ONE (00:17)
[2019-08-28] MEDS: NYSTATIN POWDER 100,000 UNITS/GM - 15 GM TOPICAL POWDER TP SCH ×3 (05:56→22:24)
[2019-08-28 07:56] LABS: ALBUMIN 3.1 g/dl (3.4-5.0); BILIRUBIN,TOTAL 0.4 mg/dL (0.2-1); BLOOD UREA NITROGEN 20.4 mg/dL (7-18); CALCIUM 9.8 mg/dL (8.5-10.1); CREATININE 1.4 mg/dL (0.55-1.3); MAGNESIUM 2.1 mg/dL (1.8-2.4); PHOSPHOROUS 3.5 mg/dL (2.5-4.9); POTASSIUM 4.1 mmol/L (3.5-5.1); TOT PROT 7.5 g/dl (6.4-8.2)
[2019-08-28] MEDS ORDERED: PANTOPRAZOLE SODIUM 40 MG/100 ML BAG IVPB ONE (09:21)
[2019-08-28] MEDS ORDERED: HEPARIN NA (PORCINE) 5,000 UNITS/ML 1ML VIAL ONE (09:21)
[2019-08-28] MEDS: PANTOPRAZOLE SODIUM 40 MG VIAL IVPUSH SCH (09:37)
[2019-08-28] MEDS: HEPARIN NA (PORCINE) 5,000 UNITS/ML 1ML VIAL SQ SCH ×2 (09:37→22:23)
--- NOTE | 2019-08-28 10:19 | PN ---
Progress Note, Physician Chief Complaint: AMS R/O TIA GHANSHYAM History of Present Illness: MRI ordered stat yesterday still pending Much more awake and alert, knows her name, at [facility] and knows the president - Current Medication List Current Medications: Active Medications Albuterol/Ipratropium (Duoneb -) 1 amp NEB RQID PRN PRN Reason: SHORT OF BREATH/WHEEZING Heparin Sodium (Porcine) (Heparin -) 5,000 unit SQ BID [facility] Last Admin: 08/28/19 09:37 Dose: 5,000 unit Documented by: Lactated Ringer's (Lactated Ringers Solution) 1,000 ml in 1,000 mls @ 83 mls/hr IV ASDIR [facility] Last Admin: 08/27/19 17:03 Dose: 83 mls/hr Documented by: Latanoprost (Xalatan 0.005% Eye Drops -) 1 drop OU HS [facility] Last Admin: 08/27/19 23:59 Dose: 1 drop Documented by: Metoprolol Tartrate (Lopressor Injection -) 5 mg IVPUSH Q4H PRN PRN Reason: HYPERTENSION Nystatin (Nystop Powder -) 1 applic TP TID [facility] Last Admin: 08/28/19 05:56 Dose: 1 applic Documented by: Pantoprazole Sodium (Protonix Iv) 40 mg IVPUSH DAILY [facility] Last Admin: 08/28/19 09:37 Dose: 40 mg Documented by: - Objective Vital Signs: Vital Signs Temperature 97.8 F 08/28/19 09:26 Pulse Rate 58 L 08/28/19 09:26 Respiratory Rate 16 08/28/19 09:26 Blood Pressure 106/50 L 08/28/19 09:26 O2 Sat by Pulse Oximetry (%) 97 08/28/19 09:26 Constitutional: Yes: Well Nourished, No Distress, Calm, Obese Cardiovascular: Yes: Regular Rate and Rhythm Respiratory: Yes: Regular, CTA Bilaterally Gastrointestinal: Yes: Normal Bowel Sounds, Soft Genitourinary: Yes: WNL Musculoskeletal: Yes: Muscle Weakness Extremities: Yes: Amputation (LAKA) Edema: No Peripheral Pulses WNL: Yes Neurological: Yes: Alert, Oriented Psychiatric: Yes: Alert, Oriented Labs: CBC, BMP 08/27/19 12:30 08/28/19 07:17 INR, PTT INR 1.08 (0.83-1.09) 08/27/19 12:30 Problem List - Problems (1) Acute kidney injury Assessment/Plan: -Continue IVF LR at 75 cc/hr -Nephrology consult -Renal U/S not impressive -Cr improved -UC: Microbiology 08/27/19 15:20 Urine Culture - Preliminary Urine - Urine - Catheterized Non Lactose Fermenting Gnb -Monitor trend Problems reviewed: Yes Code(s): N17.9 - ACUTE KIDNEY FAILURE, UNSPECIFIED (2) Altered mental status Assessment/Plan: -R/O TIA -CT head unremarkable -MRI without contrast still pending -Neurology consult pending -UC final pending -Thyroid, b12 and RPR normal -Tele monitor -Start low sodium diet Problems reviewed: Yes Code(s): R41.82 - ALTERED MENTAL STATUS, UNSPECIFIED Qualifiers: Altered mental status type: unspecified Qualified Code(s): R41.82 - Altered mental status, unspecified (3) Metabolic encephalopathy Problems reviewed: Yes Code(s): G93.41 - METABOLIC ENCEPHALOPATHY (4) UTI (urinary tract infection) Assessment/Plan: -ID consult -UC: GNB Non Lactose fermenting -Start Rocephin 1 gm daily given her Cr at 1.4 Problems reviewed: Yes Code(s): N39.0 - URINARY TRACT INFECTION, SITE NOT SPECIFIED Assessment/Plan See problem list Unable to leave msg for daughter Lashaun for pt update,mailbox full, will try again in AM.
[2019-08-28] MEDS ORDERED: ARIPiprazole 10 MG TABLET PO SCH (10:30)
[2019-08-28] MEDS ORDERED: traMADol HCL 50 MG TABLET ONE (10:47)
[2019-08-28] MEDS: traMADol HCL 50 MG TABLET PO PRN ×2 (10:53→22:25)
[2019-08-28] MEDS: CEFTRIAXONE 1 GM in DEXTROSE 5%-WATER - 50 ML IVPB SCH (11:23)
[2019-08-28] MEDS ORDERED: CEFTRIAXONE 1 GM/50 ML BAG ONE (11:26)
[2019-08-28] MEDS: CITALOPRAM HYDROBROMIDE 20 MG TABLET PO SCH (11:27)
[2019-08-28] MEDS: TOPIRAMATE 25 MG TABLET PO SCH (11:27)
[2019-08-28] MEDS ORDERED: TOPIRAMATE 25 MG TABLET ONE (11:29)
[2019-08-28] MEDS: GABAPENTIN 300 MG CAPSULE PO SCH ×2 (14:20→22:23)
--- NOTE | 2019-08-28 15:35 | PN ---
Progress Note (short form) - Note Progress Note: id consult dictated 64 yo female nhr- arrived with confusion now much improved dehydrated with pyuria notes poor appetite and midepigastric pain now more alert head cct and MRI are negative metabolic encephalopathy- ?secondary to dehydration and UTI reports history of hep c, ?hepatic encephalopoathy- no asterixis would continue rocephin for UTI continue hydration for GHANSHYAM evaluate abdominal pain Problem List - Problems (1) Metabolic encephalopathy Code(s): G93.41 - METABOLIC ENCEPHALOPATHY (2) UTI (urinary tract infection) Code(s): N39.0 - URINARY TRACT INFECTION, SITE NOT SPECIFIED (3) Acute kidney injury Code(s): N17.9 - ACUTE KIDNEY FAILURE, UNSPECIFIED
--- NOTE | 2019-08-28 15:51 | PN ---
Progress Note, Physician Chief Complaint: Acute kidney injury History of Present Illness: Seen and examined at the bedside in the ER awake and alert still has slow speech and difficultly articulating speech is oriented x 3 denies any sob, cp, fever or chills has some abdominal discomfort - Current Medication List Current Medications: Active Medications Albuterol/Ipratropium (Duoneb -) 1 amp NEB RQID PRN PRN Reason: SHORT OF BREATH/WHEEZING Aripiprazole (Abilify) 10 mg PO DAILY [facility] Last Admin: 08/28/19 11:27 Dose: 10 mg Documented by: Citalopram Hydrobromide (Celexa -) 20 mg PO DAILY [facility] Last Admin: 08/28/19 11:27 Dose: 20 mg Documented by: Gabapentin (Neurontin -) 300 mg PO TID [facility] Last Admin: 08/28/19 14:20 Dose: 300 mg Documented by: Heparin Sodium (Porcine) (Heparin -) 5,000 unit SQ BID [facility] Last Admin: 08/28/19 09:37 Dose: 5,000 unit Documented by: Lactated Ringer's (Lactated Ringers Solution) 1,000 ml in 1,000 mls @ 83 mls/hr IV ASDIR [facility] Last Admin: 08/27/19 17:03 Dose: 83 mls/hr Documented by: Ceftriaxone Sodium 1 gm/ (Dextrose) 50 mls @ 100 mls/hr IVPB DAILY [facility]; Protocol Last Admin: 08/28/19 11:23 Dose: 100 mls/hr Documented by: Latanoprost (Xalatan 0.005% Eye Drops -) 1 drop OU HS [facility] Last Admin: 08/27/19 23:59 Dose: 1 drop Documented by: Metoprolol Tartrate (Lopressor Injection -) 5 mg IVPUSH Q4H PRN PRN Reason: HYPERTENSION Nystatin (Nystop Powder -) 1 applic TP TID [facility] Last Admin: 08/28/19 14:20 Dose: 1 applic Documented by: Oxybutynin Chloride (Ditropan -) 5 mg PO HS [facility] Pantoprazole Sodium (Protonix Iv) 40 mg IVPUSH DAILY [facility] Last Admin: 08/28/19 09:37 Dose: 40 mg Documented by: Topiramate (Topamax -) 25 mg PO DAILY [facility] Last Admin: 08/28/19 11:27 Dose: 25 mg Documented by: Tramadol HCl (Ultram -) 50 mg PO Q6H PRN PRN Reason: PAIN LEVEL 6-10 Last Admin: 08/28/19 10:53 Dose: 50 mg Documented by: - Objective Vital Signs: Vital Signs Temperature 98.2 F 08/28/19 15:10 Pulse Rate 62 08/28/19 15:10 Respiratory Rate 16 08/28/19 09:26 Blood Pressure 138/73 08/28/19 15:10 O2 Sat by Pulse Oximetry (%) 100 08/28/19 15:10 Constitutional: Yes: Well Nourished, No Distress, Calm HENT: Yes: Atraumatic, Normocephalic Neck: Yes: Supple Cardiovascular: Yes: Regular Rate and Rhythm Respiratory: Yes: Regular. No: Rales, Rhonchi, SOB Gastrointestinal: Yes: Soft, Distention. No: Tenderness Genitourinary: No: Bladder Distention Extremities: No: Cyanosis Edema: No Neurological: Yes: Alert, Oriented Labs: CBC, BMP 08/27/19 12:30 08/28/19 07:17 INR, PTT INR 1.08 (0.83-1.09) 08/27/19 12:30 Assessment/Plan 64 year old woman with history of CVA and COPD who presented from [place] with left sided weakness and altered mental status and found to have Cr of 1.8. 1. Acute left sided weakness and AMS r/o CVA 2. Suspected UTI/cystitis 3. Acute kidney injury 4. Hx of CVA 5. Pyuria r/o UTI CT head showed no acute CVA MRI negative for any acute process Renal function improving with isotonic fluids Urine studies did not show any significant proteinuria Continue LR at 2L/daily Avoid IV contrast and nephrotoxins Trend renal function and electrolytes daily Renal US showed no obstruction, echogenicity abx as per ID Thank you Vasu Vang DO
[2019-08-28] MEDS: LACTATED RINGERS SOLUTION 1,000 ML/1,000 ML INFUS.BAG IV SCH (17:29)
--- NOTE | 2019-08-28 18:22 | CONS ---
DATE OF CONSULTATION: DATE OF DICTATION: 08/28/2019 INFECTIOUS DISEASE CONSULTATION HISTORY OF PRESENT ILLNESS: This is a 64-year-old woman admitted from the [facility]. She has a history of COPD, left AKA, respiratory failure, who is brought in with change in mental status. She apparently had confused speech which prompted the ER evaluation. In the ER, she had a workup for CVA that was unremarkable, and I am asked to see her for possible UTI. She is currently awake and alert. She is answering questions appropriately. She knows she is at the hospital. She knows the year. She knows her name. She is able to give details of her past history. She reports that she has midepigastric abdominal discomfort. She has had a poor appetite at the [facility]. She was hungry and just finished eating some martiniquais fries. She reports history of hepatitis C in the past as well. PAST MEDICAL HISTORY: Notable for DVT, hypertension, hyperlipidemia. She has a history of asthma, respiratory failure, pneumonia. She has had MRSA pneumonia as well as MSSA bacteremia, anxiety, depression, schizophrenia, diabetes, and obesity. SURGICAL HISTORY: She has amputation left AK in 1999, hysterectomy and an IVC filter. Of note, she has had 2 recent admissions to [facility]: December 2018 for dysarthria, change in mental status; workup for CVA was negative at that time. She was readmitted in January 2019 with respiratory failure. She was intubated. She had a right lower lobe pneumonia. She was treated for MRSA pneumonia as well as MSSA and staphylococcus intermedius bacteremia with vancomycin for 4 weeks. ALLERGIES: No known drug allergies. MEDICATION: Her current medicines at the [facility] include: 1. Norvasc. 2. Abilify. 3. Celexa. 4. Neurontin. 5. Topamax. 6. Subcutaneous heparin. 7. Insulin. 8. Pantoprazole. 9. Januvia. 10. Oxycodone. 11. Losartan. 12. Oxybutynin. SOCIAL HISTORY: No history of cigarette or substance use. She resides in the [facility]. She is a retried [employer]. REVIEW OF SYSTEMS: She reports she has midepigastric discomfort. PHYSICAL EXAMINATION: General: She is awake and alert. She is quite obese. Vital Signs: Her temperature is 97.8. She has had no fevers since admission, pulse of 68, blood pressure is 106/50, respiratory rate 16. She is saturating 97% on room air. HEENT: Normocephalic. Eyes are anicteric. Neck: Supple. Lungs: Clear to auscultation. Heart: Regular rate and rhythm. Abdomen: Firm. She has some midepigastric discomfort to palpation. Extremities: Without edema. LABORATORY: White count is 6.8, hemoglobin 11.4, platelets 146. Her BUN and creatinine were 27 and 1.8 on admission; today are 20 and 1.4 with an AST of 49, ALT of 45, alkaline phosphatase of 93. Urinalysis is 1+ leukocytes with 116 white cells, and her RPR is nonreactive. COVID PCR is pending. Urine culture is growing a nonlactose fermenting gram negative rommel. She has had multiple studies including a head CT that showed no acute intracranial process. She had a brain MRI from which she just returned that also shows no acute process. She has duplex of her legs that was done that shows no evidence of DVT in the right lower extremity. She had a renal ultrasound done that was limited but appeared unremarkable. IMPRESSION: In summary, this is a 64-year-old woman from the [facility] admitted with change in mental status that appears to be improving. on the basis of dehydration and urinary tract infection. Would continue her ceftriaxone as she appears improved. Continue her gentle IV fluids, as her renal function is improving as well hepatitis C, as she gives a history of having hepatitis C in the past. Would await neurology evaluation as well. KRISTA SANTOS M.D. [id number]
--- NOTE | 2019-08-28 18:33 | CONSULT ---
Consult - text type - Consultation Consultation Note: NEUROLOGY CONSULTATION is greatly appreciated: Events reviewed. Patient examined. This 64 yo [facility] resident with h/o HTN, DM, COPD, Chol, Hep C, ASVD, is s/p left AKA for infection/ischemia 2018. Hasn't walked since. C/o "Phantom Limb Pains" with burning and shooting pains where the left left was, especially at night, interrupting sleep. Maintained on: Amlodipine; Aripiprazole 10 mg; Citalopram 20 mg; Gabapentin 300 mg PO TID; Topiramate 25 mg; Albuterol; Insulin; Pantoprazole; Januvia; oxyCODONE 5 mg PO Q6H PRN; Losartan Potassium 50 mg PO BID and Oxybutynin. According to relatives has been deteriorating x 2 weeks. Admitted with confuse speech. Patient c/o increasing tremors making her unable to feed herself. CT of head (reviewed): Technically poor. Mod.diffuse atrophy MRI of brain (reviewed): Moderate, diffuse atrophy and periventricular jhonathan rovascular changes. U/A: WBC= 116- Now on ceftriaxone B12= 407 ug%, TSH= 1.81 ALICIA: Obese. No bruits. Cor reg. S/P Left AKA. Atrophic skin changes right leg. No distal pulses. Decreased left shoulder ROM NEURO: Awake, alert. O x [facility],, August,. Slow, stuttering but fluent speech CN: Full eason. Masked facies. Full EOM's. No facial weakness. Gag OK. Eating dinner and swallowing (fed by me). Motor: No drift, Rhythmic rest tremor in both hands and the right foot. Normal grasps. Right leg 3/5. Absent KJ, AJ. Plantar silent Coord: Slow but no dystaxia Sensory: Reduced touch, vibration right food. IMP: 1. Mild B/L cerebral dysfunction (OMS) 2 Parkinsonism, possibly Parkinson's disease. Worsened by Aripipazole 3. Worsening due to Toxic-metabolic encephalopathy (TME) daily. infection (UTI/urosepsis). 4. Diabetic (+/- ischemic) Peripheral neuropathy. 5. Phantom Limb pain with features of RLS. SUGGEST: Continue antibiotics and hydration Decrease Abilify to 5 mg. Continue to slowly taper and D/C if possible. D/C Oxybutinin Indications for Topiramate (homeopathic dosing)? Begin low-dose Pramipexole 0.25 mg PO BID after breakfast and dinner for BOTH pain and tremor. Neuro F/U here and at [facility]. May benefit from Trial of L-Dopa in the future (at least to allow independence in feeding and UE ADL's) Thank you very much, Gordon Trotter MD
[2019-08-28 19:05] VITALS: BMI 37.0
[2019-08-28] MEDS: OXYBUTYNIN CHLORIDE 5 MG TABLET PO SCH (22:23)
[2019-08-28] MEDS: PRAMIPEXOLE DIHYDROCHLORIDE 0.25 MG TABLET PO SCH (22:23)
[2019-08-28] MEDS: LATANOPROST 0.005% OPHTH SOLN 2.5ML BOTTLE OU SCH (22:24)
[2019-08-29] MEDS: LACTATED RINGERS SOLUTION 1,000 ML/1,000 ML INFUS.BAG IV SCH (00:14)
[2019-08-29] MEDS ORDERED: ACETAMINOPHEN 1000 MG/100 ML VIAL (NON FORMULARY) IVPB ONE (03:06)
[2019-08-29] MEDS: traMADol HCL 50 MG TABLET PO PRN ×3 (04:24→21:32)
[2019-08-29] MEDS ORDERED: ACETAMINOPHEN 325 MG TABLET (FP) PO ONE (05:45)
[2019-08-29] MEDS ORDERED: oxyCODONE HCL 5 MG TABLET PO ONE (05:45)
[2019-08-29] MEDS: GABAPENTIN 300 MG CAPSULE PO SCH ×3 (05:48→21:28)
[2019-08-29] MEDS: NYSTATIN POWDER 100,000 UNITS/GM - 15 GM TOPICAL POWDER TP SCH ×3 (05:49→21:43)
--- NOTE | 2019-08-29 08:32 | PN ---
Progress Note, Physician - Current Medication List Current Medications: Active Medications Albuterol/Ipratropium (Duoneb -) 1 amp NEB RQID PRN PRN Reason: SHORT OF BREATH/WHEEZING Aripiprazole (Abilify) 5 mg PO DAILY [facility] Citalopram Hydrobromide (Celexa -) 20 mg PO DAILY [facility] Last Admin: 08/28/19 11:27 Dose: 20 mg Documented by: Gabapentin (Neurontin -) 300 mg PO TID [facility] Last Admin: 08/29/19 05:48 Dose: 300 mg Documented by: Heparin Sodium (Porcine) (Heparin -) 5,000 unit SQ BID [facility] Last Admin: 08/28/19 22:23 Dose: 5,000 unit Documented by: Lactated Ringer's (Lactated Ringers Solution) 1,000 ml in 1,000 mls @ 83 mls/hr IV ASDIR [facility] Last Admin: 08/29/19 00:14 Dose: 83 mls/hr Documented by: Ceftriaxone Sodium 1 gm/ (Dextrose) 50 mls @ 100 mls/hr IVPB DAILY [facility]; Protocol Last Admin: 08/28/19 11:23 Dose: 100 mls/hr Documented by: Latanoprost (Xalatan 0.005% Eye Drops -) 1 drop OU HS [facility] Last Admin: 08/28/19 22:24 Dose: 1 drop Documented by: Metoprolol Tartrate (Lopressor Injection -) 5 mg IVPUSH Q4H PRN PRN Reason: HYPERTENSION Nystatin (Nystop Powder -) 1 applic TP TID [facility] Last Admin: 08/29/19 05:49 Dose: 1 applic Documented by: Oxybutynin Chloride (Ditropan -) 5 mg PO [facility] Last Admin: 08/28/19 22:23 Dose: 5 mg Documented by: Pantoprazole Sodium (Protonix Iv) 40 mg IVPUSH DAILY [facility] Last Admin: 08/28/19 09:37 Dose: 40 mg Documented by: Pramipexole Dihydrochloride (Mirapex -) 0.25 mg PO [facility] Last Admin: 08/28/19 22:23 Dose: 0.25 mg Documented by: Topiramate (Topamax -) 25 mg PO DAILY [facility] Last Admin: 08/28/19 11:27 Dose: 25 mg Documented by: Tramadol HCl (Ultram -) 50 mg PO Q6H PRN PRN Reason: PAIN LEVEL 6-10 Last Admin: 08/29/19 04:24 Dose: 50 mg Documented by: - Objective Vital Signs: Vital Signs Temperature 98.5 F 08/29/19 06:00 Pulse Rate 61 08/29/19 06:00 Respiratory Rate 18 08/29/19 06:00 Blood Pressure 136/83 08/29/19 06:00 O2 Sat by Pulse Oximetry (%) 98 08/28/19 21:00 Cardiovascular: Yes: S1, S2 Respiratory: Yes: Regular, CTA Bilaterally Gastrointestinal: Yes: Normal Bowel Sounds, Soft Labs: INR, PTT INR 1.08 (0.83-1.09) 08/27/19 12:30 Assessment/Plan - Problems (1) Acute kidney injury Assessment/Plan: -Continue IVF LR at 75 cc/hr -Nephrology consult -Renal U/S not impressive -Cr improved -UC: Microbiology 08/27/19 15:20 Urine Culture - Preliminary Urine - Urine - Catheterized Non Lactose Fermenting Gnb -Monitor trend Problems reviewed: Yes Code(s): N17.9 - ACUTE KIDNEY FAILURE, UNSPECIFIED (2) Altered mental status Assessment/Plan: -R/O TIA -CT head unremarkable -MRI without contrast still no cva -Neurology consult noted -UC final pending Microbiology 08/27/19 15:20 Urine - Urine - Catheterized Urine Culture - Preliminary Non Lactose Fermenting Gnb -Thyroid, b12 and RPR normal -Tele monitor -Start low sodium diet Problems reviewed: Yes Code(s): R41.82 - ALTERED MENTAL STATUS, UNSPECIFIED Qualifiers: Altered mental status type: unspecified Qualified Code(s): R41.82 - Altered mental status, unspecified (3) Metabolic encephalopathy Problems reviewed: Yes Code(s): G93.41 - METABOLIC ENCEPHALOPATHY (4) UTI (urinary tract infection) Assessment/Plan: -ID consult -UC: GNB Non Lactose fermenting -Start Rocephin 1 gm daily given her Cr at 1.4 Problems reviewed: Yes Code(s): N39.0 - URINARY TRACT INFECTION, SITE NOT SPECIFIED
[2019-08-29 08:49] LABS: BASO % 0.6 % (0-2.0); EOS % 6.7 % (0-4.5); HEMATOCRIT 35.6 % (32.4-45.2); HEMOGLOBIN 11.1 GM/dL (10.7-15.3); LYMPH % 31.5 % (8-40); MCH 22.3 pg (25.7-33.7); MEAN PLT VOLUME 11.8 fl (7.5-11.1); MONO % 11.8 % (3.8-10.2); NEUT % 49.4 % (42.8-82.8); PLATELET COUNT 133 K/MM3 (134-434); RBC 4.95 M/mm3 (3.60-5.2); RDW 17.7 % (11.6-15.6); WHITE BLOOD COUNT 6.4 K/mm3 (4.0-10.0)
[2019-08-29 08:52] LABS: BILIRUBIN,TOTAL 0.4 mg/dL (0.2-1); BLOOD UREA NITROGEN 16.4 mg/dL (7-18); CALCIUM 9.3 mg/dL (8.5-10.1); CREATININE 1.3 mg/dL (0.55-1.3); POTASSIUM 4.1 mmol/L (3.5-5.1); TOT PROT 7.3 g/dl (6.4-8.2)
[2019-08-29] MEDS ORDERED: cefTRIAXone SODIUM 1 GM VIAL ONE (10:51)
[2019-08-29] MEDS ORDERED: DEXTROSE 5%-WATER - 50 ML IVPB ONE (10:51)
[2019-08-29] MEDS ORDERED: PT OWN MED DRAWER 7, Y5N ONE (10:54)
[2019-08-29] MEDS: PANTOPRAZOLE SODIUM 40 MG VIAL IVPUSH SCH (10:55)
[2019-08-29] MEDS: TOPIRAMATE 25 MG TABLET PO SCH (10:55)
[2019-08-29] MEDS: HEPARIN NA (PORCINE) 5,000 UNITS/ML 1ML VIAL SQ SCH ×2 (10:55→21:29)
[2019-08-29] MEDS: CEFTRIAXONE 1 GM in DEXTROSE 5%-WATER - 50 ML IVPB SCH (10:56)
[2019-08-29] MEDS: ARIPiprazole 5 MG TABLET PO SCH (10:56)
[2019-08-29] MEDS: CITALOPRAM HYDROBROMIDE 20 MG TABLET PO SCH (10:56)
--- NOTE | 2019-08-29 12:45 | PN ---
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
--- NOTE | 2019-08-29 13:04 | PN ---
Progress Note, Physician Chief Complaint: Acute kidney injury History of Present Illness: Seen and examined at the bedside in the ER awake and alert reports phantom pain in right LE no sob, cp, fever, chills tolerating diet well on IVF making urine - Current Medication List Current Medications: Active Medications Albuterol/Ipratropium (Duoneb -) 1 amp NEB RQID PRN PRN Reason: SHORT OF BREATH/WHEEZING Aripiprazole (Abilify) 5 mg PO DAILY [facility] Last Admin: 08/29/19 10:56 Dose: 5 mg Documented by: Citalopram Hydrobromide (Celexa -) 20 mg PO DAILY [facility] Last Admin: 08/29/19 10:56 Dose: 20 mg Documented by: Gabapentin (Neurontin -) 300 mg PO TID [facility] Last Admin: 08/29/19 05:48 Dose: 300 mg Documented by: Heparin Sodium (Porcine) (Heparin -) 5,000 unit SQ BID [facility] Last Admin: 08/29/19 10:55 Dose: 5,000 unit Documented by: Ceftriaxone Sodium 1 gm/ (Dextrose) 50 mls @ 100 mls/hr IVPB DAILY [facility]; Protocol Last Admin: 08/29/19 10:56 Dose: 100 mls/hr Documented by: Latanoprost (Xalatan 0.005% Eye Drops -) 1 drop OU [facility] Last Admin: 08/28/19 22:24 Dose: 1 drop Documented by: Metoprolol Tartrate (Lopressor Injection -) 5 mg IVPUSH Q4H PRN PRN Reason: HYPERTENSION Nystatin (Nystop Powder -) 1 applic TP TID [facility] Last Admin: 08/29/19 05:49 Dose: 1 applic Documented by: Oxybutynin Chloride (Ditropan -) 5 mg PO [facility] Last Admin: 08/28/19 22:23 Dose: 5 mg Documented by: Pantoprazole Sodium (Protonix Iv) 40 mg IVPUSH DAILY [facility] Last Admin: 08/29/19 10:55 Dose: 40 mg Documented by: Pramipexole Dihydrochloride (Mirapex -) 0.25 mg PO [facility] Last Admin: 08/28/19 22:23 Dose: 0.25 mg Documented by: Topiramate (Topamax -) 25 mg PO DAILY [facility] Last Admin: 08/29/19 10:55 Dose: 25 mg Documented by: Tramadol HCl (Ultram -) 50 mg PO Q6H PRN PRN Reason: PAIN LEVEL 6-10 Last Admin: 08/29/19 10:55 Dose: 50 mg Documented by: - Objective Vital Signs: Vital Signs Temperature 97.8 F 08/29/19 08:34 Pulse Rate 71 08/29/19 08:34 Respiratory Rate 16 08/29/19 08:34 Blood Pressure 151/59 L 08/29/19 08:34 O2 Sat by Pulse Oximetry (%) 96 08/29/19 08:34 Constitutional: Yes: No Distress Eyes: Yes: Conjunctiva Clear HENT: Yes: Atraumatic Neck: Yes: Supple Cardiovascular: Yes: Regular Rate and Rhythm Respiratory: Yes: Regular Gastrointestinal: Yes: Soft Extremities: No: Cyanosis Edema: No Neurological: Yes: Alert Labs: CBC, BMP 08/29/19 07:45 08/29/19 07:45 INR, PTT INR 1.08 (0.83-1.09) 08/27/19 12:30 Assessment/Plan 64 year old woman with history of CVA and COPD who presented [place] with left sided weakness and altered mental status and found to have Cr of 1.8. 1. Acute left sided weakness and AMS r/o CVA 2. Suspected UTI/cystitis 3. Acute kidney injury 4. Hx of CVA 5. Pyuria r/o UTI CT head showed no acute CVA MRI negative for any acute process Check ammonia levels Renal function improved and stable Urine studies did not show any significant proteinuria discontinue IVF today, oral solute and fluid intake as tolerated Trend renal function and electrolytes daily Renal US showed no obstruction, echogenicity abx as per ID Thank you Vasu Vang DO
--- NOTE | 2019-08-29 14:56 | EKG ---
Test Reason : Blood Pressure : / mmHG Vent. Rate : 061 BPM Atrial Rate : 061 BPM P-R Int : 158 ms QRS Dur : 088 ms QT Int : 432 ms P-R-T Axes : 075 007 046 degrees QTc Int : 434 ms SINUS RHYTHM WITH PREMATURE SUPRAVENTRICULAR COMPLEXES OTHERWISE NORMAL ECG WHEN COMPARED WITH ECG OF 27-AUG-2019 12:02, PREMATURE SUPRAVENTRICULAR COMPLEXES ARE NOW PRESENT Confirmed by JOSE MIGUEL MAHER MD ([id number]) on 08/29/2019 2:56:24 PM Referred By: Confirmed By:JOSE MIGUEL MAHER MD
[2019-08-29] MEDS ORDERED: MEROPENEM 1 GM VIAL (RESTRICTED TO ID) IVPB ONE (17:15)
[2019-08-29] MEDS ORDERED: DEXTROSE 5%-WATER 100 ML IVPB ONE (17:15)
[2019-08-29] MEDS: MEROPENEM 1 GM in DEXTROSE 5%-WATER 100 ML IVPB SCH (17:43)
[2019-08-29] MEDS ORDERED: LACTULOSE 20 GM/30 ML UDC (FOR ORAL USE ONLY) PO PRN (18:34)
[2019-08-29] MEDS: PRAMIPEXOLE DIHYDROCHLORIDE 0.25 MG TABLET PO SCH (21:28)
[2019-08-29] MEDS: OXYBUTYNIN CHLORIDE 5 MG TABLET PO SCH (21:29)
[2019-08-29] MEDS: LATANOPROST 0.005% OPHTH SOLN 2.5ML BOTTLE OU SCH (21:43)
[2019-08-30] MEDS ORDERED: DEXTROSE 5%-WATER 100 ML IVPB ONE ×3 (03:07→18:41)
[2019-08-30] MEDS ORDERED: MEROPENEM 1 GM VIAL (RESTRICTED TO ID) IVPB ONE ×3 (03:07→18:41)
[2019-08-30] MEDS: MEROPENEM 1 GM in DEXTROSE 5%-WATER 100 ML IVPB SCH ×3 (03:17→18:54)
[2019-08-30] MEDS: GABAPENTIN 300 MG CAPSULE PO SCH ×3 (06:12→21:58)
[2019-08-30] MEDS: NYSTATIN POWDER 100,000 UNITS/GM - 15 GM TOPICAL POWDER TP SCH ×3 (06:12→22:08)
[2019-08-30 07:45] LABS: CALCIUM 9.1 mg/dL (8.5-10.1); CREATININE 1.3 mg/dL (0.55-1.3); MAGNESIUM 1.8 mg/dL (1.8-2.4); PHOSPHOROUS 3.4 mg/dL (2.5-4.9); POTASSIUM 4.3 mmol/L (3.5-5.1)
--- NOTE | 2019-08-30 09:32 | PN ---
Progress Note, Physician - Current Medication List Current Medications: Active Medications Albuterol/Ipratropium (Duoneb -) 1 amp NEB RQID PRN PRN Reason: SHORT OF BREATH/WHEEZING Aripiprazole (Abilify) 5 mg PO DAILY [facility] Last Admin: 08/29/19 10:56 Dose: 5 mg Documented by: Citalopram Hydrobromide (Celexa -) 20 mg PO DAILY [facility] Last Admin: 08/29/19 10:56 Dose: 20 mg Documented by: Gabapentin (Neurontin -) 300 mg PO TID [facility] Last Admin: 08/30/19 06:12 Dose: Not Given Documented by: Heparin Sodium (Porcine) (Heparin -) 5,000 unit SQ BID [facility] Last Admin: 08/29/19 21:29 Dose: 5,000 unit Documented by: Meropenem 1 gm/ Dextrose 100 mls @ 200 mls/hr IVPB Q8H-IV [facility] Last Admin: 08/30/19 03:17 Dose: 200 mls/hr Documented by: Lactulose (Cephulac (Oral Use)) 20 gm PO Q6H [facility] Latanoprost (Xalatan 0.005% Eye Drops -) 1 drop OU [facility] Last Admin: 08/29/19 21:43 Dose: 1 drop Documented by: Metoprolol Tartrate (Lopressor Injection -) 5 mg IVPUSH Q4H PRN PRN Reason: HYPERTENSION Nystatin (Nystop Powder -) 1 applic TP TID [facility] Last Admin: 08/30/19 06:12 Dose: 1 applic Documented by: Oxybutynin Chloride (Ditropan -) 5 mg PO [facility] Last Admin: 08/29/19 21:29 Dose: 5 mg Documented by: Pantoprazole Sodium (Protonix Iv) 40 mg IVPUSH DAILY [facility] Last Admin: 08/29/19 10:55 Dose: 40 mg Documented by: Pramipexole Dihydrochloride (Mirapex -) 0.25 mg PO [facility] Last Admin: 08/29/19 21:28 Dose: 0.25 mg Documented by: Topiramate (Topamax -) 25 mg PO DAILY [facility] Last Admin: 08/29/19 10:55 Dose: 25 mg Documented by: Tramadol HCl (Ultram -) 50 mg PO Q6H PRN PRN Reason: PAIN LEVEL 6-10 Last Admin: 08/29/19 21:32 Dose: 50 mg Documented by: - Objective Vital Signs: Vital Signs Temperature 98.0 F 08/30/19 05:52 Pulse Rate 65 08/30/19 05:52 Respiratory Rate 20 08/30/19 05:52 Blood Pressure 138/67 08/30/19 05:52 O2 Sat by Pulse Oximetry (%) 100 08/29/19 22:00 Cardiovascular: Yes: S1, S2 Respiratory: Yes: Regular, CTA Bilaterally Gastrointestinal: Yes: Normal Bowel Sounds, Soft Extremities: Yes: Amputation Labs: CBC, BMP 08/29/19 07:45 08/30/19 05:45 INR, PTT INR 1.08 (0.83-1.09) 08/27/19 12:30 Assessment/Plan - Problems (1) Acute kidney injury Assessment/Plan: -Continue IVF LR at 75 cc/hr -Nephrology consult -Renal U/S not impressive -Cr improved -Monitor trend Problems reviewed: Yes Code(s): N17.9 - ACUTE KIDNEY FAILURE, UNSPECIFIED (2) Altered mental status-Metabolic encephalopathy Assessment/Plan: -CT head unremarkable -MRI without contrast still no cva -Neurology consult noted -UTI 0n abx -Ammonia level high--on lactulose Laboratory Tests 08/29/19 08/30/19 15:37 05:45 Ammonia 108.30 H 161.60 H -Thyroid, b12 and RPR normal -Tele monitor -Start low sodium diet Problems reviewed: Yes Code(s): R41.82 - ALTERED MENTAL STATUS, UNSPECIFIED Qualifiers: Altered mental status type: unspecified Qualified Code(s): R41.82 - Altered mental status, unspecified (3) Fatty Liver-Cirrhosis Problems reviewed: Yes -Monitor Labs -RX with Lactulose -Gi consult (4) UTI (urinary tract infection) Assessment/Plan: -ID consult -UC: GNB Non Lactose fermenting Microbiology 08/28/19 16:25 Blood - Peripheral Venous Blood Culture - Preliminary NO GROWTH OBTAINED AFTER 24 HOURS, INCUBATION TO CONTINUE FOR 4 DAYS. 08/28/19 16:20 Blood - Peripheral Venous Blood Culture - Preliminary NO GROWTH OBTAINED AFTER 24 HOURS, INCUBATION TO CONTINUE FOR 4 DAYS. 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
[2019-08-30] MEDS: traMADol HCL 50 MG TABLET PO PRN ×2 (10:06→18:53)
[2019-08-30] MEDS: ARIPiprazole 5 MG TABLET PO SCH (10:07)
[2019-08-30] MEDS: CITALOPRAM HYDROBROMIDE 20 MG TABLET PO SCH (10:07)
[2019-08-30] MEDS: TOPIRAMATE 25 MG TABLET PO SCH (10:07)
[2019-08-30] MEDS ORDERED: PT OWN MED DRAWER 7, Y5N ONE ×2 (11:27→21:43)
--- NOTE | 2019-08-30 11:39 | PN ---
Progress Note (short form) - Note Progress Note: [place] still with chronic left shoulder pain and AKA phantom pain per patient Vital Signs Period Temp Pulse Resp BP Sys/Singer Pulse Ox Last 24 Hr 98.0 F-98.3 F 64-80 18-20 114-144/44-76 100-100 cor-rrr lungs- decreased bs at bases abd- soft,nt ext +AKA CBC, BMP 08/29/19 07:45 08/30/19 05:45 Microbiology 08/28/19 16:25 Blood - Peripheral Venous Blood Culture - Preliminary NO GROWTH OBTAINED AFTER 24 HOURS, INCUBATION TO CONTINUE FOR 4 DAYS. 08/28/19 16:20 Blood - Peripheral Venous Blood Culture - Preliminary NO GROWTH OBTAINED AFTER 24 HOURS, INCUBATION TO CONTINUE FOR 4 DAYS. 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
[2019-08-30] MEDS: HEPARIN NA (PORCINE) 5,000 UNITS/ML 1ML VIAL SQ SCH ×2 (12:00→21:57)
[2019-08-30] MEDS: PANTOPRAZOLE SODIUM 40 MG VIAL IVPUSH SCH (12:06)
[2019-08-30] MEDS: LACTULOSE 20 GM/30 ML UDC (FOR ORAL USE ONLY) PO SCH ×2 (12:08→18:55)
--- NOTE | 2019-08-30 13:26 | PN ---
Progress Note (short form) - Note Progress Note: Active Medications Albuterol/Ipratropium (Duoneb -) 1 amp NEB RQID PRN PRN Reason: SHORT OF BREATH/WHEEZING Aripiprazole (Abilify) 5 mg PO DAILY [facility] Last Admin: 08/30/19 10:07 Dose: 5 mg Documented by: Citalopram Hydrobromide (Celexa -) 20 mg PO DAILY [facility] Last Admin: 08/30/19 10:07 Dose: 20 mg Documented by: Gabapentin (Neurontin -) 300 mg PO TID [facility] Last Admin: 08/30/19 06:12 Dose: Not Given Documented by: Heparin Sodium (Porcine) (Heparin -) 5,000 unit SQ BID [facility] Last Admin: 08/30/19 12:00 Dose: 5,000 unit Documented by: Meropenem 1 gm/ Dextrose 100 mls @ 200 mls/hr IVPB Q8H-IV [facility] Last Admin: 08/30/19 12:05 Dose: 200 mls/hr Documented by: Lactulose (Cephulac (Oral Use)) 20 gm PO Q6HPO [facility] Last Admin: 08/30/19 12:08 Dose: 20 gm Documented by: Latanoprost (Xalatan 0.005% Eye Drops -) 1 drop OU [facility] Last Admin: 08/29/19 21:43 Dose: 1 drop Documented by: Metoprolol Tartrate (Lopressor Injection -) 5 mg IVPUSH Q4H PRN PRN Reason: HYPERTENSION Nystatin (Nystop Powder -) 1 applic TP TID [facility] Last Admin: 08/30/19 06:12 Dose: 1 applic Documented by: Oxybutynin Chloride (Ditropan -) 5 mg PO [facility] Last Admin: 08/29/19 21:29 Dose: 5 mg Documented by: Pantoprazole Sodium (Protonix Iv) 40 mg IVPUSH DAILY [facility] Last Admin: 08/30/19 12:06 Dose: 40 mg Documented by: Pramipexole Dihydrochloride (Mirapex -) 0.25 mg PO [facility] Last Admin: 08/29/19 21:28 Dose: 0.25 mg Documented by: Topiramate (Topamax -) 25 mg PO DAILY [facility] Last Admin: 08/30/19 10:07 Dose: 25 mg Documented by: Tramadol HCl (Ultram -) 50 mg PO Q6H PRN PRN Reason: PAIN LEVEL 6-10 Last Admin: 08/30/19 10:06 Dose: 50 mg Documented by: Last Vital Signs Temp Pulse Resp BP Pulse Ox 98.0 F 65 20 138/67 100 08/30/19 05:52 08/30/19 05:52 08/30/19 05:52 08/30/19 05:52 08/29/19 22:00 CBC, BMP 08/29/19 07:45 08/30/19 05:45
[2019-08-30] MEDS ORDERED: ACETAMINOPHEN 500 MG TABLET (FP) PO PRN (14:36)
--- NOTE | 2019-08-30 15:14 | CON.GI ---
Consult Consult Specialty:: Gastroenterology ( covering the [facility] GI service) Referred by:: Dr Kenyon Reason for Consultation:: Cirrhosis - History of Present Illness Chief Complaint: altered mental status History of Present Illness: 64F was transferred from [facility] for altered mental status. She is found to have an elevated ammonia level and tells me that she has HCV for which she was referred to Dr Peralta. She does not believe that he treated her for it however. She has a colonoscopy remotely and tells me that she believes it was normal. She tells me that she moves her bowels well. Her grandaughter assisted with the history and tells me that her GM has Bipolar disorder - History Source History Provided By: Patient, Family Member Limitations to Obtaining History: Poor Historian - Past Medical History Cardio/Vascular: Yes: Deep Vein Thrombosis, HTN, Hyperlipdemia, Other (peripheral vascular disease) Pulmonary: Yes: Asthma, Previously Intubated Hepatobiliary: Yes: Hepatitis C Renal/: Yes: Renal Inusuff Reproductive: Yes: Fibroids Infectious Disease: Yes: MRSA Psych: Yes: Anxiety, Bipolar, Depression Musculoskeletal: Yes: Chronic low back pain Endocrine: Yes: Diabetes Mellitus, Other (morbid obesity) Additional Medical History: Glaucoma - Past Surgical History Past Surgical History: Yes: Amputation (L-AKA 1999), Colonoscopy, Hysterectomy (TAHBSO for fibroids), Joint Replacement (left TKR) Additional Surgical History: left shoulder surgery - Alcohol/Substance Use Hx Alcohol Use: No History of Substance Use: reports: None - Smoking History Smoking history: Former smoker Have you smoked in the past 12 months: No If you are a former smoker, when did you quit?: 1989 - Social History Usual Living Arrangement: Retirement ADL: Support Services 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 Place of : [facility] History of Recent Travel: No Home Medications - Allergies Allergies/Adverse Reactions: Allergies Allergy/AdvReac Type Severity Reaction Status Date / Time No Known Drug Allergies Allergy Verified 02/05/19 11:52 - Home Medications Home Medications: Ambulatory Orders Amlodipine Besylate [Norvasc -] 10 mg PO DAILY 02/21/14 Aripiprazole [Abilify -] 10 mg PO DAILY 02/21/14 Citalopram Hydrobromide [Citalopram HBr] 20 mg PO DAILY 02/21/14 Gabapentin [Neurontin] 300 mg PO TID 12/28/18 Latanoprost 0.005% Eye Drops [Xalatan 0.005% Eye Drops -] 1 drop OP HS 12/28/18 Topiramate [Topamax -] 25 mg PO DAILY 12/28/18 Albuterol 2.5/Ipratropium 0.5 [Duoneb -] 1 amp NEB RQID #1 amp 01/01/19 Acetaminophen 650 mg PO QID PRN 02/05/19 Ciclopirox [Penlac] 6.6 ml TP BID 02/05/19 Nystatin Powder [Nystop Powder -] 15 gm TP TID 02/05/19 Heparin - 5,000 unit SQ BID vial 02/12/19 Insulin Sliding Scale [Novolog Vial Sliding Scale -] 1 vial SQ ACHS units 02/12/19 Pantoprazole Sodium [Protonix -] 40 mg PO DAILY tablet.ec 02/12/19 Sitagliptin Phosphate [Januvia] 50 mg PO DAILY #30 tablet 02/12/19 oxyCODONE HCL [Roxicodone -] 5 mg PO Q6H PRN #120 tablet MDD 4 02/12/19 Losartan Potassium 50 mg PO BID 08/27/19 Oxybutynin Chloride 5 mg PO HS 08/27/19 Family Medical History Family History: Unable to Obtain Review of Systems Unable to obtain ROS, reason: poor historian Physical Exam-GI Vital Signs: Vital Signs Temperature 98.0 F 08/30/19 05:52 Pulse Rate 65 08/30/19 05:52 Respiratory Rate 20 08/30/19 05:52 Blood Pressure 138/67 08/30/19 05:52 O2 Sat by Pulse Oximetry (%) 100 08/30/19 09:00 CBC,CMP WBC 6.4 K/mm3 (4.0-10.0) 08/29/19 07:45 RBC 4.95 M/mm3 (3.60-5.2) 08/29/19 07:45 Hgb 11.1 GM/dL (10.7-15.3) 08/29/19 07:45 Hct 35.6 % (32.4-45.2) 08/29/19 07:45 MCV 72.0 fl (80-96) L 08/29/19 07:45 MCH 22.3 pg (25.7-33.7) L 08/29/19 07:45 MCHC 31.0 g/dl (32.0-36.0) L 08/29/19 07:45 RDW 17.7 % (11.6-15.6) H 08/29/19 07:45 Plt Count 133 K/MM3 (134-434) L 08/29/19 07:45 MPV 11.8 fl (7.5-11.1) H D 08/29/19 07:45 Absolute Neuts (auto) 3.2 K/mm3 (1.5-8.0) 08/29/19 07:45 Neutrophils % 49.4 % (42.8-82.8) 08/29/19 07:45 Lymphocytes % 31.5 % (8-40) 08/29/19 07:45 Monocytes % 11.8 % (3.8-10.2) H 08/29/19 07:45 Eosinophils % 6.7 % (0-4.5) H 08/29/19 07:45 Basophils % 0.6 % (0-2.0) 08/29/19 07:45 Nucleated RBC % 0 % (0-0) 08/29/19 07:45 Sodium 140 mmol/L (136-145) 08/30/19 05:45 Potassium 4.3 mmol/L (3.5-5.1) 08/30/19 05:45 Chloride 110 mmol/L (98-107) H 08/30/19 05:45 Carbon Dioxide 24 mmol/L (21-32) 08/30/19 05:45 Anion Gap 7 MMOL/L (8-16) L 08/30/19 05:45 BUN 14.0 mg/dL (7-18) 08/30/19 05:45 Creatinine 1.3 mg/dL (0.55-1.3) 08/30/19 05:45 Est GFR (CKD-EPI)AfAm 49.51 08/30/19 05:45 Est GFR (CKD-EPI)NonAf 42.71 08/30/19 05:45 POC Glucometer 86 UNITS (80-120) 08/27/19 12:16 Random Glucose 78 mg/dL (74-106) 08/30/19 05:45 Lactic Acid 1.0 mmol/L (0.4-2.0) 08/27/19 12:55 Calcium 9.1 mg/dL (8.5-10.1) 08/30/19 05:45 Phosphorus 3.4 mg/dL (2.5-4.9) 08/30/19 05:45 Magnesium 1.8 mg/dL (1.8-2.4) 08/30/19 05:45 Total Bilirubin 0.4 mg/dL (0.2-1) 08/29/19 07:45 AST 53 U/L (15-37) H 08/29/19 07:45 ALT 47 U/L (13-61) 08/29/19 07:45 Alkaline Phosphatase 111 U/L (45-117) 08/29/19 07:45 Ammonia 161.60 umol/L (11-32) H 08/30/19 05:45 Creatine Kinase 96 U/L (26-192) 08/27/19 12:30 Troponin I < 0.02 ng/ml (0.00-0.05) 08/27/19 12:30 Total Protein 7.3 g/dl (6.4-8.2) 08/29/19 07:45 Albumin 3.0 g/dl (3.4-5.0) L 08/29/19 07:45 Triglycerides 119 mg/dL (0-150) 08/27/19 12:30 Cholesterol 183 mg/dL (50-200) 08/27/19 12:30 Total LDL Cholesterol 96 mg/dL (5-100) 08/27/19 12:30 HDL Cholesterol 62 mg/dL (40-60) H 08/27/19 12:30 Vitamin B12 407 pg/ml (193-986) 08/27/19 12:30 TSH 1.81 uIU/ml (0.358-3.74) 08/27/19 12:30 Free T4 0.80 ng/dl (0.76-1.46) 08/27/19 12:30 Current Medications Generic Name Dose Route Start Last Admin Trade Name Freq PRN Reason Stop Dose Admin Acetaminophen 1,000 mg 08/30/19 14:36 08/30/19 15:04 Tylenol - PO 1,000 mg Q8H PRN Administration PAIN LEVEL 1-5 Albuterol/Ipratropium 1 amp 08/27/19 15:05 Duoneb - NEB RQID PRN SHORT OF BREATH/WHEEZING Aripiprazole 5 mg 08/29/19 10:00 08/30/19 10:07 Abilify PO 5 mg DAILY [facility] Administration Citalopram Hydrobromide 20 mg 08/28/19 10:30 08/30/19 10:07 Celexa - PO 20 mg DAILY [facility] Administration Gabapentin 300 mg 08/28/19 14:00 08/30/19 15:04 Neurontin - PO 300 mg TID [facility] Administration Heparin Sodium (Porcine) 5,000 unit 08/27/19 22:00 08/30/19 12:00 Heparin - SQ 5,000 unit BID [facility] Administration Meropenem 1 gm/ Dextrose 100 mls @ 200 mls/hr 08/29/19 18:00 08/30/19 12:05 IVPB 200 mls/hr Q8H-IV [facility] Administration Lactulose 20 gm 08/30/19 12:00 08/30/19 12:08 Cephulac (Oral Use) PO 20 gm Q6HPO [facility] Administration Latanoprost 1 drop 08/27/19 22:00 08/29/19 21:43 Xalatan 0.005% Eye Drops - OU 1 drop HS [facility] Administration Metoprolol Tartrate 5 mg 08/27/19 15:06 Lopressor Injection - IVPUSH Q4H PRN HYPERTENSION Nystatin 1 applic 08/27/19 22:00 08/30/19 15:04 Nystop Powder - TP 1 applic TID [facility] Administration Oxybutynin Chloride 5 mg 08/28/19 22:00 08/29/19 21:29 Ditropan - PO 5 mg HS [facility] Administration Pantoprazole Sodium 40 mg 08/27/19 16:00 08/30/19 12:06 Protonix Iv IVPUSH 40 mg DAILY [facility] Administration Pramipexole Dihydrochloride 0.25 mg 08/28/19 22:00 08/29/19 21:28 Mirapex - PO 0.25 mg HS [facility] Administration Topiramate 25 mg 08/28/19 10:30 08/30/19 10:07 Topamax - PO 25 mg DAILY [facility] Administration Tramadol HCl 50 mg 08/28/19 10:29 08/30/19 10:06 Ultram - PO 50 mg Q6H PRN Administration PAIN LEVEL 6-10 Constitutional: Yes: Calm Eyes: Yes: Conjunctiva Clear HENT: Yes: Atraumatic Neck: Yes: Supple Cardiovascular: Yes: Regular Rate and Rhythm Respiratory: Yes: CTA Bilaterally Gastrointestinal Inspection: Yes: Scars (healed vertical suprapubic incision) ...Auscultate: Yes: Normoactive Bowel Sounds ...Palpate: Yes: Soft, Other (nontender) ...Rectal Exam: Yes: Guaiac Negative (no masses, soft brown guiaac negative stool) Extremities: Yes: Amputation (left AKA) Neurological: Yes: Alert Labs: CBC, BMP 08/29/19 07:45 08/30/19 05:45 INR, PTT INR 1.08 (0.83-1.09) 08/27/19 12:30 Laboratory Tests 08/28/19 08/29/19 08/29/19 07:17 07:45 15:37 Total Bilirubin 0.4 0.4 AST 49 H 53 H ALT 45 47 Ammonia 108.30 H 08/30/19 05:45 Total Bilirubin AST ALT Ammonia 161.60 H Problem List - Problems (1) Hepatitis C Code(s): B19.20 - UNSPECIFIED VIRAL HEPATITIS C WITHOUT HEPATIC COMA (2) Glaucoma Code(s): H40.9 - UNSPECIFIED GLAUCOMA (3) Bipolar disorder Code(s): F31.9 - BIPOLAR DISORDER, UNSPECIFIED (4) Diabetes mellitus Code(s): E11.9 - TYPE 2 DIABETES MELLITUS WITHOUT COMPLICATIONS (5) Hx of AKA (above knee amputation) Code(s): Z89.619 - ACQUIRED ABSENCE OF UNSPECIFIED LEG ABOVE KNEE (6) Peripheral vascular disease Code(s): I73.9 - PERIPHERAL VASCULAR DISEASE, UNSPECIFIED (7) COPD (chronic obstructive pulmonary disease) Code(s): J44.9 - CHRONIC OBSTRUCTIVE PULMONARY DISEASE, UNSPECIFIED (8) Altered mental status Code(s): R41.82 - ALTERED MENTAL STATUS, UNSPECIFIED Qualifiers: Altered mental status type: unspecified Qualified Code(s): R41.82 - Altered mental status, unspecified (9) Metabolic encephalopathy Code(s): G93.41 - METABOLIC ENCEPHALOPATHY (10) H/O deep venous thrombosis Code(s): Z86.718 - PERSONAL HISTORY OF OTHER VENOUS THROMBOSIS AND EMBOLISM (11) Morbid obesity due to excess calories Code(s): E66.01 - MORBID (SEVERE) OBESITY DUE TO EXCESS CALORIES Assessment/Plan IMpression: - Will need to confirm hepatitis C history. If she has liver disease it appears to be reasonably compensated so I would not expect hepatic encephalopathy despite elevated ammonia level. The sonogram reveals a normal sized liver and no ascites Plan - Hepatitis studies ordered including AFP and Fibrosure Dr Troncoso is covering this weekend . Dr Bran bains return on Monday. Thank you
[2019-08-30] MEDS: OXYBUTYNIN CHLORIDE 5 MG TABLET PO SCH (21:57)
[2019-08-30] MEDS: PRAMIPEXOLE DIHYDROCHLORIDE 0.25 MG TABLET PO SCH (21:58)
[2019-08-30] MEDS: LATANOPROST 0.005% OPHTH SOLN 2.5ML BOTTLE OU SCH (22:11)
[2019-08-31] MEDS: LACTULOSE 20 GM/30 ML UDC (FOR ORAL USE ONLY) PO SCH ×5 (00:02→23:20)
[2019-08-31] MEDS ORDERED: MEROPENEM 1 GM VIAL (RESTRICTED TO ID) IVPB ONE ×3 (01:01→18:47)
[2019-08-31] MEDS ORDERED: DEXTROSE 5%-WATER 100 ML IVPB ONE ×3 (01:01→18:47)
[2019-08-31] MEDS: MEROPENEM 1 GM in DEXTROSE 5%-WATER 100 ML IVPB SCH ×3 (01:20→18:49)
[2019-08-31] MEDS: traMADol HCL 50 MG TABLET PO PRN ×2 (01:20→16:13)
[2019-08-31] MEDS: GABAPENTIN 300 MG CAPSULE PO SCH ×3 (05:48→21:06)
[2019-08-31] MEDS: NYSTATIN POWDER 100,000 UNITS/GM - 15 GM TOPICAL POWDER TP SCH ×3 (05:51→21:06)
--- NOTE | 2019-08-31 09:31 | PN ---
Progress Note, Physician - Current Medication List Current Medications: Active Medications Acetaminophen (Tylenol -) 1,000 mg PO Q8H PRN PRN Reason: PAIN LEVEL 1-5 Last Admin: 08/30/19 15:04 Dose: 1,000 mg Documented by: Albuterol/Ipratropium (Duoneb -) 1 amp NEB RQID PRN PRN Reason: SHORT OF BREATH/WHEEZING Aripiprazole (Abilify) 5 mg PO DAILY [facility] Last Admin: 08/30/19 10:07 Dose: 5 mg Documented by: Citalopram Hydrobromide (Celexa -) 20 mg PO DAILY [facility] Last Admin: 08/30/19 10:07 Dose: 20 mg Documented by: Gabapentin (Neurontin -) 300 mg PO TID [facility] Last Admin: 08/31/19 05:48 Dose: 300 mg Documented by: Heparin Sodium (Porcine) (Heparin -) 5,000 unit SQ BID [facility] Last Admin: 08/30/19 21:57 Dose: 5,000 unit Documented by: Meropenem 1 gm/ Dextrose 100 mls @ 200 mls/hr IVPB Q8H-IV [facility] Last Admin: 08/31/19 01:20 Dose: 200 mls/hr Documented by: Lactulose (Cephulac (Oral Use)) 20 gm PO Q6HPO [facility] Last Admin: 08/31/19 05:48 Dose: 20 gm Documented by: Latanoprost (Xalatan 0.005% Eye Drops -) 1 drop OU [facility] Last Admin: 08/30/19 22:11 Dose: 1 drop Documented by: Metoprolol Tartrate (Lopressor Injection -) 5 mg IVPUSH Q4H PRN PRN Reason: HYPERTENSION Nystatin (Nystop Powder -) 1 applic TP TID [facility] Last Admin: 08/31/19 05:51 Dose: 1 applic Documented by: Oxybutynin Chloride (Ditropan -) 5 mg PO [facility] Last Admin: 08/30/19 21:57 Dose: 5 mg Documented by: Pantoprazole Sodium (Protonix Iv) 40 mg IVPUSH DAILY [facility] Last Admin: 08/30/19 12:06 Dose: 40 mg Documented by: Pramipexole Dihydrochloride (Mirapex -) 0.25 mg PO [facility] Last Admin: 07/17/20 21:58 Dose: 0.25 mg Documented by: Topiramate (Topamax -) 25 mg PO DAILY [facility] Last Admin: 08/30/19 10:07 Dose: 25 mg Documented by: Tramadol HCl (Ultram -) 50 mg PO Q6H PRN PRN Reason: PAIN LEVEL 6-10 Last Admin: 08/31/19 01:20 Dose: 50 mg Documented by: - Objective Vital Signs: Vital Signs Temperature 98.5 F 08/31/19 06:00 Pulse Rate 64 08/31/19 06:00 Respiratory Rate 18 08/31/19 06:00 Blood Pressure 135/67 08/31/19 06:00 O2 Sat by Pulse Oximetry (%) 97 08/31/19 06:00 Cardiovascular: Yes: Regular Rate and Rhythm Respiratory: Yes: Regular, CTA Bilaterally Gastrointestinal: Yes: Normal Bowel Sounds, Soft. No: Tenderness Extremities: Yes: Amputation Labs: CBC, BMP 08/29/19 07:45 08/30/19 05:45 INR, PTT INR 1.08 (0.83-1.09) 08/27/19 12:30 Assessment/Plan - Problems (1) Acute kidney injury Assessment/Plan: -Continue IVF LR at 75 cc/hr -Nephrology consult -Renal U/S not impressive -Cr improved -Monitor trend Problems reviewed: Yes Code(s): N17.9 - ACUTE KIDNEY FAILURE, UNSPECIFIED (2) Altered mental status-Metabolic encephalopathy Assessment/Plan: -CT head unremarkable -MRI without contrast still no cva -Neurology consult noted -UTI 0n abx -Ammonia level high--on lactulose Abnormal Lab Results 08/31/19 06:25 Ammonia 77.30 H -Thyroid, b12 and RPR normal -Tele monitor -Start low sodium diet Problems reviewed: Yes Code(s): R41.82 - ALTERED MENTAL STATUS, UNSPECIFIED Qualifiers: Altered mental status type: unspecified Qualified Code(s): R41.82 - Altered mental status, unspecified (3) Fatty Liver-Cirrhosis Problems reviewed: Yes -Monitor Labs -RX with Lactulose -Gi consult (4) UTI (urinary tract infection) Assessment/Plan: -ID consult -UC: GNB Non Lactose fermenting Microbiology 08/28/19 16:25 Blood - Peripheral Venous Blood Culture - Preliminary NO GROWTH OBTAINED AFTER 24 HOURS, INCUBATION TO CONTINUE FOR 4 DAYS. 08/28/19 16:20 Blood - Peripheral Venous Blood Culture - Preliminary NO GROWTH OBTAINED AFTER 24 HOURS, INCUBATION TO CONTINUE FOR 4 DAYS. 08/27/19 15:20 Urine - Urine - Catheterized Urine Culture - Final Escherichia Coli Esbl Manager Generation -on Orders 08/29/19 18:00 Meropenem [Merrem (Restricted To Id) -] 1 gm Dextrose 5%-Water [Dextrose 5% Water Minibag 100ML] 100 ml IVPB Q8H-IV Problems reviewed: Yes Code(s): N39.0 - URINARY TRACT INFECTION, SITE NOT SPECIFIED (5) S/P AKA Problems reviewed: Yes -c/o pain -Pain management -Monitor on tyleno-tramadol and neurontin
[2019-08-31] MEDS ORDERED: PT OWN MED DRAWER 7, Y5N ONE ×2 (11:04→20:33)
[2019-08-31] MEDS: HEPARIN NA (PORCINE) 5,000 UNITS/ML 1ML VIAL SQ SCH ×2 (11:11→21:06)
[2019-08-31] MEDS: PANTOPRAZOLE SODIUM 40 MG VIAL IVPUSH SCH (11:11)
[2019-08-31] MEDS: ARIPiprazole 5 MG TABLET PO SCH (11:12)
[2019-08-31] MEDS: TOPIRAMATE 25 MG TABLET PO SCH (11:12)
[2019-08-31] MEDS: CITALOPRAM HYDROBROMIDE 20 MG TABLET PO SCH (11:12)
--- NOTE | 2019-08-31 14:06 | PN ---
Progress Note (short form) - Note Progress Note: biju ams/high ammonia r/o chronic liver disease Active Medications Acetaminophen (Tylenol -) 1,000 mg PO Q8H PRN PRN Reason: PAIN LEVEL 1-5 Last Admin: 08/30/19 15:04 Dose: 1,000 mg Documented by: Albuterol/Ipratropium (Duoneb -) 1 amp NEB RQID PRN PRN Reason: SHORT OF BREATH/WHEEZING Aripiprazole (Abilify) 5 mg PO DAILY [facility] Last Admin: 08/31/19 11:12 Dose: 5 mg Documented by: Citalopram Hydrobromide (Celexa -) 20 mg PO DAILY [facility] Last Admin: 08/31/19 11:12 Dose: 20 mg Documented by: Gabapentin (Neurontin -) 300 mg PO TID [facility] Last Admin: 08/31/19 05:48 Dose: 300 mg Documented by: Heparin Sodium (Porcine) (Heparin -) 5,000 unit SQ BID [facility] Last Admin: 08/31/19 11:11 Dose: 5,000 unit Documented by: Meropenem 1 gm/ Dextrose 100 mls @ 200 mls/hr IVPB Q8H-IV [facility] Last Admin: 08/31/19 11:11 Dose: 200 mls/hr Documented by: Lactulose (Cephulac (Oral Use)) 20 gm PO Q6HPO [facility] Last Admin: 08/31/19 11:11 Dose: 20 gm Documented by: Latanoprost (Xalatan 0.005% Eye Drops -) 1 drop OU [facility] Last Admin: 08/30/19 22:11 Dose: 1 drop Documented by: Metoprolol Tartrate (Lopressor Injection -) 5 mg IVPUSH Q4H PRN PRN Reason: HYPERTENSION Nystatin (Nystop Powder -) 1 applic TP TID [facility] Last Admin: 08/31/19 05:51 Dose: 1 applic Documented by: Oxybutynin Chloride (Ditropan -) 5 mg PO [facility] Last Admin: 08/30/19 21:57 Dose: 5 mg Documented by: Pantoprazole Sodium (Protonix Iv) 40 mg IVPUSH DAILY [facility] Last Admin: 08/31/19 11:11 Dose: 40 mg Documented by: Pramipexole Dihydrochloride (Mirapex -) 0.25 mg PO [facility] Last Admin: 08/30/19 21:58 Dose: 0.25 mg Documented by: Topiramate (Topamax -) 25 mg PO DAILY [facility] Last Admin: 08/31/19 11:12 Dose: 25 mg Documented by: Tramadol HCl (Ultram -) 50 mg PO Q6H PRN PRN Reason: PAIN LEVEL 6-10 Last Admin: 08/31/19 01:20 Dose: 50 mg Documented by: Last Vital Signs Temp Pulse Resp BP Pulse Ox 98 F 74 18 129/74 98 08/31/19 10:00 08/31/19 10:00 08/31/19 10:00 08/31/19 10:00 08/31/19 10:00 CBC, BMP 08/29/19 07:45 08/30/19 05:45 biju
[2019-08-31] MEDS ORDERED: oxyCODONE HCL 5 MG TABLET PO ONE (20:16)
[2019-08-31] MEDS: LATANOPROST 0.005% OPHTH SOLN 2.5ML BOTTLE OU SCH (21:06)
[2019-08-31] MEDS: OXYBUTYNIN CHLORIDE 5 MG TABLET PO SCH (21:06)
[2019-08-31] MEDS: PRAMIPEXOLE DIHYDROCHLORIDE 0.25 MG TABLET PO SCH (21:06)
[2019-09-01] MEDS ORDERED: MEROPENEM 1 GM VIAL (RESTRICTED TO ID) IVPB ONE ×4 (00:16→17:18)
[2019-09-01] MEDS ORDERED: DEXTROSE 5%-WATER 100 ML IVPB ONE ×3 (00:17→17:18)
[2019-09-01] MEDS: MEROPENEM 1 GM in DEXTROSE 5%-WATER 100 ML IVPB SCH ×3 (01:10→17:29)
[2019-09-01] MEDS: LACTULOSE 20 GM/30 ML UDC (FOR ORAL USE ONLY) PO SCH ×3 (05:48→17:29)
[2019-09-01] MEDS: GABAPENTIN 300 MG CAPSULE PO SCH ×3 (05:48→22:56)
[2019-09-01] MEDS: NYSTATIN POWDER 100,000 UNITS/GM - 15 GM TOPICAL POWDER TP SCH ×3 (05:48→22:57)
[2019-09-01 08:23] LABS: BASO % 0.6 % (0-2.0); HEMATOCRIT 36.7 % (32.4-45.2); HEMOGLOBIN 11.2 GM/dL (10.7-15.3); LYMPH % 22.5 % (8-40); MCH 22.4 pg (25.7-33.7); MCHC 30.6 g/dl (32.0-36.0); MONO % 13.7 % (3.8-10.2); NEUT % 55.2 % (42.8-82.8); PLATELET COUNT 143 K/MM3 (134-434); RBC 5.02 M/mm3 (3.60-5.2); RDW 17.9 % (11.6-15.6); WHITE BLOOD COUNT 7.2 K/mm3 (4.0-10.0)
[2019-09-01 08:51] LABS: BILIRUBIN,TOTAL 0.4 mg/dL (0.2-1); BLOOD UREA NITROGEN 15.5 mg/dL (7-18); CALCIUM 9.2 mg/dL (8.5-10.1); CREATININE 1.3 mg/dL (0.55-1.3); POTASSIUM 4.2 mmol/L (3.5-5.1); TOT PROT 7.2 g/dl (6.4-8.2)
[2019-09-01] MEDS ORDERED: PT OWN MED DRAWER 7, Y5N ONE ×3 (09:49→22:54)
[2019-09-01] MEDS: TOPIRAMATE 25 MG TABLET PO SCH (09:57)
[2019-09-01] MEDS: HEPARIN NA (PORCINE) 5,000 UNITS/ML 1ML VIAL SQ SCH ×2 (09:58→22:56)
[2019-09-01] MEDS: ARIPiprazole 5 MG TABLET PO SCH (09:58)
[2019-09-01] MEDS: CITALOPRAM HYDROBROMIDE 20 MG TABLET PO SCH (09:58)
[2019-09-01] MEDS: PANTOPRAZOLE SODIUM 40 MG VIAL IVPUSH SCH (11:27)
--- NOTE | 2019-09-01 11:29 | PN ---
Progress Note, Physician - Current Medication List Current Medications: Active Medications Acetaminophen (Tylenol -) 1,000 mg PO Q8H PRN PRN Reason: PAIN LEVEL 1-5 Last Admin: 08/30/19 15:04 Dose: 1,000 mg Documented by: Albuterol/Ipratropium (Duoneb -) 1 amp NEB RQID PRN PRN Reason: SHORT OF BREATH/WHEEZING Aripiprazole (Abilify) 5 mg PO DAILY [facility] Last Admin: 09/01/19 09:58 Dose: 5 mg Documented by: Citalopram Hydrobromide (Celexa -) 20 mg PO DAILY [facility] Last Admin: 09/01/19 09:58 Dose: 20 mg Documented by: Gabapentin (Neurontin -) 300 mg PO TID [facility] Last Admin: 09/01/19 05:48 Dose: 300 mg Documented by: Heparin Sodium (Porcine) (Heparin -) 5,000 unit SQ BID [facility] Last Admin: 09/01/19 09:58 Dose: 5,000 unit Documented by: Meropenem 1 gm/ Dextrose 100 mls @ 200 mls/hr IVPB Q8H-IV [facility] Last Admin: 09/01/19 01:10 Dose: Not Given Documented by: Lactulose (Cephulac (Oral Use)) 20 gm PO Q6HPO [facility] Last Admin: 09/01/19 05:48 Dose: 20 gm Documented by: Latanoprost (Xalatan 0.005% Eye Drops -) 1 drop OU [facility] Last Admin: 08/31/19 21:06 Dose: 1 drop Documented by: Metoprolol Tartrate (Lopressor Injection -) 5 mg IVPUSH Q4H PRN PRN Reason: HYPERTENSION Nystatin (Nystop Powder -) 1 applic TP TID [facility] Last Admin: 09/01/19 05:48 Dose: 1 applic Documented by: Oxybutynin Chloride (Ditropan -) 5 mg PO [facility] Last Admin: 08/31/19 21:06 Dose: 5 mg Documented by: Pantoprazole Sodium (Protonix Iv) 40 mg IVPUSH DAILY [facility] Last Admin: 08/31/19 11:11 Dose: 40 mg Documented by: Pramipexole Dihydrochloride (Mirapex -) 0.25 mg PO [facility] Last Admin: 08/31/19 21:06 Dose: 0.25 mg Documented by: Topiramate (Topamax -) 25 mg PO DAILY [facility] Last Admin: 09/01/19 09:57 Dose: 25 mg Documented by: Tramadol HCl (Ultram -) 50 mg PO Q6H PRN PRN Reason: PAIN LEVEL 6-10 Last Admin: 08/31/19 16:13 Dose: 50 mg Documented by: - Objective Vital Signs: Vital Signs Temperature 98.8 F 09/01/19 09:00 Pulse Rate 72 09/01/19 09:00 Respiratory Rate 20 09/01/19 09:00 Blood Pressure 151/84 09/01/19 09:00 O2 Sat by Pulse Oximetry (%) 99 09/01/19 09:00 Cardiovascular: Yes: S1, S2 Respiratory: Yes: Regular, CTA Bilaterally Gastrointestinal: Yes: Normal Bowel Sounds, Soft. No: Tenderness Labs: CBC, BMP 09/01/19 07:50 09/01/19 07:50 INR, PTT INR 1.08 (0.83-1.09) 08/27/19 12:30 Assessment/Plan - Problems (1) Acute kidney injury Assessment/Plan: -Continue IVF LR at 75 cc/hr -Nephrology consult -Renal U/S not impressive -Cr improved -Monitor trend Problems reviewed: Yes Code(s): N17.9 - ACUTE KIDNEY FAILURE, UNSPECIFIED (2) Altered mental status-Metabolic encephalopathy Assessment/Plan: -CT head unremarkable -MRI without contrast still no cva -Neurology consult noted -UTI 0n abx -Ammonia level high--on lactulose Abnormal Lab Results 08/31/19 06:25 Ammonia 77.30 H -Thyroid, b12 and RPR normal -Tele monitor -Start low sodium diet Problems reviewed: Yes Code(s): R41.82 - ALTERED MENTAL STATUS, UNSPECIFIED Qualifiers: Altered mental status type: unspecified Qualified Code(s): R41.82 - Altered mental status, unspecified (3) Fatty Liver-Cirrhosis Problems reviewed: Yes -Monitor Labs -RX with Lactulose -Gi consult (4) UTI (urinary tract infection) Assessment/Plan: -ID consult -UC: GNB Non Lactose fermenting Microbiology 08/28/19 16:25 Blood - Peripheral Venous Blood Culture - Preliminary NO GROWTH OBTAINED AFTER 24 HOURS, INCUBATION TO CONTINUE FOR 4 DAYS. 08/28/19 16:20 Blood - Peripheral Venous Blood Culture - Preliminary NO GROWTH OBTAINED AFTER 24 HOURS, INCUBATION TO CONTINUE FOR 4 DAYS. 08/27/19 15:20 Urine - Urine - Catheterized Urine Culture - Final Escherichia Coli Esbl Policyholder Information Clerk -on Orders 08/29/19 18:00 Meropenem [Merrem (Restricted To Id) -] 1 gm Dextrose 5%-Water [Dextrose 5% Water Minibag 100ML] 100 ml IVPB Q8H-IV Problems reviewed: Yes Code(s): N39.0 - URINARY TRACT INFECTION, SITE NOT SPECIFIED (5) S/P AKA Problems reviewed: Yes -c/o pain -Pain management -Monitor on tyleno-tramadol and neurontin
--- NOTE | 2019-09-01 12:59 | PN ---
Progress Note (short form) - Note Progress Note: biju ams/high ammonia r/o chronic liver disease Active Medications Acetaminophen (Tylenol -) 1,000 mg PO Q8H PRN PRN Reason: PAIN LEVEL 1-5 Last Admin: 08/30/19 15:04 Dose: 1,000 mg Documented by: Albuterol/Ipratropium (Duoneb -) 1 amp NEB RQID PRN PRN Reason: SHORT OF BREATH/WHEEZING Aripiprazole (Abilify) 5 mg PO DAILY [facility] Last Admin: 09/01/19 09:58 Dose: 5 mg Documented by: Citalopram Hydrobromide (Celexa -) 20 mg PO DAILY [facility] Last Admin: 09/01/19 09:58 Dose: 20 mg Documented by: Gabapentin (Neurontin -) 300 mg PO TID [facility] Last Admin: 09/01/19 05:48 Dose: 300 mg Documented by: Heparin Sodium (Porcine) (Heparin -) 5,000 unit SQ BID [facility] Last Admin: 09/01/19 09:58 Dose: 5,000 unit Documented by: Meropenem 1 gm/ Dextrose 100 mls @ 200 mls/hr IVPB Q8H-IV [facility] Last Admin: 09/01/19 11:27 Dose: 200 mls/hr Documented by: Lactulose (Cephulac (Oral Use)) 20 gm PO Q6HPO [facility] Last Admin: 09/01/19 11:27 Dose: 20 gm Documented by: Latanoprost (Xalatan 0.005% Eye Drops -) 1 drop [facility]U [facility] Last Admin: 08/31/19 21:06 Dose: 1 drop Documented by: Metoprolol Tartrate (Lopressor Injection -) 5 mg IVPUSH Q4H PRN PRN Reason: HYPERTENSION Nystatin (Nystop Powder -) 1 applic TP TID [facility] Last Admin: 09/01/19 05:48 Dose: 1 applic Documented by: Oxybutynin Chloride (Ditropan -) 5 mg PO HS [facility] Last Admin: 08/31/19 21:06 Dose: 5 mg Documented by: Oxycodone HCl (Roxicodone -) 5 mg PO Q6H PRN PRN Reason: PAIN LEVEL 6-10 Pantoprazole Sodium (Protonix Iv) 40 mg IVPUSH DAILY [facility] Last Admin: 09/01/19 11:27 Dose: 40 mg Documented by: Pramipexole Dihydrochloride (Mirapex -) 0.25 mg PO HS [facility] Last Admin: 08/31/19 21:06 Dose: 0.25 mg Documented by: Topiramate (Topamax -) 25 mg PO DAILY [facility] Last Admin: 09/01/19 09:57 Dose: 25 mg Documented by: Tramadol HCl (Ultram -) 50 mg PO Q6H PRN PRN Reason: PAIN LEVEL 6-10 Last Admin: 08/31/19 16:13 Dose: 50 mg Documented by: Last Vital Signs Temp Pulse Resp BP Pulse Ox 98.8 F 72 20 151/84 99 09/01/19 09:00 09/01/19 09:00 09/01/19 09:00 09/01/19 09:00 09/01/19 09:00 Lungs clear Heart reg rate and rhythm Abd soft nontender Ext no edema CBC, BMP 09/01/19 07:50 09/01/19 07:50 CBC, BMP 08/29/19 07:45 08/30/19 05:45 s/p biju probably prerenal 2/2 mental status s/p ams
--- NOTE | 2019-09-01 16:08 | PN ---
Progress Note (short form) - Note Progress Note: 64 yr old female with left AKA stump pain but her pain is 2/10 with medication continue current care . if pain is not controlled , then please call me for consult. Thanks Dr. Negrete [phone]
[2019-09-01] MEDS ORDERED: ONDANSETRON 4 MG/2 ML VIAL IVPUSH ONE (21:44)
[2019-09-01] MEDS: PRAMIPEXOLE DIHYDROCHLORIDE 0.25 MG TABLET PO SCH (22:56)
[2019-09-01] MEDS: OXYBUTYNIN CHLORIDE 5 MG TABLET PO SCH (22:56)
[2019-09-01] MEDS: LATANOPROST 0.005% OPHTH SOLN 2.5ML BOTTLE OU SCH (22:57)
[2019-09-01] MEDS: oxyCODONE HCL 5 MG TABLET PO PRN (23:06)
[2019-09-02] MEDS: LACTULOSE 20 GM/30 ML UDC (FOR ORAL USE ONLY) PO SCH ×5 (00:05→21:10)
[2019-09-02] MEDS ORDERED: MEROPENEM 1 GM VIAL (RESTRICTED TO ID) IVPB ONE ×3 (01:48→16:58)
[2019-09-02] MEDS ORDERED: DEXTROSE 5%-WATER 100 ML IVPB ONE ×3 (01:48→16:58)
[2019-09-02] MEDS: MEROPENEM 1 GM in DEXTROSE 5%-WATER 100 ML IVPB SCH ×3 (01:59→17:29)
[2019-09-02] MEDS ORDERED: PT OWN MED DRAWER 7, Y5N ONE ×4 (05:11→21:04)
[2019-09-02] MEDS: GABAPENTIN 300 MG CAPSULE PO SCH ×3 (05:48→21:10)
[2019-09-02] MEDS: NYSTATIN POWDER 100,000 UNITS/GM - 15 GM TOPICAL POWDER TP SCH ×3 (05:55→22:15)
[2019-09-02 07:43] LABS: BASO % 0.5 % (0-2.0); EOS % 4.2 % (0-4.5); HEMATOCRIT 35.9 % (32.4-45.2); HEMOGLOBIN 11.2 GM/dL (10.7-15.3); LYMPH % 21.4 % (8-40); MCH 22.6 pg (25.7-33.7); MCHC 31.2 g/dl (32.0-36.0); MEAN CELL VOLUME 72.4 fl (80-96); MEAN PLT VOLUME 11.3 fl (7.5-11.1); MONO % 8.7 % (3.8-10.2); NEUT % 65.2 % (42.8-82.8); PLATELET COUNT 172 K/MM3 (134-434); RBC 4.96 M/mm3 (3.60-5.2); RDW 17.6 % (11.6-15.6); WHITE BLOOD COUNT 10.8 K/mm3 (4.0-10.0)
[2019-09-02 08:09] LABS: ALBUMIN 2.9 g/dl (3.4-5.0); BILIRUBIN,TOTAL 0.6 mg/dL (0.2-1); CALCIUM 9.4 mg/dL (8.5-10.1); CREATININE 1.5 mg/dL (0.55-1.3); POTASSIUM 4.4 mmol/L (3.5-5.1); TOT PROT 7.4 g/dl (6.4-8.2)
--- NOTE | 2019-09-02 08:38 | PN ---
Progress Note, Physician - Current Medication List Current Medications: Active Medications Acetaminophen (Tylenol -) 1,000 mg PO Q8H PRN PRN Reason: PAIN LEVEL 1-5 Last Admin: 08/30/19 15:04 Dose: 1,000 mg Documented by: Aripiprazole (Abilify) 5 mg PO DAILY [facility] Last Admin: 09/01/19 09:58 Dose: 5 mg Documented by: Citalopram Hydrobromide (Celexa -) 20 mg PO DAILY [facility] Last Admin: 09/01/19 09:58 Dose: 20 mg Documented by: Gabapentin (Neurontin -) 300 mg PO TID [facility] Last Admin: 09/02/19 05:48 Dose: 300 mg Documented by: Heparin Sodium (Porcine) (Heparin -) 5,000 unit SQ BID [facility] Last Admin: 09/01/19 22:56 Dose: 5,000 unit Documented by: Meropenem 1 gm/ Dextrose 100 mls @ 200 mls/hr IVPB Q8H-IV [facility] Last Admin: 09/02/19 01:59 Dose: 200 mls/hr Documented by: Lactulose (Cephulac (Oral Use)) 20 gm PO Q6HPO [facility] Last Admin: 09/02/19 05:55 Dose: 20 gm Documented by: Latanoprost (Xalatan 0.005% Eye Drops -) 1 drop OU [facility] Last Admin: 09/01/19 22:57 Dose: 1 drop Documented by: Metoprolol Tartrate (Lopressor Injection -) 5 mg IVPUSH Q4H PRN PRN Reason: HYPERTENSION Nystatin (Nystop Powder -) 1 applic TP TID [facility] Last Admin: 09/02/19 05:55 Dose: 1 applic Documented by: Oxybutynin Chloride (Ditropan -) 5 mg PO [facility] Last Admin: 09/01/19 22:56 Dose: 5 mg Documented by: Oxycodone HCl (Roxicodone -) 5 mg PO Q6H PRN PRN Reason: PAIN LEVEL 6-10 Last Admin: 09/01/19 23:06 Dose: 5 mg Documented by: Pantoprazole Sodium (Protonix -) 40 mg PO DAILY [facility] Pramipexole Dihydrochloride (Mirapex -) 0.25 mg PO [facility] Last Admin: 09/01/19 22:56 Dose: 0.25 mg Documented by: Topiramate (Topamax -) 25 mg PO DAILY [facility] Last Admin: 09/01/19 09:57 Dose: 25 mg Documented by: Tramadol HCl (Ultram -) 50 mg PO Q6H PRN PRN Reason: PAIN LEVEL 6-10 Last Admin: 08/31/19 16:13 Dose: 50 mg Documented by: - Objective Vital Signs: Vital Signs Temperature 98.7 F 09/02/19 06:00 Pulse Rate 105 H 09/02/19 06:00 Respiratory Rate 16 09/02/19 06:00 Blood Pressure 133/87 09/02/19 06:00 O2 Sat by Pulse Oximetry (%) 96 09/02/19 06:00 Cardiovascular: Yes: S1, S2 Respiratory: Yes: Regular, CTA Bilaterally Gastrointestinal: Yes: Normal Bowel Sounds, Soft Labs: CBC, BMP 09/02/19 06:53 09/02/19 06:53 INR, PTT INR 1.08 (0.83-1.09) 08/27/19 12:30 Assessment/Plan - Problems (1) Acute kidney injury Assessment/Plan: -Continue IVF LR at 75 cc/hr -Nephrology consult -Renal U/S not impressive -Cr improved -Monitor trend Problems reviewed: Yes Code(s): N17.9 - ACUTE KIDNEY FAILURE, UNSPECIFIED (2) Altered mental status-Metabolic encephalopathy Assessment/Plan: -CT head unremarkable -MRI without contrast still no cva -Neurology consult noted -UTI 0n abx -Ammonia level high--on lactulose Abnormal Lab Results 08/31/19 06:25 Ammonia 77.30 H -Thyroid, b12 and RPR normal -Tele monitor -Start low sodium diet Problems reviewed: Yes Code(s): R41.82 - ALTERED MENTAL STATUS, UNSPECIFIED Qualifiers: Altered mental status type: unspecified Qualified Code(s): R41.82 - Altered mental status, unspecified (3) Fatty Liver-Cirrhosis Problems reviewed: Yes -Monitor Labs -RX with Lactulose -Gi consult (4) UTI (urinary tract infection) Assessment/Plan: -ID consult -UC: GNB Non Lactose fermenting Microbiology 08/28/19 16:25 Blood - Peripheral Venous Blood Culture - Preliminary NO GROWTH OBTAINED AFTER 24 HOURS, INCUBATION TO CONTINUE FOR 4 DAYS. 08/28/19 16:20 Blood - Peripheral Venous Blood Culture - Preliminary NO GROWTH OBTAINED AFTER 24 HOURS, INCUBATION TO CONTINUE FOR 4 DAYS. 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
[2019-09-02] MEDS: TOPIRAMATE 25 MG TABLET PO SCH (09:03)
[2019-09-02] MEDS: CITALOPRAM HYDROBROMIDE 20 MG TABLET PO SCH (09:03)
[2019-09-02] MEDS: PANTOPRAZOLE 40 MG TABLET PO SCH (09:03)
[2019-09-02] MEDS: HEPARIN NA (PORCINE) 5,000 UNITS/ML 1ML VIAL SQ SCH ×2 (10:01→21:10)
[2019-09-02] MEDS: ARIPiprazole 5 MG TABLET PO SCH (10:03)
--- NOTE | 2019-09-02 12:59 | PN ---
Progress Note, Physician Chief Complaint: Acute kidney injury History of Present Illness: Seen and examined at the bedside in the ER awake and alert offers no acute complaints. no sob, cp, fever, chills, N/V/D making urine - Current Medication List Current Medications: Active Medications Acetaminophen (Tylenol -) 1,000 mg PO Q8H PRN PRN Reason: PAIN LEVEL 1-5 Last Admin: 08/30/19 15:04 Dose: 1,000 mg Documented by: Aripiprazole (Abilify) 5 mg PO DAILY [facility] Last Admin: 09/02/19 10:03 Dose: 5 mg Documented by: Citalopram Hydrobromide (Celexa -) 20 mg PO DAILY [facility] Last Admin: 09/02/19 09:03 Dose: 20 mg Documented by: Gabapentin (Neurontin -) 300 mg PO TID [facility] Last Admin: 09/02/19 05:48 Dose: 300 mg Documented by: Heparin Sodium (Porcine) (Heparin -) 5,000 unit SQ BID [facility] Last Admin: 09/02/19 10:01 Dose: 5,000 unit Documented by: Meropenem 1 gm/ Dextrose 100 mls @ 200 mls/hr IVPB Q8H-IV [facility] Last Admin: 09/02/19 09:03 Dose: 200 mls/hr Documented by: Lactulose (Cephulac (Oral Use)) 20 gm PO Q6HPO [facility] Last Admin: 09/02/19 12:23 Dose: 20 gm Documented by: Latanoprost (Xalatan 0.005% Eye Drops -) 1 drop [facility] Last Admin: 09/01/19 22:57 Dose: 1 drop Documented by: Metoprolol Tartrate (Lopressor Injection -) 5 mg IVPUSH Q4H PRN PRN Reason: HYPERTENSION Nystatin (Nystop Powder -) 1 applic TP TID [facility] Last Admin: 09/02/19 05:55 Dose: 1 applic Documented by: Oxybutynin Chloride (Ditropan -) 5 mg PO HS [facility] Last Admin: 09/01/19 22:56 Dose: 5 mg Documented by: Oxycodone HCl (Roxicodone -) 5 mg PO Q6H PRN PRN Reason: PAIN LEVEL 6-10 Last Admin: 09/01/19 23:06 Dose: 5 mg Documented by: Pantoprazole Sodium (Protonix -) 40 mg PO DAILY [facility] Last Admin: 09/02/19 09:03 Dose: 40 mg Documented by: Pramipexole Dihydrochloride (Mirapex -) 0.25 mg PO HS [facility] Last Admin: 09/01/19 22:56 Dose: 0.25 mg Documented by: Topiramate (Topamax -) 25 mg PO DAILY [facility] Last Admin: 09/02/19 09:03 Dose: 25 mg Documented by: Tramadol HCl (Ultram -) 50 mg PO Q6H PRN PRN Reason: PAIN LEVEL 6-10 Last Admin: 08/31/19 16:13 Dose: 50 mg Documented by: - Objective Vital Signs: Vital Signs Temperature 98.6 F 09/02/19 10:00 Pulse Rate 88 09/02/19 10:00 Respiratory Rate 18 09/02/19 10:00 Blood Pressure 108/60 09/02/19 10:00 O2 Sat by Pulse Oximetry (%) 96 09/02/19 10:00 Constitutional: Yes: No Distress, Calm HENT: Yes: Atraumatic Neck: Yes: Supple Cardiovascular: Yes: Regular Rate and Rhythm Respiratory: Yes: Regular. No: Rales, Rhonchi, SOB Gastrointestinal: Yes: Soft. No: Tenderness Genitourinary: No: Bladder Distention Extremities: No: Cyanosis Edema: No Neurological: Yes: Alert Labs: CBC, BMP 09/02/19 06:53 09/02/19 06:53 INR, PTT INR 1.08 (0.83-1.09) 08/27/19 12:30 Assessment/Plan 64 year old woman with history of CVA and COPD who presented [place] with left sided weakness and altered mental status and found to have Cr of 1.8. 1. Acute left sided weakness and AMS r/o CVA 2. Suspected UTI/cystitis 3. Acute kidney injury 4. Hx of CVA 5. Pyuria r/o UTI 6. Elevated ammonia levels Cr slightly up trending w/o obvious obstruction or nephrotoxin exposure Will give isotonic saline x 24 hours Trend BUN/Cr and electrolytes GI follow up regarding elevated ammonia levels Currently on oral lactulose mental status is overall improved On Meropenum for UTI Thank you Vasu Vang DO
[2019-09-02] MEDS ORDERED: SODIUM CHLORIDE 1,000 ML IV SCH (13:00)
[2019-09-02] MEDS: oxyCODONE HCL 5 MG TABLET PO PRN ×2 (16:46→23:33)
--- NOTE | 2019-09-02 17:05 | PN ---
Progress Note (short form) - Note Progress Note: much more alert no complaints Vital Signs Period Temp Pulse Resp BP Sys/Singer Pulse Ox Last 24 Hr 98.2 F-100.1 F 82-111 16-18 108-152/60-89 82-96 cor-rrr lungs clear abd soft,nt ext left aka CBC, BMP 09/02/19 06:53 09/02/19 06:53 a/p ecoli esbl uti- continue meropenem #4 of 7 biju improved with hydration metabolic encephalopathy- improved, ?hep c- serologies pending- ammonia high, on lactulose contact isolation
--- NOTE | 2019-09-02 18:01 | PN.GI ---
GI Progress Note Subjective: Nephew present Patient sitting up eating dinner No focal GI complaints Fibrosure pending AFP WNL - Objective Vital Signs: Vital Signs Temperature 98.2 F 09/02/19 14:00 Pulse Rate 86 09/02/19 14:00 Respiratory Rate 18 09/02/19 14:00 Blood Pressure 152/81 09/02/19 14:00 O2 Sat by Pulse Oximetry (%) 94 L 09/02/19 14:00 Constitutional: Calm Cardiovascular: Yes: Regular Rate and Rhythm Respiratory: Yes: Diminished (at bases bilaterally with poor insp effort) ...Auscultate: Yes: Normoactive Bowel Sounds ...Palpate: Yes: Soft Extremities: Yes: Other (Left AKA) Edema: No Neurological: Yes: Alert, Oriented (x 3. mildly tremulous LUE, no asterexis) Labs: CBC, BMP 09/02/19 06:53 09/02/19 06:53 INR, PTT INR 1.08 (0.83-1.09) 08/27/19 12:30 Problem List - Problems (1) Altered mental status Assessment/Plan: Unclear if related to advanced liver disease despite elevated ammonia levels Continued evaluation of alternate causes per PMD Decrease Lactulose to 20g BID Simplify med regimen. ? if polypharmacy playing a role in mental status change Can follow-up with Dr. Peralta as an outpatient regarding her Hepatitis C and treatment options Code(s): R41.82 - ALTERED MENTAL STATUS, UNSPECIFIED Qualifiers: Altered mental status type: unspecified Qualified Code(s): R41.82 - Altered mental status, unspecified
[2019-09-02 19:06] LABS: HEP B CORE AB, TOT Negative (Negative)
[2019-09-02] MEDS: PRAMIPEXOLE DIHYDROCHLORIDE 0.25 MG TABLET PO SCH (21:10)
[2019-09-02] MEDS: OXYBUTYNIN CHLORIDE 5 MG TABLET PO SCH (21:10)
[2019-09-02] MEDS: LATANOPROST 0.005% OPHTH SOLN 2.5ML BOTTLE OU SCH (22:15)
[2019-09-03] MEDS ORDERED: MEROPENEM 1 GM VIAL (RESTRICTED TO ID) IVPB ONE ×2 (01:31→09:13)
[2019-09-03] MEDS ORDERED: DEXTROSE 5%-WATER 100 ML IVPB ONE ×2 (01:32→09:13)
[2019-09-03] MEDS: MEROPENEM 1 GM in DEXTROSE 5%-WATER 100 ML IVPB SCH ×2 (01:38→09:31)
[2019-09-03] MEDS ORDERED: hydrOXYzine HCL 10 MG/5 ML LIQUID BULK BOTTLE PO ONE (05:51)
--- NOTE | 2019-09-03 05:57 | HOSP ---
Subjective - Review of Symptoms Events since last encounter: Hospitalist Encounter Notified by the primary RN, that the patient complained of itching to her RLE, scratching it causing skin tear, was asked to assess. Arrived to bedside, patient is awake, answers to name, and simple verbal commands with garbled speech- at baseline. Patient examined see EMR Plan Hydroxyzine 10ml PO now Vaseline, DSD with Alec daily Other Systems: Integumentary: Pruritus, Skin Tear RLE Physical Examination Vital Signs: Vital Signs Temperature 98.3 F 09/03/19 02:00 Pulse Rate 81 09/03/19 02:00 Respiratory Rate 18 09/03/19 02:00 Blood Pressure 145/77 09/03/19 02:00 O2 Sat by Pulse Oximetry (%) 94 L 09/02/19 22:00 Constitutional: Yes: No Distress, Calm, Obese Eyes: Yes: Conjunctiva Clear, PERRL HENT: Yes: Atraumatic, Normocephalic Neck: Yes: Supple, Trachea Midline Cardiovascular: Yes: Regular Rate and Rhythm, S1, S2 Respiratory: Yes: Diminished Gastrointestinal: Yes: Normal Bowel Sounds, Soft, Abdomen, Obese ...Rectal Exam: Yes: Deferred Renal/: Yes: Incontinence Breast(s): Yes: WNL Musculoskeletal: Yes: WNL Extremities: Yes: Amputation (L- AKA) Integumentary: Yes: Skin Tear, Venous Stasis Changes (RLE) Wound/Incision: Yes: Open to air Neurological: Yes: Alert Psychiatric: Yes: Alert Labs: CBC, BMP 09/02/19 06:53 09/02/19 06:53
[2019-09-03 06:37] LABS: BASO % 0.3 % (0-2.0); EOS % 8.3 % (0-4.5); HEMOGLOBIN 10.6 GM/dL (10.7-15.3); LYMPH % 27.6 % (8-40); MCH 22.8 pg (25.7-33.7); MCHC 31.1 g/dl (32.0-36.0); MEAN CELL VOLUME 73.2 fl (80-96); MEAN PLT VOLUME 10.9 fl (7.5-11.1); MONO % 13.1 % (3.8-10.2); NEUT % 50.7 % (42.8-82.8); PLATELET COUNT 143 K/MM3 (134-434); RBC 4.65 M/mm3 (3.60-5.2); RDW 17.3 % (11.6-15.6); WHITE BLOOD COUNT 8.9 K/mm3 (4.0-10.0)
[2019-09-03] MEDS: GABAPENTIN 300 MG CAPSULE PO SCH ×2 (06:38→13:44)
[2019-09-03] MEDS: NYSTATIN POWDER 100,000 UNITS/GM - 15 GM TOPICAL POWDER TP SCH ×2 (06:47→13:46)
[2019-09-03 07:16] LABS: BLOOD UREA NITROGEN 11.7 mg/dL (7-18); CREATININE 1.4 mg/dL (0.55-1.3); MAGNESIUM 2.1 mg/dL (1.8-2.4); POTASSIUM 4.1 mmol/L (3.5-5.1)
[2019-09-03] MEDS ORDERED: PT OWN MED DRAWER 7, Y5N ONE ×4 (09:14→15:42)
--- NOTE | 2019-09-03 09:22 | DS ---
Physical Examination Vital Signs: Vital Signs Temperature 98.3 F 09/03/19 06:00 Pulse Rate 71 09/03/19 06:00 Respiratory Rate 18 09/03/19 06:00 Blood Pressure 112/69 09/03/19 06:00 O2 Sat by Pulse Oximetry (%) 96 09/03/19 06:00 Cardiovascular: Yes: S1, S2 Respiratory: Yes: Regular, CTA Bilaterally Gastrointestinal: Yes: Normal Bowel Sounds, Soft Wound/Incision: Yes: Other (skin tear right leg) Labs: CBC, BMP 09/03/19 06:05 09/03/19 06:05 Discharge Summary Problems reviewed: Yes Reason For Visit: ACUTE KIDNEY INJURY AMS Current Active Problems Acute kidney injury (Acute) Altered mental status (Acute) Bipolar disorder (Acute) COPD (chronic obstructive pulmonary disease) (Acute) Diabetes mellitus (Acute) Glaucoma (Acute) Hepatitis C (Acute) Hx of AKA (above knee amputation) (Acute) Metabolic encephalopathy (Acute) Peripheral vascular disease (Acute) UTI (urinary tract infection) (Acute) Hospital Course: - Problems (1) Acute kidney injury Assessment/Plan: -Continue IVF LR at 75 cc/hr -Nephrology consult -Renal U/S not impressive -Cr improved -Monitor trend Problems reviewed: Yes Code(s): N17.9 - ACUTE KIDNEY FAILURE, UNSPECIFIED (2) Altered mental status-Metabolic encephalopathy Assessment/Plan: -CT head unremarkable -MRI without contrast still no cva -Neurology consult noted -UTI 0n abx -Ammonia level high--on lactulose Abnormal Lab Results 08/31/19 06:25 Ammonia 77.30 H -Thyroid, b12 and RPR normal -Tele monitor -Start low sodium diet Problems reviewed: Yes Code(s): R41.82 - ALTERED MENTAL STATUS, UNSPECIFIED Qualifiers: Altered mental status type: unspecified Qualified Code(s): R41.82 - Altered mental status, unspecified (3) Fatty Liver-Cirrhosis Problems reviewed: Yes -Monitor Labs -RX with Lactulose -Gi consult (4) UTI (urinary tract infection) Assessment/Plan: -ID consult -UC: GNB Non Lactose fermenting Microbiology 08/28/19 16:25 Blood - Peripheral Venous Blood Culture - Preliminary NO GROWTH OBTAINED AFTER 24 HOURS, INCUBATION TO CONTINUE FOR 4 DAYS. 08/28/19 16:20 Blood - Peripheral Venous Blood Culture - Preliminary NO GROWTH OBTAINED AFTER 24 HOURS, INCUBATION TO CONTINUE FOR 4 DAYS. 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 -on Orders 08/29/19 18:00 Meropenem [Merrem (Restricted To Id) -] 1 gm Dextrose 5%-Water [Dextrose 5% Water Minibag 100ML] 100 ml IVPB Q8H-IV Day 06/19 Problems reviewed: Yes Code(s): N39.0 - URINARY TRACT INFECTION, SITE NOT SPECIFIED (5) S/P AKA Problems reviewed: Yes -c/o pain -Pain management -Monitor on tyleno-tramadol and neurontin skin tear silvedene cream dc planning snf--adira Condition: Improved - Instructions Diet, Activity, Other Instructions: ammonia level cbc and cmp every week Referrals: Daryl Rome MD [Primary Care Provider] - Anthony Peralta MD [Staff Physician] - Disposition: HALF-WAY FACILITY - Home Medications Comprehensive Discharge Medication List: Ambulatory Orders Aripiprazole [Abilify -] 10 mg PO DAILY 02/21/14 Citalopram Hydrobromide [Citalopram HBr] 20 mg PO DAILY 02/21/14 Gabapentin [Neurontin] 300 mg PO TID 12/28/18 Latanoprost 0.005% Eye Drops [Xalatan 0.005% Eye Drops -] 1 drop OP HS 12/28/18 Topiramate [Topamax -] 25 mg PO DAILY 12/28/18 Albuterol 2.5/Ipratropium 0.5 [Duoneb -] 1 amp NEB RQID #1 amp 01/01/19 Acetaminophen 650 mg PO QID PRN 02/05/19 Nystatin Powder [Nystop Powder -] 15 gm TP TID 02/05/19 Heparin - 5,000 unit SQ BID vial 02/12/19 Insulin Sliding Scale [Novolog Vial Sliding Scale -] 1 vial SQ ACHS units 02/12/19 Pantoprazole Sodium [Protonix -] 40 mg PO DAILY tablet.ec 02/12/19 oxyCODONE HCL [Roxicodone -] 5 mg PO Q6H PRN #120 tablet MDD 4 02/12/19 Oxybutynin Chloride 5 mg PO HS 08/27/19 Ammonium Lactate Lotion [Lac-Hydrin 12] 1 applic TP BID bottle 09/03/19 Lactulose (Oral Use) [Cephulac -] 20 gm PO BID [facility] 09/03/19 Meropenem [Merrem (Restricted To Id) -] 1 gm IVPB Q8H-IV vial 09/03/19 Pramipexole Dihydrochloride [Mirapex -] 0.25 mg PO HS tablet 09/03/19 Silver Sulfadiazine 1% Top Cr [Silvadene -] 1 applic TP BID jar 09/03/19
[2019-09-03] MEDS: HEPARIN NA (PORCINE) 5,000 UNITS/ML 1ML VIAL SQ SCH (09:28)
[2019-09-03] MEDS: LACTULOSE 20 GM/30 ML UDC (FOR ORAL USE ONLY) PO SCH (09:29)
[2019-09-03] MEDS: TOPIRAMATE 25 MG TABLET PO SCH (09:31)
[2019-09-03] MEDS: PANTOPRAZOLE 40 MG TABLET PO SCH (09:31)
[2019-09-03] MEDS: CITALOPRAM HYDROBROMIDE 20 MG TABLET PO SCH (09:31)
[2019-09-03] MEDS: ARIPiprazole 5 MG TABLET PO SCH (09:31)
[2019-09-03] MEDS ORDERED: AMMONIUM LACTATE 12% LOTION 225 GM BOTTLE TP SCH (10:00)
[2019-09-03] MEDS ORDERED: SILVER SULFADIAZINE 1% TOP CREAM 50 GM JAR TP SCH (10:00)
[2019-09-03 14:13] VITALS: BP 123/73; PULSE 77; TEMP 98.6
--- NOTE | 2019-09-03 16:01 | PN ---
Progress Note, Physician Chief Complaint: Acute kidney injury History of Present Illness: Seen and examined at the bedside in the ER awake and alert offers no acute complaints. no sob, cp, fever, chills, N/V/D tolerating meals - Current Medication List Current Medications: Active Medications Aripiprazole (Abilify) 5 mg PO DAILY [facility] Last Admin: 09/03/19 09:31 Dose: 5 mg Documented by: Citalopram Hydrobromide (Celexa -) 20 mg PO DAILY [facility] Last Admin: 09/03/19 09:31 Dose: 20 mg Documented by: Gabapentin (Neurontin -) 300 mg PO TID [facility] Last Admin: 09/03/19 13:44 Dose: 300 mg Documented by: Heparin Sodium (Porcine) (Heparin -) 5,000 unit SQ BID [facility] Last Admin: 09/03/19 09:28 Dose: 5,000 unit Documented by: Meropenem 1 gm/ Dextrose 100 mls @ 200 mls/hr IVPB Q8H-IV [facility] Last Admin: 09/03/19 09:31 Dose: 200 mls/hr Documented by: Lactic Acid (Lac-Hydrin 12) 1 applic TP BID [facility] Last Admin: 09/03/19 13:52 Dose: Not Given Documented by: Lactulose (Cephulac (Oral Use)) 20 gm PO BID [facility] Last Admin: 09/03/19 09:29 Dose: 20 gm Documented by: Latanoprost (Xalatan 0.005% Eye Drops -) 1 drop OU HS [facility] Last Admin: 09/02/19 22:15 Dose: 1 drop Documented by: Metoprolol Tartrate (Lopressor Injection -) 5 mg IVPUSH Q4H PRN PRN Reason: HYPERTENSION Nystatin (Nystop Powder -) 1 applic TP TID [facility] Last Admin: 09/03/19 13:46 Dose: 1 applic Documented by: Oxybutynin Chloride (Ditropan -) 5 mg PO HS [facility] Last Admin: 09/02/19 21:10 Dose: 5 mg Documented by: Oxycodone HCl (Roxicodone -) 5 mg PO Q6H PRN PRN Reason: PAIN LEVEL 6-10 Last Admin: 09/02/19 23:33 Dose: 5 mg Documented by: Pantoprazole Sodium (Protonix -) 40 mg PO DAILY [facility] Last Admin: 09/03/19 09:31 Dose: 40 mg Documented by: Pramipexole Dihydrochloride (Mirapex -) 0.25 mg PO HS [facility] Last Admin: 09/02/19 21:10 Dose: 0.25 mg Documented by: Silver Sulfadiazine (Silvadene -) 1 applic TP BID [facility] Last Admin: 09/03/19 13:45 Dose: 1 applic Documented by: Topiramate (Topamax -) 25 mg PO DAILY [facility] Last Admin: 09/03/19 09:31 Dose: 25 mg Documented by: - Objective Vital Signs: Vital Signs Temperature 98.6 F 09/03/19 14:12 Pulse Rate 77 09/03/19 14:12 Respiratory Rate 16 09/03/19 14:12 Blood Pressure 123/73 09/03/19 14:12 O2 Sat by Pulse Oximetry (%) 96 09/03/19 10:00 Constitutional: Yes: No Distress Neck: Yes: Supple Cardiovascular: Yes: Regular Rate and Rhythm Respiratory: Yes: Regular Gastrointestinal: Yes: Soft Genitourinary: No: Bladder Distention Edema: No Labs: CBC, BMP 09/03/19 06:05 09/03/19 06:05 INR, PTT INR 1.08 (0.83-1.09) 08/27/19 12:30 Assessment/Plan 64 year old woman with history of CVA and COPD who [place] with left sided weakness and altered mental status and found to have Cr of 1.8. 1. Acute left sided weakness and AMS r/o CVA 2. Suspected UTI/cystitis 3. Acute kidney injury 4. Hx of CVA 5. Pyuria r/o UTI 6. Elevated ammonia levels Cr improved no overt electrolyte or acid/base disturbances oral fluid and solute intake as tolerated mental status is overall improved discharge planning as per primary team. Thank you Vasu Vang DO
[2019-09-04 03:08] LABS: FIBROSIS SCORE. 0.51 (0.00-0.21); HCV ALPHA 2 MACRO CHART 323 mg/dL (110-276); NECROINFLAM. ACTIVITY GRADE A1-A2 (.)
[2019-09-08 01:06] LABS: HCV RNA GENOTYPE 1a (.)
== END 2019-09-03 18:46 | DRG 682 ==
LOC: JER 11:40 → JERBED 15:44 → J4S 08-28 15:47
PROVIDERS: ADMIT Family Medicine; ATTEND Family Medicine
PROC: 02HV33Z Insertion of Infusion Device into Superior Vena Cava, Percutaneous Approach (ICD-10-PCS; principal; 2019-09-03)
PROC: B518ZZA Fluoroscopy of Superior Vena Cava, Guidance (ICD-10-PCS; 2019-09-03)
DX: N17.9 Acute kidney failure, unspecified (principal); G93.41 Metabolic encephalopathy; N39.0 Urinary tract infection, site not specified; I69.354 Hemiplegia and hemiparesis following cerebral infarction affecting left non-dominant side; J44.9 Chronic obstructive pulmonary disease, unspecified; I10 Essential (primary) hypertension; E78.5 Hyperlipidemia, unspecified; J45.909 Unspecified asthma, uncomplicated; F41.8 Other specified anxiety disorders; F20.9 Schizophrenia, unspecified; E66.9 Obesity, unspecified; E11.42 Type 2 diabetes mellitus with diabetic polyneuropathy; Z68.36 Body mass index [BMI] 36.0-36.9, adult; G20 Parkinson's disease; M54.5 Low back pain; E11.51 Type 2 diabetes mellitus with diabetic peripheral angiopathy without gangrene; H40.9 Unspecified glaucoma; G54.6 Phantom limb syndrome with pain; K76.0 Fatty (change of) liver, not elsewhere classified; B96.20 Unspecified Escherichia coli [E. coli] as the cause of diseases classified elsewhere; Z89.612 Acquired absence of left leg above knee; Z86.718 Personal history of other venous thrombosis and embolism; Z96.652 Presence of left artificial knee joint
CPT/HCPCS: 36415; 36558; 70450-TC; 70551-TC; 71045-TC-FY; 76705-TC; 76775-TC; 77001-TC-FY; 80048; 80053; 80061; 80307; 81003; 82105; 82140; 82172; 82550; 82565; 82607; 82728; 82962; 82977; 83010; 83540; 83550; 83605; 83721; 83735; 83883; 84100; 84156; 84300; 84439; 84443; 84460; 84484; 85025; 85610; 85730; 86038; 86704; 86706; 86707; 86708; 86709; 86780; 86850; 86900; 86901; 87040; 87086; 87186; 87205; 87340; 87522; 87902; 93005; 93010; 93970-TC; 99291; C1751; J0131; J1644; U0003

== ENCOUNTER → 2019-10-03 | Day surgery (SDC) | payer OTHER | END | disposition home or self-care (01) | LOC: JRADIR 10:50 | PROVIDERS: ATTEND Nurse Practitioner Family | PROC: 02PY03Z Removal of Infusion Device from Great Vessel, Open Approach (ICD-10-PCS; principal; 2019-10-03) | DX: Z45.2 Encounter for adjustment and management of vascular access device (principal) | CPT/HCPCS: 36589 ==

== ENCOUNTER 2020-09-10 02:48 | Inpatient (IN) | payer OTHER ==
[2020-09-10 04:16] LABS: HEMATOCRIT 32.3 % (32.4-45.2); HEMOGLOBIN 9.8 GM/dL (10.7-15.3); MCH 20.5 pg (25.7-33.7); MCHC 30.5 g/dl (32.0-36.0); MEAN CELL VOLUME 67.4 fl (80-96); MEAN PLT VOLUME 9.2 fl (7.5-11.1); PLATELET COUNT 227 10^3/uL (134-434); RBC 4.79 M/mm3 (3.60-5.2); RDW 21.9 % (11.6-15.6); WHITE BLOOD COUNT 9.5 K/mm3 (4.0-10.0)
[2020-09-10 04:27] LABS: CHLORIDE 105 mmol/L (98-107); SODIUM 143 mmol/L (136-145)
[2020-09-10 04:29] LABS: CALCIUM 8.7 mg/dL (8.5-10.1)
[2020-09-10 04:30] LABS: ALBUMIN 2.8 g/dl (3.4-5.0); ANION GAP 6 MMOL/L (8-16); BLOOD UREA NITROGEN 16.3 mg/dL (7-18); CO2 31 mmol/L (21-32); GLUCOSE,RANDOM 88 mg/dL (74-106)
[2020-09-10 04:33] LABS: CREATININE 1.4 mg/dL (0.55-1.3); SGOT/AST 40 U/L (15-37); SGPT/ALT 28 U/L (13-61)
[2020-09-10 04:35] LABS: BILIRUBIN,TOTAL 0.5 mg/dL (0.2-1); TOT PROT 8.1 g/dl (6.4-8.2)
[2020-09-10 04:36] LABS: ALK PHOS 133 U/L (45-117)
[2020-09-10 05:56] LABS: EPI CELLS 10 /uL (0-25.1); HYALINE CASTS 1 /uL (0-3.1); URINE APPEARANCE CLOUDY; URINE BACTERIA >9,000 /uL (0-1359); URINE BILIRUBIN NEGATIVE (NEGATIVE); URINE COLOR YELLOW; URINE GLUCOSE (UA) NEGATIVE (NEGATIVE); URINE KETONE NEGATIVE (NEGATIVE); URINE LEUK ESTERASE 3+ (NEGATIVE); URINE NITRITE POSITIVE (NEGATIVE); URINE PROTEIN 1+ (NEGATIVE); URINE RBC 50 /uL (0-23.9); URINE WBC 1940 /uL (0-25.8)
[2020-09-10] MEDS ORDERED: CEFTRIAXONE 1,000 MG in DEXTROSE 5%-WATER - 50 ML IVPB ONE ×2 (06:26→07:30)
[2020-09-10] MEDS ORDERED: LACTULOSE 20 GM/30 ML UDC (FOR RECTAL USE ONLY) PR ONE (07:10)
[2020-09-10] MEDS ORDERED: LACTULOSE 20 GM/30 ML UDC (FOR ORAL USE ONLY) PO PRN (07:10)
[2020-09-10] MEDS ORDERED: ALBUTEROL SO4 2.5/IPRATROPIUM 0.5 INH SOL 3 ML VIAL.NEB. NEB ONE (07:29)
[2020-09-10] MEDS ORDERED: CEFTRIAXONE 1 GM/50 ML BAG ONE (07:29)
[2020-09-10] MEDS: ALBUTEROL SO4 2.5/IPRATROPIUM 0.5 INH SOL 3 ML VIAL.NEB. NEB SCH ×4 (07:59→19:38)
[2020-09-10] MEDS: CITALOPRAM HYDROBROMIDE 20 MG TABLET PO SCH (12:42)
[2020-09-10] MEDS: PANTOPRAZOLE 40 MG TABLET PO SCH (12:43)
[2020-09-10] MEDS: TOPIRAMATE 25 MG TABLET PO SCH (12:43)
[2020-09-10] MEDS: ARIPiprazole 10 MG TABLET PO SCH (12:44)
[2020-09-10] MEDS: AMMONIUM LACTATE 12% LOTION 225 GM BOTTLE TP SCH ×3 (12:44→22:35)
[2020-09-10] MEDS: HEPARIN NA (PORCINE) 5,000 UNITS/ML 1ML VIAL SQ SCH ×2 (12:44→21:23)
[2020-09-10] MEDS: GABAPENTIN 300 MG CAPSULE PO SCH ×2 (13:37→21:23)
[2020-09-10] MEDS: LIDOCAINE 5% TOPICAL PATCH TP SCH (13:37)
[2020-09-10] MEDS: ACETAMINOPHEN 1000 MG/100 ML VIAL (NON FORMULARY) IVPB PRN ×2 (14:51→23:56)
[2020-09-10] MEDS: NYSTATIN POWDER 100,000 UNITS/GM - 15 GM TOPICAL POWDER TP SCH ×2 (17:50→21:24)
[2020-09-10] MEDS: KETOROLAC TROMETHAMINE 15 MG/ML VIAL IM PRN (20:08)
[2020-09-10] MEDS: LACTULOSE 20 GM/30 ML UDC (FOR ORAL USE ONLY) PO SCH (21:23)
[2020-09-10] MEDS: LIDOCAINE PATCH REMOVAL MC SCH (21:24)
[2020-09-10] MEDS: PRAMIPEXOLE DIHYDROCHLORIDE 0.25 MG TABLET PO SCH (22:08)
[2020-09-11] MEDS: KETOROLAC TROMETHAMINE 15 MG/ML VIAL IM PRN ×2 (06:31→17:51)
[2020-09-11] MEDS: NYSTATIN POWDER 100,000 UNITS/GM - 15 GM TOPICAL POWDER TP SCH ×3 (07:15→21:38)
[2020-09-11] MEDS: GABAPENTIN 300 MG CAPSULE PO SCH ×3 (07:15→21:37)
[2020-09-11] MEDS: LACTULOSE 20 GM/30 ML UDC (FOR ORAL USE ONLY) PO SCH ×3 (07:15→21:37)
[2020-09-11] MEDS: ALBUTEROL SO4 2.5/IPRATROPIUM 0.5 INH SOL 3 ML VIAL.NEB. NEB SCH ×4 (07:40→20:00)
[2020-09-11 08:34] LABS: INR 1.1 (0.83-1.09); PROTHROMBIN TIME (PATIENT) 13.5 SEC (9.7-13.0)
[2020-09-11 08:35] LABS: MCH 20.8 pg (25.7-33.7); MEAN CELL VOLUME 67.2 fl (80-96); MEAN PLT VOLUME 9.1 fl (7.5-11.1); PLATELET COUNT 208 10^3/uL (134-434); RBC 4.31 M/mm3 (3.60-5.2); WHITE BLOOD COUNT 8.8 K/mm3 (4.0-10.0)
[2020-09-11 08:38] LABS: BLOOD UREA NITROGEN 17.6 mg/dL (7-18)
[2020-09-11 08:39] LABS: ALBUMIN 2.5 g/dl (3.4-5.0); BLOOD UREA NITROGEN 17.1 mg/dL (7-18)
[2020-09-11 08:41] LABS: CREATININE 1.7 mg/dL (0.55-1.3)
[2020-09-11 08:42] LABS: BILIRUBIN,TOTAL 0.5 mg/dL (0.2-1); CALCIUM 8.7 mg/dL (8.5-10.1); CREATININE 1.7 mg/dL (0.55-1.3); TOT PROT 7.2 g/dl (6.4-8.2)
[2020-09-11] MEDS ORDERED: cefTRIAXone SODIUM 1 GM VIAL ONE (10:05)
[2020-09-11] MEDS ORDERED: ARIPiprazole 5 MG TABLET ONE (10:05)
[2020-09-11] MEDS ORDERED: DEXTROSE 5%-WATER - 50 ML IVPB ONE (10:06)
[2020-09-11] MEDS: PANTOPRAZOLE 40 MG TABLET PO SCH (10:10)
[2020-09-11] MEDS: TOPIRAMATE 25 MG TABLET PO SCH (10:11)
[2020-09-11] MEDS: CITALOPRAM HYDROBROMIDE 20 MG TABLET PO SCH (10:12)
[2020-09-11] MEDS: ARIPiprazole 10 MG TABLET PO SCH (10:13)
[2020-09-11] MEDS: CEFTRIAXONE 1 GM in DEXTROSE 5%-WATER - 50 ML IVPB SCH (10:14)
[2020-09-11] MEDS: HEPARIN NA (PORCINE) 5,000 UNITS/ML 1ML VIAL SQ SCH ×2 (10:15→21:37)
[2020-09-11] MEDS: AMMONIUM LACTATE 12% LOTION 225 GM BOTTLE TP SCH ×2 (10:18→21:38)
[2020-09-11] MEDS: LIDOCAINE 5% TOPICAL PATCH TP SCH (10:19)
[2020-09-11] MEDS ORDERED: PT OWN MED DRAWER 7, Y5N ONE (20:50)
[2020-09-11] MEDS: PRAMIPEXOLE DIHYDROCHLORIDE 0.25 MG TABLET PO SCH (21:37)
[2020-09-11] MEDS: RIFAXIMIN 550 MG TABLET (UD) PO SCH (21:37)
[2020-09-11] MEDS: LIDOCAINE PATCH REMOVAL MC SCH (21:38)
[2020-09-12] MEDS: KETOROLAC TROMETHAMINE 15 MG/ML VIAL IM PRN ×4 (01:24→19:55)
[2020-09-12] MEDS: GABAPENTIN 300 MG CAPSULE PO SCH ×3 (06:54→21:17)
[2020-09-12] MEDS: NYSTATIN POWDER 100,000 UNITS/GM - 15 GM TOPICAL POWDER TP SCH ×3 (06:54→21:18)
[2020-09-12] MEDS: ALBUTEROL SO4 2.5/IPRATROPIUM 0.5 INH SOL 3 ML VIAL.NEB. NEB SCH ×4 (09:11→20:37)
[2020-09-12] MEDS ORDERED: ARIPiprazole 5 MG TABLET ONE (10:33)
[2020-09-12] MEDS ORDERED: DEXTROSE 5%-WATER - 50 ML IVPB ONE (10:33)
[2020-09-12] MEDS ORDERED: PT OWN MED DRAWER 7, Y5N ONE (10:33)
[2020-09-12] MEDS ORDERED: cefTRIAXone SODIUM 1 GM VIAL ONE (10:33)
[2020-09-12] MEDS: RIFAXIMIN 550 MG TABLET (UD) PO SCH ×2 (10:43→21:17)
[2020-09-12] MEDS: TOPIRAMATE 25 MG TABLET PO SCH (10:43)
[2020-09-12] MEDS: CITALOPRAM HYDROBROMIDE 20 MG TABLET PO SCH (10:43)
[2020-09-12] MEDS: ARIPiprazole 10 MG TABLET PO SCH (10:43)
[2020-09-12] MEDS: LIDOCAINE 5% TOPICAL PATCH TP SCH (10:43)
[2020-09-12] MEDS: PANTOPRAZOLE 40 MG TABLET PO SCH (10:43)
[2020-09-12] MEDS: CEFTRIAXONE 1 GM in DEXTROSE 5%-WATER - 50 ML IVPB SCH (10:43)
[2020-09-12] MEDS: HEPARIN NA (PORCINE) 5,000 UNITS/ML 1ML VIAL SQ SCH ×2 (10:44→21:17)
[2020-09-12] MEDS: LACTULOSE 20 GM/30 ML UDC (FOR ORAL USE ONLY) PO SCH ×2 (10:44→21:17)
[2020-09-12] MEDS: AMMONIUM LACTATE 12% LOTION 225 GM BOTTLE TP SCH ×2 (10:47→21:18)
[2020-09-12] MEDS: PRAMIPEXOLE DIHYDROCHLORIDE 0.25 MG TABLET PO SCH (21:17)
[2020-09-12] MEDS: LIDOCAINE PATCH REMOVAL MC SCH (21:18)
[2020-09-13] MEDS: KETOROLAC TROMETHAMINE 15 MG/ML VIAL IM PRN ×4 (02:27→21:54)
[2020-09-13] MEDS: NYSTATIN POWDER 100,000 UNITS/GM - 15 GM TOPICAL POWDER TP SCH ×3 (06:01→21:54)
[2020-09-13] MEDS: GABAPENTIN 300 MG CAPSULE PO SCH ×3 (06:01→21:53)
[2020-09-13 08:40] LABS: HEMATOCRIT 29.3 % (32.4-45.2); HEMOGLOBIN 8.9 GM/dL (10.7-15.3); MCH 20.8 pg (25.7-33.7); MCHC 30.5 g/dl (32.0-36.0); MEAN CELL VOLUME 68.3 fl (80-96); MEAN PLT VOLUME 9.6 fl (7.5-11.1); PLATELET COUNT 210 10^3/uL (134-434); RBC 4.29 M/mm3 (3.60-5.2); RDW 22.1 % (11.6-15.6); WHITE BLOOD COUNT 8.9 K/mm3 (4.0-10.0)
[2020-09-13] MEDS ORDERED: cefTRIAXone SODIUM 1 GM VIAL ONE (08:45)
[2020-09-13] MEDS ORDERED: ARIPiprazole 5 MG TABLET ONE (08:45)
[2020-09-13] MEDS ORDERED: DEXTROSE 5%-WATER - 50 ML IVPB ONE (08:45)
[2020-09-13] MEDS: ALBUTEROL SO4 2.5/IPRATROPIUM 0.5 INH SOL 3 ML VIAL.NEB. NEB SCH ×4 (09:00→20:08)
[2020-09-13] MEDS: LIDOCAINE 5% TOPICAL PATCH TP SCH (09:03)
[2020-09-13] MEDS: TOPIRAMATE 25 MG TABLET PO SCH (09:04)
[2020-09-13] MEDS: RIFAXIMIN 550 MG TABLET (UD) PO SCH ×2 (09:04→21:54)
[2020-09-13] MEDS: PANTOPRAZOLE 40 MG TABLET PO SCH (09:04)
[2020-09-13] MEDS: LACTULOSE 20 GM/30 ML UDC (FOR ORAL USE ONLY) PO SCH ×2 (09:04→21:53)
[2020-09-13] MEDS: ARIPiprazole 10 MG TABLET PO SCH (09:04)
[2020-09-13] MEDS: CITALOPRAM HYDROBROMIDE 20 MG TABLET PO SCH (09:04)
[2020-09-13] MEDS: HEPARIN NA (PORCINE) 5,000 UNITS/ML 1ML VIAL SQ SCH ×2 (09:04→21:53)
[2020-09-13] MEDS: CEFTRIAXONE 1 GM in DEXTROSE 5%-WATER - 50 ML IVPB SCH (09:05)
[2020-09-13] MEDS: AMMONIUM LACTATE 12% LOTION 225 GM BOTTLE TP SCH ×2 (09:05→21:53)
[2020-09-13 09:08] LABS: BLOOD UREA NITROGEN 14.6 mg/dL (7-18)
[2020-09-13 09:11] LABS: CREATININE 1.4 mg/dL (0.55-1.3)
[2020-09-13 13:08] VITALS: BMI 39.9
[2020-09-13] MEDS: LIDOCAINE PATCH REMOVAL MC SCH (21:53)
[2020-09-13] MEDS: PRAMIPEXOLE DIHYDROCHLORIDE 0.25 MG TABLET PO SCH (21:53)
[2020-09-14] MEDS: KETOROLAC TROMETHAMINE 15 MG/ML VIAL IM PRN ×3 (04:25→21:08)
[2020-09-14] MEDS: GABAPENTIN 300 MG CAPSULE PO SCH ×3 (05:20→21:08)
[2020-09-14] MEDS: NYSTATIN POWDER 100,000 UNITS/GM - 15 GM TOPICAL POWDER TP SCH ×3 (05:21→21:08)
[2020-09-14] MEDS: ALBUTEROL SO4 2.5/IPRATROPIUM 0.5 INH SOL 3 ML VIAL.NEB. NEB SCH ×4 (07:16→20:02)
[2020-09-14] MEDS ORDERED: ARIPiprazole 5 MG TABLET ONE (09:03)
[2020-09-14] MEDS ORDERED: DEXTROSE 5%-WATER - 50 ML IVPB ONE (09:04)
[2020-09-14] MEDS ORDERED: cefTRIAXone SODIUM 1 GM VIAL ONE (09:04)
[2020-09-14] MEDS: PANTOPRAZOLE 40 MG TABLET PO SCH (09:08)
[2020-09-14] MEDS: ARIPiprazole 10 MG TABLET PO SCH (09:10)
[2020-09-14] MEDS: RIFAXIMIN 550 MG TABLET (UD) PO SCH ×2 (09:11→21:06)
[2020-09-14] MEDS: CITALOPRAM HYDROBROMIDE 20 MG TABLET PO SCH (09:12)
[2020-09-14] MEDS: HEPARIN NA (PORCINE) 5,000 UNITS/ML 1ML VIAL SQ SCH ×2 (09:13→21:05)
[2020-09-14] MEDS: TOPIRAMATE 25 MG TABLET PO SCH (09:13)
[2020-09-14] MEDS: AMMONIUM LACTATE 12% LOTION 225 GM BOTTLE TP SCH ×2 (09:14→21:10)
[2020-09-14] MEDS: CEFTRIAXONE 1 GM in DEXTROSE 5%-WATER - 50 ML IVPB SCH (09:38)
[2020-09-14] MEDS ORDERED: LACTULOSE 20 GM/30 ML UDC (FOR ORAL USE ONLY) PO SCH (10:00)
[2020-09-14] MEDS: BANATROL PLUS POWDER PACKET PO SCH ×2 (13:50→21:08)
[2020-09-14] MEDS: LIDOCAINE 5% TOPICAL PATCH TP SCH (13:51)
[2020-09-14] MEDS: PRAMIPEXOLE DIHYDROCHLORIDE 0.25 MG TABLET PO SCH (21:08)
[2020-09-14] MEDS: LIDOCAINE PATCH REMOVAL MC SCH (21:10)
[2020-09-14 22:45] VITALS: BP 154/84; PULSE 87; TEMP 98.8
== END 2020-09-15 01:00 | DRG 689 ==
LOC: JER 02:48 → JERBED 07:13 → J6S 11:25 → J8W 14:09
PROVIDERS: ADMIT Family Medicine; ATTEND Family Medicine
DX: N39.0 Urinary tract infection, site not specified (principal); G93.41 Metabolic encephalopathy; Z68.41 Body mass index [BMI] 40.0-44.9, adult; R41.82 Altered mental status, unspecified; B96.89 Other specified bacterial agents as the cause of diseases classified elsewhere; F03.90 Unspecified dementia, unspecified severity, without behavioral disturbance, psychotic disturbance, mood disturbance, and anxiety; F20.9 Schizophrenia, unspecified; E78.00 Pure hypercholesterolemia, unspecified; J44.9 Chronic obstructive pulmonary disease, unspecified; E11.51 Type 2 diabetes mellitus with diabetic peripheral angiopathy without gangrene; E66.9 Obesity, unspecified; K74.60 Unspecified cirrhosis of liver; D64.9 Anemia, unspecified; F41.8 Other specified anxiety disorders; R26.81 Unsteadiness on feet; B19.20 Unspecified viral hepatitis C without hepatic coma; M54.5 Low back pain; R19.7 Diarrhea, unspecified; Z86.718 Personal history of other venous thrombosis and embolism; Z89.619 Acquired absence of unspecified leg above knee
CPT/HCPCS: 36415; 70450-TC; 71045-TC-FY; 74176-TC; 76700-TC; 80048; 80053; 81003; 82140; 82550; 82553; 82962; 82977; 83605; 84484; 85027; 85610; 87040; 87081; 87086; 87186; 87324; 87449; 93005; 93010; 94640; 99285-25; C9803; J0131; J1644; U0003; U0005

== ENCOUNTER 2021-05-14 23:32 | Inpatient (IN) | payer OTHER ==
[2021-05-15] MEDS ORDERED: ALBUTEROL SO4 2.5/IPRATROPIUM 0.5 INH SOL 3 ML VIAL.NEB. NEB ONE ×2 (00:33→03:51)
[2021-05-15] MEDS ORDERED: methylPREDNISolone NA SUCC 125 MG/2 ML VIAL IVPB ONE (00:34)
[2021-05-15 00:35] LABS: HEMATOCRIT 30.2 % (32.4-45.2); HEMOGLOBIN 9.2 GM/dL (10.7-15.3); MCH 22.6 pg (25.7-33.7); MCHC 30.6 g/dl (32.0-36.0); MEAN PLT VOLUME 9.2 fl (7.5-11.1); PLATELET COUNT 171 10^3/uL (134-434); RBC 4.07 M/mm3 (3.60-5.2); RDW 19.4 % (11.6-15.6); WHITE BLOOD COUNT 10.7 K/mm3 (4.0-10.0)
[2021-05-15 00:37] LABS: VENOUS BASE EXCESS 4.2 mmol/L (-2-2); VENOUS O2 SATURATION 93.3 % (70-80)
[2021-05-15 00:40] LABS: VENOUS PCO2 103.9 mmHg (38-52); VENOUS PH 7.157 (7.310-7.410)
[2021-05-15 00:44] LABS: INR 1.05 (0.83-1.09); PROTHROMBIN TIME (PATIENT) 12.1 SEC (9.7-13.0)
[2021-05-15 00:47] LABS: ACTIVATED PTT 34.8 SECONDS (25.2-36.5)
[2021-05-15 00:56] LABS: CHLORIDE 100 mmol/L (98-107); SODIUM 138 mmol/L (136-145)
[2021-05-15 00:58] LABS: CALCIUM 7.8 mg/dL (8.5-10.1)
[2021-05-15 00:59] LABS: ALBUMIN 2.3 g/dl (3.4-5.0); BLOOD UREA NITROGEN 15.2 mg/dL (7-18); CO2 37 mmol/L (21-32); GLUCOSE,RANDOM 304 mg/dL (74-106)
[2021-05-15 01:02] LABS: CREATININE 1.4 mg/dL (0.55-1.3); SGOT/AST 59 U/L (15-37); SGPT/ALT 37 U/L (13-61)
[2021-05-15 01:03] LABS: BILIRUBIN,TOTAL 0.3 mg/dL (0.2-1)
[2021-05-15 01:04] LABS: TOT PROT 7.2 g/dl (6.4-8.2)
[2021-05-15 01:05] LABS: ALK PHOS 152 U/L (45-117)
[2021-05-15 01:13] LABS: ANION GAP 1 MMOL/L (8-16)
[2021-05-15] MEDS ORDERED: AZITHROMYCIN IVPB 500 MG in DEXTROSE 5%-WATER - 250 ML IVPB ONE (02:10)
[2021-05-15] MEDS ORDERED: CEFEPIME HCL/D5W 2 GM/50 ML BAG IVPB ONE (02:14)
[2021-05-15] MEDS ORDERED: PIPERACILLIN/TAZOB 4.5 GM 4.5 GM in DEXTROSE 5%-WATER 100 ML IVPB ONE (02:29)
[2021-05-15] MEDS ORDERED: VANCOMYCIN 1 GM in D5W (PRE-DOCKED) 1,000 MG/250 ML IVPB ONE (02:29)
[2021-05-15 03:12] LABS: ARTERIAL BLD GAS O2 SATURATION 93.6 % (95-98)
[2021-05-15 03:14] LABS: ALLENS TEST POSITIVE; VENT MODE PSV; VENT RATE 14
[2021-05-15 03:16] LABS: ARTERIAL BLOOD GAS pH 7.141 (7.350-7.450)
[2021-05-15] MEDS ORDERED: VANCOMYCIN 1 GRAM (PRE-DOCKED) 1,000 MG/250 ML BAG IVPB ONE (03:16)
[2021-05-15] MEDS ORDERED: PIPERACILLIN/TAZOB 4.5 GM 4.5 GM/100 ML BAG IVPB ONE (03:18)
[2021-05-15 03:52] LABS: ANISOCYTOSIS 3+; MACROCYTOSIS 0; TEAR DROP CELLS 1+
[2021-05-15] MEDS ORDERED: ALBUTEROL SO4 0.083% IH SOL 2.5 MG/3 ML VIAL.NEB. NEB PRN (03:52)
[2021-05-15] MEDS ORDERED: SODIUM CHLORIDE 1,000 ML IV SCH (04:15)
[2021-05-15] MEDS ORDERED: oxyCODONE HCL 5 MG TABLET PO PRN (04:29)
[2021-05-15] MEDS ORDERED: SODIUM CHLORIDE 0.9% 500 ML INFUS.BAG IV ONE (04:29)
[2021-05-15 05:33] LABS: ARTERIAL BLD GAS O2 SATURATION 91.3 % (95-98); ARTERIAL BLOOD GAS BASE EXCESS 5.2 mmol/L (-2-2); ARTERIAL BLOOD GAS PO2 80.1 mmHg (80-100)
[2021-05-15 05:41] LABS: ARTERIAL BLOOD GAS pH 7.161 (7.350-7.450)
[2021-05-15 05:53] LABS: CALCIUM 7.9 mg/dL (8.5-10.1)
[2021-05-15 05:54] LABS: ALBUMIN 2.4 g/dl (3.4-5.0); BLOOD UREA NITROGEN 18.6 mg/dL (7-18); MAGNESIUM 2.2 mg/dL (1.8-2.4)
[2021-05-15 05:57] LABS: CREATININE 1.7 mg/dL (0.55-1.3); PHOSPHOROUS 4.2 mg/dL (2.5-4.9)
[2021-05-15 05:59] LABS: BILIRUBIN,TOTAL 0.3 mg/dL (0.2-1); TOT PROT 6.6 g/dl (6.4-8.2)
[2021-05-15 06:03] LABS: LACTIC ACID 2.3 mmol/L (0.4-2.0)
[2021-05-15] MEDS: INSULIN SLIDING SCALE (NOVOLOG) 1 VIAL SQ SCH ×4 (06:58→22:41)
[2021-05-15] MEDS ORDERED: INSULIN REGULAR HUMAN 100 UNITS/ML *VIAL IVPUSH STA (07:33)
[2021-05-15] MEDS ORDERED: DEXTROSE 50%-WATER 25 GM/50 ML DISP.SYRIN IVPUSH STA (07:34)
[2021-05-15] MEDS ORDERED: SODIUM BICARBONATE 8.4% 50 MEQ/50 ML DISP.SYRIN IVPUSH STA (07:35)
[2021-05-15] MEDS ORDERED: CALCIUM GLUCONATE IN NACL 1 GM/50 ML BAG IVPB STA (07:40)
[2021-05-15] MEDS: GABAPENTIN 300 MG CAPSULE PO SCH ×3 (07:50→22:41)
[2021-05-15] MEDS: NYSTATIN POWDER 100,000 UNITS/GM - 15 GM TOPICAL POWDER TP SCH ×3 (07:50→22:42)
[2021-05-15] MEDS: LACTATED RINGERS SOLUTION 1,000 ML/1,000 ML INFUS.BAG IV SCH ×2 (07:51→10:42)
[2021-05-15] MEDS: ALBUTEROL SO4 2.5/IPRATROPIUM 0.5 INH SOL 3 ML VIAL.NEB. NEB SCH ×4 (08:05→20:12)
[2021-05-15] MEDS ORDERED: DEXTROSE 50%-WATER 25 GM/50 ML DISP.SYRIN ONE (08:06)
[2021-05-15] MEDS ORDERED: LORazepam 2 MG/ML SDV VIAL IVPUSH STA ×2 (08:12→09:51)
[2021-05-15] MEDS ORDERED: PIPERACILLIN/TAZOB 4.5 GM 4.5 GM in DEXTROSE 5%-WATER 100 ML IVPB SCH (09:00)
[2021-05-15] MEDS ORDERED: LACTATED RINGERS SOLUTION 1,000 ML/1,000 ML INFUS.BAG IV STA (09:49)
[2021-05-15] MEDS ORDERED: PIPERACILLIN/TAZOBACTAM 4.5 GM VIAL IVPB ONE (09:54)
[2021-05-15] MEDS ORDERED: DEXTROSE 5%-WATER 100 ML IVPB ONE (09:54)
[2021-05-15] MEDS ORDERED: PANTOPRAZOLE 40 MG TABLET PO SCH (10:00)
[2021-05-15] MEDS ORDERED: methylPREDNISolone NA SUCC 125 MG/2 ML VIAL IVPUSH ONE (10:00)
[2021-05-15] MEDS ORDERED: levETIRAcetam 250 MG TABLET PO SCH (10:00)
[2021-05-15] MEDS: AMMONIUM LACTATE 12% LOTION 225 GM BOTTLE TP SCH ×2 (10:04→22:41)
[2021-05-15] MEDS: HEPARIN NA (PORCINE) 5,000 UNITS/ML 1ML VIAL SQ SCH ×2 (10:04→22:41)
[2021-05-15] MEDS: MUPIROCIN 2% TOPICAL OINTMENT FOR DECOLONIZATION NS SCH ×2 (10:04→22:41)
[2021-05-15] MEDS: levETIRAcetam 500 MG/5 ML INJECTION VIAL IVPB SCH ×2 (10:41→22:41)
[2021-05-15] MEDS ORDERED: KETAMINE HCL 200 MG/20 ML VIAL IVPUSH STA (11:10)
[2021-05-15] MEDS ORDERED: ROCURONIUM BROMIDE 50 MG/5 ML VIAL IV STA (11:11)
[2021-05-15] MEDS ORDERED: MIDAZOLAM HCL 2 MG/2 ML SINGLE DOSE VIAL ONE (11:14)
[2021-05-15] MEDS: PROPOFOL 1,000,000 MCG/100 ML VIAL IVPB SCH (11:45)
[2021-05-15] MEDS ORDERED: PROPOFOL 1,000,000 MCG/100 ML VIAL ONE ×2 (11:55→21:58)
[2021-05-15] MEDS: FENTANYL NS IVPB 500 MCG/100 ML BAG IVPB SCH ×2 (12:27→22:30)
[2021-05-15] MEDS ORDERED: fentaNYL CITRATE 250 MCG/5 ML VIAL ONE (12:29)
[2021-05-15] MEDS ORDERED: MIDAZOLAM HCL 2 MG/2 ML SINGLE DOSE VIAL IVPUSH STA (12:41)
[2021-05-15] MEDS: MIDAZOLAM IN 0.9 % SOD.CHLORID 100 MG/100 ML PLAST..BAG IVPB SCH (12:43)
[2021-05-15] MEDS ORDERED: MIDAZOLAM IN 0.9 % SOD.CHLORID 1 MG/1 ML PLAST..BAG ONE (12:43)
[2021-05-15] MEDS ORDERED: MIDAZOLAM 100 MG in SODIUM CHLORIDE 100 ML IVPB SCH (12:45)
[2021-05-15] MEDS: LACTULOSE 20 GM/30 ML UDC (FOR ORAL USE ONLY) PO SCH ×4 (13:15→22:41)
[2021-05-15] MEDS: RIFAXIMIN 550 MG TABLET PO SCH ×2 (13:18→22:42)
[2021-05-15] MEDS: CITALOPRAM HYDROBROMIDE 20 MG TABLET PO SCH (13:18)
[2021-05-15] MEDS: ARIPiprazole 5 MG TABLET PO SCH (13:43)
[2021-05-15 15:33] LABS: ARTERIAL BLD GAS O2 SATURATION 98.2 % (95-98); ARTERIAL BLOOD GAS pH 7.474 (7.350-7.450)
[2021-05-15 15:36] LABS: ALLENS TEST POSITIVE
[2021-05-15 15:37] LABS: VENT MODE A/C; VENT RATE 22
[2021-05-15] MEDS ORDERED: PIPERACILLIN/TAZOBACTAM 3.375 GM VIAL IVPB ONE (16:25)
[2021-05-15] MEDS ORDERED: DEXTROSE 5%-WATER - 50 ML IVPB ONE (16:25)
[2021-05-15] MEDS: PIPERACILLIN/TAZOB 3.375 GM 3.375 GM in DEXTROSE 5%-WATER - 50 ML IVPB SCH (17:03)
[2021-05-15] MEDS ORDERED: SODIUM ZIRCONIUM CYCLOSILICATE (LOKELMA) 5 GM PACKET NGT ONE (21:15)
[2021-05-15] MEDS ORDERED: PRAMIPEXOLE DIHYDROCHLORIDE 0.25 MG TABLET PO SCH (22:00)
[2021-05-15] MEDS ORDERED: MELATONIN 5 MG, MELATONIN 1 MG PO SCH (22:00)
[2021-05-15] MEDS ORDERED: CHLORHEXIDINE GLUCONATE 4% CLEANSER FOR DECOLONIZATION TP SCH (22:00)
[2021-05-15] MEDS ORDERED: OXYBUTYNIN CHLORIDE 5 MG TABLET PO SCH (22:00)
[2021-05-15] MEDS ORDERED: MELATONIN 1 MG TABLET PO SCH (22:00)
[2021-05-15] MEDS: NOREPINEPHRINE BITARTRATE 16,000 MCG in SODIUM CHLORIDE 484 ML IV SCH (22:40)
[2021-05-15] MEDS: SENNOSIDES 8.6MG TABLET (FP) PO SCH (22:41)
[2021-05-15] MEDS: traZODone HCL 50 MG TABLET (FP) PO SCH (22:41)
[2021-05-15] MEDS: MIRTAZAPINE 15 MG TABLET (FP) PO SCH (22:42)
[2021-05-15] MEDS: LATANOPROST 0.005% OPHTH SOLN 2.5ML BOTTLE OU SCH (22:42)
[2021-05-16] MEDS: MIDAZOLAM IN 0.9 % SOD.CHLORID 100 MG/100 ML PLAST..BAG IVPB SCH ×2 (00:30→15:11)
[2021-05-16] MEDS: LACTATED RINGERS SOLUTION 1,000 ML/1,000 ML INFUS.BAG IV SCH ×4 (01:00→21:49)
[2021-05-16] MEDS ORDERED: DEXTROSE 5%-WATER - 50 ML IVPB ONE ×3 (01:42→17:40)
[2021-05-16] MEDS ORDERED: PIPERACILLIN/TAZOBACTAM 3.375 GM VIAL IVPB ONE ×3 (01:42→17:40)
[2021-05-16] MEDS: PIPERACILLIN/TAZOB 3.375 GM 3.375 GM in DEXTROSE 5%-WATER - 50 ML IVPB SCH ×3 (01:44→17:47)
[2021-05-16] MEDS: PROPOFOL 1,000,000 MCG/100 ML VIAL IVPB SCH ×3 (01:45→22:13)
[2021-05-16] MEDS: FENTANYL NS IVPB 500 MCG/100 ML BAG IVPB SCH ×4 (03:00→20:11)
[2021-05-16] MEDS ORDERED: VANCOMYCIN 1 GM/200 ML PREMIX BAG IVPB SCH (04:00)
[2021-05-16] MEDS: GABAPENTIN 300 MG CAPSULE PO SCH ×3 (06:01→22:05)
[2021-05-16] MEDS: NYSTATIN POWDER 100,000 UNITS/GM - 15 GM TOPICAL POWDER TP SCH ×3 (06:01→22:09)
[2021-05-16] MEDS: INSULIN SLIDING SCALE (NOVOLOG) 1 VIAL SQ SCH ×4 (06:10→22:06)
[2021-05-16] MEDS: ALBUTEROL SO4 2.5/IPRATROPIUM 0.5 INH SOL 3 ML VIAL.NEB. NEB SCH ×4 (08:00→20:35)
[2021-05-16 08:05] LABS: CALCIUM 7.7 mg/dL (8.5-10.1)
[2021-05-16 08:06] LABS: BLOOD UREA NITROGEN 18.8 mg/dL (7-18); MAGNESIUM 1.9 mg/dL (1.8-2.4)
[2021-05-16 08:08] LABS: PHOSPHOROUS 1.2 mg/dL (2.5-4.9)
[2021-05-16 08:09] LABS: CREATININE 1.7 mg/dL (0.55-1.3)
[2021-05-16 08:10] LABS: BILIRUBIN,TOTAL 0.7 mg/dL (0.2-1); TOT PROT 5.6 g/dl (6.4-8.2)
[2021-05-16 08:14] LABS: BASO % 0.8 % (0-2.0); EOS % 0.4 % (0-4.5); HEMATOCRIT 26.2 % (32.4-45.2); LYMPH % 12.2 % (8-40); MCH 22.3 pg (25.7-33.7); MCHC 30.5 g/dl (32.0-36.0); MEAN CELL VOLUME 73.2 fl (80-96); MONO % 10.9 % (3.8-10.2); NEUT % 75.7 % (42.8-82.8); PLATELET COUNT 160 10^3/uL (134-434); RBC 3.57 M/mm3 (3.60-5.2); RDW 19.4 % (11.6-15.6); WHITE BLOOD COUNT 9.1 K/mm3 (4.0-10.0)
[2021-05-16 08:29] LABS: ALBUMIN 1.7 g/dl (3.4-5.0)
[2021-05-16] MEDS ORDERED: PIPERACILLIN/TAZOB 4.5 GM 4.5 GM in DEXTROSE 5%-WATER 100 ML IVPB SCH (09:00)
[2021-05-16] MEDS: HEPARIN NA (PORCINE) 5,000 UNITS/ML 1ML VIAL SQ SCH ×2 (09:01→22:04)
[2021-05-16] MEDS: LACTULOSE 20 GM/30 ML UDC (FOR ORAL USE ONLY) PO SCH ×4 (09:01→21:54)
[2021-05-16] MEDS: PANTOPRAZOLE SODIUM 40 MG VIAL IVPUSH SCH (09:01)
[2021-05-16] MEDS: RIFAXIMIN 550 MG TABLET PO SCH ×2 (09:01→22:10)
[2021-05-16] MEDS: levETIRAcetam 500 MG/5 ML INJECTION VIAL IVPB SCH ×2 (09:01→22:05)
[2021-05-16] MEDS: CITALOPRAM HYDROBROMIDE 20 MG TABLET PO SCH (09:02)
[2021-05-16] MEDS: ARIPiprazole 5 MG TABLET PO SCH (09:02)
[2021-05-16] MEDS: MUPIROCIN 2% TOPICAL OINTMENT FOR DECOLONIZATION NS SCH (09:02)
[2021-05-16] MEDS: predniSONE 20 MG TABLET (UD) PO SCH (09:02)
[2021-05-16] MEDS: AMMONIUM LACTATE 12% LOTION 225 GM BOTTLE TP SCH ×2 (09:26→22:05)
[2021-05-16 13:17] VITALS: BMI 42.6
[2021-05-16] MEDS: PRAMIPEXOLE DIHYDROCHLORIDE 0.5 MG TABLET PO SCH (18:00)
[2021-05-16] MEDS: NOREPINEPHRINE BITARTRATE 16,000 MCG in SODIUM CHLORIDE 484 ML IV SCH (21:49)
[2021-05-16] MEDS: SENNOSIDES 8.6MG TABLET (FP) PO SCH (21:53)
[2021-05-16] MEDS: traZODone HCL 50 MG TABLET (FP) PO SCH (22:04)
[2021-05-16] MEDS: MIRTAZAPINE 15 MG TABLET (FP) PO SCH (22:10)
[2021-05-16] MEDS: LATANOPROST 0.005% OPHTH SOLN 2.5ML BOTTLE OU SCH (22:10)
[2021-05-17] MEDS ORDERED: DEXTROSE 5%-WATER - 50 ML IVPB ONE ×3 (00:59→23:37)
[2021-05-17] MEDS ORDERED: PIPERACILLIN/TAZOBACTAM 3.375 GM VIAL IVPB ONE ×4 (00:59→23:37)
[2021-05-17] MEDS: FENTANYL NS IVPB 500 MCG/100 ML BAG IVPB SCH ×4 (01:44→19:09)
[2021-05-17] MEDS: PIPERACILLIN/TAZOB 3.375 GM 3.375 GM in DEXTROSE 5%-WATER - 50 ML IVPB SCH ×3 (01:44→17:29)
[2021-05-17] MEDS: PROPOFOL 1,000,000 MCG/100 ML VIAL IVPB SCH ×2 (01:48→12:56)
[2021-05-17] MEDS: MIDAZOLAM IN 0.9 % SOD.CHLORID 100 MG/100 ML PLAST..BAG IVPB SCH ×2 (03:53→18:31)
[2021-05-17] MEDS: GABAPENTIN 300 MG CAPSULE PO SCH ×3 (05:30→23:50)
[2021-05-17] MEDS: NYSTATIN POWDER 100,000 UNITS/GM - 15 GM TOPICAL POWDER TP SCH ×3 (05:46→23:52)
[2021-05-17 05:52] LABS: ARTERIAL BLOOD GAS BASE EXCESS 3.8 mmol/L (-2-2); ARTERIAL BLOOD GAS PO2 98.5 mmHg (80-100); ARTERIAL BLOOD GAS pH 7.502 (7.350-7.450)
[2021-05-17 05:53] LABS: ALLENS TEST POSITIVE; VENT MODE A/C; VENT RATE 22
[2021-05-17] MEDS: INSULIN SLIDING SCALE (NOVOLOG) 1 VIAL SQ SCH ×4 (06:02→23:50)
[2021-05-17 07:47] LABS: HEMATOCRIT 26.4 % (32.4-45.2); HEMOGLOBIN 8.3 GM/dL (10.7-15.3); MCH 22.5 pg (25.7-33.7); MCHC 31.5 g/dl (32.0-36.0); MEAN CELL VOLUME 71.5 fl (80-96); MEAN PLT VOLUME 9.4 fl (7.5-11.1); PLATELET COUNT 150 10^3/uL (134-434); RBC 3.69 M/mm3 (3.60-5.2); RDW 19.4 % (11.6-15.6); WHITE BLOOD COUNT 10.1 K/mm3 (4.0-10.0)
[2021-05-17] MEDS: ALBUTEROL SO4 2.5/IPRATROPIUM 0.5 INH SOL 3 ML VIAL.NEB. NEB SCH ×4 (08:00→20:20)
[2021-05-17 08:11] LABS: BLOOD UREA NITROGEN 23.2 mg/dL (7-18)
[2021-05-17 08:13] LABS: CALCIUM 7.5 mg/dL (8.5-10.1)
[2021-05-17 08:14] LABS: CREATININE 1.8 mg/dL (0.55-1.3); PHOSPHOROUS 2.4 mg/dL (2.5-4.9)
[2021-05-17] MEDS: PANTOPRAZOLE SODIUM 40 MG VIAL IVPUSH SCH (09:12)
[2021-05-17] MEDS: levETIRAcetam 500 MG/5 ML INJECTION VIAL IVPB SCH ×2 (09:12→23:50)
[2021-05-17] MEDS: HEPARIN NA (PORCINE) 5,000 UNITS/ML 1ML VIAL SQ SCH ×2 (09:13→23:49)
[2021-05-17] MEDS: predniSONE 20 MG TABLET (UD) PO SCH (09:13)
[2021-05-17] MEDS: LACTULOSE 20 GM/30 ML UDC (FOR ORAL USE ONLY) PO SCH ×4 (09:13→23:49)
[2021-05-17] MEDS: ARIPiprazole 5 MG TABLET PO SCH (09:13)
[2021-05-17] MEDS: RIFAXIMIN 550 MG TABLET PO SCH ×2 (09:14→23:54)
[2021-05-17] MEDS: AMMONIUM LACTATE 12% LOTION 225 GM BOTTLE TP SCH ×2 (09:14→23:50)
[2021-05-17] MEDS: CITALOPRAM HYDROBROMIDE 20 MG TABLET PO SCH (09:14)
[2021-05-17] MEDS: LACTATED RINGERS SOLUTION 1,000 ML/1,000 ML INFUS.BAG IV SCH (09:14)
[2021-05-17] MEDS: PRAMIPEXOLE DIHYDROCHLORIDE 0.5 MG TABLET PO SCH (18:02)
[2021-05-17] MEDS: NOREPINEPHRINE BITARTRATE 16,000 MCG in SODIUM CHLORIDE 484 ML IV SCH (23:47)
[2021-05-17] MEDS: SENNOSIDES 8.6MG TABLET (FP) PO SCH (23:47)
[2021-05-17] MEDS: traZODone HCL 50 MG TABLET (FP) PO SCH (23:49)
[2021-05-17] MEDS: MIRTAZAPINE 15 MG TABLET (FP) PO SCH (23:52)
[2021-05-17] MEDS: LATANOPROST 0.005% OPHTH SOLN 2.5ML BOTTLE OU SCH (23:53)
[2021-05-17] MEDS: methylPREDNISolone NA SUCC 40 MG/1 ML VIAL IVPUSH SCH (23:53)
[2021-05-18] MEDS: FENTANYL NS IVPB 500 MCG/100 ML BAG IVPB SCH ×3 (00:06→17:42)
[2021-05-18] MEDS: PROPOFOL 1,000,000 MCG/100 ML VIAL IVPB SCH ×4 (00:06→21:59)
[2021-05-18] MEDS: PIPERACILLIN/TAZOB 3.375 GM 3.375 GM in DEXTROSE 5%-WATER - 50 ML IVPB SCH ×3 (02:07→18:42)
[2021-05-18] MEDS ORDERED: amLODIPine BESYLATE 10 MG TABLET (FP) PEG ONE (02:42)
[2021-05-18] MEDS ORDERED: amLODIPine BESYLATE 10 MG TABLET (FP) PO ONE (02:42)
[2021-05-18] MEDS: GABAPENTIN 300 MG CAPSULE PO SCH (05:39)
[2021-05-18] MEDS: NYSTATIN POWDER 100,000 UNITS/GM - 15 GM TOPICAL POWDER TP SCH ×3 (05:43→21:56)
[2021-05-18] MEDS: INSULIN SLIDING SCALE (NOVOLOG) 1 VIAL SQ SCH ×4 (06:06→21:54)
[2021-05-18 06:51] LABS: HEMOGLOBIN 9.1 GM/dL (10.7-15.3); MCH 21.9 pg (25.7-33.7); MCHC 30.3 g/dl (32.0-36.0); MEAN CELL VOLUME 72.3 fl (80-96); MEAN PLT VOLUME 9.7 fl (7.5-11.1); PLATELET COUNT 178 10^3/uL (134-434); RBC 4.15 M/mm3 (3.60-5.2); RDW 19.3 % (11.6-15.6); WHITE BLOOD COUNT 11.4 K/mm3 (4.0-10.0)
[2021-05-18 07:15] LABS: CALCIUM 8.1 mg/dL (8.5-10.1)
[2021-05-18 07:16] LABS: BLOOD UREA NITROGEN 28.5 mg/dL (7-18)
[2021-05-18 07:17] LABS: MAGNESIUM 2.8 mg/dL (1.8-2.4)
[2021-05-18 07:18] LABS: PHOSPHOROUS 3.7 mg/dL (2.5-4.9)
[2021-05-18 07:19] LABS: CREATININE 1.7 mg/dL (0.55-1.3)
[2021-05-18 07:20] LABS: BILIRUBIN,TOTAL 0.4 mg/dL (0.2-1); TOT PROT 6.3 g/dl (6.4-8.2)
[2021-05-18] MEDS: ALBUTEROL SO4 2.5/IPRATROPIUM 0.5 INH SOL 3 ML VIAL.NEB. NEB SCH ×4 (07:45→20:30)
[2021-05-18] MEDS: MIDAZOLAM IN 0.9 % SOD.CHLORID 100 MG/100 ML PLAST..BAG IVPB SCH ×2 (08:15→21:49)
[2021-05-18 08:37] LABS: ANISOCYTOSIS 2+; MACROCYTOSIS 1+; OVALOCYTE 1+
[2021-05-18] MEDS ORDERED: DEXTROSE 5%-WATER - 50 ML IVPB ONE ×3 (09:04→20:42)
[2021-05-18] MEDS ORDERED: PIPERACILLIN/TAZOBACTAM 3.375 GM VIAL IVPB ONE ×3 (09:04→20:42)
[2021-05-18] MEDS: levETIRAcetam 500 MG/5 ML INJECTION VIAL IVPB SCH ×2 (09:12→21:53)
[2021-05-18] MEDS: LACTULOSE 20 GM/30 ML UDC (FOR ORAL USE ONLY) PO SCH ×4 (09:12→21:51)
[2021-05-18] MEDS: HEPARIN NA (PORCINE) 5,000 UNITS/ML 1ML VIAL SQ SCH ×2 (09:13→21:51)
[2021-05-18] MEDS: CITALOPRAM HYDROBROMIDE 20 MG TABLET PO SCH (09:13)
[2021-05-18] MEDS: ARIPiprazole 5 MG TABLET PO SCH (09:13)
[2021-05-18] MEDS: RIFAXIMIN 550 MG TABLET PO SCH ×2 (09:13→21:58)
[2021-05-18] MEDS: methylPREDNISolone NA SUCC 40 MG/1 ML VIAL IVPUSH SCH ×2 (09:14→21:56)
[2021-05-18] MEDS: AMMONIUM LACTATE 12% LOTION 225 GM BOTTLE TP SCH ×2 (09:14→21:54)
[2021-05-18] MEDS: PANTOPRAZOLE SODIUM 40 MG VIAL IVPUSH SCH (10:46)
[2021-05-18] MEDS: NOREPINEPHRINE BITARTRATE 16,000 MCG in SODIUM CHLORIDE 484 ML IV SCH (15:21)
[2021-05-18] MEDS: GABAPENTIN 100 MG CAPSULE PO SCH ×2 (15:45→21:54)
[2021-05-18] MEDS: SENNOSIDES 8.6MG TABLET (FP) PO SCH (21:51)
[2021-05-18] MEDS: LATANOPROST 0.005% OPHTH SOLN 2.5ML BOTTLE OU SCH (21:58)
[2021-05-19] MEDS: PIPERACILLIN/TAZOB 3.375 GM 3.375 GM in DEXTROSE 5%-WATER - 50 ML IVPB SCH ×3 (01:32→17:42)
[2021-05-19] MEDS: MIDAZOLAM IN 0.9 % SOD.CHLORID 100 MG/100 ML PLAST..BAG IVPB SCH ×2 (01:35→14:41)
[2021-05-19] MEDS: PROPOFOL 1,000,000 MCG/100 ML VIAL IVPB SCH ×2 (01:35→11:33)
[2021-05-19] MEDS: GABAPENTIN 100 MG CAPSULE PO SCH ×3 (05:51→21:33)
[2021-05-19] MEDS: INSULIN SLIDING SCALE (NOVOLOG) 1 VIAL SQ SCH ×4 (06:15→21:31)
[2021-05-19 07:15] LABS: MCH 21.9 pg (25.7-33.7); MEAN CELL VOLUME 72.8 fl (80-96); MEAN PLT VOLUME 9.8 fl (7.5-11.1); PLATELET COUNT 176 10^3/uL (134-434); RBC 4.12 M/mm3 (3.60-5.2); RDW 19.9 % (11.6-15.6); WHITE BLOOD COUNT 13.1 K/mm3 (4.0-10.0)
[2021-05-19 07:30] LABS: CALCIUM 7.5 mg/dL (8.5-10.1)
[2021-05-19 07:33] LABS: CREATININE 1.8 mg/dL (0.55-1.3)
[2021-05-19 07:35] LABS: BILIRUBIN,TOTAL 0.4 mg/dL (0.2-1); TOT PROT 6.1 g/dl (6.4-8.2)
[2021-05-19] MEDS: NYSTATIN POWDER 100,000 UNITS/GM - 15 GM TOPICAL POWDER TP SCH ×3 (07:36→21:33)
[2021-05-19] MEDS: ALBUTEROL SO4 2.5/IPRATROPIUM 0.5 INH SOL 3 ML VIAL.NEB. NEB SCH ×4 (08:37→20:00)
[2021-05-19 09:39] LABS: ANISOCYTOSIS 2+; MACROCYTOSIS 1+; OVALOCYTE 1+
[2021-05-19] MEDS: RIFAXIMIN 550 MG TABLET PO SCH ×2 (09:43→21:33)
[2021-05-19] MEDS: HEPARIN NA (PORCINE) 5,000 UNITS/ML 1ML VIAL SQ SCH ×2 (09:43→21:32)
[2021-05-19] MEDS: ARIPiprazole 5 MG TABLET PO SCH (09:43)
[2021-05-19] MEDS: CITALOPRAM HYDROBROMIDE 20 MG TABLET PO SCH (09:43)
[2021-05-19] MEDS: PANTOPRAZOLE SODIUM 40 MG VIAL IVPUSH SCH (09:43)
[2021-05-19] MEDS: levETIRAcetam 500 MG/5 ML INJECTION VIAL IVPB SCH ×2 (09:43→21:32)
[2021-05-19] MEDS: methylPREDNISolone NA SUCC 40 MG/1 ML VIAL IVPUSH SCH ×2 (09:43→21:33)
[2021-05-19] MEDS: LACTULOSE 20 GM/30 ML UDC (FOR ORAL USE ONLY) PO SCH ×4 (09:43→21:32)
[2021-05-19] MEDS: amLODIPine BESYLATE 5 MG TABLET (FP) PO SCH (09:43)
[2021-05-19] MEDS: AMMONIUM LACTATE 12% LOTION 225 GM BOTTLE TP SCH ×2 (10:08→21:32)
[2021-05-19] MEDS ORDERED: PIPERACILLIN/TAZOBACTAM 3.375 GM VIAL IVPB ONE ×2 (10:40→16:56)
[2021-05-19] MEDS ORDERED: DEXTROSE 5%-WATER - 50 ML IVPB ONE ×2 (10:40→16:56)
[2021-05-19] MEDS: NOREPINEPHRINE BITARTRATE 16,000 MCG in SODIUM CHLORIDE 484 ML IV SCH (11:33)
[2021-05-19] MEDS: FENTANYL NS IVPB 500 MCG/100 ML BAG IVPB SCH (14:40)
[2021-05-19] MEDS: SENNOSIDES 8.6MG TABLET (FP) PO SCH (21:32)
[2021-05-19] MEDS: LATANOPROST 0.005% OPHTH SOLN 2.5ML BOTTLE OU SCH (21:33)
[2021-05-20] MEDS ORDERED: PIPERACILLIN/TAZOBACTAM 3.375 GM VIAL IVPB ONE ×3 (01:47→16:57)
[2021-05-20] MEDS ORDERED: DEXTROSE 5%-WATER - 50 ML IVPB ONE ×3 (01:47→16:57)
[2021-05-20] MEDS: PIPERACILLIN/TAZOB 3.375 GM 3.375 GM in DEXTROSE 5%-WATER - 50 ML IVPB SCH ×3 (02:22→17:09)
[2021-05-20] MEDS: GABAPENTIN 100 MG CAPSULE PO SCH ×3 (06:15→21:03)
[2021-05-20] MEDS: NYSTATIN POWDER 100,000 UNITS/GM - 15 GM TOPICAL POWDER TP SCH ×3 (06:15→21:04)
[2021-05-20] MEDS: INSULIN SLIDING SCALE (NOVOLOG) 1 VIAL SQ SCH ×4 (06:16→21:03)
[2021-05-20 06:41] LABS: HEMATOCRIT 31.3 % (32.4-45.2); HEMOGLOBIN 9.2 GM/dL (10.7-15.3); MCH 21.6 pg (25.7-33.7); MCHC 29.4 g/dl (32.0-36.0); MEAN CELL VOLUME 73.6 fl (80-96); MEAN PLT VOLUME 10.6 fl (7.5-11.1); PLATELET COUNT 210 10^3/uL (134-434); RBC 4.25 M/mm3 (3.60-5.2); RDW 19.4 % (11.6-15.6); WHITE BLOOD COUNT 13.6 K/mm3 (4.0-10.0)
[2021-05-20 07:01] LABS: BLOOD UREA NITROGEN 46.4 mg/dL (7-18); CALCIUM 7.9 mg/dL (8.5-10.1); MAGNESIUM 3.5 mg/dL (1.8-2.4)
[2021-05-20 07:04] LABS: PHOSPHOROUS 3.7 mg/dL (2.5-4.9)
[2021-05-20 07:06] LABS: BILIRUBIN,TOTAL 0.3 mg/dL (0.2-1); TOT PROT 6.4 g/dl (6.4-8.2)
[2021-05-20] MEDS: PROPOFOL 1,000,000 MCG/100 ML VIAL IVPB SCH ×2 (08:44→21:02)
[2021-05-20] MEDS: methylPREDNISolone NA SUCC 40 MG/1 ML VIAL IVPUSH SCH ×2 (09:08→21:03)
[2021-05-20] MEDS: levETIRAcetam 500 MG/5 ML INJECTION VIAL IVPB SCH ×2 (09:08→21:02)
[2021-05-20] MEDS: HEPARIN NA (PORCINE) 5,000 UNITS/ML 1ML VIAL SQ SCH ×2 (09:08→21:02)
[2021-05-20] MEDS: LACTULOSE 20 GM/30 ML UDC (FOR ORAL USE ONLY) PO SCH ×4 (09:08→21:02)
[2021-05-20] MEDS: AMMONIUM LACTATE 12% LOTION 225 GM BOTTLE TP SCH ×2 (09:09→21:03)
[2021-05-20] MEDS: ARIPiprazole 5 MG TABLET PO SCH (09:09)
[2021-05-20] MEDS: amLODIPine BESYLATE 5 MG TABLET (FP) PO SCH (09:09)
[2021-05-20] MEDS: CITALOPRAM HYDROBROMIDE 20 MG TABLET PO SCH (09:09)
[2021-05-20] MEDS: PANTOPRAZOLE SODIUM 40 MG VIAL IVPUSH SCH (09:09)
[2021-05-20] MEDS: RIFAXIMIN 550 MG TABLET PO SCH ×2 (09:09→21:03)
[2021-05-20 09:10] LABS: ANISOCYTOSIS 1+; MACROCYTOSIS 0
[2021-05-20] MEDS ORDERED: FUROSEMIDE 100 MG/10 ML INJECTABLE VIAL IVPB ONE (12:31)
[2021-05-20] MEDS: NOREPINEPHRINE BITARTRATE 16,000 MCG in SODIUM CHLORIDE 484 ML IV SCH (13:57)
[2021-05-20] MEDS: MIDAZOLAM IN 0.9 % SOD.CHLORID 100 MG/100 ML PLAST..BAG IVPB SCH (13:58)
[2021-05-20] MEDS: FENTANYL NS IVPB 500 MCG/100 ML BAG IVPB SCH (13:58)
[2021-05-20] MEDS: SENNOSIDES 8.6MG TABLET (FP) PO SCH (21:01)
[2021-05-20] MEDS: INSULIN (LEVEMIR) 100 UNITS/ML UNITS SQ SCH (21:03)
[2021-05-20] MEDS: LATANOPROST 0.005% OPHTH SOLN 2.5ML BOTTLE OU SCH (21:04)
[2021-05-21] MEDS ORDERED: PIPERACILLIN/TAZOBACTAM 3.375 GM VIAL IVPB ONE ×3 (00:24→16:29)
[2021-05-21] MEDS ORDERED: DEXTROSE 5%-WATER - 50 ML IVPB ONE ×3 (00:24→16:29)
[2021-05-21] MEDS: PIPERACILLIN/TAZOB 3.375 GM 3.375 GM in DEXTROSE 5%-WATER - 50 ML IVPB SCH ×3 (01:19→17:31)
[2021-05-21] MEDS: NYSTATIN POWDER 100,000 UNITS/GM - 15 GM TOPICAL POWDER TP SCH ×3 (06:07→21:11)
[2021-05-21] MEDS: GABAPENTIN 100 MG CAPSULE PO SCH ×3 (06:07→21:10)
[2021-05-21] MEDS: INSULIN SLIDING SCALE (NOVOLOG) 1 VIAL SQ SCH ×4 (06:08→21:10)
[2021-05-21 07:27] LABS: HEMATOCRIT 31.5 % (32.4-45.2); HEMOGLOBIN 9.4 GM/dL (10.7-15.3); MCH 21.7 pg (25.7-33.7); MCHC 29.8 g/dl (32.0-36.0); MEAN CELL VOLUME 72.9 fl (80-96); MEAN PLT VOLUME 10.9 fl (7.5-11.1); PLATELET COUNT 204 10^3/uL (134-434); RBC 4.33 M/mm3 (3.60-5.2); WHITE BLOOD COUNT 13.5 K/mm3 (4.0-10.0)
[2021-05-21 07:44] LABS: CALCIUM 8.2 mg/dL (8.5-10.1)
[2021-05-21 07:46] LABS: ALBUMIN 2.1 g/dl (3.4-5.0); BLOOD UREA NITROGEN 58.1 mg/dL (7-18); MAGNESIUM 3.4 mg/dL (1.8-2.4)
[2021-05-21 07:49] LABS: BILIRUBIN,TOTAL 0.4 mg/dL (0.2-1); CREATININE 2.1 mg/dL (0.55-1.3); PHOSPHOROUS 5.2 mg/dL (2.5-4.9); TOT PROT 6.3 g/dl (6.4-8.2)
[2021-05-21] MEDS: ARIPiprazole 5 MG TABLET PO SCH (09:14)
[2021-05-21] MEDS: CITALOPRAM HYDROBROMIDE 20 MG TABLET PO SCH (09:15)
[2021-05-21] MEDS: RIFAXIMIN 550 MG TABLET PO SCH ×2 (09:15→21:10)
[2021-05-21] MEDS: HEPARIN NA (PORCINE) 5,000 UNITS/ML 1ML VIAL SQ SCH ×2 (09:16→21:10)
[2021-05-21] MEDS: LACTULOSE 20 GM/30 ML UDC (FOR ORAL USE ONLY) PO SCH ×4 (09:16→21:10)
[2021-05-21] MEDS: levETIRAcetam 500 MG/5 ML INJECTION VIAL IVPB SCH ×2 (09:18→21:10)
[2021-05-21] MEDS: AMMONIUM LACTATE 12% LOTION 225 GM BOTTLE TP SCH ×2 (09:23→21:11)
[2021-05-21 09:24] LABS: ANISOCYTOSIS 1+; MACROCYTOSIS 1+; OVALOCYTE 1+
[2021-05-21] MEDS: amLODIPine BESYLATE 5 MG TABLET (FP) PO SCH (09:24)
[2021-05-21] MEDS: methylPREDNISolone NA SUCC 40 MG/1 ML VIAL IVPUSH SCH (09:24)
[2021-05-21] MEDS: PANTOPRAZOLE SODIUM 40 MG VIAL IVPUSH SCH (09:24)
[2021-05-21] MEDS: PROPOFOL 1,000,000 MCG/100 ML VIAL IVPB SCH ×3 (09:29→18:38)
[2021-05-21] MEDS: NOREPINEPHRINE BITARTRATE 16,000 MCG in SODIUM CHLORIDE 484 ML IV SCH (11:00)
[2021-05-21] MEDS ORDERED: FUROSEMIDE 100 MG/10 ML INJECTABLE VIAL IVPB ONE (11:09)
[2021-05-21] MEDS: FENTANYL NS IVPB 500 MCG/100 ML BAG IVPB SCH (13:24)
[2021-05-21] MEDS: MIDAZOLAM IN 0.9 % SOD.CHLORID 100 MG/100 ML PLAST..BAG IVPB SCH (13:25)
[2021-05-21] MEDS: SENNOSIDES 8.6MG TABLET (FP) PO SCH (21:10)
[2021-05-21] MEDS: INSULIN (LEVEMIR) 100 UNITS/ML UNITS SQ SCH (21:11)
[2021-05-21] MEDS: LATANOPROST 0.005% OPHTH SOLN 2.5ML BOTTLE OU SCH (21:11)
[2021-05-22] MEDS ORDERED: DEXTROSE 5%-WATER - 50 ML IVPB ONE ×3 (00:55→17:28)
[2021-05-22] MEDS ORDERED: PIPERACILLIN/TAZOBACTAM 3.375 GM VIAL IVPB ONE ×3 (00:55→17:28)
[2021-05-22] MEDS: PIPERACILLIN/TAZOB 3.375 GM 3.375 GM in DEXTROSE 5%-WATER - 50 ML IVPB SCH ×3 (01:26→17:35)
[2021-05-22] MEDS: GABAPENTIN 100 MG CAPSULE PO SCH ×3 (06:08→21:11)
[2021-05-22] MEDS: INSULIN SLIDING SCALE (NOVOLOG) 1 VIAL SQ SCH ×4 (06:08→21:11)
[2021-05-22] MEDS: NYSTATIN POWDER 100,000 UNITS/GM - 15 GM TOPICAL POWDER TP SCH ×3 (06:08→21:11)
[2021-05-22 07:27] LABS: HEMATOCRIT 31.2 % (32.4-45.2); HEMOGLOBIN 9.5 GM/dL (10.7-15.3); MCH 22.4 pg (25.7-33.7); MCHC 30.6 g/dl (32.0-36.0); MEAN CELL VOLUME 73.3 fl (80-96); PLATELET COUNT 224 10^3/uL (134-434); RBC 4.25 M/mm3 (3.60-5.2); WHITE BLOOD COUNT 16.2 K/mm3 (4.0-10.0)
[2021-05-22 07:36] LABS: ALBUMIN 1.9 g/dl (3.4-5.0); BLOOD UREA NITROGEN 72.4 mg/dL (7-18); CALCIUM 7.9 mg/dL (8.5-10.1); MAGNESIUM 3.2 mg/dL (1.8-2.4)
[2021-05-22 07:37] LABS: PHOSPHOROUS 4.4 mg/dL (2.5-4.9)
[2021-05-22 07:38] LABS: CREATININE 2.3 mg/dL (0.55-1.3)
[2021-05-22 07:39] LABS: BILIRUBIN,TOTAL 0.4 mg/dL (0.2-1); TOT PROT 6.3 g/dl (6.4-8.2)
[2021-05-22 09:14] LABS: ANISOCYTOSIS 2+; MACROCYTOSIS 0; OVALOCYTE 1+; TARGET CELLS 1+; TEAR DROP CELLS 1+
[2021-05-22] MEDS: LACTULOSE 20 GM/30 ML UDC (FOR ORAL USE ONLY) PO SCH (09:25)
[2021-05-22] MEDS: amLODIPine BESYLATE 5 MG TABLET (FP) PO SCH (09:26)
[2021-05-22] MEDS: RIFAXIMIN 550 MG TABLET PO SCH ×2 (09:26→21:12)
[2021-05-22] MEDS: levETIRAcetam 500 MG/5 ML INJECTION VIAL IVPB SCH ×2 (09:26→21:10)
[2021-05-22] MEDS: ARIPiprazole 5 MG TABLET PO SCH (09:26)
[2021-05-22] MEDS: PANTOPRAZOLE SODIUM 40 MG VIAL IVPUSH SCH (09:27)
[2021-05-22] MEDS: CITALOPRAM HYDROBROMIDE 20 MG TABLET PO SCH (09:32)
[2021-05-22] MEDS: HEPARIN NA (PORCINE) 5,000 UNITS/ML 1ML VIAL SQ SCH ×2 (09:33→21:10)
[2021-05-22] MEDS: AMMONIUM LACTATE 12% LOTION 225 GM BOTTLE TP SCH ×2 (09:37→21:11)
[2021-05-22] MEDS: NOREPINEPHRINE BITARTRATE 16,000 MCG in SODIUM CHLORIDE 484 ML IV SCH (10:01)
[2021-05-22] MEDS: QUEtiapine FUMARATE 25 MG TABLET PO SCH (10:39)
[2021-05-22] MEDS: PROPOFOL 1,000,000 MCG/100 ML VIAL IVPB SCH (18:44)
[2021-05-22] MEDS: SENNOSIDES 8.6MG TABLET (FP) PO SCH (21:09)
[2021-05-22] MEDS: LATANOPROST 0.005% OPHTH SOLN 2.5ML BOTTLE OU SCH (21:12)
[2021-05-22] MEDS: INSULIN (LEVEMIR) 100 UNITS/ML UNITS SQ SCH (21:13)
[2021-05-23] MEDS ORDERED: PIPERACILLIN/TAZOBACTAM 3.375 GM VIAL IVPB ONE ×3 (01:54→13:55)
[2021-05-23] MEDS ORDERED: DEXTROSE 5%-WATER - 50 ML IVPB ONE ×3 (01:54→13:56)
[2021-05-23] MEDS: PIPERACILLIN/TAZOB 3.375 GM 3.375 GM in DEXTROSE 5%-WATER - 50 ML IVPB SCH ×3 (01:58→17:03)
[2021-05-23] MEDS: GABAPENTIN 100 MG CAPSULE PO SCH ×3 (05:19→21:00)
[2021-05-23] MEDS: NYSTATIN POWDER 100,000 UNITS/GM - 15 GM TOPICAL POWDER TP SCH ×3 (05:30→21:00)
[2021-05-23] MEDS: INSULIN SLIDING SCALE (NOVOLOG) 1 VIAL SQ SCH ×4 (06:29→21:08)
[2021-05-23 07:34] LABS: BASO % 0.5 % (0-2.0); EOS % 5.6 % (0-4.5); HEMATOCRIT 32.9 % (32.4-45.2); HEMOGLOBIN 9.9 GM/dL (10.7-15.3); LYMPH % 15.8 % (8-40); MCH 22.2 pg (25.7-33.7); MEAN CELL VOLUME 73.9 fl (80-96); MEAN PLT VOLUME 11.3 fl (7.5-11.1); MONO % 10.1 % (3.8-10.2); PLATELET COUNT 229 10^3/uL (134-434); RBC 4.45 M/mm3 (3.60-5.2); RDW 19.1 % (11.6-15.6); WHITE BLOOD COUNT 15.2 K/mm3 (4.0-10.0)
[2021-05-23 07:56] LABS: CALCIUM 7.7 mg/dL (8.5-10.1)
[2021-05-23 07:57] LABS: BLOOD UREA NITROGEN 69.7 mg/dL (7-18)
[2021-05-23 08:01] LABS: BILIRUBIN,TOTAL 0.6 mg/dL (0.2-1); CREATININE 2.2 mg/dL (0.55-1.3); TOT PROT 6.5 g/dl (6.4-8.2)
[2021-05-23] MEDS: ARIPiprazole 5 MG TABLET PO SCH (09:42)
[2021-05-23] MEDS: CITALOPRAM HYDROBROMIDE 20 MG TABLET PO SCH (09:42)
[2021-05-23] MEDS: HEPARIN NA (PORCINE) 5,000 UNITS/ML 1ML VIAL SQ SCH ×2 (09:43→20:59)
[2021-05-23] MEDS: levETIRAcetam 500 MG/5 ML INJECTION VIAL IVPB SCH ×2 (09:43→20:59)
[2021-05-23] MEDS: AMMONIUM LACTATE 12% LOTION 225 GM BOTTLE TP SCH ×2 (09:43→21:00)
[2021-05-23] MEDS: amLODIPine BESYLATE 5 MG TABLET (FP) PO SCH (09:43)
[2021-05-23] MEDS: QUEtiapine FUMARATE 25 MG TABLET PO SCH (09:44)
[2021-05-23] MEDS: PANTOPRAZOLE SODIUM 40 MG VIAL IVPUSH SCH (09:44)
[2021-05-23] MEDS: RIFAXIMIN 550 MG TABLET PO SCH ×2 (09:44→21:01)
[2021-05-23] MEDS: PROPOFOL 1,000,000 MCG/100 ML VIAL IVPB SCH (12:25)
[2021-05-23] MEDS: SENNOSIDES 8.6MG TABLET (FP) PO SCH (20:59)
[2021-05-23] MEDS: INSULIN (LEVEMIR) 100 UNITS/ML UNITS SQ SCH (21:00)
[2021-05-23] MEDS: LATANOPROST 0.005% OPHTH SOLN 2.5ML BOTTLE OU SCH (21:01)
[2021-05-24] MEDS ORDERED: PIPERACILLIN/TAZOBACTAM 3.375 GM VIAL IVPB ONE ×3 (01:27→17:23)
[2021-05-24] MEDS ORDERED: DEXTROSE 5%-WATER - 50 ML IVPB ONE ×3 (01:28→17:23)
[2021-05-24] MEDS: PIPERACILLIN/TAZOB 3.375 GM 3.375 GM in DEXTROSE 5%-WATER - 50 ML IVPB SCH ×3 (01:50→18:28)
[2021-05-24] MEDS: NYSTATIN POWDER 100,000 UNITS/GM - 15 GM TOPICAL POWDER TP SCH ×3 (05:11→21:24)
[2021-05-24] MEDS: GABAPENTIN 100 MG CAPSULE PO SCH (05:11)
[2021-05-24] MEDS: INSULIN SLIDING SCALE (NOVOLOG) 1 VIAL SQ SCH ×4 (06:22→21:27)
[2021-05-24 06:59] LABS: HEMATOCRIT 33.1 % (32.4-45.2); HEMOGLOBIN 9.8 GM/dL (10.7-15.3); MCH 21.9 pg (25.7-33.7); MCHC 29.5 g/dl (32.0-36.0); MEAN CELL VOLUME 74.2 fl (80-96); PLATELET COUNT 215 10^3/uL (134-434); RBC 4.46 M/mm3 (3.60-5.2); RDW 19.2 % (11.6-15.6); WHITE BLOOD COUNT 14.7 K/mm3 (4.0-10.0)
[2021-05-24 07:19] LABS: CALCIUM 7.9 mg/dL (8.5-10.1)
[2021-05-24 07:20] LABS: BLOOD UREA NITROGEN 49.7 mg/dL (7-18)
[2021-05-24 07:22] LABS: CREATININE 1.7 mg/dL (0.55-1.3)
[2021-05-24 07:24] LABS: BILIRUBIN,TOTAL 0.5 mg/dL (0.2-1); TOT PROT 6.3 g/dl (6.4-8.2)
[2021-05-24] MEDS: ARIPiprazole 5 MG TABLET PO SCH (10:15)
[2021-05-24] MEDS: CITALOPRAM HYDROBROMIDE 20 MG TABLET PO SCH (10:16)
[2021-05-24] MEDS: HEPARIN NA (PORCINE) 5,000 UNITS/ML 1ML VIAL SQ SCH ×2 (10:18→21:23)
[2021-05-24] MEDS: levETIRAcetam 500 MG/5 ML INJECTION VIAL IVPB SCH ×2 (10:22→21:23)
[2021-05-24] MEDS: AMMONIUM LACTATE 12% LOTION 225 GM BOTTLE TP SCH ×2 (10:24→21:24)
[2021-05-24] MEDS: amLODIPine BESYLATE 5 MG TABLET (FP) PO SCH (10:25)
[2021-05-24] MEDS: PANTOPRAZOLE SODIUM 40 MG VIAL IVPUSH SCH (10:26)
[2021-05-24] MEDS: RIFAXIMIN 550 MG TABLET PO SCH ×2 (10:28→21:24)
[2021-05-24] MEDS: QUEtiapine FUMARATE 25 MG TABLET PO SCH (10:28)
[2021-05-24] MEDS: PROPOFOL 1,000,000 MCG/100 ML VIAL IVPB SCH (11:30)
[2021-05-24] MEDS ORDERED: FUROSEMIDE 100 MG/10 ML INJECTABLE VIAL IVPB ONE (11:30)
[2021-05-24] MEDS: GABAPENTIN 250 MG/5 ML ORAL SOLUTION, 470 ML BOTTLE PO SCH ×2 (14:14→21:24)
[2021-05-24] MEDS: ACETAMINOPHEN 325 MG TABLET (FP) PO PRN (20:00)
[2021-05-24] MEDS: SENNOSIDES 8.6MG TABLET (FP) PO SCH (21:23)
[2021-05-24] MEDS: LATANOPROST 0.005% OPHTH SOLN 2.5ML BOTTLE OU SCH (21:24)
[2021-05-24] MEDS: INSULIN (LEVEMIR) 100 UNITS/ML UNITS SQ SCH (21:31)
[2021-05-25] MEDS: PIPERACILLIN/TAZOB 3.375 GM 3.375 GM in DEXTROSE 5%-WATER - 50 ML IVPB SCH ×3 (03:00→17:24)
[2021-05-25] MEDS ORDERED: PIPERACILLIN/TAZOBACTAM 3.375 GM VIAL IVPB ONE ×3 (03:02→17:16)
[2021-05-25] MEDS ORDERED: DEXTROSE 5%-WATER - 50 ML IVPB ONE ×3 (03:03→17:16)
[2021-05-25] MEDS: ACETAMINOPHEN 325 MG TABLET (FP) PO PRN ×2 (03:15→13:37)
[2021-05-25] MEDS: INSULIN SLIDING SCALE (NOVOLOG) 1 VIAL SQ SCH ×4 (06:25→21:47)
[2021-05-25] MEDS: NYSTATIN POWDER 100,000 UNITS/GM - 15 GM TOPICAL POWDER TP SCH ×3 (06:25→21:43)
[2021-05-25] MEDS: GABAPENTIN 250 MG/5 ML ORAL SOLUTION, 470 ML BOTTLE PO SCH ×3 (06:25→21:39)
[2021-05-25 07:03] LABS: CALCIUM 7.9 mg/dL (8.5-10.1)
[2021-05-25 07:04] LABS: ALBUMIN 1.8 g/dl (3.4-5.0); BLOOD UREA NITROGEN 45.5 mg/dL (7-18); MAGNESIUM 3.1 mg/dL (1.8-2.4)
[2021-05-25 07:07] LABS: CREATININE 2.1 mg/dL (0.55-1.3); PHOSPHOROUS 2.2 mg/dL (2.5-4.9)
[2021-05-25 07:09] LABS: BASO % 0.7 % (0-2.0); BILIRUBIN,TOTAL 0.8 mg/dL (0.2-1); EOS % 7.3 % (0-4.5); HEMATOCRIT 31.8 % (32.4-45.2); HEMOGLOBIN 9.6 GM/dL (10.7-15.3); LYMPH % 18.2 % (8-40); MCH 22.1 pg (25.7-33.7); MCHC 30.1 g/dl (32.0-36.0); MEAN CELL VOLUME 73.4 fl (80-96); MEAN PLT VOLUME 11.1 fl (7.5-11.1); MONO % 11.6 % (3.8-10.2); NEUT % 62.2 % (42.8-82.8); PLATELET COUNT 186 10^3/uL (134-434); RBC 4.33 M/mm3 (3.60-5.2); RDW 19.5 % (11.6-15.6); TOT PROT 5.9 g/dl (6.4-8.2); WHITE BLOOD COUNT 12.4 K/mm3 (4.0-10.0)
[2021-05-25] MEDS: PANTOPRAZOLE SODIUM 40 MG VIAL IVPUSH SCH (09:47)
[2021-05-25] MEDS: HEPARIN NA (PORCINE) 5,000 UNITS/ML 1ML VIAL SQ SCH ×2 (09:47→21:38)
[2021-05-25] MEDS: levETIRAcetam 500 MG/5 ML INJECTION VIAL IVPB SCH ×2 (09:47→21:38)
[2021-05-25] MEDS: QUEtiapine FUMARATE 25 MG TABLET PO SCH (09:48)
[2021-05-25] MEDS: RIFAXIMIN 550 MG TABLET PO SCH ×2 (09:48→21:40)
[2021-05-25] MEDS: ARIPiprazole 5 MG TABLET PO SCH (09:48)
[2021-05-25] MEDS: amLODIPine BESYLATE 5 MG TABLET (FP) PO SCH (09:48)
[2021-05-25] MEDS: AMMONIUM LACTATE 12% LOTION 225 GM BOTTLE TP SCH ×2 (09:48→21:39)
[2021-05-25] MEDS: CITALOPRAM HYDROBROMIDE 20 MG TABLET PO SCH (09:48)
[2021-05-25] MEDS: PROPOFOL 1,000,000 MCG/100 ML VIAL IVPB SCH (11:46)
[2021-05-25 14:38] LABS: ARTERIAL BLD GAS O2 SATURATION 92.2 % (95-98); ARTERIAL BLOOD GAS BASE EXCESS 7.4 mmol/L (-2-2); ARTERIAL BLOOD GAS pH 7.408 (7.350-7.450)
[2021-05-25] MEDS: SENNOSIDES 8.6MG TABLET (FP) PO SCH (21:39)
[2021-05-25] MEDS: LATANOPROST 0.005% OPHTH SOLN 2.5ML BOTTLE OU SCH (21:43)
[2021-05-25] MEDS: INSULIN (LEVEMIR) 100 UNITS/ML UNITS SQ SCH (21:47)
[2021-05-26] MEDS ORDERED: DEXTROSE 5%-WATER - 50 ML IVPB ONE ×3 (00:22→17:39)
[2021-05-26] MEDS ORDERED: PIPERACILLIN/TAZOBACTAM 3.375 GM VIAL IVPB ONE ×3 (00:22→17:38)
[2021-05-26] MEDS: ACETAMINOPHEN 1000 MG/100 ML BAG IVPB PRN ×3 (00:24→16:25)
[2021-05-26] MEDS: PIPERACILLIN/TAZOB 3.375 GM 3.375 GM in DEXTROSE 5%-WATER - 50 ML IVPB SCH ×3 (00:59→17:43)
[2021-05-26] MEDS: GABAPENTIN 250 MG/5 ML ORAL SOLUTION, 470 ML BOTTLE PO SCH ×3 (05:50→21:08)
[2021-05-26] MEDS: NYSTATIN POWDER 100,000 UNITS/GM - 15 GM TOPICAL POWDER TP SCH ×3 (05:51→21:44)
[2021-05-26] MEDS: INSULIN SLIDING SCALE (NOVOLOG) 1 VIAL SQ SCH ×4 (06:01→21:43)
[2021-05-26 07:30] LABS: BASO % 0.8 % (0-2.0); EOS % 7.3 % (0-4.5); HEMATOCRIT 31.8 % (32.4-45.2); HEMOGLOBIN 9.6 GM/dL (10.7-15.3); LYMPH % 12.4 % (8-40); MCH 22.6 pg (25.7-33.7); MCHC 30.3 g/dl (32.0-36.0); MEAN CELL VOLUME 74.6 fl (80-96); MEAN PLT VOLUME 11.1 fl (7.5-11.1); MONO % 11.3 % (3.8-10.2); NEUT % 68.2 % (42.8-82.8); PLATELET COUNT 200 10^3/uL (134-434); RBC 4.26 M/mm3 (3.60-5.2); RDW 19.4 % (11.6-15.6); WHITE BLOOD COUNT 15.7 K/mm3 (4.0-10.0)
[2021-05-26 08:15] LABS: CALCIUM 8.3 mg/dL (8.5-10.1)
[2021-05-26 08:16] LABS: ALBUMIN 1.9 g/dl (3.4-5.0); BLOOD UREA NITROGEN 34.6 mg/dL (7-18); MAGNESIUM 3.1 mg/dL (1.8-2.4)
[2021-05-26 08:19] LABS: CREATININE 1.9 mg/dL (0.55-1.3); PHOSPHOROUS 2.8 mg/dL (2.5-4.9)
[2021-05-26 08:20] LABS: BILIRUBIN,TOTAL 0.6 mg/dL (0.2-1); TOT PROT 6.4 g/dl (6.4-8.2)
[2021-05-26] MEDS: PANTOPRAZOLE SODIUM 40 MG VIAL IVPUSH SCH (09:59)
[2021-05-26] MEDS: CITALOPRAM HYDROBROMIDE 20 MG TABLET PO SCH (09:59)
[2021-05-26] MEDS: amLODIPine BESYLATE 5 MG TABLET (FP) PO SCH (09:59)
[2021-05-26] MEDS: levETIRAcetam 500 MG/5 ML INJECTION VIAL IVPB SCH ×2 (10:00→21:41)
[2021-05-26] MEDS: RIFAXIMIN 550 MG TABLET PO SCH ×2 (10:00→21:43)
[2021-05-26] MEDS: ARIPiprazole 5 MG TABLET PO SCH (10:00)
[2021-05-26] MEDS: HEPARIN NA (PORCINE) 5,000 UNITS/ML 1ML VIAL SQ SCH ×2 (10:00→21:40)
[2021-05-26] MEDS: AMMONIUM LACTATE 12% LOTION 225 GM BOTTLE TP SCH ×2 (10:01→21:41)
[2021-05-26] MEDS: QUEtiapine FUMARATE 25 MG TABLET PO SCH (10:01)
[2021-05-26] MEDS ORDERED: SODIUM ZIRCONIUM CYCLOSILICATE (LOKELMA) 5 GM PACKET PO ONE (11:00)
[2021-05-26] MEDS: PROPOFOL 1,000,000 MCG/100 ML VIAL IVPB SCH (12:13)
[2021-05-26] MEDS: SENNOSIDES 8.6MG TABLET (FP) PO SCH (21:41)
[2021-05-26] MEDS: INSULIN (LEVEMIR) 100 UNITS/ML UNITS SQ SCH (21:42)
[2021-05-26] MEDS: LATANOPROST 0.005% OPHTH SOLN 2.5ML BOTTLE OU SCH (21:45)
[2021-05-27] MEDS ORDERED: DEXTROSE 5%-WATER - 50 ML IVPB ONE ×2 (00:36→09:10)
[2021-05-27] MEDS ORDERED: PIPERACILLIN/TAZOBACTAM 3.375 GM VIAL IVPB ONE ×2 (00:36→09:10)
[2021-05-27] MEDS: PIPERACILLIN/TAZOB 3.375 GM 3.375 GM in DEXTROSE 5%-WATER - 50 ML IVPB SCH ×2 (01:07→09:13)
[2021-05-27] MEDS: NYSTATIN POWDER 100,000 UNITS/GM - 15 GM TOPICAL POWDER TP SCH ×3 (06:28→21:20)
[2021-05-27] MEDS: GABAPENTIN 250 MG/5 ML ORAL SOLUTION, 470 ML BOTTLE PO SCH ×3 (06:28→21:35)
[2021-05-27] MEDS: INSULIN SLIDING SCALE (NOVOLOG) 1 VIAL SQ SCH ×4 (06:29→21:34)
[2021-05-27 07:29] LABS: BASO % 0.9 % (0-2.0); EOS % 4.8 % (0-4.5); HEMATOCRIT 31.6 % (32.4-45.2); HEMOGLOBIN 9.4 GM/dL (10.7-15.3); LYMPH % 9.4 % (8-40); MCH 22.4 pg (25.7-33.7); MCHC 29.6 g/dl (32.0-36.0); MEAN CELL VOLUME 75.7 fl (80-96); MEAN PLT VOLUME 11.4 fl (7.5-11.1); MONO % 10.7 % (3.8-10.2); NEUT % 74.2 % (42.8-82.8); PLATELET COUNT 186 10^3/uL (134-434); RBC 4.18 M/mm3 (3.60-5.2); RDW 19.5 % (11.6-15.6); WHITE BLOOD COUNT 18.9 K/mm3 (4.0-10.0)
[2021-05-27 07:48] LABS: CALCIUM 8.8 mg/dL (8.5-10.1)
[2021-05-27 07:49] LABS: ALBUMIN 1.9 g/dl (3.4-5.0); BLOOD UREA NITROGEN 29.7 mg/dL (7-18)
[2021-05-27 07:51] LABS: PHOSPHOROUS 2.3 mg/dL (2.5-4.9)
[2021-05-27 07:52] LABS: CREATININE 1.7 mg/dL (0.55-1.3)
[2021-05-27 07:53] LABS: BILIRUBIN,TOTAL 0.7 mg/dL (0.2-1); TOT PROT 6.2 g/dl (6.4-8.2)
[2021-05-27] MEDS ORDERED: VANCOMYCIN PREMIX 1.75 GM 1,750 MG/350 ML PIGGYBACK IVPB ONE (09:00)
[2021-05-27] MEDS: HEPARIN NA (PORCINE) 5,000 UNITS/ML 1ML VIAL SQ SCH ×2 (09:03→21:19)
[2021-05-27] MEDS: ACETAMINOPHEN 1000 MG/100 ML BAG IVPB PRN ×2 (09:03→15:58)
[2021-05-27] MEDS: levETIRAcetam 500 MG/5 ML INJECTION VIAL IVPB SCH ×2 (09:03→21:19)
[2021-05-27] MEDS: QUEtiapine FUMARATE 25 MG TABLET PO SCH (09:04)
[2021-05-27] MEDS: RIFAXIMIN 550 MG TABLET PO SCH ×2 (09:04→21:21)
[2021-05-27] MEDS: CITALOPRAM HYDROBROMIDE 20 MG TABLET PO SCH (09:04)
[2021-05-27] MEDS: amLODIPine BESYLATE 5 MG TABLET (FP) PO SCH (09:04)
[2021-05-27] MEDS: ARIPiprazole 5 MG TABLET PO SCH (09:04)
[2021-05-27] MEDS: AMMONIUM LACTATE 12% LOTION 225 GM BOTTLE TP SCH ×2 (09:07→21:19)
[2021-05-27] MEDS: PANTOPRAZOLE SODIUM 40 MG VIAL IVPUSH SCH (09:14)
[2021-05-27] MEDS ORDERED: SODIUM ZIRCONIUM CYCLOSILICATE (LOKELMA) 5 GM PACKET PO ONE ×2 (11:31→15:11)
[2021-05-27] MEDS ORDERED: cefTRIAXone SODIUM 1 GM VIAL ONE (12:28)
[2021-05-27] MEDS: PROPOFOL 1,000,000 MCG/100 ML VIAL IVPB SCH (12:31)
[2021-05-27] MEDS: CEFTRIAXONE 1 GM in DEXTROSE 5%-WATER - 50 ML IVPB SCH (12:31)
[2021-05-27] MEDS: INSULIN (NOVOLOG) ASPART 100 UNITS/ML 10ML VIAL SQ SCH (15:53)
[2021-05-27] MEDS: IBUPROFEN 800 MG/8 ML IJ IVPB PRN (16:41)
[2021-05-27] MEDS: SENNOSIDES 8.6MG TABLET (FP) PO SCH (21:18)
[2021-05-27] MEDS: LATANOPROST 0.005% OPHTH SOLN 2.5ML BOTTLE OU SCH (21:21)
[2021-05-27] MEDS: INSULIN (LEVEMIR) 100 UNITS/ML UNITS SQ SCH (21:22)
[2021-05-27] MEDS: ACETAMINOPHEN 650 MG/20.3 ML ORAL SOLUTION (CUPS) PO PRN (21:38)
[2021-05-28] MEDS: IBUPROFEN 800 MG/8 ML IJ IVPB PRN (02:35)
[2021-05-28] MEDS: HEPARIN NA (PORCINE) 5,000 UNITS/ML 1ML VIAL SQ SCH ×3 (06:02→21:20)
[2021-05-28] MEDS: NYSTATIN POWDER 100,000 UNITS/GM - 15 GM TOPICAL POWDER TP SCH ×3 (06:03→21:28)
[2021-05-28] MEDS: GABAPENTIN 250 MG/5 ML ORAL SOLUTION, 470 ML BOTTLE PO SCH ×3 (06:03→21:19)
[2021-05-28] MEDS: INSULIN SLIDING SCALE (NOVOLOG) 1 VIAL SQ SCH ×4 (06:33→21:29)
[2021-05-28] MEDS: INSULIN (NOVOLOG) ASPART 100 UNITS/ML 10ML VIAL SQ SCH ×4 (06:34→17:01)
[2021-05-28 08:08] LABS: CALCIUM 8.3 mg/dL (8.5-10.1)
[2021-05-28 08:09] LABS: BLOOD UREA NITROGEN 39.6 mg/dL (7-18); MAGNESIUM 3.1 mg/dL (1.8-2.4)
[2021-05-28 08:10] LABS: HEMATOCRIT 30.6 % (32.4-45.2); HEMOGLOBIN 8.6 GM/dL (10.7-15.3); MCH 21.4 pg (25.7-33.7); MEAN CELL VOLUME 76.5 fl (80-96); MEAN PLT VOLUME 11.9 fl (7.5-11.1); PLATELET COUNT 177 10^3/uL (134-434); RDW 19.7 % (11.6-15.6); WHITE BLOOD COUNT 23.2 K/mm3 (4.0-10.0)
[2021-05-28 08:11] LABS: CREATININE 2.4 mg/dL (0.55-1.3); PHOSPHOROUS 3.5 mg/dL (2.5-4.9)
[2021-05-28 08:13] LABS: BILIRUBIN,TOTAL 0.7 mg/dL (0.2-1)
[2021-05-28] MEDS ORDERED: SODIUM ZIRCONIUM CYCLOSILICATE (LOKELMA) 5 GM PACKET PO ONE (08:45)
[2021-05-28] MEDS ORDERED: cefTRIAXone SODIUM 1 GM VIAL ONE (09:27)
[2021-05-28] MEDS ORDERED: DEXTROSE 5%-WATER - 50 ML IVPB ONE (09:28)
[2021-05-28 09:48] LABS: ANISOCYTOSIS 1+; MACROCYTOSIS 0; TEAR DROP CELLS 0
[2021-05-28] MEDS: ARIPiprazole 5 MG TABLET PO SCH (10:13)
[2021-05-28] MEDS: CEFTRIAXONE 1 GM in DEXTROSE 5%-WATER - 50 ML IVPB SCH (10:13)
[2021-05-28] MEDS: amLODIPine BESYLATE 5 MG TABLET (FP) PO SCH (10:14)
[2021-05-28] MEDS: levETIRAcetam 500 MG/5 ML INJECTION VIAL IVPB SCH ×2 (10:14→21:19)
[2021-05-28] MEDS: QUEtiapine FUMARATE 25 MG TABLET PO SCH (10:14)
[2021-05-28] MEDS: CITALOPRAM HYDROBROMIDE 20 MG TABLET PO SCH (10:14)
[2021-05-28] MEDS: RIFAXIMIN 550 MG TABLET PO SCH ×2 (10:14→21:19)
[2021-05-28] MEDS: AMMONIUM LACTATE 12% LOTION 225 GM BOTTLE TP SCH ×2 (10:14→21:19)
[2021-05-28] MEDS: PANTOPRAZOLE SODIUM 40 MG VIAL IVPUSH SCH (10:25)
[2021-05-28] MEDS: PROPOFOL 1,000,000 MCG/100 ML VIAL IVPB SCH (11:38)
[2021-05-28] MEDS ORDERED: DEXTROSE 5%-WATER 100 ML IVPB ONE ×2 (11:39→16:34)
[2021-05-28] MEDS ORDERED: MEROPENEM 500 MG VIAL (RESTRICTED TO ID) IVPB ONE ×2 (11:39→16:34)
[2021-05-28] MEDS: MEROPENEM 500 MG in DEXTROSE 5%-WATER 100 ML IVPB SCH ×2 (11:43→17:02)
[2021-05-28] MEDS ORDERED: VANCOMYCIN/WATER FOR INJ (PEG) 1,000 MG/200 ML BAG IVPB ONE (12:00)
[2021-05-28] MEDS: SENNOSIDES 8.6MG TABLET (FP) PO SCH (21:16)
[2021-05-28] MEDS: LATANOPROST 0.005% OPHTH SOLN 2.5ML BOTTLE OU SCH (21:19)
[2021-05-28] MEDS: INSULIN (LEVEMIR) 100 UNITS/ML UNITS SQ SCH (21:26)
[2021-05-29] MEDS ORDERED: DEXTROSE 5%-WATER 100 ML IVPB ONE ×3 (01:16→17:15)
[2021-05-29] MEDS ORDERED: MEROPENEM 500 MG VIAL (RESTRICTED TO ID) IVPB ONE ×3 (01:16→17:15)
[2021-05-29] MEDS: MEROPENEM 500 MG in DEXTROSE 5%-WATER 100 ML IVPB SCH ×3 (01:18→17:47)
[2021-05-29] MEDS: ACETAMINOPHEN 650 MG/20.3 ML ORAL SOLUTION (CUPS) PO PRN (02:35)
[2021-05-29] MEDS: HEPARIN NA (PORCINE) 5,000 UNITS/ML 1ML VIAL SQ SCH ×3 (06:01→21:36)
[2021-05-29] MEDS: NYSTATIN POWDER 100,000 UNITS/GM - 15 GM TOPICAL POWDER TP SCH ×3 (06:02→21:38)
[2021-05-29] MEDS: GABAPENTIN 250 MG/5 ML ORAL SOLUTION, 470 ML BOTTLE PO SCH ×3 (06:02→21:37)
[2021-05-29] MEDS: INSULIN SLIDING SCALE (NOVOLOG) 1 VIAL SQ SCH ×4 (06:03→21:50)
[2021-05-29] MEDS: INSULIN (NOVOLOG) ASPART 100 UNITS/ML 10ML VIAL SQ SCH ×3 (06:03→17:47)
[2021-05-29 07:16] LABS: BLOOD UREA NITROGEN 42.6 mg/dL (7-18); CALCIUM 8.3 mg/dL (8.5-10.1); MAGNESIUM 3.3 mg/dL (1.8-2.4)
[2021-05-29 07:19] LABS: PHOSPHOROUS 3.1 mg/dL (2.5-4.9)
[2021-05-29 07:21] LABS: BILIRUBIN,TOTAL 0.5 mg/dL (0.2-1); TOT PROT 6.1 g/dl (6.4-8.2)
[2021-05-29 08:10] LABS: BASO % 0.7 % (0-2.0); HEMATOCRIT 29.9 % (32.4-45.2); HEMOGLOBIN 8.8 GM/dL (10.7-15.3); MCH 22.3 pg (25.7-33.7); MCHC 29.4 g/dl (32.0-36.0); MEAN CELL VOLUME 75.7 fl (80-96); MEAN PLT VOLUME 11.6 fl (7.5-11.1); MONO % 10.6 % (3.8-10.2); NEUT % 74.7 % (42.8-82.8); PLATELET COUNT 150 10^3/uL (134-434); RBC 3.94 M/mm3 (3.60-5.2); RDW 19.6 % (11.6-15.6); WHITE BLOOD COUNT 14.9 K/mm3 (4.0-10.0)
[2021-05-29] MEDS: LACTULOSE 20 GM/30 ML UDC (FOR ORAL USE ONLY) NGT SCH ×3 (09:03→21:36)
[2021-05-29] MEDS: PANTOPRAZOLE SODIUM 40 MG VIAL IVPUSH SCH (09:03)
[2021-05-29] MEDS: levETIRAcetam 500 MG/5 ML INJECTION VIAL IVPB SCH ×2 (09:03→21:36)
[2021-05-29] MEDS: ARIPiprazole 5 MG TABLET PO SCH (09:04)
[2021-05-29] MEDS: amLODIPine BESYLATE 5 MG TABLET (FP) PO SCH (09:04)
[2021-05-29] MEDS: QUEtiapine FUMARATE 25 MG TABLET PO SCH (09:04)
[2021-05-29] MEDS: CITALOPRAM HYDROBROMIDE 20 MG TABLET PO SCH (09:04)
[2021-05-29] MEDS: RIFAXIMIN 550 MG TABLET PO SCH ×2 (09:04→21:37)
[2021-05-29] MEDS: AMMONIUM LACTATE 12% LOTION 225 GM BOTTLE TP SCH ×2 (09:05→21:36)
[2021-05-29] MEDS: PROPOFOL 1,000,000 MCG/100 ML VIAL IVPB SCH (11:31)
[2021-05-29] MEDS: INSULIN (LEVEMIR) 100 UNITS/ML UNITS SQ SCH (21:36)
[2021-05-29] MEDS: SENNOSIDES 8.6MG TABLET (FP) PO SCH (21:36)
[2021-05-29] MEDS: LATANOPROST 0.005% OPHTH SOLN 2.5ML BOTTLE OU SCH (21:37)
[2021-05-30] MEDS ORDERED: DEXTROSE 5%-WATER 100 ML IVPB ONE ×4 (00:03→20:17)
[2021-05-30] MEDS ORDERED: MEROPENEM 500 MG VIAL (RESTRICTED TO ID) IVPB ONE ×4 (00:03→20:17)
[2021-05-30] MEDS: MEROPENEM 500 MG in DEXTROSE 5%-WATER 100 ML IVPB SCH ×3 (01:20→17:53)
[2021-05-30] MEDS: ACETAMINOPHEN 650 MG/20.3 ML ORAL SOLUTION (CUPS) PO PRN (02:13)
[2021-05-30] MEDS: HEPARIN NA (PORCINE) 5,000 UNITS/ML 1ML VIAL SQ SCH ×3 (05:06→21:03)
[2021-05-30] MEDS: LACTULOSE 20 GM/30 ML UDC (FOR ORAL USE ONLY) NGT SCH ×3 (05:07→21:03)
[2021-05-30] MEDS: NYSTATIN POWDER 100,000 UNITS/GM - 15 GM TOPICAL POWDER TP SCH ×3 (05:07→21:03)
[2021-05-30] MEDS: GABAPENTIN 250 MG/5 ML ORAL SOLUTION, 470 ML BOTTLE PO SCH ×3 (05:07→21:03)
[2021-05-30] MEDS: INSULIN SLIDING SCALE (NOVOLOG) 1 VIAL SQ SCH ×4 (06:00→21:04)
[2021-05-30] MEDS: INSULIN (NOVOLOG) ASPART 100 UNITS/ML 10ML VIAL SQ SCH ×3 (06:00→16:45)
[2021-05-30] MEDS ORDERED: VANCOMYCIN/WATER FOR INJ (PEG) 1,000 MG/200 ML BAG IVPB SCH (07:00)
[2021-05-30 07:23] LABS: HEMOGLOBIN 8.2 GM/dL (10.7-15.3); RDW 19.4 % (11.6-15.6)
[2021-05-30 07:28] LABS: BASO % 0.9 % (0-2.0); EOS % 5.6 % (0-4.5); HEMATOCRIT 28.4 % (32.4-45.2); LYMPH % 9.6 % (8-40); MCH 22.2 pg (25.7-33.7); MCHC 28.9 g/dl (32.0-36.0); MEAN CELL VOLUME 76.7 fl (80-96); MEAN PLT VOLUME 11.6 fl (7.5-11.1); MONO % 8.2 % (3.8-10.2); NEUT % 75.7 % (42.8-82.8); PLATELET COUNT 169 10^3/uL (134-434); WHITE BLOOD COUNT 13.9 K/mm3 (4.0-10.0)
[2021-05-30 07:38] LABS: CALCIUM 8.3 mg/dL (8.5-10.1)
[2021-05-30 07:39] LABS: ALBUMIN 1.9 g/dl (3.4-5.0); BLOOD UREA NITROGEN 35.4 mg/dL (7-18); MAGNESIUM 3.2 mg/dL (1.8-2.4)
[2021-05-30 07:42] LABS: CREATININE 1.6 mg/dL (0.55-1.3); PHOSPHOROUS 2.3 mg/dL (2.5-4.9)
[2021-05-30 07:43] LABS: BILIRUBIN,TOTAL 0.5 mg/dL (0.2-1)
[2021-05-30] MEDS: ARIPiprazole 5 MG TABLET PO SCH (09:31)
[2021-05-30] MEDS: levETIRAcetam 500 MG/5 ML INJECTION VIAL IVPB SCH ×2 (09:32→21:03)
[2021-05-30] MEDS: CITALOPRAM HYDROBROMIDE 20 MG TABLET PO SCH (09:32)
[2021-05-30] MEDS: AMMONIUM LACTATE 12% LOTION 225 GM BOTTLE TP SCH ×2 (09:36→21:03)
[2021-05-30] MEDS: amLODIPine BESYLATE 5 MG TABLET (FP) PO SCH (09:38)
[2021-05-30] MEDS: PANTOPRAZOLE SODIUM 40 MG VIAL IVPUSH SCH (09:38)
[2021-05-30] MEDS: QUEtiapine FUMARATE 25 MG TABLET PO SCH (09:42)
[2021-05-30] MEDS: RIFAXIMIN 550 MG TABLET PO SCH ×2 (09:42→21:04)
[2021-05-30] MEDS: PROPOFOL 1,000,000 MCG/100 ML VIAL IVPB SCH (11:30)
[2021-05-30] MEDS: DEXTROSE 5%-WATER - 1,000 ML IV SCH (13:07)
[2021-05-30] MEDS ORDERED: ACETAMINOPHEN 1000 MG/100 ML BAG IVPB PRN (20:12)
[2021-05-30] MEDS: SENNOSIDES 8.6MG TABLET (FP) PO SCH (20:26)
[2021-05-30] MEDS: LATANOPROST 0.005% OPHTH SOLN 2.5ML BOTTLE OU SCH (21:04)
[2021-05-30] MEDS: INSULIN (LEVEMIR) 100 UNITS/ML UNITS SQ SCH (21:04)
[2021-05-31] MEDS: MEROPENEM 500 MG in DEXTROSE 5%-WATER 100 ML IVPB SCH ×3 (02:00→17:34)
[2021-05-31] MEDS ORDERED: VANCOMYCIN/WATER FOR INJ (PEG) 1,000 MG/200 ML BAG IVPB SCH (07:00)
[2021-05-31] MEDS: HEPARIN NA (PORCINE) 5,000 UNITS/ML 1ML VIAL SQ SCH ×3 (07:46→21:07)
[2021-05-31] MEDS: LACTULOSE 20 GM/30 ML UDC (FOR ORAL USE ONLY) NGT SCH ×3 (07:46→21:07)
[2021-05-31] MEDS: NYSTATIN POWDER 100,000 UNITS/GM - 15 GM TOPICAL POWDER TP SCH ×3 (07:46→21:09)
[2021-05-31] MEDS: GABAPENTIN 250 MG/5 ML ORAL SOLUTION, 470 ML BOTTLE PO SCH ×3 (07:46→21:08)
[2021-05-31] MEDS: INSULIN (NOVOLOG) ASPART 100 UNITS/ML 10ML VIAL SQ SCH ×3 (07:50→17:30)
[2021-05-31] MEDS: INSULIN SLIDING SCALE (NOVOLOG) 1 VIAL SQ SCH ×4 (07:51→21:09)
[2021-05-31] MEDS ORDERED: MEROPENEM 500 MG VIAL (RESTRICTED TO ID) IVPB ONE ×2 (09:25→17:19)
[2021-05-31] MEDS ORDERED: DEXTROSE 5%-WATER 100 ML IVPB ONE ×2 (09:25→17:20)
[2021-05-31] MEDS: ARIPiprazole 5 MG TABLET PO SCH (09:38)
[2021-05-31] MEDS: CITALOPRAM HYDROBROMIDE 20 MG TABLET PO SCH (09:39)
[2021-05-31] MEDS: levETIRAcetam 500 MG/5 ML INJECTION VIAL IVPB SCH ×2 (09:39→21:08)
[2021-05-31] MEDS: AMMONIUM LACTATE 12% LOTION 225 GM BOTTLE TP SCH ×2 (09:42→21:08)
[2021-05-31] MEDS: amLODIPine BESYLATE 5 MG TABLET (FP) PO SCH (09:44)
[2021-05-31] MEDS: PANTOPRAZOLE SODIUM 40 MG VIAL IVPUSH SCH (09:45)
[2021-05-31] MEDS: QUEtiapine FUMARATE 25 MG TABLET PO SCH (09:47)
[2021-05-31] MEDS: RIFAXIMIN 550 MG TABLET PO SCH ×2 (09:47→21:10)
[2021-05-31] MEDS: PROPOFOL 1,000,000 MCG/100 ML VIAL IVPB SCH ×3 (10:58→22:47)
[2021-05-31] MEDS: DEXTROSE 5%-WATER - 1,000 ML IV SCH (11:15)
[2021-05-31] MEDS: VANCOMYCIN/WATER FOR INJ (PEG) 1,000 MG/200 ML BAG IVPB SCH (15:17)
[2021-05-31 15:22] LABS: BASO % 1.1 % (0-2.0); EOS % 5.9 % (0-4.5); HEMATOCRIT 27.9 % (32.4-45.2); HEMOGLOBIN 8.3 GM/dL (10.7-15.3); LYMPH % 12.2 % (8-40); MCH 22.5 pg (25.7-33.7); MCHC 29.8 g/dl (32.0-36.0); MEAN CELL VOLUME 75.4 fl (80-96); MEAN PLT VOLUME 11.2 fl (7.5-11.1); MONO % 9.9 % (3.8-10.2); NEUT % 70.9 % (42.8-82.8); PLATELET COUNT 174 10^3/uL (134-434); RBC 3.69 M/mm3 (3.60-5.2); RDW 19.1 % (11.6-15.6); WHITE BLOOD COUNT 13.1 K/mm3 (4.0-10.0)
[2021-05-31 15:38] LABS: ALBUMIN 1.9 g/dl (3.4-5.0); BLOOD UREA NITROGEN 27.6 mg/dL (7-18); CALCIUM 8.4 mg/dL (8.5-10.1); MAGNESIUM 2.8 mg/dL (1.8-2.4)
[2021-05-31 15:41] LABS: CREATININE 1.4 mg/dL (0.55-1.3)
[2021-05-31 15:43] LABS: BILIRUBIN,TOTAL 0.3 mg/dL (0.2-1)
[2021-05-31] MEDS: SENNOSIDES 8.6MG TABLET (FP) PO SCH (20:41)
[2021-05-31] MEDS: CHLORHEXIDINE GLUCONATE 4% CLEANSER FOR DECOLONIZATION TP SCH (21:07)
[2021-05-31] MEDS: MUPIROCIN 2% TOPICAL OINTMENT FOR DECOLONIZATION NS SCH (21:07)
[2021-05-31] MEDS: INSULIN (LEVEMIR) 100 UNITS/ML UNITS SQ SCH (21:08)
[2021-05-31] MEDS: LATANOPROST 0.005% OPHTH SOLN 2.5ML BOTTLE OU SCH (21:09)
[2021-06-01] MEDS ORDERED: MEROPENEM 500 MG VIAL (RESTRICTED TO ID) IVPB ONE ×3 (00:52→17:07)
[2021-06-01] MEDS ORDERED: DEXTROSE 5%-WATER 100 ML IVPB ONE ×3 (00:52→17:08)
[2021-06-01] MEDS: MEROPENEM 500 MG in DEXTROSE 5%-WATER 100 ML IVPB SCH ×3 (01:06→18:42)
[2021-06-01] MEDS: NYSTATIN POWDER 100,000 UNITS/GM - 15 GM TOPICAL POWDER TP SCH ×3 (05:19→22:14)
[2021-06-01] MEDS: HEPARIN NA (PORCINE) 5,000 UNITS/ML 1ML VIAL SQ SCH ×3 (05:20→22:13)
[2021-06-01] MEDS: GABAPENTIN 250 MG/5 ML ORAL SOLUTION, 470 ML BOTTLE PO SCH ×3 (05:20→22:49)
[2021-06-01] MEDS: LACTULOSE 20 GM/30 ML UDC (FOR ORAL USE ONLY) NGT SCH ×3 (05:20→21:44)
[2021-06-01] MEDS: INSULIN (NOVOLOG) ASPART 100 UNITS/ML 10ML VIAL SQ SCH ×3 (06:21→17:05)
[2021-06-01] MEDS: INSULIN SLIDING SCALE (NOVOLOG) 1 VIAL SQ SCH ×4 (06:21→22:49)
[2021-06-01 07:16] LABS: ALBUMIN 1.9 g/dl (3.4-5.0); BLOOD UREA NITROGEN 25.4 mg/dL (7-18); CALCIUM 8.5 mg/dL (8.5-10.1); MAGNESIUM 2.8 mg/dL (1.8-2.4)
[2021-06-01 07:19] LABS: CREATININE 1.4 mg/dL (0.55-1.3); PHOSPHOROUS 2.4 mg/dL (2.5-4.9)
[2021-06-01 07:20] LABS: TOT PROT 5.9 g/dl (6.4-8.2)
[2021-06-01 07:21] LABS: BILIRUBIN,TOTAL 0.4 mg/dL (0.2-1)
[2021-06-01 07:45] LABS: HEMATOCRIT 28.8 % (32.4-45.2); HEMOGLOBIN 8.3 GM/dL (10.7-15.3); MCH 22.3 pg (25.7-33.7); MEAN CELL VOLUME 77.1 fl (80-96); MEAN PLT VOLUME 11.4 fl (7.5-11.1); PLATELET COUNT 188 10^3/uL (134-434); RBC 3.73 M/mm3 (3.60-5.2); RDW 19.5 % (11.6-15.6); WHITE BLOOD COUNT 13.4 K/mm3 (4.0-10.0)
[2021-06-01] MEDS: PROPOFOL 1,000,000 MCG/100 ML VIAL IVPB SCH ×2 (08:20→19:25)
[2021-06-01] MEDS: ARIPiprazole 5 MG TABLET PO SCH (09:46)
[2021-06-01] MEDS: MUPIROCIN 2% TOPICAL OINTMENT FOR DECOLONIZATION NS SCH ×2 (09:47→22:13)
[2021-06-01] MEDS: CITALOPRAM HYDROBROMIDE 20 MG TABLET PO SCH (09:48)
[2021-06-01] MEDS: levETIRAcetam 500 MG/5 ML INJECTION VIAL IVPB SCH ×2 (09:49→22:13)
[2021-06-01] MEDS: AMMONIUM LACTATE 12% LOTION 225 GM BOTTLE TP SCH ×2 (09:52→22:13)
[2021-06-01] MEDS: amLODIPine BESYLATE 5 MG TABLET (FP) PO SCH (09:54)
[2021-06-01] MEDS: PANTOPRAZOLE SODIUM 40 MG VIAL IVPUSH SCH (09:54)
[2021-06-01] MEDS: RIFAXIMIN 550 MG TABLET PO SCH ×2 (09:56→22:13)
[2021-06-01] MEDS: QUEtiapine FUMARATE 25 MG TABLET PO SCH (09:56)
[2021-06-01 10:07] LABS: ANISOCYTOSIS 2+; MACROCYTOSIS 1+; OVALOCYTE 1+
[2021-06-01] MEDS: VANCOMYCIN 250 MG/5 ML ORAL SOLUTION PO SCH ×3 (12:45→23:16)
[2021-06-01] MEDS: DEXTROSE 5%-WATER - 1,000 ML IV SCH (12:46)
[2021-06-01] MEDS: VANCOMYCIN/WATER FOR INJ (PEG) 1,000 MG/200 ML BAG IVPB SCH (16:50)
[2021-06-01] MEDS: SENNOSIDES 8.6MG TABLET (FP) PO SCH (20:42)
[2021-06-01] MEDS: CHLORHEXIDINE GLUCONATE 4% CLEANSER FOR DECOLONIZATION TP SCH (22:13)
[2021-06-01] MEDS: LATANOPROST 0.005% OPHTH SOLN 2.5ML BOTTLE OU SCH (22:14)
[2021-06-01] MEDS ORDERED: INSULIN (LEVEMIR) 100 UNITS/ML UNITS SQ ONE (22:44)
[2021-06-01] MEDS: INSULIN (LEVEMIR) 100 UNITS/ML UNITS SQ SCH (22:49)
[2021-06-02] MEDS ORDERED: MEROPENEM 500 MG VIAL (RESTRICTED TO ID) IVPB ONE (01:28)
[2021-06-02] MEDS ORDERED: DEXTROSE 5%-WATER 100 ML IVPB ONE (01:29)
[2021-06-02] MEDS: MEROPENEM 500 MG in DEXTROSE 5%-WATER 100 ML IVPB SCH ×3 (01:46→17:18)
[2021-06-02] MEDS: LACTULOSE 20 GM/30 ML UDC (FOR ORAL USE ONLY) NGT SCH ×3 (06:45→21:48)
[2021-06-02] MEDS: NYSTATIN POWDER 100,000 UNITS/GM - 15 GM TOPICAL POWDER TP SCH ×3 (06:46→21:49)
[2021-06-02] MEDS: HEPARIN NA (PORCINE) 5,000 UNITS/ML 1ML VIAL SQ SCH ×3 (06:54→21:53)
[2021-06-02] MEDS: GABAPENTIN 250 MG/5 ML ORAL SOLUTION, 470 ML BOTTLE PO SCH ×3 (06:54→21:49)
[2021-06-02] MEDS: VANCOMYCIN 250 MG/5 ML ORAL SOLUTION PO SCH ×3 (06:55→17:18)
[2021-06-02] MEDS: INSULIN (NOVOLOG) ASPART 100 UNITS/ML 10ML VIAL SQ SCH ×3 (07:02→17:16)
[2021-06-02] MEDS: INSULIN SLIDING SCALE (NOVOLOG) 1 VIAL SQ SCH ×4 (07:03→22:07)
[2021-06-02 07:35] LABS: HEMOGLOBIN 8.1 GM/dL (10.7-15.3); MCH 22.2 pg (25.7-33.7); MEAN CELL VOLUME 76.6 fl (80-96); MEAN PLT VOLUME 10.8 fl (7.5-11.1); PLATELET COUNT 182 10^3/uL (134-434); RBC 3.66 M/mm3 (3.60-5.2); RDW 19.5 % (11.6-15.6); WHITE BLOOD COUNT 12.9 K/mm3 (4.0-10.0)
[2021-06-02 07:41] LABS: ALBUMIN 1.8 g/dl (3.4-5.0); CALCIUM 8.3 mg/dL (8.5-10.1); MAGNESIUM 2.3 mg/dL (1.8-2.4)
[2021-06-02 07:44] LABS: CREATININE 1.2 mg/dL (0.55-1.3); PHOSPHOROUS 2.9 mg/dL (2.5-4.9)
[2021-06-02 07:46] LABS: BILIRUBIN,TOTAL 0.3 mg/dL (0.2-1); TOT PROT 5.6 g/dl (6.4-8.2)
[2021-06-02 09:26] LABS: ANISOCYTOSIS 3+; MACROCYTOSIS 0
[2021-06-02] MEDS ORDERED: FUROSEMIDE 40 MG/4 ML INJECTABLE VIAL IVPUSH ONE (10:15)
[2021-06-02] MEDS ORDERED: RAPID SEQUENCE INTUBATION KIT NR ONE (10:20)
[2021-06-02] MEDS: ARIPiprazole 5 MG TABLET PO SCH (11:12)
[2021-06-02] MEDS: CITALOPRAM HYDROBROMIDE 20 MG TABLET PO SCH (11:13)
[2021-06-02] MEDS: MUPIROCIN 2% TOPICAL OINTMENT FOR DECOLONIZATION NS SCH ×2 (11:13→21:48)
[2021-06-02] MEDS: amLODIPine BESYLATE 10 MG TABLET (FP) PO SCH (11:16)
[2021-06-02] MEDS: levETIRAcetam 500 MG/5 ML INJECTION VIAL IVPB SCH ×2 (11:16→21:54)
[2021-06-02] MEDS: AMMONIUM LACTATE 12% LOTION 225 GM BOTTLE TP SCH ×2 (11:16→21:48)
[2021-06-02] MEDS: PANTOPRAZOLE SODIUM 40 MG VIAL IVPUSH SCH (11:16)
[2021-06-02] MEDS: QUEtiapine FUMARATE 25 MG TABLET PO SCH (11:17)
[2021-06-02] MEDS: RIFAXIMIN 550 MG TABLET PO SCH ×2 (11:17→21:49)
[2021-06-02] MEDS: DEXTROSE 5%-WATER - 1,000 ML IV SCH (11:47)
[2021-06-02] MEDS: PROPOFOL 1,000,000 MCG/100 ML VIAL IVPB SCH (13:36)
[2021-06-02] MEDS: VANCOMYCIN/WATER FOR INJ (PEG) 1,000 MG/200 ML BAG IVPB SCH (16:17)
[2021-06-02] MEDS: SENNOSIDES 8.6MG TABLET (FP) PO SCH (21:48)
[2021-06-02] MEDS: CHLORHEXIDINE GLUCONATE 4% CLEANSER FOR DECOLONIZATION TP SCH (21:48)
[2021-06-02] MEDS: LATANOPROST 0.005% OPHTH SOLN 2.5ML BOTTLE OU SCH (21:49)
[2021-06-02] MEDS: INSULIN (LEVEMIR) 100 UNITS/ML UNITS SQ SCH (22:07)
[2021-06-03] MEDS: VANCOMYCIN 250 MG/5 ML ORAL SOLUTION PO SCH ×3 (01:03→12:00)
[2021-06-03] MEDS ORDERED: MEROPENEM 500 MG VIAL (RESTRICTED TO ID) IVPB ONE ×3 (01:33→18:47)
[2021-06-03] MEDS ORDERED: DEXTROSE 5%-WATER 100 ML IVPB ONE ×3 (01:33→18:47)
[2021-06-03] MEDS: MEROPENEM 500 MG in DEXTROSE 5%-WATER 100 ML IVPB SCH ×3 (02:05→18:59)
[2021-06-03] MEDS: LACTULOSE 20 GM/30 ML UDC (FOR ORAL USE ONLY) NGT SCH (05:54)
[2021-06-03] MEDS: GABAPENTIN 250 MG/5 ML ORAL SOLUTION, 470 ML BOTTLE PO SCH (05:54)
[2021-06-03] MEDS: HEPARIN NA (PORCINE) 5,000 UNITS/ML 1ML VIAL SQ SCH (06:20)
[2021-06-03] MEDS: NYSTATIN POWDER 100,000 UNITS/GM - 15 GM TOPICAL POWDER TP SCH ×3 (06:21→21:49)
[2021-06-03] MEDS: INSULIN (NOVOLOG) ASPART 100 UNITS/ML 10ML VIAL SQ SCH ×2 (06:21→11:06)
[2021-06-03] MEDS: INSULIN SLIDING SCALE (NOVOLOG) 1 VIAL SQ SCH ×4 (06:21→21:57)
[2021-06-03 07:05] LABS: HEMATOCRIT 26.5 % (32.4-45.2); HEMOGLOBIN 8.1 GM/dL (10.7-15.3); MCH 22.6 pg (25.7-33.7); MCHC 30.4 g/dl (32.0-36.0); MEAN CELL VOLUME 74.3 fl (80-96); PLATELET COUNT 201 10^3/uL (134-434); RBC 3.56 M/mm3 (3.60-5.2); RDW 19.4 % (11.6-15.6); WHITE BLOOD COUNT 14.3 K/mm3 (4.0-10.0)
[2021-06-03 07:24] LABS: CALCIUM 8.1 mg/dL (8.5-10.1)
[2021-06-03 07:25] LABS: ALBUMIN 1.5 g/dl (3.4-5.0)
[2021-06-03 07:28] LABS: CREATININE 1.6 mg/dL (0.55-1.3); PHOSPHOROUS 1.3 mg/dL (2.5-4.9)
[2021-06-03 07:29] LABS: BILIRUBIN,TOTAL 0.5 mg/dL (0.2-1); TOT PROT 5.3 g/dl (6.4-8.2)
[2021-06-03 08:31] LABS: ANISOCYTOSIS 3+; MACROCYTOSIS 0; PLATELET ESTIMATE NORMAL
[2021-06-03] MEDS ORDERED: SODIUM PHOSPHATE - 30 MM in SODIUM CHLORIDE 250 ML IVPB ONE (10:00)
[2021-06-03] MEDS: levETIRAcetam 500 MG/5 ML INJECTION VIAL IVPB SCH ×2 (10:35→21:49)
[2021-06-03] MEDS: ARIPiprazole 5 MG TABLET PO SCH (10:35)
[2021-06-03] MEDS: CITALOPRAM HYDROBROMIDE 20 MG TABLET PO SCH (10:35)
[2021-06-03] MEDS: AMMONIUM LACTATE 12% LOTION 225 GM BOTTLE TP SCH ×2 (10:35→21:49)
[2021-06-03] MEDS: MUPIROCIN 2% TOPICAL OINTMENT FOR DECOLONIZATION NS SCH ×2 (10:35→21:49)
[2021-06-03] MEDS: amLODIPine BESYLATE 10 MG TABLET (FP) PO SCH (10:35)
[2021-06-03] MEDS: RIFAXIMIN 550 MG TABLET PO SCH (10:35)
[2021-06-03] MEDS: QUEtiapine FUMARATE 25 MG TABLET PO SCH (10:35)
[2021-06-03] MEDS: PANTOPRAZOLE SODIUM 40 MG VIAL IVPUSH SCH (11:05)
[2021-06-03] MEDS: PROPOFOL 1,000,000 MCG/100 ML VIAL IVPB SCH (11:30)
[2021-06-03] MEDS ORDERED: MORPHINE 100 MG/100 ML MG ONE (12:01)
[2021-06-03] MEDS: MORPHINE SULFATE/0.9% NACL/PF 100 MG/100 ML BAG IVPB SCH (12:44)
[2021-06-03] MEDS: DEXTROSE 5%-WATER - 1,000 ML IV SCH (12:46)
[2021-06-03] MEDS: SODIUM CHLORIDE 1,000 ML IV SCH (13:00)
[2021-06-03] MEDS: VANCOMYCIN/WATER FOR INJ (PEG) 1,000 MG/200 ML BAG IVPB SCH (14:09)
[2021-06-03] MEDS ORDERED: LACTATED RINGERS SOLUTION 1000 ML INFUS.BAG IV ONE (15:19)
[2021-06-03] MEDS ORDERED: SODIUM CHLORIDE 0.9% 500 ML INFUS.BAG IV ONE (16:14)
[2021-06-03] MEDS: LATANOPROST 0.005% OPHTH SOLN 2.5ML BOTTLE OU SCH (21:49)
[2021-06-03] MEDS: CHLORHEXIDINE GLUCONATE 4% CLEANSER FOR DECOLONIZATION TP SCH (21:49)
[2021-06-03] MEDS: INSULIN (LEVEMIR) 100 UNITS/ML UNITS SQ SCH (21:57)
[2021-06-04] MEDS ORDERED: MEROPENEM 500 MG VIAL (RESTRICTED TO ID) IVPB ONE ×3 (01:24→17:23)
[2021-06-04] MEDS ORDERED: DEXTROSE 5%-WATER 100 ML IVPB ONE ×3 (01:25→17:23)
[2021-06-04] MEDS: MEROPENEM 500 MG in DEXTROSE 5%-WATER 100 ML IVPB SCH ×3 (03:03→17:25)
[2021-06-04] MEDS: NYSTATIN POWDER 100,000 UNITS/GM - 15 GM TOPICAL POWDER TP SCH ×3 (05:31→22:32)
[2021-06-04] MEDS: INSULIN SLIDING SCALE (NOVOLOG) 1 VIAL SQ SCH ×4 (06:13→23:10)
[2021-06-04] MEDS: MUPIROCIN 2% TOPICAL OINTMENT FOR DECOLONIZATION NS SCH ×2 (09:54→22:31)
[2021-06-04] MEDS: levETIRAcetam 500 MG/5 ML INJECTION VIAL IVPB SCH ×2 (09:54→22:31)
[2021-06-04] MEDS: ENOXAPARIN NA (PORCINE) 40 MG/0.4 ML DISP.SYRIN SQ SCH (09:55)
[2021-06-04] MEDS: AMMONIUM LACTATE 12% LOTION 225 GM BOTTLE TP SCH ×2 (09:55→22:31)
[2021-06-04] MEDS ORDERED: MORPHINE SULFATE/0.9% NACL/PF 100 MG/100 ML BAG IVPB SCH (10:02)
[2021-06-04] MEDS: MORPHINE SULFATE/0.9% NACL/PF 100 MG/100 ML BAG IVPB SCH ×2 (10:04→10:15)
[2021-06-04] MEDS: PROPOFOL 1,000,000 MCG/100 ML VIAL IVPB SCH (11:30)
[2021-06-04] MEDS: SODIUM CHLORIDE 1,000 ML IV SCH (13:15)
[2021-06-04] MEDS: VANCOMYCIN/WATER FOR INJ (PEG) 1,000 MG/200 ML BAG IVPB SCH (15:07)
[2021-06-04] MEDS: CHLORHEXIDINE GLUCONATE 4% CLEANSER FOR DECOLONIZATION TP SCH (22:31)
[2021-06-04] MEDS: LATANOPROST 0.005% OPHTH SOLN 2.5ML BOTTLE OU SCH (22:32)
[2021-06-04] MEDS: INSULIN (LEVEMIR) 100 UNITS/ML UNITS SQ SCH (23:10)
[2021-06-05] MEDS ORDERED: DEXTROSE 50%-WATER - 25 GM/50 ML VIAL IVPUSH PRN (01:01)
[2021-06-05] MEDS ORDERED: MEROPENEM 500 MG VIAL (RESTRICTED TO ID) IVPB ONE ×4 (01:49→20:53)
[2021-06-05] MEDS ORDERED: DEXTROSE 5%-WATER 100 ML IVPB ONE ×4 (01:50→20:53)
[2021-06-05] MEDS: MEROPENEM 500 MG in DEXTROSE 5%-WATER 100 ML IVPB SCH ×3 (02:11→17:32)
[2021-06-05] MEDS: INSULIN SLIDING SCALE (NOVOLOG) 1 VIAL SQ SCH ×4 (06:38→21:01)
[2021-06-05] MEDS: NYSTATIN POWDER 100,000 UNITS/GM - 15 GM TOPICAL POWDER TP SCH ×3 (06:38→21:01)
[2021-06-05] MEDS: levETIRAcetam 500 MG/5 ML INJECTION VIAL IVPB SCH ×2 (09:42→21:00)
[2021-06-05] MEDS: MUPIROCIN 2% TOPICAL OINTMENT FOR DECOLONIZATION NS SCH (09:42)
[2021-06-05] MEDS: ENOXAPARIN NA (PORCINE) 40 MG/0.4 ML DISP.SYRIN SQ SCH (09:42)
[2021-06-05] MEDS: AMMONIUM LACTATE 12% LOTION 225 GM BOTTLE TP SCH ×2 (09:42→21:00)
[2021-06-05] MEDS ORDERED: MORPHINE 100 MG/100 ML MG ONE (11:12)
[2021-06-05] MEDS: MORPHINE SULFATE/0.9% NACL/PF 100 MG/100 ML BAG IVPB SCH (11:19)
[2021-06-05] MEDS: VANCOMYCIN/WATER FOR INJ (PEG) 1,000 MG/200 ML BAG IVPB SCH (14:49)
[2021-06-05] MEDS: PROPOFOL 1,000,000 MCG/100 ML VIAL IVPB SCH (15:00)
[2021-06-05] MEDS: SODIUM CHLORIDE 1,000 ML IV SCH (17:07)
[2021-06-05] MEDS: CHLORHEXIDINE GLUCONATE 4% CLEANSER FOR DECOLONIZATION TP SCH (21:00)
[2021-06-05] MEDS: INSULIN (LEVEMIR) 100 UNITS/ML UNITS SQ SCH (21:01)
[2021-06-05] MEDS: LATANOPROST 0.005% OPHTH SOLN 2.5ML BOTTLE OU SCH (21:02)
[2021-06-06] MEDS: MEROPENEM 500 MG in DEXTROSE 5%-WATER 100 ML IVPB SCH ×3 (02:20→18:14)
[2021-06-06] MEDS: NYSTATIN POWDER 100,000 UNITS/GM - 15 GM TOPICAL POWDER TP SCH ×3 (05:39→21:01)
[2021-06-06] MEDS: INSULIN SLIDING SCALE (NOVOLOG) 1 VIAL SQ SCH ×4 (07:30→22:10)
[2021-06-06] MEDS ORDERED: DEXTROSE 5%-WATER 100 ML IVPB ONE ×2 (09:09→14:46)
[2021-06-06] MEDS ORDERED: MEROPENEM 500 MG VIAL (RESTRICTED TO ID) IVPB ONE ×2 (09:09→14:46)
[2021-06-06] MEDS: DEXTROSE 5%-NORMAL SALINE 1,000 ML IV SCH (09:17)
[2021-06-06] MEDS: ENOXAPARIN NA (PORCINE) 40 MG/0.4 ML DISP.SYRIN SQ SCH (09:18)
[2021-06-06] MEDS: PROPOFOL 1,000,000 MCG/100 ML VIAL IVPB SCH ×2 (09:18→14:50)
[2021-06-06] MEDS: levETIRAcetam 500 MG/5 ML INJECTION VIAL IVPB SCH ×2 (09:18→21:00)
[2021-06-06] MEDS: AMMONIUM LACTATE 12% LOTION 225 GM BOTTLE TP SCH ×2 (09:20→21:01)
[2021-06-06] MEDS ORDERED: MORPHINE 100 MG/100 ML MG ONE (11:48)
[2021-06-06] MEDS: MORPHINE SULFATE/0.9% NACL/PF 100 MG/100 ML BAG IVPB SCH (14:00)
[2021-06-06] MEDS: VANCOMYCIN/WATER FOR INJ (PEG) 1,000 MG/200 ML BAG IVPB SCH (14:50)
[2021-06-06] MEDS: CHLORHEXIDINE GLUCONATE 4% CLEANSER FOR DECOLONIZATION TP SCH (21:00)
[2021-06-06] MEDS: LATANOPROST 0.005% OPHTH SOLN 2.5ML BOTTLE OU SCH (21:01)
[2021-06-07] MEDS ORDERED: DEXTROSE 5%-WATER 100 ML IVPB ONE ×2 (01:09→09:13)
[2021-06-07] MEDS ORDERED: MEROPENEM 500 MG VIAL (RESTRICTED TO ID) IVPB ONE ×2 (01:09→09:13)
[2021-06-07] MEDS: MEROPENEM 500 MG in DEXTROSE 5%-WATER 100 ML IVPB SCH ×2 (02:16→09:17)
[2021-06-07] MEDS: INSULIN SLIDING SCALE (NOVOLOG) 1 VIAL SQ SCH ×3 (06:46→16:43)
[2021-06-07] MEDS: NYSTATIN POWDER 100,000 UNITS/GM - 15 GM TOPICAL POWDER TP SCH ×2 (06:46→14:19)
[2021-06-07 08:24] VITALS: TEMP 97.5
[2021-06-07] MEDS: levETIRAcetam 500 MG/5 ML INJECTION VIAL IVPB SCH (09:18)
[2021-06-07] MEDS: ENOXAPARIN NA (PORCINE) 40 MG/0.4 ML DISP.SYRIN SQ SCH (09:18)
[2021-06-07] MEDS: AMMONIUM LACTATE 12% LOTION 225 GM BOTTLE TP SCH (09:18)
[2021-06-07 12:28] VITALS: BP 83/47; PULSE 45
[2021-06-07] MEDS ORDERED: morphine CARPU-JECT 2 MG/1 ML DISP.SYRIN IVPUSH PRN (13:33)
[2021-06-07] MEDS ORDERED: morphine SULFATE 4 MG/ML VIAL ONE (13:44)
[2021-06-07] MEDS ORDERED: morphine SULFATE 4 MG/ML VIAL IVPUSH ONE (14:00)
[2021-06-07] MEDS: DEXTROSE 5%-NORMAL SALINE 1,000 ML IV SCH (14:13)
[2021-06-07] MEDS: PROPOFOL 1,000,000 MCG/100 ML VIAL IVPB SCH (16:43)
== END 2021-06-07 19:10 | disposition expired | DRG 870 ==
LOC: JER 23:32 → JERBED 05-15 04:06 → JICU 05-15 06:30
PROVIDERS: ADMIT Family Medicine; ATTEND Family Medicine
PROC: 5A1955Z Respiratory Ventilation, Greater than 96 Consecutive Hours (ICD-10-PCS; principal; 2021-05-15)
PROC: 0BH17EZ Insertion of Endotracheal Airway into Trachea, Via Natural or Artificial Opening (ICD-10-PCS; 2021-05-15)
PROC: 5A1955Z Respiratory Ventilation, Greater than 96 Consecutive Hours (ICD-10-PCS; 2021-06-02)
PROC: 0BH17EZ Insertion of Endotracheal Airway into Trachea, Via Natural or Artificial Opening (ICD-10-PCS; 2021-06-02)
DX: A41.9 Sepsis, unspecified organism (principal); J69.0 Pneumonitis due to inhalation of food and vomit; J96.21 Acute and chronic respiratory failure with hypoxia; J96.22 Acute and chronic respiratory failure with hypercapnia; E87.2 Acidosis; J44.1 Chronic obstructive pulmonary disease with (acute) exacerbation; N17.9 Acute kidney failure, unspecified; Z68.42 Body mass index [BMI] 45.0-49.9, adult; E87.0 Hyperosmolality and hypernatremia; A04.72 Enterocolitis due to Clostridium difficile, not specified as recurrent; F03.90 Unspecified dementia, unspecified severity, without behavioral disturbance, psychotic disturbance, mood disturbance, and anxiety; Z79.4 Long term (current) use of insulin; E66.01 Morbid (severe) obesity due to excess calories; F31.9 Bipolar disorder, unspecified; Z89.612 Acquired absence of left leg above knee; F20.9 Schizophrenia, unspecified; E11.51 Type 2 diabetes mellitus with diabetic peripheral angiopathy without gangrene; B19.20 Unspecified viral hepatitis C without hepatic coma; K74.60 Unspecified cirrhosis of liver; E87.5 Hyperkalemia; R47.1 Dysarthria and anarthria; G40.909 Epilepsy, unspecified, not intractable, without status epilepticus; I12.9 Hypertensive chronic kidney disease with stage 1 through stage 4 chronic kidney disease, or unspecified chronic kidney disease; E11.22 Type 2 diabetes mellitus with diabetic chronic kidney disease; N18.9 Chronic kidney disease, unspecified; Z86.718 Personal history of other venous thrombosis and embolism; K72.90 Hepatic failure, unspecified without coma; I73.9 Peripheral vascular disease, unspecified
CPT/HCPCS: 31500; 36415; 36600; 71045-TC-FY; 74019-TC-FY; 80048; 80053; 80177; 82140; 82272; 82553; 82728; 82803; 82962; 83540; 83550; 83605; 83735; 83880; 84100; 84443; 84484; 85025; 85027; 85610; 85730; 86850; 86900; 86901; 87040; 87045; 87046; 87070; 87077; 87086; 87186; 87205; 87324; 87449; 93005; 93010; 94002; 94640; 99285-25; C9803-CS; G0480; J1644; J3370; U0003; U0005